=== PATIENT | female | born 1935 | race African-American/Black ===

== ENCOUNTER 2018-01-09 13:45 | Inpatient (IN) | payer MEDICARE, OTHER ==
[~2018-01-09] VITALS: Ht 165.1 cm; Wt 75.3 kg
[~2018-01-09 13:45] MED LIST: ACETAMINOPHEN650 M2 ORAL; ALLOPURINOL100 M1 ORAL; AMARYL1 MG ORAL; AMARYL1 MG PO; AMBIEN10 MG PO; AMBIEN5 MG ORAL; ASPIR-LOW81 MG PO; ATROPINE 1% LEFT EYE; COLACE100 MG ORAL; COLACE100 MG PO; COUMADIN5 MG ORAL; COUMADIN5 MG PO; CYCLOMYDRIL EYE5 ML OP; DIAMOX250 MG ORAL; DIAMOX250 MG PO; EYE LEFT EYE; FOLIC ACID1 MG ORAL; FOLIC ACID1 MG PO; FUROSEMIDE40 MG ORAL; HYDROCODON-ACE1 EAC4 ORAL; KLOR-CON20 MEQ PO; LANTUS5 UNITS *; LASIX40 MG PO; LEVAQUIN500 MG ORAL; LEVEMIR FL100 UNIT/1 SUBQ; LOPRESSOR100 MG PO; LOPRESSOR25 M1 ORAL; LORATADINE10 M1 PO; MICARDIS80 MG PO; NEPHROVITE1 TAB ORAL; NEPHROVITE1 TAB PO; NEXIUM40 MG ORAL; NEXIUM40 MG PO; NORCO 5-325 TA1 EAC1 ORAL; NORVASC10 MG PO; PRAVACHOL20 MG ORAL; PRAVASTATIN SOD80 MG PO; PREDNISOLONE ACE5 ML LEFT EYE; PROMETHAZINE-C118 M1 ORAL; PROTONIX40 MG ORAL; TUSSIN100 MG/51 PO; VICODIN ES 7.51 EACH PO; VIT D2; WARFARIN SODIUM1 MG ORAL; XARELTO10 MG ORAL; ZYLOPRIM300 MG PO; ZYRTEC10 MG PO
[2018-01-09] MEDS ORDERED: Surgicel 4in x 8in TOPIC ONE (13:49)
[2018-01-09 14:00] VITALS: BP 124/72
[2018-01-09 16:00] VITALS: BP 150/79
[2018-01-09] MEDS ORDERED: Tranexamic Acid 1,000 MG in NS 55 ML IVPB ONE (16:00)
[2018-01-09 16:24] LABS: ANION GAP 11 mmol/L (5-15); BLOOD UREA NITROGEN 89 mg/dL (7-18); CALCIUM 8.7 MG/DL (8.5-10.1); CARBON DIOXIDE 32 MMOL/L (21-32); CHLORIDE 100 MMOL/L (98-107); CREATININE 2.4 MG/DL (0.55-1.30); POTASSIUM 2.9 MMOL/L (3.5-5.1); SODIUM 143 MMOL/L (136-145)
[2018-01-09 16:29] LABS: ALANINE AMINOTRANSFERASE 16 U/L (12-78); ALBUMIN 2.9 G/DL (3.4-5.0); ALBUMIN/GLOBULIN RATIO 0.6 (1.0-2.7); ALKALINE PHOSPHATASE 95 U/L (46-116); ASPARTATE AMINO TRANSFERASE 40 U/L (15-37)
[2018-01-09 16:34] LABS: BASOPHILS % (AUTO) 0.7 % (0.0-2.0); EOSINOPHILS % (AUTO) 1.9 % (0.0-3.0); HEMATOCRIT 36.7 % (37.0-47.0); HEMOGLOBIN 11.8 G/DL (12.0-16.0); LYMPHOCYTES % (AUTO) 15.6 % (20.0-45.0); MEAN CORPUSCULAR VOLUME 89 FL (80-99); MONOCYTES % (AUTO) 7.3 % (1.0-10.0); NEUTROPHILS % (AUTO) 74.5 % (45.0-75.0); PLATELET COUNT 178 K/UL (150-450); RED BLOOD COUNT 4.11 M/UL (4.20-5.40); RED CELL DISTRIBUTION WIDTH 16.6 % (11.6-14.8); WHITE BLOOD COUNT 10.6 K/UL (4.8-10.8)
[2018-01-09 16:52] LABS: INR 5.2 (0.9-1.1)
--- NOTE | 2018-01-09 18:14 | Emergency Room Report ---
History of Present Illness General Chief Complaint: General Complaint Source: EMS Present Illness HPI Patient is a 82-year-old female presented after increased bleeding from a tongue laceration. Patient stated that she did not recall how injury occurred. Patient is chronically anticoagulated with Coumadin. Patient was sent in from shelter. The patient reported having bitten her tongue. She was noted to have continued bleeding from the side of her wound. Patient is followed by Dr. Goss. Allergies: Coded Allergies: No Known Allergies (Unverified , 08/29/12) Patient History Reviewed Nursing Documentation: PMH: Agreed, PSxH: Agreed Nursing Documentation-PMH Past Medical History: No History, Except For Hx Cardiac Problems: Yes - AFIB, CHF, ANEMIA Hx Hypertension: Yes Hx Pacemaker: No Hx Asthma: No Hx COPD: No Hx Diabetes: Yes Hx Cancer: No - RA Hx Gastrointestinal Problems: No Hx Dialysis: No Hx Cerebrovascular Accident: Yes Hx Seizures: No Hx Paralysis: No Hx Weakness: Yes - LEFT Hx Neurologic Surgery: No Hx Brain Shunt: No Review of Systems All Other Systems: negative except mentioned in HPI Physical Exam Vital Signs Date Time Temp Pulse Resp B/P (MAP) Pulse Ox O2 Delivery O2 Flow Rate FiO2 01/09/18 13:38 98.2 81 20 124/72 96 Room Air 98.2 Sp02 EP Interpretation: reviewed, normal General Appearance: normal inspection, well appearing, no apparent distress, alert, Chronically Ill Head: atraumatic ENT: normal ENT inspection, hearing grossly normal, normal voice, other Neck: normal inspection, full range of motion, supple, no bony tend Respiratory: normal inspection, lungs clear, normal breath sounds, no respiratory distress, no retraction, no wheezing Cardiovascular #1: regular rate, rhythm, no edema Gastrointestinal: normal inspection, normal bowel sounds, non tender, soft, no guarding, no hernia Genitourinary: no CVA tenderness Musculoskeletal: normal inspection, back normal, normal range of motion Neurologic: normal inspection, alert, responsive, speech normal Psychiatric: normal inspection, judgement/insight normal, mood/affect normal Skin: normal inspection, normal color, no rash Medical Decision Making Diagnostic Impression: Primary Impression: Atrial fibrillation Additional Impression: Coagulopathy ER Course Patient is an 82-year-old female presented for tongue bleeding.Because of complexity of patient's case laboratory testing and imaging studies were ordered. Patient Surgicel was initially applied to the patient's tongue without any improvement in bleeding. Patient was given tranexamic acid topically applied to the wound with some improvement in bleeding. The patient was noted to have elevated INR. The patient is anticoagulated due to atrial fibrillation. The patient's Coumadin dose needs to be held. Patient's laboratory testing was discussed with her primary care physician Dr. Goss. Labs Test 01/09/18 15:45 01/09/18 16:00 White Blood Count 10.6 K/UL (4.8-10.8) Red Blood Count 4.11 M/UL (4.20-5.40) Hemoglobin 11.8 G/DL (12.0-16.0) Hematocrit 36.7 % (37.0-47.0) Mean Corpuscular Volume 89 FL (80-99) Mean Corpuscular Hemoglobin 28.8 PG (27.0-31.0) Mean Corpuscular Hemoglobin Concent 32.2 G/DL (32.0-36.0) Red Cell Distribution Width 16.6 % (11.6-14.8) Platelet Count 178 K/UL (150-450) Mean Platelet Volume 7.8 FL (6.5-10.1) Neutrophils (%) (Auto) 74.5 % (45.0-75.0) Lymphocytes (%) (Auto) 15.6 % (20.0-45.0) Monocytes (%) (Auto) 7.3 % (1.0-10.0) Eosinophils (%) (Auto) 1.9 % (0.0-3.0) Basophils (%) (Auto) 0.7 % (0.0-2.0) Sodium Level 143 MMOL/L (136-145) Potassium Level 2.9 MMOL/L (3.5-5.1) Chloride Level 100 MMOL/L (98-107) Carbon Dioxide Level 32 MMOL/L (21-32) Anion Gap 11 mmol/L (5-15) Blood Urea Nitrogen 89 mg/dL (7-18) Creatinine 2.4 MG/DL (0.55-1.30) Estimat Glomerular Filtration Rate mL/min (>60) Glucose Level 144 MG/DL (74-106) Calcium Level 8.7 MG/DL (8.5-10.1) Total Bilirubin 1.0 MG/DL (0.2-1.0) Aspartate Amino Transf (AST/SGOT) 40 U/L (15-37) Alanine Aminotransferase (ALT/SGPT) 16 U/L (12-78) Alkaline Phosphatase 95 U/L (46-116) Total Protein 7.4 G/DL (6.4-8.2) Albumin 2.9 G/DL (3.4-5.0) Globulin 4.5 g/dL Albumin/Globulin Ratio 0.6 (1.0-2.7) Prothrombin Time 55.0 SEC (9.30-11.50) Prothromb Time International Ratio 5.2 (0.9-1.1) Activated Partial Thromboplast Time 58 SEC (23-33) Last Vital Signs Date Time Temp Pulse Resp B/P (MAP) Pulse Ox O2 Delivery O2 Flow Rate FiO2 01/09/18 14:00 98.2 75 20 124/72 96 Room Air 98.2 Status: unchanged Disposition: ADMITTED INPATIENT Condition: Serious Referrals: Azucena Goss MD (PCP) Wayne Tello Jan 09, 2018 18:14
[2018-01-09 18:51] LABS: APPEARANCE,URINE CLEAR; BILIRUBIN, URINE NEGATIVE (NEGATIVE); COLOR,URINE PALE YELLOW; GLUCOSE, URINE (UA) NEGATIVE (NEGATIVE); KETONES,URINE NEGATIVE (NEGATIVE); LEUKOCYTE ESTERASE ,URINE NEGATIVE (NEGATIVE); NITRITE,URINE NEGATIVE (NEGATIVE); PH,URINE 6 (4.5-8.0); PROTEIN,URINE 3+ (NEGATIVE); UROBILINOGEN,URINE NORMAL MG/DL (0.0-1.0)
--- NOTE | 2018-01-09 19:28 | Consultation ---
Consult Note Consult Note asked to eval for renal failure Patient is a 82-year-old female presented after increased bleeding from a tongue laceration. Patient stated that she did not recall how injury occurred. Patient is chronically anticoagulated with Coumadin. Patient was sent in from longterm. The patient reported having bitten her tongue. She was noted to have continued bleeding from the side of her wound. Patient is followed by Dr. Goss. Hx Cardiac Problems: Yes - AFIB, CHF, ANEMIA Hx Hypertension: Yes Hx Diabetes: Yes Hx Cancer: No - RA Hx Cerebrovascular Accident: Yes Hx Weakness: Yes - LEFT examined data reviewed Assessment/Plan Renal failure - Pre renal picture- Anemia At Fib chronic on coumadin Elevated INR Left eye blind' HTN Gout High Chol CAD CHF Slow hydrate K sypplement monitor INR ENT eval keep bp in check per orders SUGEY PETERSON Jan 09, 2018 19:28
[2018-01-09 19:30] VITALS: BP 145/78
[2018-01-09] MEDS ORDERED: HydrALAZINE 25mg tab ORAL PRN (19:30)
[2018-01-09 20:40] VITALS: BP 148/74
[2018-01-09 21:00] VITALS: BP 136/84
[2018-01-09] MEDS ORDERED: Zolpidem 5mg tab ORAL PRN (21:00)
[2018-01-09] MEDS: Metoprolol 25mg tab ORAL SCH (22:15)
[2018-01-10] VITALS: BP 131/65
[2018-01-10 04:00] VITALS: BP 121/61
[2018-01-10] MEDS: NovoLOG Insulin Flexpen SUBQ SCH ×4 (06:52→20:21)
[2018-01-10 08:01] VITALS: BP 136/76
[2018-01-10] MEDS: Metoprolol 25mg tab ORAL SCH ×2 (08:03→20:23)
[2018-01-10] MEDS: Allopurinol 100mg Tab ORAL SCH (08:03)
[2018-01-10] MEDS: Docusate 100mg cap ORAL SCH ×3 (08:03→17:59)
[2018-01-10 08:17] LABS: INR 3.8 (0.9-1.1)
[2018-01-10 08:41] LABS: ALANINE AMINOTRANSFERASE 15 U/L (12-78); ALBUMIN 2.6 G/DL (3.4-5.0); ALBUMIN/GLOBULIN RATIO 0.6 (1.0-2.7); ALKALINE PHOSPHATASE 86 U/L (46-116); ANION GAP 10 mmol/L (5-15); ASPARTATE AMINO TRANSFERASE 24 U/L (15-37); BASOPHILS % (AUTO) 0.8 % (0.0-2.0); BILIRUBIN,TOTAL 1.1 MG/DL (0.2-1.0); BLOOD UREA NITROGEN 80 mg/dL (7-18); CALCIUM 8.6 MG/DL (8.5-10.1); CARBON DIOXIDE 32 MMOL/L (21-32); CHLORIDE 103 MMOL/L (98-107); CHOLESTEROL 108 MG/DL (< 200); CREATININE 2.2 MG/DL (0.55-1.30); EOSINOPHILS % (AUTO) 2.2 % (0.0-3.0); FERRITIN 248 NG/ML (8-388); GAMMA GLUTAMYL TRANSPEPTIDASE 21 U/L (5-85); HDL CHOLESTEROL 52 MG/DL (40-60); HEMATOCRIT 36.2 % (37.0-47.0); HEMOGLOBIN 11.2 G/DL (12.0-16.0); LYMPHOCYTES % (AUTO) 14.8 % (20.0-45.0); MEAN CORPUSCULAR VOLUME 91 FL (80-99); MONOCYTES % (AUTO) 8.9 % (1.0-10.0); NEUTROPHILS % (AUTO) 73.3 % (45.0-75.0); PHOSPHORUS 3.5 MG/DL (2.5-4.9); PLATELET COUNT 164 K/UL (150-450); RED BLOOD COUNT 3.99 M/UL (4.20-5.40); RED CELL DISTRIBUTION WIDTH 17.2 % (11.6-14.8); SODIUM 145 MMOL/L (136-145); TRIGLYCERIDES 60 MG/DL (30-150)
[2018-01-10 09:03] LABS: POTASSIUM 2.6 MMOL/L (3.5-5.1)
[2018-01-10 09:04] LABS: BILIRUBIN,DIRECT 0.3 MG/DL (0.0-0.3)
[2018-01-10 09:21] LABS: % IRON SATURATION 26 % (15-50); IRON 51 ug/dL (50-175); TOTAL IRON BINDING CAPACITY 195 ug/dL (250-450)
--- NOTE | 2018-01-10 09:57 | General Progress Note ---
Progress Note Progress Note HNS/ENT Initial consult Note dictated No bleeding for many hours as coagulopathy has been normalized. Per ENT-OK to go home Nurse is aware-we spoke. AZAR RASMUSSEN Jan 10, 2018 09:57
[2018-01-10] MEDS ORDERED: Potassium Chloride 40 MEQ in Sodium Chloride 500ML 550 ML IVPB ONE (10:30)
--- NOTE | 2018-01-10 11:20 | Nephrology Progress Note ---
Assessment/Plan Problem List: (1) Acute renal failure (ARF) (2) Coagulopathy Assessment Renal failure - Pre renal picture- Anemia At Fib chronic on coumadin Elevated INR, lowering Left eye blind' HTN Gout High Chol CAD CHF Plan Slow hydrate K supplement monitor INR ENT eval keep bp in check per orders Subjective ROS Limited/Unobtainable: No Constitutional: Reports: malaise Objective Objective Last 24 Hour Vital Signs Date Time Temp Pulse Resp B/P (MAP) Pulse Ox O2 Delivery O2 Flow Rate FiO2 01/10/18 08:03 95 136/76 01/10/18 08:02 95 136/76 01/10/18 08:01 97.7 95 18 136/76 96 Room Air 97.7 01/10/18 07:44 94 01/10/18 04:00 98.1 90 18 121/61 96 Room Air 98.1 01/10/18 04:00 80 01/10/18 00:00 86 01/10/18 00:00 97.7 82 22 131/65 98 Room Air 97.7 01/09/18 22:15 101 136/84 01/09/18 21:00 98.2 101 20 136/84 97 Room Air 98.2 01/09/18 20:59 87 01/09/18 20:50 98.4 79 17 148/74 96 Room Air 98.4 01/09/18 20:40 98.4 79 17 148/74 96 Room Air 98.4 01/09/18 19:30 84 19 145/78 97 Room Air 01/09/18 16:00 98.6 89 20 150/79 95 Room Air 98.6 01/09/18 14:00 98.2 75 20 124/72 96 Room Air 98.2 01/09/18 13:38 98.2 81 20 124/72 96 Room Air 98.2 Intake and Output 01/09/18 01/10/18 19:00 07:00 Intake Total 0 ml 280 ml Balance 0 ml 280 ml Intake Oral 0 ml 100 ml IV Total 180 ml # Voids 20 Laboratory Tests 01/09/18 15:45: White Blood Count 10.6, Red Blood Count 4.11L, Hemoglobin 11.8L, Hematocrit 36.7L, Mean Corpuscular Volume 89, Mean Corpuscular Hemoglobin 28.8, Mean Corpuscular Hemoglobin Concent 32.2, Red Cell Distribution Width 16.6H, Platelet Count 178, Mean Platelet Volume 7.8, Neutrophils (%) (Auto) 74.5, Lymphocytes (%) (Auto) 15.6L, Monocytes (%) (Auto) 7.3, Eosinophils (%) (Auto) 1.9, Basophils (%) (Auto) 0.7, Sodium Level 143, Potassium Level 2.9L, Chloride Level 100, Carbon Dioxide Level 32, Anion Gap 11, Blood Urea Nitrogen 89H, Creatinine 2.4H, Estimat Glomerular Filtration Rate , Glucose Level 144H, Calcium Level 8.7, Total Bilirubin 1.0, Aspartate Amino Transf (AST/SGOT) 40H, Alanine Aminotransferase (ALT/SGPT) 16, Alkaline Phosphatase 95, Total Protein 7.4, Albumin 2.9L, Globulin 4.5, Albumin/Globulin Ratio 0.6L 01/09/18 16:00: Prothrombin Time 55.0H, Prothromb Time International Ratio 5.2*H, Activated Partial Thromboplast Time 58H 01/09/18 18:35: Urine Color Pale yellow, Urine Appearance Clear, Urine pH 6, Urine Specific [place] 1.010, Urine Protein 3+H, Urine Glucose (UA) Negative, Urine Ketones Negative, Urine Occult Blood Negative, Urine Nitrite Negative, Urine Bilirubin Negative, Urine Urobilinogen Normal, Urine Leukocyte Esterase Negative, Urine RBC 0-2, Urine WBC 2-4, Urine Squamous Epithelial Cells Few, Urine Bacteria Few , Urine Yeast FewH 01/10/18 06:57: White Blood Count 10.0, Red Blood Count 3.99L, Hemoglobin 11.2L, Hematocrit 36.2L, Mean Corpuscular Volume 91, Mean Corpuscular Hemoglobin 28.1, Mean Corpuscular Hemoglobin Concent 30.9L, Red Cell Distribution Width 17.2H, Platelet Count 164, Mean Platelet Volume 8.8, Neutrophils (%) (Auto) 73.3, Lymphocytes (%) (Auto) 14.8L, Monocytes (%) (Auto) 8.9, Eosinophils (%) (Auto) 2.2, Basophils (%) (Auto) 0.8, Sodium Level 145, Potassium Level 2.6*L, Chloride Level 103, Carbon Dioxide Level 32, Anion Gap 10, Blood Urea Nitrogen 80H, Creatinine 2.2H, Estimat Glomerular Filtration Rate , Glucose Level 134H, Calcium Level 8.6, Total Bilirubin 1.1H, Aspartate Amino Transf (AST/SGOT) 24, Alanine Aminotransferase (ALT/SGPT) 15, Alkaline Phosphatase 86, Total Protein 6.8, Albumin 2.6L, Globulin 4.2, Albumin/Globulin Ratio 0.6L, Prothrombin Time 40.3H, Prothromb Time International Ratio 3.8H, Activated Partial Thromboplast Time 54H, Hemoglobin A1c 6.8H, Uric Acid 5.6, Phosphorus Level 3.5, Magnesium Level 1.6L, Iron Level 51, Total Iron Binding Capacity 195L, Percent Iron Saturation 26, Unsaturated Iron Binding 144, Ferritin 248, Direct Bilirubin 0.3 , Gamma Glutamyl Transpeptidase 21, Pro-B-Type Natriuretic Peptide 4307H, Triglycerides Level 60, Cholesterol Level 108, LDL Cholesterol 55, HDL Cholesterol 52, Cholesterol/HDL Ratio 2.1L, Vitamin B12 Level 1566H, Folate 89.6H, Thyroid Stimulating Hormone (TSH) 1.244 Height (Feet): 5 Height (Inches): 5.00 Weight (Pounds): 166 General Appearance: no apparent distress Cardiovascular: tachycardia Respiratory/Chest: decreased breath sounds Abdomen: soft Objective no change SUGEY PETERSON Jan 10, 2018 11:20
--- NOTE | 2018-01-10 12:00 | Consultation ---
DATE OF CONSULTATION: 01/10/2018 HEAD AND NECK SURGERY/ENT CONSULTATION REQUESTING PHYSICIAN: Azucena Goss M.D. CONSULTING PHYSICIAN: Behzad Alegria M.D. INDICATION FOR CONSULTATION: This is an 82-year-old female, who had tongue bleeding, admitted to the ER last night with an INR of 5.5 and a potassium of 2.2, both of which have been corrected. PAST MEDICAL HISTORY: Atrial fibrillation, congestive heart failure, and anemia. She did have a cerebrovascular accident. SURGICAL HISTORY: Unknown. MEDICATIONS: Include potassium, allopurinol, Norvasc, Colace, Protonix, NovoLog, Fields, Tylenol, dextrose, Lopressor, Pravachol, Ambien, Apresoline, and tranexamic acid. ALLERGIES: No known drug allergies. PHYSICAL EXAMINATION: VITAL SIGNS: Height 161.1 cm, weight 75.296 kg, and BMI 27.6. HEENT: Ears, ear canal and tympanic membrane normal. Eyes, PERRLA, EOMI. Nose, normal. Mouth, she is missing a tooth on the left, looks like her second molar and there was a small cut that is scabbed over the moment on her tongue, which I suspect is where the bleeding was coming from. I do not see any other sites. She is speaking well. NECK: No palpable masses. ASSESSMENT: Coagulopathy and tongue hemorrhage, controlled. PLAN: From an ENT viewpoint, she can be discharged. Just has to control the coagulopathy by controlling her Coumadin and it appears that Dr. Goss, is already is on this as well as controlling her potassium. Thank you very much for asking my opinion in the care and treatment of this patient. Behzad Alegria M.D. : MARILU JOB#: [id number] CC:
[2018-01-10 12:16] VITALS: BP 122/60
--- NOTE | 2018-01-10 16:09 | GI Initial Consult Note ---
KeishaBerna Franck N.P. 01/10/18 1609: History of Present Illness General Date patient seen: Jan 10, 2018 Time patient seen: 16:00 Reason for Hospitalization: General Complaint Referring physician: BENNY GOSS Reason for Consultation: GI BLEED Present Illness HPI Patient is a 82-year-old female presented after increased bleeding from a tongue laceration. Patient stated that she did not recall how injury occurred. Patient is chronically anticoagulated with Coumadin. Patient was sent in from shelter. The patient reported having bitten her tongue. She was noted to have continued bleeding from the side of her wound. Patient is followed by Dr. Goss. GI consulted for reports of black tarry stools, r/o GI bleed. Pt seen, awake A &Ox4 NAD with no active s/sx of of N/V/D. Per patient, she had bitten her tongue and had excessive bleeding that would not stop. Assessed the patient to note no active bleeding inside her mouth. She presents today with supratherapeutic INR, anemia, electrolyte imbalance and hypoalbuminemia. Denies any abdominal pain. Denies any N/V/D. Home Meds Active Scripts Docusate Sodium* (COLACE*) 100 Mg Capsule, 100 MG ORAL THREE TIMES A DAY, #30 CAP 0 Refills Prov:NA MCPHERSON DDiegoODiego 09/06/13 Reported Medications Insulin Detemir (LEVEMIR FLEXPEN) 100 Unit/1 Ml Insuln.pen, 0 SUBQ, #300 UNITS 0 Refills 03/24/16 Hydrocodone Bit/Acetaminophen 5-325* (NORCO 5-325 TABLET*) 1 Each Tablet, 1 TAB ORAL Q4H PRN for For Pain, TAB 03/24/16 Esomeprazole Magnesium (NEXIUM) 40 Mg Capsule.dr, 40 MG ORAL DAILY, CAP 03/24/16 Vitamin B Cmplx/Vit C/Folic AC (Nephro-Sean Tablet) 1 Tab Tab, 1 TAB ORAL DAILY , #30 TAB 0 Refills 03/24/16 Loratadine (LORATADINE) 10 Mg Tab.rapdis, 10 MG PO, TAB 03/24/16 Metoprolol Tartrate (Metoprolol Tartrate) 25 Mg Tab, 100 MG ORAL EVERY 12 HOURS , TAB 03/24/16 Furosemide* (LASIX*) 40 Mg Tablet, 40 MG ORAL DAILY, TAB 03/24/16 Folic Acid* (FOLIC ACID*) 1 Mg Tablet, 1 MG ORAL DAILY, TAB 03/24/16 Acetazolamide (Acetazolamide) 250 Mg Tab, 500 MG ORAL FOUR TIMES A DAY, TAB 03/24/16 Warfarin Sod* (COUMADIN*) 5 Mg Tablet, 5 MG ORAL DAILY, TAB 03/24/16 Glimepiride* (AMARYL*) 1 Mg Tablet, 2 MG ORAL ACBREAKFAST, TAB 03/24/16 Codeine/Promethazine Hcl* (PROMETHAZINE-CODEINE SYRUP*) 118 Ml Syrup, 5 ML ORAL Q6H PRN for For Cough, ML 0 Refills 03/12/15 Pravastatin Sod* (PRAVACHOL*) 20 Mg Tablet, 40 MG ORAL BEDTIME, TAB 03/12/15 Pantoprazole* (PROTONIX*) 40 Mg Tablet.dr, 40 MG ORAL DAILY, TAB 03/12/15 Levofloxacin* (LEVAQUIN*) 500 Mg Tablet, 500 MG ORAL DAILY, TAB 03/12/15 Allopurinol* (ALLOPURINOL*) 100 Mg Tablet, 200 MG ORAL DAILY, TAB 03/12/15 Acetaminophen (Acetaminophen 8 Hour) 650 Mg Tablet, 650 MG ORAL Q4HR PRN for prn , TAB 03/12/15 Rivaroxaban (XARELTO*) 10 Mg Tablet, 15 MG ORAL DAILY, #30 TAB 0 Refills 03/12/15 Zolpidem Tartrate* (AMBIEN*) 5 Mg Tablet, 5 MG ORAL BEDTIME PRN for Insomnia, TAB 03/12/15 [Vit D2] No Conflict Check 09/06/13 Amlodipine Besylate (Norvasc) 10 Mg Tab, 10 MG PO DAILY, TAB Take 1 tablet by mouth every day. 08/29/12 Prednisolone Acetate (PREDNISOLONE ACETATE) 5 Ml Drops.susp, 1 DROP LEFT EYE 4XDAY 08/29/12 Metoprolol Tartrate* (METOPROLOL TARTRATE*) 100 Mg Tablet, 100 MG PO BID, TAB Take 1 tablet by mouth every 12 hours. 08/29/12 Med list reviewed/reconciled: Yes Allergies: Coded Allergies: No Known Allergies (Unverified , 08/29/12) Patient History History Provided By: Patient, Medical Record [facility] Narrative Past Medical History: No History, Except For Hx Cardiac Problems: Yes - AFIB, CHF, ANEMIA Hx Hypertension: Yes Hx Pacemaker: No Hx Asthma: No Hx COPD: No Hx Diabetes: Yes Hx Cancer: No - RA Hx Gastrointestinal Problems: No Hx Dialysis: No Hx Cerebrovascular Accident: Yes Hx Seizures: No Hx Paralysis: No Hx Weakness: Yes - LEFT Hx Neurologic Surgery: No Hx Brain Shunt: No Social History: Denies: smoking, alcohol use, drug use, other Review of Systems All Other Systems: negative except mentioned in HPI Physical Exam Vital Signs Date Time Temp Pulse Resp B/P (MAP) Pulse Ox O2 Delivery O2 Flow Rate FiO2 01/09/18 13:38 98.2 81 20 124/72 96 Room Air 98.2 Sp02 EP Interpretation: reviewed, normal Labs Laboratory Tests Test 01/09/18 18:35 01/10/18 06:57 Urine Color Pale yellow Urine Appearance Clear Urine pH 6 (4.5-8.0) Urine Specific [place] 1.010 (1.005-1.035) Urine Protein 3+ (NEGATIVE) H Urine Glucose (UA) Negative (NEGATIVE) Urine Ketones Negative (NEGATIVE) Urine Occult Blood Negative (NEGATIVE) Urine Nitrite Negative (NEGATIVE) Urine Bilirubin Negative (NEGATIVE) Urine Urobilinogen Normal MG/DL (0.0-1.0) Urine Leukocyte Esterase Negative (NEGATIVE) Urine RBC 0-2 /HPF (0 - 2) Urine WBC 2-4 /HPF (0 - 2) Urine Squamous Epithelial Cells Few /LPF (NONE/OCC) Urine Bacteria Few /HPF (NONE) Urine Yeast Few /HPF (NONE) H White Blood Count 10.0 K/UL (4.8-10.8) Red Blood Count 3.99 M/UL (4.20-5.40) L Hemoglobin 11.2 G/DL (12.0-16.0) L Hematocrit 36.2 % (37.0-47.0) L Mean Corpuscular Volume 91 FL (80-99) Mean Corpuscular Hemoglobin 28.1 PG (27.0-31.0) Mean Corpuscular Hemoglobin Concent 30.9 G/DL (32.0-36.0) L Red Cell Distribution Width 17.2 % (11.6-14.8) H Platelet Count 164 K/UL (150-450) Mean Platelet Volume 8.8 FL (6.5-10.1) Neutrophils (%) (Auto) 73.3 % (45.0-75.0) Lymphocytes (%) (Auto) 14.8 % (20.0-45.0) L Monocytes (%) (Auto) 8.9 % (1.0-10.0) Eosinophils (%) (Auto) 2.2 % (0.0-3.0) Basophils (%) (Auto) 0.8 % (0.0-2.0) Prothrombin Time 40.3 SEC (9.30-11.50) H Prothromb Time International Ratio 3.8 (0.9-1.1) H Activated Partial Thromboplast Time 54 SEC (23-33) H Sodium Level 145 MMOL/L (136-145) Potassium Level 2.6 MMOL/L (3.5-5.1) *L Chloride Level 103 MMOL/L (98-107) Carbon Dioxide Level 32 MMOL/L (21-32) Anion Gap 10 mmol/L (5-15) Blood Urea Nitrogen 80 mg/dL (7-18) H Creatinine 2.2 MG/DL (0.55-1.30) H Estimat Glomerular Filtration Rate mL/min (>60) Glucose Level 134 MG/DL (74-106) H Hemoglobin A1c 6.8 % (4.3-6.0) H Uric Acid 5.6 MG/DL (2.6-7.2) Calcium Level 8.6 MG/DL (8.5-10.1) Phosphorus Level 3.5 MG/DL (2.5-4.9) Magnesium Level 1.6 MG/DL (1.8-2.4) L Iron Level 51 ug/dL (50-175) Total Iron Binding Capacity 195 ug/dL (250-450) L Percent Iron Saturation 26 % (15-50) Unsaturated Iron Binding 144 ug/dL (112-346) Ferritin 248 NG/ML (8-388) Total Bilirubin 1.1 MG/DL (0.2-1.0) H Direct Bilirubin 0.3 MG/DL (0.0-0.3) Gamma Glutamyl Transpeptidase 21 U/L (5-85) Aspartate Amino Transf (AST/SGOT) 24 U/L (15-37) Alanine Aminotransferase (ALT/SGPT) 15 U/L (12-78) Alkaline Phosphatase 86 U/L (46-116) C-Reactive Protein, Quantitative 2.5 mg/dL (0.00-0.90) H Pro-B-Type Natriuretic Peptide 4307 pg/mL (0-125) H Total Protein 6.8 G/DL (6.4-8.2) Albumin 2.6 G/DL (3.4-5.0) L Globulin 4.2 g/dL Albumin/Globulin Ratio 0.6 (1.0-2.7) L Triglycerides Level 60 MG/DL (30-150) Cholesterol Level 108 MG/DL (< 200) LDL Cholesterol 55 mg/dL (<100) HDL Cholesterol 52 MG/DL (40-60) Cholesterol/HDL Ratio 2.1 (3.3-4.4) L Vitamin B12 Level 1566 PG/ML (193-986) H Folate 89.6 NG/ML (8.6-58.9) H Thyroid Stimulating Hormone (TSH) 1.244 uiU/mL (0.358-3.740) General Appearance: well appearing, no apparent distress, alert Head: normocephalic EENT: PERRL/EOMI, normal ENT inspection Neck: supple Respiratory: normal breath sounds, no respiratory distress Cardiovascular: normal rate Gastrointestinal: normal inspection, non tender, soft, normal bowel sounds, non -distended Rectal: deferred Genitourinary: no CVA tenderness Musculoskeletal: normal inspection, back normal Neurologic: normal inspection, alert, oriented x3, responsive Psychiatric: normal inspection, judgement/insight normal, memory normal Skin: normal inspection, normal color, no rash, warm/dry, palpation normal, well hydrated Lymphatic: normal inspection, no adenopathy Current Medications Current Medications Medications (Trade) Dose Ordered Sig/Renan Route PRN Reason Start Time Stop Time Status Last Admin Dose Admin Acetaminophen (Tylenol) 650 mg Q4H PRN ORAL Mild Pain/Temp > 100.5 01/09/18 22:45 02/08/18 22:44 Acetaminophen/ Hydrocodone Bitart ([place] 5/325) 1 tab Q4H PRN ORAL Moderate Pain (Pain Scale 4-6) 01/09/18 22:45 01/16/18 22:44 Allopurinol (Zyloprim) 200 mg DAILY ORAL 01/10/18 09:00 02/09/18 08:59 01/10/18 08:03 Amlodipine Besylate (Norvasc) 10 mg DAILY ORAL 01/10/18 09:00 02/09/18 08:59 01/10/18 08:02 Dextrose (Dextrose 50%) STAT PRN IV Hypoglycemia 01/09/18 22:00 02/08/18 21:59 Docusate Sodium (Colace) 100 mg THREE TIMES A DAY ORAL 01/10/18 09:00 02/09/18 08:59 01/10/18 08:03 Hydralazine HCl (Apresoline) 25 mg Q4H PRN ORAL SBP > 160mmHg 01/09/18 19:30 02/08/18 19:29 Insulin Aspart (NovoLOG) BEFORE MEALS AND HS SUBQ 01/10/18 06:30 02/09/18 06:29 01/10/18 11:21 Metoprolol Tartrate (Lopressor) 100 mg EVERY 12 HOURS ORAL 01/09/18 21:00 02/08/18 20:59 01/10/18 08:03 Pantoprazole (Protonix) 40 mg DAILY ORAL 01/10/18 09:00 02/09/18 08:59 01/10/18 08:02 Potassium Chloride 30 meq/ Dextrose/Sodium Chloride 1,015 ml @ 50 mls/hr [id number] IV 01/09/18 21:30 02/08/18 21:29 01/09/18 22:15 Pravastatin Sodium (Pravachol) 40 mg BEDTIME ORAL 01/09/18 21:00 02/08/18 20:59 01/09/18 22:15 Zolpidem Tartrate (Ambien) 5 mg BEDTIME PRN ORAL Insomnia 01/09/18 21:00 01/16/18 20:59 GI: Plan Problems: (1) Anemia (2) Hemorrhage of tongue (3) Coagulopathy (4) Hypokalemia Plan defer GI procedures at this time >> black tarry stools most likely from tongue laceration, not GI bleed. anemia work up OB stool r/o GI bleed x 3 monitor H&H, prn transfusions bowel regime ppi adv diet as tolerated electrolyte correction correct INR fu labs Discussed with Dr. Brody. Thank you for this patient referral, we will follow. MARKIE BRODY 01/13/18 0912: History of Present Illness General Reason for Hospitalization: General Complaint Present Illness Home Meds Active Scripts Docusate Sodium* (COLACE*) 100 Mg Capsule, 100 MG ORAL THREE TIMES A DAY, #30 CAP 0 Refills Prov:NA MCPHERSON D.O. 09/06/13 Reported Medications Insulin Detemir (LEVEMIR FLEXPEN) 100 Unit/1 Ml Insuln.pen, 0 SUBQ, #300 UNITS 0 Refills 03/24/16 Hydrocodone Bit/Acetaminophen 5-325* (NORCO 5-325 TABLET*) 1 Each Tablet, 1 TAB ORAL Q4H PRN for For Pain, TAB 03/24/16 Esomeprazole Magnesium (NEXIUM) 40 Mg Capsule.dr, 40 MG ORAL DAILY, CAP 03/24/16 Vitamin B Cmplx/Vit C/Folic AC (Nephro-Sean Tablet) 1 Tab Tab, 1 TAB ORAL DAILY , #30 TAB 0 Refills 03/24/16 Loratadine (LORATADINE) 10 Mg Tab.rapdis, 10 MG PO, TAB 03/24/16 Metoprolol Tartrate (Metoprolol Tartrate) 25 Mg Tab, 100 MG ORAL EVERY 12 HOURS , TAB 03/24/16 Furosemide* (LASIX*) 40 Mg Tablet, 40 MG ORAL DAILY, TAB 03/24/16 Folic Acid* (FOLIC ACID*) 1 Mg Tablet, 1 MG ORAL DAILY, TAB 03/24/16 Acetazolamide (Acetazolamide) 250 Mg Tab, 500 MG ORAL FOUR TIMES A DAY, TAB 03/24/16 Warfarin Sod* (COUMADIN*) 5 Mg Tablet, 5 MG ORAL DAILY, TAB 03/24/16 Glimepiride* (AMARYL*) 1 Mg Tablet, 2 MG ORAL ACBREAKFAST, TAB 03/24/16 Codeine/Promethazine Hcl* (PROMETHAZINE-CODEINE SYRUP*) 118 Ml Syrup, 5 ML ORAL Q6H PRN for For Cough, ML 0 Refills 03/12/15 Pravastatin Sod* (PRAVACHOL*) 20 Mg Tablet, 40 MG ORAL BEDTIME, TAB 03/12/15 Pantoprazole* (PROTONIX*) 40 Mg Tablet.dr, 40 MG ORAL DAILY, TAB 03/12/15 Levofloxacin* (LEVAQUIN*) 500 Mg Tablet, 500 MG ORAL DAILY, TAB 03/12/15 Allopurinol* (ALLOPURINOL*) 100 Mg Tablet, 200 MG ORAL DAILY, TAB 03/12/15 Acetaminophen (Acetaminophen 8 Hour) 650 Mg Tablet, 650 MG ORAL Q4HR PRN for prn , TAB 03/12/15 Rivaroxaban (XARELTO*) 10 Mg Tablet, 15 MG ORAL DAILY, #30 TAB 0 Refills 03/12/15 Zolpidem Tartrate* (AMBIEN*) 5 Mg Tablet, 5 MG ORAL BEDTIME PRN for Insomnia, TAB 03/12/15 [Vit D2] No Conflict Check 09/06/13 Amlodipine Besylate (Norvasc) 10 Mg Tab, 10 MG PO DAILY, TAB Take 1 tablet by mouth every day. 08/29/12 Prednisolone Acetate (PREDNISOLONE ACETATE) 5 Ml Drops.susp, 1 DROP LEFT EYE 4XDAY 08/29/12 Metoprolol Tartrate* (METOPROLOL TARTRATE*) 100 Mg Tablet, 100 MG PO BID, TAB Take 1 tablet by mouth every 12 hours. 08/29/12 Allergies: Coded Allergies: No Known Allergies (Unverified , 08/29/12) GI: Plan Plan The patient was seen and examined at bedside and all new and available data was reviewed in the patients chart. I agree with the above findings, impression and plan. (Patient seen earlier today. Signature stamp does not reflect patient encounter time.). - [facility] Jan 10, 2018 16:09 MARKIE BRODY Jan 13, 2018 09:12
[2018-01-10 17:59] VITALS: BP 116/62
[2018-01-11] VITALS: BP 129/71
--- NOTE | 2018-01-11 03:30 | History and Physical Report ---
DATE OF ADMISSION: 01/09/2018 NOTE: POOR AUDIO HISTORY OF PRESENT ILLNESS: The patient is admitted for multiple reasons, initially for tongue laceration and bleeding, also severe hypokalemia. The patient also this morning had tarry black stools, most likely due to supratherapeutic INR. The patient is on Coumadin increase the risk of bleeding. The patient was [facility]. The previous INR was under control. The patient also does have history of chronic renal insufficiency as well as hypokalemia. The patient had profuse bleeding on the side of the tongue, Surgicel had to be placed. Dr. Alegria was also consulted. The patient's INR was 5.2 and potassium was 2.9. The patient denies any abdominal pain. Denies shortness of breath. Denies cough. Denies nausea, vomiting, or diarrhea. Denies any acute events. Denies any fever or chills. PAST MEDICAL HISTORY: Significant for blindness in one eye, cataracts, history of CVA, history of gout, hypertension, constipation, GERD, chronic renal insufficiency, NIDDM, allergic rhinitis, hypertension, hyperlipidemia, and history of atrial fibrillation. PAST SURGICAL HISTORY: Hysterectomy. MEDICATIONS: Diamox, Colace, Nexium, folic acid, Lasix, Amaryl, Levemir, metoprolol, Pravachol, and warfarin. ALLERGIES: No known allergies. SOCIAL HISTORY: Denies history of smoking, alcohol, or illicit drugs. Lives in a jail. FAMILY HISTORY: She does have history of diabetes and hypertension. REVIEW OF SYSTEMS: HEENT: Denies headaches. She has tongue bleeding since yesterday. RESPIRATORY: Denies shortness of breath. Denies cough. CARDIOVASCULAR: Denies chest pain. Denies orthopnea. GASTROINTESTINAL: Denies nausea, vomiting, or diarrhea. Denies abdominal pain. Denies rectal bleeding in the hospital, but this morning did have black tarry stools. CENTRAL NERVOUS SYSTEM: No change in vision or speech pattern. PHYSICAL EXAMINATION: VITAL SIGNS: Temperature is 98.1 degrees, pulse is 80, and blood pressure 121/61. HEENT: PERRLA. The patient has left eye blindness. CHEST: Clear to auscultation. CARDIOVASCULAR: Irregularly irregular. GASTROINTESTINAL: Soft, distended. Positive bowel sounds. No organomegaly. EXTREMITIES: A 1+ edema. Reflexes equal on both sides. Does have lower extremity weakness, which is chronic. NEUROLOGIC: Oriented x2. Reflexes equal on both sides. LABORATORY DATA: Initially, WBC of 10.6, hemoglobin 11.8, and platelets 178,000. Sodium 143, potassium 3.9, chloride 100, BUN of 89, creatinine 2.4, and glucose of 144. Albumin of 2.9. ASSESSMENT AND PLAN: 1. Tongue bleeding, stopped with pressure being applied and Surgicel. Dr. Alegria was consulted. 2. Severe hypokalemia as well as azotemia. Dr. Truong is on the case for those issues. 3. For the tarry black stools, I have consulted Dr. Guillen bleeding as well as Dr. Dhaliwal. We will also be following the patient along for the management of the bleeding as well as for possible endoscopy if warranted. Azucena Goss M.D. DR: Jaspreet JOB#: [id number] CC:
[2018-01-11 04:00] VITALS: BP 129/79
[2018-01-11] MEDS: NovoLOG Insulin Flexpen SUBQ SCH ×4 (06:30→21:00)
[2018-01-11 08:13] VITALS: BP 123/71
[2018-01-11] MEDS: Metoprolol 25mg tab ORAL SCH ×2 (08:26→21:00)
[2018-01-11] MEDS: Allopurinol 100mg Tab ORAL SCH (08:27)
[2018-01-11] MEDS: Docusate 100mg cap ORAL SCH ×3 (08:27→17:15)
--- NOTE | 2018-01-11 10:40 | GI Progress Note ---
Assessment/Plan Problems: (1) Anemia ICD Codes: D64.9 - Anemia, unspecified SNOMED: 047640024 (2) Hemorrhage of tongue ICD Codes: K14.8 - Other diseases of tongue SNOMED: 30406373 Status: stable Status Narrative Discussed with Dr. Guillen. Assessment/Plan defer GI procedures at this time >> black tarry stools most likely from tongue laceration, not GI bleed. anemia work up OB stool r/o GI bleed x 3 monitor H&H, prn transfusions bowel regime ppi adv diet as tolerated electrolyte correction correct INR fu labs The patient was seen and examined at bedside and all new and available data was reviewed in the patients chart. I agree with the above findings, impression and plan. (Patient seen earlier today. Signature stamp does not reflect patient encounter time.). - Ember Guillen MD Subjective Subjective wants to go home Objective Last 24 Hour Vital Signs Date Time Temp Pulse Resp B/P (MAP) Pulse Ox O2 Delivery O2 Flow Rate FiO2 01/11/18 08:26 93 123/71 01/11/18 08:26 93 123/71 01/11/18 08:13 97.2 93 18 123/71 97 Room Air 97.2 01/11/18 08:00 89 01/11/18 04:00 98.2 84 20 129/79 100 Room Air 98.2 01/11/18 04:00 86 01/11/18 00:00 82 01/11/18 00:00 99.5 100 18 129/71 96 Room Air 99.5 01/10/18 20:23 85 121/63 01/10/18 20:00 88 01/10/18 17:59 97.7 88 18 116/62 96 Room Air 97.7 01/10/18 16:00 84 01/10/18 12:16 97.7 99 18 122/60 96 Room Air 97.7 01/10/18 11:29 97 Intake and Output 01/10/18 01/11/18 19:00 07:00 Intake Total 902.5 ml 200 ml Output Total 200 ml 450 ml Balance 702.5 ml -250 ml Intake Oral 360 ml 200 ml IV Total 542.5 ml Output Urine Total 200 ml 450 ml Laboratory Tests Test 01/10/18 15:21 Stool Occult Blood Pending Height (Feet): 5 Height (Inches): 5.00 Weight (Pounds): 166 General Appearance: WD/WN, no apparent distress, alert Cardiovascular: normal rate Respiratory/Chest: normal breath sounds, no respiratory distress Abdominal Exam: normal bowel sounds, non tender, soft Extremities: normal range of motion, non-tender Berna Valdes N.P. Jan 11, 2018 10:40 MARKIE GUILLEN Jan 13, 2018 10:16
--- NOTE | 2018-01-11 10:41 | Nephrology Progress Note ---
Assessment/Plan Problem List: (1) Acute renal failure (ARF) (2) Coagulopathy Assessment Renal failure - Pre renal picture- Anemia At Fib chronic on coumadin Elevated INR, lowering Left eye blind' HTN Gout High Chol CAD CHF Plan today's labs pending Slow hydrate K supplement monitor INR ENT eval keep bp in check per orders Subjective ROS Limited/Unobtainable: No Constitutional: Reports: malaise Objective Objective Last 24 Hour Vital Signs Date Time Temp Pulse Resp B/P (MAP) Pulse Ox O2 Delivery O2 Flow Rate FiO2 01/11/18 08:26 93 123/71 01/11/18 08:26 93 123/71 01/11/18 08:13 97.2 93 18 123/71 97 Room Air 97.2 01/11/18 08:00 89 01/11/18 04:00 98.2 84 20 129/79 100 Room Air 98.2 01/11/18 04:00 86 01/11/18 00:00 82 01/11/18 00:00 99.5 100 18 129/71 96 Room Air 99.5 01/10/18 20:23 85 121/63 01/10/18 20:00 88 01/10/18 17:59 97.7 88 18 116/62 96 Room Air 97.7 01/10/18 16:00 84 01/10/18 12:16 97.7 99 18 122/60 96 Room Air 97.7 01/10/18 11:29 97 Intake and Output 01/10/18 01/11/18 19:00 07:00 Intake Total 902.5 ml 200 ml Output Total 200 ml 450 ml Balance 702.5 ml -250 ml Intake Oral 360 ml 200 ml IV Total 542.5 ml Output Urine Total 200 ml 450 ml Laboratory Tests 01/10/18 15:21: Stool Occult Blood [Pending] Height (Feet): 5 Height (Inches): 5.00 Weight (Pounds): 166 General Appearance: no apparent distress Objective no change SUGEY PETERSON Jan 11, 2018 10:41
[2018-01-11 11:27] LABS: BASOPHILS % (AUTO) 0.6 % (0.0-2.0); EOSINOPHILS % (AUTO) 2.3 % (0.0-3.0); HEMATOCRIT 37.3 % (37.0-47.0); HEMOGLOBIN 11.5 G/DL (12.0-16.0); LYMPHOCYTES % (AUTO) 12.6 % (20.0-45.0); MEAN CORPUSCULAR VOLUME 92 FL (80-99); MONOCYTES % (AUTO) 5.6 % (1.0-10.0); NEUTROPHILS % (AUTO) 78.9 % (45.0-75.0); PLATELET COUNT 187 K/UL (150-450); RED BLOOD COUNT 4.07 M/UL (4.20-5.40); RED CELL DISTRIBUTION WIDTH 17.5 % (11.6-14.8)
[2018-01-11 11:43] LABS: INR 3.1 (0.9-1.1)
[2018-01-11 11:58] LABS: ALANINE AMINOTRANSFERASE 16 U/L (12-78); ALBUMIN/GLOBULIN RATIO 0.7 (1.0-2.7); ALKALINE PHOSPHATASE 93 U/L (46-116); ANION GAP 6 mmol/L (5-15); ASPARTATE AMINO TRANSFERASE 26 U/L (15-37); BILIRUBIN,TOTAL 1.3 MG/DL (0.2-1.0); BLOOD UREA NITROGEN 67 mg/dL (7-18); CALCIUM 9.5 MG/DL (8.5-10.1); CARBON DIOXIDE 33 MMOL/L (21-32); CHLORIDE 105 MMOL/L (98-107); CREATININE 1.9 MG/DL (0.55-1.30); PHOSPHORUS 3.1 MG/DL (2.5-4.9); POTASSIUM 3.6 MMOL/L (3.5-5.1); SODIUM 144 MMOL/L (136-145)
[2018-01-11 12:00] VITALS: BP 107/72
[2018-01-11 12:19] LABS: BILIRUBIN,DIRECT 0.4 MG/DL (0.0-0.3)
[2018-01-11 16:00] VITALS: BP 148/75
--- NOTE | 2018-01-11 16:52 | General Progress Note ---
Assessment/Plan Problem List: (1) Hypokalemia ICD Codes: E87.6 - Hypokalemia SNOMED: 08568635 (2) Atrial fibrillation ICD Codes: I48.91 - Unspecified atrial fibrillation SNOMED: 23138922 (3) Hemorrhage of tongue ICD Codes: K14.8 - Other diseases of tongue SNOMED: 35878970 (4) Acute renal failure (ARF) ICD Codes: N17.9 - Acute renal failure (ARF) SNOMED: 19920637 Status: progressing Assessment/Plan tongue bleeding stopped supra therapeutic inr s/p black tarry stool s/p coumadin afebrile severe hypokalemia is improving Subjective ROS Limited/Unobtainable: Yes Allergies: Coded Allergies: No Known Allergies (Unverified , 08/29/12) Objective Last 24 Hour Vital Signs Date Time Temp Pulse Resp B/P (MAP) Pulse Ox O2 Delivery O2 Flow Rate FiO2 01/11/18 12:00 83 01/11/18 12:00 97.5 78 20 107/72 99 Room Air 97.5 01/11/18 08:26 93 123/71 01/11/18 08:26 93 123/71 01/11/18 08:13 97.2 93 18 123/71 97 Room Air 97.2 01/11/18 08:00 89 01/11/18 04:00 98.2 84 20 129/79 100 Room Air 98.2 01/11/18 04:00 86 01/11/18 00:00 82 01/11/18 00:00 99.5 100 18 129/71 96 Room Air 99.5 01/10/18 20:23 85 121/63 01/10/18 20:00 88 01/10/18 17:59 97.7 88 18 116/62 96 Room Air 97.7 Intake and Output 01/10/18 01/11/18 19:00 07:00 Intake Total 902.5 ml 200 ml Output Total 200 ml 450 ml Balance 702.5 ml -250 ml Intake Oral 360 ml 200 ml IV Total 542.5 ml Output Urine Total 200 ml 450 ml Laboratory Tests 01/11/18 10:45: White Blood Count 14.0H, Red Blood Count 4.07L, Hemoglobin 11.5L, Hematocrit 37.3, Mean Corpuscular Volume 92, Mean Corpuscular Hemoglobin 28.3, Mean Corpuscular Hemoglobin Concent 30.9L, Red Cell Distribution Width 17.5H, Platelet Count 187, Mean Platelet Volume 8.3, Neutrophils (%) (Auto) 78.9H, Lymphocytes (%) (Auto) 12.6L, Monocytes (%) (Auto) 5.6, Eosinophils (%) (Auto) 2.3, Basophils (%) (Auto) 0.6, Prothrombin Time 33.3H, Prothromb Time International Ratio 3.1H, Activated Partial Thromboplast Time 48H, Sodium Level 144, Potassium Level 3.6, Chloride Level 105, Carbon Dioxide Level 33H, Anion Gap 6, Blood Urea Nitrogen 67H, Creatinine 1.9H, Estimat Glomerular Filtration Rate , Glucose Level 208H, Uric Acid 4.9, Calcium Level 9.5, Phosphorus Level 3.1, Magnesium Level 2.4, Total Bilirubin 1.3H, Direct Bilirubin 0.4H, Aspartate Amino Transf (AST/SGOT) 26, Alanine Aminotransferase (ALT/SGPT) 16, Alkaline Phosphatase 93, Pro-B-Type Natriuretic Peptide 3682H, Total Protein 7.4 , Albumin 3.0L, Globulin 4.4, Albumin/Globulin Ratio 0.7L Height (Feet): 5 Height (Inches): 5.00 Weight (Pounds): 166 Respiratory/Chest: lungs clear Abdomen: soft Azucena Goss MD Jan 11, 2018 16:52
[2018-01-11 20:00] VITALS: BP 141/66
[2018-01-11] MEDS: Norco 5mg/325mg tab ORAL PRN (21:44)
[2018-01-12] VITALS: BP 119/62
[2018-01-12 04:00] VITALS: BP 123/61
[2018-01-12] MEDS: NovoLOG Insulin Flexpen SUBQ SCH ×4 (06:30→21:00)
[2018-01-12 08:00] VITALS: BP 141/81
[2018-01-12] MEDS: Docusate 100mg cap ORAL SCH ×3 (08:36→17:04)
[2018-01-12] MEDS: Metoprolol 25mg tab ORAL SCH ×2 (08:36→21:00)
[2018-01-12] MEDS: Allopurinol 100mg Tab ORAL SCH (08:36)
[2018-01-12 08:40] LABS: BASOPHILS % (AUTO) 0.6 % (0.0-2.0); EOSINOPHILS % (AUTO) 4.4 % (0.0-3.0); HEMATOCRIT 32.5 % (37.0-47.0); HEMOGLOBIN 10.1 G/DL (12.0-16.0); LYMPHOCYTES % (AUTO) 19.4 % (20.0-45.0); MEAN CORPUSCULAR VOLUME 92 FL (80-99); MONOCYTES % (AUTO) 8.9 % (1.0-10.0); NEUTROPHILS % (AUTO) 66.7 % (45.0-75.0); PLATELET COUNT 154 K/UL (150-450); RED BLOOD COUNT 3.53 M/UL (4.20-5.40); RED CELL DISTRIBUTION WIDTH 17.8 % (11.6-14.8); WHITE BLOOD COUNT 9.8 K/UL (4.8-10.8)
[2018-01-12 08:56] LABS: ANION GAP 8 mmol/L (5-15); BLOOD UREA NITROGEN 51 mg/dL (7-18); CALCIUM 8.8 MG/DL (8.5-10.1); CARBON DIOXIDE 29 MMOL/L (21-32); CHLORIDE 107 MMOL/L (98-107); CREATININE 1.7 MG/DL (0.55-1.30); POTASSIUM 2.9 MMOL/L (3.5-5.1); SODIUM 144 MMOL/L (136-145)
--- NOTE | 2018-01-12 10:38 | GI Progress Note ---
Assessment/Plan Problems: (1) Anemia ICD Codes: D64.9 - Anemia, unspecified SNOMED: 712043004 (2) Hemorrhage of tongue ICD Codes: K14.8 - Other diseases of tongue SNOMED: 01077712 Status: stable, unchanged Status Narrative Discussed with Dr. Guillen. Assessment/Plan OB stool positive, second pending defer GI procedures at this time >> black tarry stools most likely from tongue laceration, not GI bleed. anemia work up OB stool r/o GI bleed x 3 monitor H&H, prn transfusions bowel regime ppi adv diet as tolerated electrolyte correction correct INR PT/OT fu labs Subjective Subjective wants to go home Objective Last 24 Hour Vital Signs Date Time Temp Pulse Resp B/P (MAP) Pulse Ox O2 Delivery O2 Flow Rate FiO2 01/12/18 08:36 86 141/81 01/12/18 08:36 86 141/81 01/12/18 08:00 96.6 86 19 141/81 96 Room Air 96.6 01/12/18 08:00 73 01/12/18 04:00 98.1 75 20 123/61 97 Room Air 98.1 01/12/18 04:00 76 01/12/18 00:00 83 01/12/18 00:00 98.2 85 20 119/62 93 Room Air 98.2 01/11/18 21:00 82 144/66 01/11/18 20:00 101 01/11/18 20:00 97.7 82 20 141/66 96 Room Air 97.7 01/11/18 16:00 86 01/11/18 16:00 98.8 74 18 148/75 99 Room Air 98.8 01/11/18 12:00 83 01/11/18 12:00 97.5 78 20 107/72 99 Room Air 97.5 Intake and Output 01/11/18 01/12/18 19:00 07:00 Intake Total 1210 ml 100 ml Output Total 700 ml 500 ml Balance 510 ml -400 ml Intake Oral 960 ml IV Total 250 ml 100 ml Output Urine Total 700 ml 500 ml Laboratory Tests Test 01/11/18 10:45 01/12/18 06:57 01/12/18 09:25 White Blood Count 14.0 K/UL (4.8-10.8) H 9.8 K/UL (4.8-10.8) Red Blood Count 4.07 M/UL (4.20-5.40) L 3.53 M/UL (4.20-5.40) L Hemoglobin 11.5 G/DL (12.0-16.0) L 10.1 G/DL (12.0-16.0) L Hematocrit 37.3 % (37.0-47.0) 32.5 % (37.0-47.0) L Mean Corpuscular Volume 92 FL (80-99) 92 FL (80-99) Mean Corpuscular Hemoglobin 28.3 PG (27.0-31.0) 28.5 PG (27.0-31.0) Mean Corpuscular Hemoglobin Concent 30.9 G/DL (32.0-36.0) L 31.0 G/DL (32.0-36.0) L Red Cell Distribution Width 17.5 % (11.6-14.8) H 17.8 % (11.6-14.8) H Platelet Count 187 K/UL (150-450) 154 K/UL (150-450) Mean Platelet Volume 8.3 FL (6.5-10.1) 8.1 FL (6.5-10.1) Neutrophils (%) (Auto) 78.9 % (45.0-75.0) H 66.7 % (45.0-75.0) Lymphocytes (%) (Auto) 12.6 % (20.0-45.0) L 19.4 % (20.0-45.0) L Monocytes (%) (Auto) 5.6 % (1.0-10.0) 8.9 % (1.0-10.0) Eosinophils (%) (Auto) 2.3 % (0.0-3.0) 4.4 % (0.0-3.0) H Basophils (%) (Auto) 0.6 % (0.0-2.0) 0.6 % (0.0-2.0) Prothrombin Time 33.3 SEC (9.30-11.50) H Prothromb Time International Ratio 3.1 (0.9-1.1) H Activated Partial Thromboplast Time 48 SEC (23-33) H Sodium Level 144 MMOL/L (136-145) 144 MMOL/L (136-145) Potassium Level 3.6 MMOL/L (3.5-5.1) 2.9 MMOL/L (3.5-5.1) L Chloride Level 105 MMOL/L (98-107) 107 MMOL/L (98-107) Carbon Dioxide Level 33 MMOL/L (21-32) H 29 MMOL/L (21-32) Anion Gap 6 mmol/L (5-15) 8 mmol/L (5-15) Blood Urea Nitrogen 67 mg/dL (7-18) H 51 mg/dL (7-18) H Creatinine 1.9 MG/DL (0.55-1.30) H 1.7 MG/DL (0.55-1.30) H Estimat Glomerular Filtration Rate mL/min (>60) mL/min (>60) Glucose Level 208 MG/DL (74-106) H 110 MG/DL (74-106) H Uric Acid 4.9 MG/DL (2.6-7.2) Calcium Level 9.5 MG/DL (8.5-10.1) 8.8 MG/DL (8.5-10.1) Phosphorus Level 3.1 MG/DL (2.5-4.9) Magnesium Level 2.4 MG/DL (1.8-2.4) Total Bilirubin 1.3 MG/DL (0.2-1.0) H Direct Bilirubin 0.4 MG/DL (0.0-0.3) H Aspartate Amino Transf (AST/SGOT) 26 U/L (15-37) Alanine Aminotransferase (ALT/SGPT) 16 U/L (12-78) Alkaline Phosphatase 93 U/L (46-116) Pro-B-Type Natriuretic Peptide 3682 pg/mL (0-125) H Total Protein 7.4 G/DL (6.4-8.2) Albumin 3.0 G/DL (3.4-5.0) L Globulin 4.4 g/dL Albumin/Globulin Ratio 0.7 (1.0-2.7) L Stool Occult Blood Pending Height (Feet): 5 Height (Inches): 5.00 Weight (Pounds): 166 General Appearance: WD/WN, no apparent distress, alert Cardiovascular: normal rate Respiratory/Chest: normal breath sounds, no respiratory distress Abdominal Exam: normal bowel sounds, non tender, soft Extremities: non-tender Berna Valdes N.P. Jan 12, 2018 10:38
[2018-01-12 12:00] VITALS: BP 126/72
[2018-01-12] MEDS: Potassium Chloride 30 MEQ in Sodium Chloride 500ML 550 ML IVPB ONE ×2 (12:00→12:16)
--- NOTE | 2018-01-12 12:23 | Nephrology Progress Note ---
Assessment/Plan Problem List: (1) Acute renal failure (ARF) (2) Coagulopathy Assessment Renal failure - Pre renal picture- cr lowering Anemia At Fib chronic on coumadin Elevated INR, lowering Left eye blind' HTN Gout High Chol CAD CHF Plan Slow hydrate K supplement monitor INR ENT eval keep bp in check per orders Subjective ROS Limited/Unobtainable: No Objective Objective Last 24 Hour Vital Signs Date Time Temp Pulse Resp B/P (MAP) Pulse Ox O2 Delivery O2 Flow Rate FiO2 01/12/18 08:36 86 141/81 01/12/18 08:36 86 141/81 01/12/18 08:00 96.6 86 19 141/81 96 Room Air 96.6 01/12/18 08:00 73 01/12/18 04:00 98.1 75 20 123/61 97 Room Air 98.1 01/12/18 04:00 76 01/12/18 00:00 83 01/12/18 00:00 98.2 85 20 119/62 93 Room Air 98.2 01/11/18 21:00 82 144/66 01/11/18 20:00 101 01/11/18 20:00 97.7 82 20 141/66 96 Room Air 97.7 01/11/18 16:00 86 01/11/18 16:00 98.8 74 18 148/75 99 Room Air 98.8 Intake and Output 01/11/18 01/12/18 19:00 07:00 Intake Total 1210 ml 100 ml Output Total 700 ml 500 ml Balance 510 ml -400 ml Intake Oral 960 ml IV Total 250 ml 100 ml Output Urine Total 700 ml 500 ml Laboratory Tests 01/12/18 06:57: White Blood Count 9.8, Red Blood Count 3.53L, Hemoglobin 10.1L, Hematocrit 32.5L , Mean Corpuscular Volume 92, Mean Corpuscular Hemoglobin 28.5, Mean Corpuscular Hemoglobin Concent 31.0L, Red Cell Distribution Width 17.8H, Platelet Count 154, Mean Platelet Volume 8.1, Neutrophils (%) (Auto) 66.7, Lymphocytes (%) (Auto) 19.4L, Monocytes (%) (Auto) 8.9, Eosinophils (%) (Auto) 4.4H, Basophils (%) (Auto) 0.6, Sodium Level 144, Potassium Level 2.9L, Chloride Level 107, Carbon Dioxide Level 29, Anion Gap 8, Blood Urea Nitrogen 51H, Creatinine 1.7H, Estimat Glomerular Filtration Rate , Glucose Level 110H, Calcium Level 8.8 01/12/18 09:25: Stool Occult Blood [Pending] Height (Feet): 5 Height (Inches): 5.00 Weight (Pounds): 166 General Appearance: no apparent distress Objective no change SUGEY PETERSON Jan 12, 2018 12:23
[2018-01-12 16:00] VITALS: BP 115/65
--- NOTE | 2018-01-12 18:01 | Consultation ---
DATE OF CONSULTATION: 01/12/2018 INFECTIOUS DISEASE CONSULT CONSULTING PHYSICIAN: Brent Steen M.D. PRIMARY ATTENDING PHYSICIAN: Azucena Goss M.D. REASON FOR CONSULTATION: Leukocytosis. HISTORY OF PRESENT ILLNESS: The patient is an 82-year-old female admitted on 01/09/2018 from a nursing facility because of bleeding from laceration of the tongue. The patient states that she had a sneezing. She had a laceration in the left side of the tongue. The patient has a history of chronic atrial fibrillation, was on Coumadin and INR was high at the time of admission. The patient developed leukocytosis yesterday with WBC count up to 14,000. Denies any fever. 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 MEDICATIONS: The patient is getting potassium chloride, allopurinol, amlodipine, Colace, Protonix, insulin, [place], Tylenol, metoprolol, pravastatin, and hydralazine. ALLERGIES: No known drug allergies. SOCIAL HISTORY: custodial resident. Single. No history of alcohol, drug abuse, or smoking. REVIEW OF SYSTEMS: Denies any fever or chills. No coughing. No shortness of breath. No nausea. No vomiting. Has weakness in the left leg. PHYSICAL EXAMINATION: VITAL SIGNS: Temperature 96.6, pulse 86, and blood pressure 141/81. GENERAL APPEARANCE: No acute distress. Awake, alert, and oriented x3. HEAD AND NECK: Has left eye blindness with corneal opacification. At the time of exam, there is no bleeding from mouth. HEART: Regular. LUNGS: Clear. ABDOMEN: Soft and nontender. EXTREMITY: She has no edema. LABORATORY AND DIAGNOSTIC DATA: WBC today is 9.8, hemoglobin 10.1, hematocrit 32.5, and platelets is 154,000. Sodium 144, potassium 2.9, chloride 107, bicarb 29, BUN 51, creatinine 1.7, and glucose is 110. BNP is 3682. Urine culture showed mixed gram-positive organism. VRE and MRSA screen was negative. IMPRESSION: Leukocytosis, resolved without antibiotics. The patient has acute renal failure, hypokalemia, tongue laceration with bleeding that was resolved. She has diabetes mellitus, chronic atrial fibrillation, and aortic stenosis status post valvular replacement. RECOMMENDATIONS: Observe off antibiotic. At the end of my exam, I thank Dr. Goss for involving me in the care of this patient. Brent Steen M.D. DR: HAROON JOB#: [id number] CC: ADEEL
[2018-01-12 20:00] VITALS: BP 155/77
--- NOTE | 2018-01-12 21:00 | General Progress Note ---
Assessment/Plan Problem List: (1) Hypokalemia ICD Codes: E87.6 - Hypokalemia SNOMED: 02847641 (2) Atrial fibrillation ICD Codes: I48.91 - Unspecified atrial fibrillation SNOMED: 70423691 (3) Hemorrhage of tongue ICD Codes: K14.8 - Other diseases of tongue SNOMED: 78906069 (4) Acute renal failure (ARF) ICD Codes: N17.9 - Acute renal failure (ARF) SNOMED: 48499710 Status: progressing Assessment/Plan tongue bleeding stopped supra therapeutic inr s/p black tarry stool inr improved moniter for any bleeding dc to snf in am Subjective ROS Limited/Unobtainable: Yes Constitutional: Reports: no symptoms Allergies: Coded Allergies: No Known Allergies (Unverified , 08/29/12) Objective Last 24 Hour Vital Signs Date Time Temp Pulse Resp B/P (MAP) Pulse Ox O2 Delivery O2 Flow Rate FiO2 01/12/18 16:00 97.0 72 18 115/65 100 Room Air 97.0 01/12/18 16:00 82 01/12/18 12:00 97.5 84 19 126/72 99 Room Air 97.5 01/12/18 12:00 88 01/12/18 08:36 86 141/81 01/12/18 08:36 86 141/81 01/12/18 08:00 96.6 86 19 141/81 96 Room Air 96.6 01/12/18 08:00 73 01/12/18 04:00 98.1 75 20 123/61 97 Room Air 98.1 01/12/18 04:00 76 01/12/18 00:00 83 01/12/18 00:00 98.2 85 20 119/62 93 Room Air 98.2 01/11/18 21:00 82 144/66 Intake and Output 01/11/18 01/12/18 19:00 07:00 Intake Total 1210 ml 100 ml Output Total 700 ml 500 ml Balance 510 ml -400 ml Intake Oral 960 ml IV Total 250 ml 100 ml Output Urine Total 700 ml 500 ml Laboratory Tests 01/12/18 06:57: White Blood Count 9.8, Red Blood Count 3.53L, Hemoglobin 10.1L, Hematocrit 32.5L , Mean Corpuscular Volume 92, Mean Corpuscular Hemoglobin 28.5, Mean Corpuscular Hemoglobin Concent 31.0L, Red Cell Distribution Width 17.8H, Platelet Count 154, Mean Platelet Volume 8.1, Neutrophils (%) (Auto) 66.7, Lymphocytes (%) (Auto) 19.4L, Monocytes (%) (Auto) 8.9, Eosinophils (%) (Auto) 4.4H, Basophils (%) (Auto) 0.6, Sodium Level 144, Potassium Level 2.9L, Chloride Level 107, Carbon Dioxide Level 29, Anion Gap 8, Blood Urea Nitrogen 51H, Creatinine 1.7H, Estimat Glomerular Filtration Rate , Glucose Level 110H, Calcium Level 8.8 01/12/18 09:25: Stool Occult Blood Negative Height (Feet): 5 Height (Inches): 5.00 Weight (Pounds): 166 Neck: supple Cardiovascular: normal rate Respiratory/Chest: lungs clear Abdomen: soft Azucena Goss MD Jan 12, 2018 21:00
[2018-01-12] MEDS: Norco 5mg/325mg tab ORAL PRN (21:43)
[2018-01-13] VITALS: BP 135/75
[2018-01-13 04:00] VITALS: BP 136/63
[2018-01-13] MEDS: NovoLOG Insulin Flexpen SUBQ SCH ×2 (07:14→12:33)
[2018-01-13 07:44] LABS: BASOPHILS % (AUTO) 0.7 % (0.0-2.0); EOSINOPHILS % (AUTO) 4.7 % (0.0-3.0); HEMATOCRIT 31.5 % (37.0-47.0); HEMOGLOBIN 9.8 G/DL (12.0-16.0); LYMPHOCYTES % (AUTO) 16.3 % (20.0-45.0); MEAN CORPUSCULAR VOLUME 92 FL (80-99); MONOCYTES % (AUTO) 9.2 % (1.0-10.0); NEUTROPHILS % (AUTO) 69.2 % (45.0-75.0); PLATELET COUNT 143 K/UL (150-450); RED BLOOD COUNT 3.41 M/UL (4.20-5.40); RED CELL DISTRIBUTION WIDTH 18.3 % (11.6-14.8); WHITE BLOOD COUNT 8.7 K/UL (4.8-10.8)
[2018-01-13 08:00] VITALS: BP 143/85
[2018-01-13 08:30] LABS: ANION GAP 9 mmol/L (5-15); BLOOD UREA NITROGEN 37 mg/dL (7-18); CALCIUM 8.9 MG/DL (8.5-10.1); CARBON DIOXIDE 27 MMOL/L (21-32); CHLORIDE 107 MMOL/L (98-107); CREATININE 1.7 MG/DL (0.55-1.30); POTASSIUM 3.4 MMOL/L (3.5-5.1); SODIUM 143 MMOL/L (136-145)
[2018-01-13] MEDS: Allopurinol 100mg Tab ORAL SCH (08:53)
[2018-01-13] MEDS: Docusate 100mg cap ORAL SCH ×2 (08:54→14:06)
[2018-01-13] MEDS: Metoprolol 25mg tab ORAL SCH (08:55)
[2018-01-13] MEDS ORDERED: Potassium Chloride 40 MEQ in Sodium Chloride 500ML 550 ML IVPB ONE (10:00)
--- NOTE | 2018-01-13 10:31 | GI Progress Note ---
Assessment/Plan Problems: (1) Anemia ICD Codes: D64.9 - Anemia, unspecified SNOMED: 104521934 (2) Hemorrhage of tongue ICD Codes: K14.8 - Other diseases of tongue SNOMED: 88903182 Status: stable Status Narrative Discussed with Dr. Guillen. Assessment/Plan OB stool positive, second negative stable H&H defer GI procedures at this time >> black tarry stools most likely from tongue laceration, not GI bleed. OB stool r/o GI bleed x 3 monitor H&H, prn transfusions bowel regime ppi adv diet as tolerated electrolyte correction correct INR PT/OT fu labs dc planning The patient was seen and examined at bedside and all new and available data was reviewed in the patients chart. I agree with the above findings, impression and plan. (Patient seen earlier today. Signature stamp does not reflect patient encounter time.). - Ember Guillen MD Subjective Subjective wants to go home Objective Last 24 Hour Vital Signs Date Time Temp Pulse Resp B/P (MAP) Pulse Ox O2 Delivery O2 Flow Rate FiO2 01/13/18 08:55 86 143/85 01/13/18 08:54 86 143/85 01/13/18 08:00 97.5 86 19 143/85 99 Room Air 97.5 01/13/18 04:00 98.1 79 20 136/63 98 Room Air 98.1 01/13/18 04:00 74 01/13/18 00:00 89 01/13/18 00:00 96.1 84 20 135/75 95 Room Air 96.1 01/12/18 21:00 95 155/77 01/12/18 20:00 97.9 95 20 155/77 96 Room Air 97.9 01/12/18 20:00 85 01/12/18 16:00 97.0 72 18 115/65 100 Room Air 97.0 01/12/18 16:00 82 01/12/18 12:00 97.5 84 19 126/72 99 Room Air 97.5 01/12/18 12:00 88 Intake and Output 01/12/18 01/13/18 19:00 07:00 Intake Total 972 ml 366 ml Output Total 450 ml 1400 ml Balance 522 ml -1034 ml Intake Oral 472 ml 116 ml IV Total 500 ml 250 ml Output Urine Total 450 ml 1400 ml Laboratory Tests Test 01/13/18 06:50 White Blood Count 8.7 K/UL (4.8-10.8) Red Blood Count 3.41 M/UL (4.20-5.40) L Hemoglobin 9.8 G/DL (12.0-16.0) L Hematocrit 31.5 % (37.0-47.0) L Mean Corpuscular Volume 92 FL (80-99) Mean Corpuscular Hemoglobin 28.7 PG (27.0-31.0) Mean Corpuscular Hemoglobin Concent 31.1 G/DL (32.0-36.0) L Red Cell Distribution Width 18.3 % (11.6-14.8) H Platelet Count 143 K/UL (150-450) L Mean Platelet Volume 7.9 FL (6.5-10.1) Neutrophils (%) (Auto) 69.2 % (45.0-75.0) Lymphocytes (%) (Auto) 16.3 % (20.0-45.0) L Monocytes (%) (Auto) 9.2 % (1.0-10.0) Eosinophils (%) (Auto) 4.7 % (0.0-3.0) H Basophils (%) (Auto) 0.7 % (0.0-2.0) Sodium Level 143 MMOL/L (136-145) Potassium Level 3.4 MMOL/L (3.5-5.1) L Chloride Level 107 MMOL/L (98-107) Carbon Dioxide Level 27 MMOL/L (21-32) Anion Gap 9 mmol/L (5-15) Blood Urea Nitrogen 37 mg/dL (7-18) H Creatinine 1.7 MG/DL (0.55-1.30) H Estimat Glomerular Filtration Rate mL/min (>60) Glucose Level 141 MG/DL (74-106) H Calcium Level 8.9 MG/DL (8.5-10.1) Height (Feet): 5 Height (Inches): 5.00 Weight (Pounds): 166 General Appearance: WD/WN, no apparent distress, alert Cardiovascular: normal rate Respiratory/Chest: normal breath sounds, no respiratory distress Abdominal Exam: normal bowel sounds, non tender, soft Extremities: normal range of motion, non-tender Berna Valdes N.P. Jan 13, 2018 10:31 MARKIE GUILLEN Jan 17, 2018 07:13
[2018-01-13 12:00] VITALS: BP 148/84
--- NOTE | 2018-01-13 14:11 | Infectious Diseases Prog Note ---
Assessment/Plan Assessment/Plan A; Leukocytosis resolved Acute renal failure improving Anemia Chronic A Fib P: observe off antibiotic Subjective ROS Limited/Unobtainable: No Constitutional: Reports: no symptoms Respiratory: Reports: no symptoms Cardiovascular: Reports: no symptoms Gastrointestinal/Abdominal: Reports: no symptoms Genitourinary: Reports: no symptoms Allergies: Coded Allergies: No Known Allergies (Unverified , 08/29/12) Objective Vital Signs Last 24 Hour Vital Signs Date Time Temp Pulse Resp B/P (MAP) Pulse Ox O2 Delivery O2 Flow Rate FiO2 01/13/18 08:55 86 143/85 01/13/18 08:54 86 143/85 01/13/18 08:00 97.5 86 19 143/85 99 Room Air 97.5 01/13/18 08:00 84 01/13/18 04:00 98.1 79 20 136/63 98 Room Air 98.1 01/13/18 04:00 74 01/13/18 00:00 89 01/13/18 00:00 96.1 84 20 135/75 95 Room Air 96.1 01/12/18 21:00 95 155/77 01/12/18 20:00 97.9 95 20 155/77 96 Room Air 97.9 01/12/18 20:00 85 01/12/18 16:00 97.0 72 18 115/65 100 Room Air 97.0 01/12/18 16:00 82 Height (Feet): 5 Height (Inches): 5.00 Weight (Pounds): 166 General Appearance: no acute distress HEENT: other - left eye blindness Respiratory/Chest: lungs clear Cardiovascular: irregularly irregular Abdomen: soft, non tender Extremities: no edema Neurologic/Psychiatric: alert, oriented x 3, responsive Laboratory Tests Test 01/13/18 06:50 White Blood Count 8.7 K/UL (4.8-10.8) Red Blood Count 3.41 M/UL (4.20-5.40) L Hemoglobin 9.8 G/DL (12.0-16.0) L Hematocrit 31.5 % (37.0-47.0) L Mean Corpuscular Volume 92 FL (80-99) Mean Corpuscular Hemoglobin 28.7 PG (27.0-31.0) Mean Corpuscular Hemoglobin Concent 31.1 G/DL (32.0-36.0) L Red Cell Distribution Width 18.3 % (11.6-14.8) H Platelet Count 143 K/UL (150-450) L Mean Platelet Volume 7.9 FL (6.5-10.1) Neutrophils (%) (Auto) 69.2 % (45.0-75.0) Lymphocytes (%) (Auto) 16.3 % (20.0-45.0) L Monocytes (%) (Auto) 9.2 % (1.0-10.0) Eosinophils (%) (Auto) 4.7 % (0.0-3.0) H Basophils (%) (Auto) 0.7 % (0.0-2.0) Sodium Level 143 MMOL/L (136-145) Potassium Level 3.4 MMOL/L (3.5-5.1) L Chloride Level 107 MMOL/L (98-107) Carbon Dioxide Level 27 MMOL/L (21-32) Anion Gap 9 mmol/L (5-15) Blood Urea Nitrogen 37 mg/dL (7-18) H Creatinine 1.7 MG/DL (0.55-1.30) H Estimat Glomerular Filtration Rate mL/min (>60) Glucose Level 141 MG/DL (74-106) H Calcium Level 8.9 MG/DL (8.5-10.1) Current Medications Medications (Trade) Dose Ordered Sig/Renan Route PRN Reason Start Time Stop Time Status Last Admin Dose Admin Acetaminophen (Tylenol) 650 mg Q4H PRN ORAL Mild Pain/Temp > 100.5 01/09/18 22:45 02/08/18 22:44 Acetaminophen/ Hydrocodone Bitart ([place] 5/325) 1 tab Q4H PRN ORAL Moderate Pain (Pain Scale 4-6) 01/09/18 22:45 01/16/18 22:44 01/12/18 21:43 Allopurinol (Zyloprim) 200 mg DAILY ORAL 01/10/18 09:00 02/09/18 08:59 01/13/18 08:53 Amlodipine Besylate (Norvasc) 10 mg DAILY ORAL 01/10/18 09:00 02/09/18 08:59 01/13/18 08:54 Dextrose (Dextrose 50%) STAT PRN IV Hypoglycemia 01/09/18 22:00 02/08/18 21:59 Docusate Sodium (Colace) 100 mg THREE TIMES A DAY ORAL 01/10/18 09:00 02/09/18 08:59 01/13/18 08:54 Hydralazine HCl (Apresoline) 25 mg Q4H PRN ORAL SBP > 160mmHg 01/09/18 19:30 02/08/18 19:29 Insulin Aspart (NovoLOG) BEFORE MEALS AND HS SUBQ 01/10/18 06:30 02/09/18 06:29 01/13/18 12:33 Metoprolol Tartrate (Lopressor) 100 mg EVERY 12 HOURS ORAL 01/09/18 21:00 02/08/18 20:59 01/13/18 08:55 Pantoprazole (Protonix) 40 mg DAILY ORAL 01/10/18 09:00 02/09/18 08:59 01/13/18 08:55 Pravastatin Sodium (Pravachol) 40 mg BEDTIME ORAL 01/09/18 21:00 02/08/18 20:59 01/12/18 21:00 Zolpidem Tartrate (Ambien) 5 mg BEDTIME PRN ORAL Insomnia 01/09/18 21:00 01/16/18 20:59 MURRAY WOLFF Jan 13, 2018 14:11
--- NOTE | 2018-01-13 14:38 | Nephrology Progress Note ---
Assessment/Plan Problem List: (1) Acute renal failure (ARF) (2) Coagulopathy Assessment Renal failure - Pre renal picture- cr lowering Anemia At Fib chronic on coumadin Elevated INR, lowering Left eye blind' HTN Gout High Chol CAD CHF Plan stop hydrate K supplement Dc vincent monitor INR ENT eval keep bp in check Ok to DC ? Subjective ROS Limited/Unobtainable: No Objective Objective Last 24 Hour Vital Signs Date Time Temp Pulse Resp B/P (MAP) Pulse Ox O2 Delivery O2 Flow Rate FiO2 01/13/18 12:00 97.7 95 19 148/84 97 Room Air 97.7 01/13/18 08:55 86 143/85 01/13/18 08:54 86 143/85 01/13/18 08:00 97.5 86 19 143/85 99 Room Air 97.5 01/13/18 08:00 84 01/13/18 04:00 98.1 79 20 136/63 98 Room Air 98.1 01/13/18 04:00 74 01/13/18 00:00 89 01/13/18 00:00 96.1 84 20 135/75 95 Room Air 96.1 01/12/18 21:00 95 155/77 01/12/18 20:00 97.9 95 20 155/77 96 Room Air 97.9 01/12/18 20:00 85 01/12/18 16:00 97.0 72 18 115/65 100 Room Air 97.0 01/12/18 16:00 82 Intake and Output 01/12/18 01/13/18 19:00 07:00 Intake Total 972 ml 366 ml Output Total 450 ml 1400 ml Balance 522 ml -1034 ml Intake Oral 472 ml 116 ml IV Total 500 ml 250 ml Output Urine Total 450 ml 1400 ml Laboratory Tests 01/13/18 06:50: White Blood Count 8.7, Red Blood Count 3.41L, Hemoglobin 9.8L, Hematocrit 31.5L , Mean Corpuscular Volume 92, Mean Corpuscular Hemoglobin 28.7, Mean Corpuscular Hemoglobin Concent 31.1L, Red Cell Distribution Width 18.3H, Platelet Count 143L, Mean Platelet Volume 7.9, Neutrophils (%) (Auto) 69.2, Lymphocytes (%) (Auto) 16.3L, Monocytes (%) (Auto) 9.2, Eosinophils (%) (Auto) 4.7H, Basophils (%) (Auto) 0.7, Sodium Level 143, Potassium Level 3.4L, Chloride Level 107, Carbon Dioxide Level 27, Anion Gap 9, Blood Urea Nitrogen 37H, Creatinine 1.7H, Estimat Glomerular Filtration Rate , Glucose Level 141H, Calcium Level 8.9 Height (Feet): 5 Height (Inches): 5.00 Weight (Pounds): 166 General Appearance: no apparent distress Objective no change SUGEY PETERSON Jan 13, 2018 14:38
--- NOTE | 2018-01-16 15:07 | Discharge Summary ---
Discharge Summary Hospital Course Date of Admission Jan 09, 2018 at 22:44 Date of Discharge Jan 13, 2018 at 15:33 Admitting Diagnosis tongue laceration bleeding HPI Stephani Kenyon is a 82 year old female who was admitted on Jan 09, 2018 at 22:44 for Tongue Laceration Bleeding Hospital Course dc summary #[id number] Discharge Discharge Disposition Patient was discharged to SNF/Subacute Facility(03) Discharge Instructions Discharge Instructions Special Instructions I have been assigned to complete a D/C Summary on this account. I was not involved in the patient management Kristie Oswald NP ([place]te[place]) Jan 16, 2018 15:07
--- NOTE | 2018-01-17 05:31 | Discharge Summary 2 SIG ---
DATE OF ADMISSION: 01/09/2018 DATE OF DISCHARGE: 01/13/2018 REASON FOR ADMISSION: The patient is an 82-year-old female with past medical history significant for atrial fibrillation on chronic Coumadin, congestive heart failure, hypertension, anemia, and history of CVA with left-sided weakness, presented from the retirement facility for evaluation due to the tongue bleeding. The patient could not remember if she sustained any injury. Upon workup in the emergency room, found INR of 5.2, potassium 2.9, BUN 89, and creatinine 2.4. No leukocytosis. Vital signs stable. The patient was admitted with diagnoses of coagulopathy, tongue bleeding, hypokalemia, and azotemia. HOSPITAL COURSE: The patient was admitted. ENT consult, ID consult, Nephrology, and GI consults were requested. Initially bleeding was stopped in the emergency department. Coumadin was on hold and INR was daily monitored by the pharmacy. Prior to discharge, INR from 5.2 down to 3.1. The patient was hydrated with hydration. BUN from 84 down to 37 and creatinine from 2.4 down to 1.7. Acute renal failure was likely secondary to dehydration and had some element of chronic disease. GI consult was requested as well due to the evidence of black tarry stool. Stool OB x1 was positive. Another specimen was negative. According to the GI, black tarry stool more likely due to the tongue bleeding and not actual GI bleeding. He recommended to defer GI procedure at this time. Checked stool OB x3 at the retirement facility. Monitor hemoglobin and hematocrit. Transfuse p.r.n. Bowel regimen was instituted. Symptomatic treatment provided. PPI added to existing regimen. Electrolytes were closely monitored and replaced. Potassium up to 3.4 prior to discharge. Camp[employer] C[employer]aker closely followed. Recommended to avoid nephrotoxic and closely monitor renal parameters and electrolytes. The patient was working with physical and occupational therapy. Fall precautions were maintained. Urinalysis was negative. The patient to continue management of atrial fibrillation. Home medication regimen were resumed. The patient was stable for discharge. FINAL DIAGNOSES: 1. coagulopathy secondary to Coumadin use. 2. Chronic atrial fibrillation. 3. Tongue hemorrhage, resolved. 4. Black tarry stool likely due to tongue bleeding, resolved. 5. Hypokalemia, resolved. 6. Acute renal failure, improved. DISCHARGE MEDICATIONS: See medication reconciliation list. DISCHARGE INSTRUCTIONS: The patient was discharged to retirement facility. Follow up with medical doctor at the facility. Closely monitor INR. Recommended outpatient GI procedure and check stool OB x3. Azucena Goss M.D. I have been assigned to dictate discharge summary on this account and I was not involved in the patient's management. Kristie Oswald (vanchtein) NJess[place] DR: ERASTO JOB#: [id number] CC:
== END 2018-01-13 15:33 | DRG 813 ==
LOC: EDBD 13:45 → EMR 17:13 → 2E 17:22 → INTOOBSV 17:22 → OBSVTOIN 17:22 → UNDOADMOB 17:22 → EDBEDREQ 19:26 → OBSVTOIN 22:44 → 2E 22:44
DX: D68.32 Hemorrhagic disorder due to extrinsic circulating anticoagulants (principal); N17.9 Acute kidney failure, unspecified; E87.5 Hyperkalemia; I11.0 Hypertensive heart disease with heart failure; I50.9 Heart failure, unspecified; I48.91 Unspecified atrial fibrillation; D64.9 Anemia, unspecified; E87.6 Hypokalemia; E11.9 Type 2 diabetes mellitus without complications; T45.515A Adverse effect of anticoagulants, initial encounter; K14.8 Other diseases of tongue; Z79.01 Long term (current) use of anticoagulants; Z86.73 Personal history of transient ischemic attack (TIA), and cerebral infarction without residual deficits; H54.62 Unqualified visual loss, left eye, normal vision right eye; I25.10 Atherosclerotic heart disease of native coronary artery without angina pectoris; Z79.4 Long term (current) use of insulin; S01.512A Laceration without foreign body of oral cavity, initial encounter; X58.XXXA Exposure to other specified factors, initial encounter
CPT/HCPCS: 36415; 80048; 80053; 80061; 81003; 82248; 82270; 82607; 82728; 82746; 82962; 82977; 83036; 83540; 83550; 83735; 83880; 84100; 84443; 84550; 85025; 85610; 85730; 86140; 87081; 87086; 93005; 99285; J1815; J8499

== ENCOUNTER 2018-03-17 02:18 | Inpatient (IN) | payer MEDICARE, OTHER ==
[2018-03-17] VITALS (7 sets, daily range): BP systolic 144–168; BP diastolic 91–101
[~2018-03-17] VITALS: Ht 165.1 cm; Wt 77.1 kg
[2018-03-17] MEDS ORDERED: BISACODYL5 MG ORAL (02:51)
[2018-03-17] MEDS ORDERED: METOPROLOL TAR100 MG ORAL (02:51)
[2018-03-17] MEDS ORDERED: COUMADIN3 MG ORAL (02:51)
[2018-03-17] MEDS ORDERED: NITROSTAT0.4 M1 SL (02:51)
[2018-03-17] MEDS ORDERED: POTASSIUM CHLO20 ME1 ORAL (02:51)
[2018-03-17] MEDS ORDERED: NOVOLOG100 UNIT/3 SUBQ (02:51)
[2018-03-17] MEDS ORDERED: CYCLOGYL2 M1 OP (02:51)
[2018-03-17] MEDS ORDERED: ALLOPURINOL300 M1 ORAL (02:51)
[2018-03-17] MEDS ORDERED: NEPHRO AID (02:51)
[2018-03-17] MEDS ORDERED: NORCO1 E1 ORAL (02:51)
[2018-03-17] MEDS ORDERED: CATAPRES0.1 MG ORAL (02:51)
[2018-03-17] MEDS ORDERED: FERROUS SULFAT325 MG ORAL (02:51)
[2018-03-17] MEDS ORDERED: ALUM-MAG HYDRO360 ML PO (02:51)
[2018-03-17] MEDS ORDERED: ISOSORBIDE MON120 M1 PO (02:51)
[2018-03-17] MEDS ORDERED: SPIRONOLACTONE50 MG ORAL (02:51)
[2018-03-17] MEDS ORDERED: LEVEMIR100 UNIT/1 SUBQ (02:51)
[2018-03-17] MEDS ORDERED: MILK OF MA400 MG/51 ORAL (02:51)
[2018-03-17] MEDS ORDERED: IPRAT-ALBUT 0.5-3 ML IH (02:51)
[2018-03-17 02:56] LABS: BASOPHILS % (AUTO) 0.9 % (0.0-2.0); EOSINOPHILS % (AUTO) 0.9 % (0.0-3.0); HEMATOCRIT 42.6 % (37.0-47.0); HEMOGLOBIN 12.9 G/DL (12.0-16.0); LYMPHOCYTES % (AUTO) 18.6 % (20.0-45.0); MEAN CORPUSCULAR VOLUME 90 FL (80-99); MONOCYTES % (AUTO) 7.5 % (1.0-10.0); NEUTROPHILS % (AUTO) 72.2 % (45.0-75.0); PLATELET COUNT 218 K/UL (150-450); RED BLOOD COUNT 4.74 M/UL (4.20-5.40); RED CELL DISTRIBUTION WIDTH 20.5 % (11.6-14.8); WHITE BLOOD COUNT 11.4 K/UL (4.8-10.8)
[2018-03-17] MEDS ORDERED: SENNA8.6 M2 PO (02:56)
[2018-03-17] MEDS ORDERED: RESTASIS1 EACH BOTH EYES (02:56)
[2018-03-17] MEDS ORDERED: ZANTAC150 MG ORAL (02:56)
[2018-03-17] MEDS ORDERED: ZOFRAN4 M3 ORAL (02:56)
[2018-03-17] MEDS ORDERED: PRAVASTATIN SOD20 M1 ORAL (02:56)
[2018-03-17 03:13] LABS: INR 3.4 (0.9-1.1)
[2018-03-17] MEDS ORDERED: Metoprolol 5mg/5ml Inj IVP ONE ×3 (03:15→05:45)
[2018-03-17 03:20] LABS: ALANINE AMINOTRANSFERASE 23 U/L (12-78); ALBUMIN 2.6 G/DL (3.4-5.0); ALBUMIN/GLOBULIN RATIO 0.6 (1.0-2.7); ALKALINE PHOSPHATASE 103 U/L (46-116); ANION GAP 8 mmol/L (5-15); ASPARTATE AMINO TRANSFERASE 27 U/L (15-37); BILIRUBIN,TOTAL 0.6 MG/DL (0.2-1.0); BLOOD UREA NITROGEN 43 mg/dL (7-18); CALCIUM 8.8 MG/DL (8.5-10.1); CARBON DIOXIDE 23 MMOL/L (21-32); CHLORIDE 107 MMOL/L (98-107); CKMB 1.1 NG/ML (0.0-3.6); CREATINE KINASE 57 U/L (26-308); CREATININE 2.7 MG/DL (0.55-1.30); SODIUM 138 MMOL/L (136-145)
[2018-03-17 03:25] LABS: POTASSIUM 6.9 MMOL/L (3.5-5.1)
--- NOTE | 2018-03-17 03:28 | Emergency Room Report ---
History of Present Illness General Chief Complaint: General Complaint Source: Patient, Medical Record, EMS Present Illness HPI This is an 82-year-old female with multiple medical problem including CVA, atrial fibrillation on Coumadin. She presents with chief complaint of elevated heart rate. In the long-term she was running in the 120s. She said she has a couple episode vomiting. No chest pain. Better now. No nausea no vomiting but no fever chills. Denies any other complaint. Allergies: Coded Allergies: No Known Allergies (Unverified , 08/29/12) Patient History Past Medical History: see triage record, old chart reviewed, DM, HTN, CHF, AFib , CVA/TIA, renal disease Past Surgical History: other Pertinent Family History: none Social History: Denies: smoking Last Menstrual Period: NA Now: No Immunizations: other Reviewed Nursing Documentation: PMH: Agreed; PSxH: Agreed Nursing Documentation-PMH Hx Cardiac Problems: Yes - CHRONIC AFIB, CHF, ANEMIA Hx Hypertension: Yes - Hyperlipidemia Hx Pacemaker: No Hx Asthma: No Hx COPD: No Hx Diabetes: Yes - Type 2 DM. Hx Cancer: No Hx Gastrointestinal Problems: No - UTI, ACUTE KIDNEY FAILURE Hx Dialysis: No Hx Cerebrovascular Accident: Yes Hx Seizures: No Hx Paralysis: No Hx Weakness: Yes - LEFT Hx Neurologic Surgery: No Hx Brain Shunt: No Review of Systems Eye: Denies: eye pain, blurred vision ENT: Denies: ear pain, nose congestion, throat swelling Respiratory: Denies: cough, shortness of breath Cardiovascular: Reports: palpitations; Denies: chest pain Gastrointestinal: Denies: abdominal pain, diarrhea, nausea, vomiting Musculoskeletal: Denies: back pain, joint pain Skin: Denies: rash Neurological: Denies: headache, numbness Endocrine: Denies: increased thirst, increased urine Hematologic/Lymphatic: Denies: easy bruising All Other Systems: negative except mentioned in HPI Physical Exam Vital Signs Date Time Temp Pulse Resp B/P (MAP) Pulse Ox O2 Delivery O2 Flow Rate FiO2 03/17/18 02:18 97.5 120 22 154/95 96 Room Air 97.5 vitals with tachycardia and hypertension Sp02 EP Interpretation: reviewed, normal General Appearance: alert, Chronically Ill Head: normocephalic, atraumatic Eyes: bilateral eye PERRL, bilateral eye EOMI ENT: hearing grossly normal, normal pharynx Neck: full range of motion, supple, no meningismus Respiratory: chest non-tender, lungs clear, normal breath sounds Cardiovascular #1: no murmur, tachycardia, irregularly irregular Gastrointestinal: normal bowel sounds, non tender, no mass, no organomegaly, no bruit, non-distended Musculoskeletal: back normal, normal range of motion Neurologic: alert Psychiatric: mood/affect normal Skin: warm/dry Procedures Critical Care Time Critical Care Time Critical care is mandated in this patient who presented with rapid A. fib and hyperkalemia. Patient require my urgent intervention to attenuate the risks of metabolic collapse which may lead to cardiovascular collapse and . Critical care time is 35 minutes excluding any reportable procedure. Critical care time included evaluation, multiple reevaluation, looking at old charts, interpreting laboratory and diagnostic data, discussing case with patient and family and consultants, and charting. Medical Decision Making Diagnostic Impression: Primary Impression: Rapid atrial fibrillation Additional Impressions: CHF exacerbation Qualified Codes: I50.9 - Heart failure, unspecified JESICA (acute kidney injury) Proteinuria Qualified Codes: R80.9 - Proteinuria, unspecified ER Course Patient presents with rapid atrial fibrillation. Heart rate control with Lopressor. She does have elevated BNP but probably secondary to severe cardiomegaly and can't myopathy. No evidence of overt heart failure. Lasix given. Her potassium is treated with meds. Repeat potassium better. No evidence of peaked T waves on EKG. We'll admit. I discussed case with Dr. Huffman who will admit Lab Results Impression labs with JESICA, high potassium EKG Diagnostic Results Rate: tachycardiac Rhythm: other - afib ST Segments: other - afib ASA given to the pt in ED: No Rhythm Strip Diag. Results Rhythm Strip Time: 03:27 EP Interpretation: yes Rate: 110 Rhythm: no PVC's, no ectopy, other - afib Chest X-Ray Diagnostic Results Chest X-Ray Diagnostic Results : Chest X-Ray Ordered: Yes # of Views/Limited/Complete: 1 View Indication: Shortness of Breath EP Interpretation: Yes Interpretation: no consolidation, no effusion, no pneumothorax, other - CM Impression: No acute disease Electronically Signed by: Jose Guadalupe Valdes MD Last Vital Signs Date Time Temp Pulse Resp B/P (MAP) Pulse Ox O2 Delivery O2 Flow Rate FiO2 03/17/18 03:21 120 169/97 03/17/18 02:18 97.5 22 96 Room Air 97.5 Status: improved Disposition: ADMITTED INPATIENT Condition: Serious Referrals: Azucena Goss MD (PCP) JOSE GUADALUPE VALDES M.D. March 17, 2018 03:28
[2018-03-17] MEDS ORDERED: Sodium Polystyrene Sulfonate 15gm Powder ORAL ONE ×2 (03:30→13:30)
[2018-03-17] MEDS ORDERED: Calcium Gluconate 1gm/10ml vial IVP ONE (03:30)
[2018-03-17 03:46] LABS: APPEARANCE,URINE CLEAR; BILIRUBIN, URINE NEGATIVE (NEGATIVE); GLUCOSE, URINE (UA) 1+ (NEGATIVE); KETONES,URINE NEGATIVE (NEGATIVE); LEUKOCYTE ESTERASE ,URINE NEGATIVE (NEGATIVE); NITRITE,URINE NEGATIVE (NEGATIVE); PH,URINE 6.5 (4.5-8.0); PROTEIN,URINE 4+ (NEGATIVE); UROBILINOGEN,URINE NORMAL MG/DL (0.0-1.0)
[2018-03-17 03:47] LABS: COLOR,URINE YELLOW
[2018-03-17 05:27] LABS: ANION GAP 7 mmol/L (5-15); BLOOD UREA NITROGEN 41 mg/dL (7-18); CALCIUM 9.1 MG/DL (8.5-10.1); CARBON DIOXIDE 22 MMOL/L (21-32); CHLORIDE 107 MMOL/L (98-107); CREATININE 2.6 MG/DL (0.55-1.30); SODIUM 136 MMOL/L (136-145)
[2018-03-17 05:30] LABS: POTASSIUM 6.3 MMOL/L (3.5-5.1)
[2018-03-17] MEDS ORDERED: Norco 5mg/325mg tab ORAL PRN (10:00)
[2018-03-17] MEDS ORDERED: HYDROcodone/Acetamin 7.5/325 tab ORAL PRN ×2 (10:00→11:08)
[2018-03-17] MEDS ORDERED: Albuterol/Ipratropium 3ml neb HHN PRN (10:39)
[2018-03-17] MEDS ORDERED: Nitroglycerin Subl 0.4mg tab SL PRN (10:40)
[2018-03-17] MEDS ORDERED: Milk of Magnesia 30ml Ud ORAL PRN (10:40)
--- NOTE | 2018-03-17 11:23 | Diagnostic Imaging Report ---
Indication: Shortness of breath Technique: One view of the chest Comparison: 03/08/2015 Findings: The heart is enlarged. There is a percutaneous aortic valve prosthesis present. Lungs and pleural spaces remain clear. Impression: Cardiomegaly. No acute process
[2018-03-17] MEDS: NovoLOG Insulin Flexpen SUBQ SCH ×3 (11:30→21:33)
[2018-03-17] MEDS ORDERED: Spironolactone 25mg tab ORAL SCH (11:30)
[2018-03-17] MEDS ORDERED: Imdur 30mg tab ORAL SCH (11:30)
--- NOTE | 2018-03-17 12:28 | Consultation ---
Consult Note Consult Note asked to eval for renal failure- This is an 82-year-old female with multiple medical problem including CVA, atrial fibrillation on Coumadin. She presents with chief complaint of elevated heart rate. In the [facility] she was running in the 120s. She said she has a couple episode vomiting. No chest pain. Better now. No nausea no vomiting but no fever chills. Denies any other complaint. Hx Cardiac Problems: Yes - CHRONIC AFIB, CHF, ANEMIA Hx Hypertension: Yes - Hyperlipidemia Hx Diabetes: Yes - Type 2 DM. Hx Gastrointestinal Problems: No - UTI, ACUTE KIDNEY FAILURE Hx Cerebrovascular Accident: Yes Hx Weakness: Yes - LEFT examined date reviewed discussed with assembler filters/Plan Renal failure - Pre renal picture- Superimposed on CKD High K , was on Aldactone and K supplements At Fib chronic on coumadin INR 3.4 on admit Left eye blind' HTN Gout High Chol CAD CHF adjust bp meds Slow hydrate Kayexelate monitor INR and renal parameters keep bp in check per orders SUGEY PETERSON March 17, 2018 12:28
[2018-03-17] MEDS ORDERED: dilTIAZem HCl 30mg tab ORAL ONE (13:30)
[2018-03-17] MEDS ORDERED: dilTIAZem HCl 30mg tab ORAL SCH (14:00)
[2018-03-17] MEDS: Docusate 100mg cap ORAL SCH ×2 (14:03→17:40)
--- NOTE | 2018-03-17 14:11 | Cardiac Electrophysiology PN ---
Subjective Subjective [id number] Objective Last 24 Hour Vital Signs Date Time Temp Pulse Resp B/P (MAP) Pulse Ox O2 Delivery O2 Flow Rate FiO2 03/17/18 11:51 151/96 03/17/18 06:30 97.6 107 20 151/96 96 Room Air 97.6 03/17/18 06:15 97.5 111 20 168/99 98 Room Air 97.5 03/17/18 06:13 111 20 168/99 98 Room Air 03/17/18 05:44 98 141/99 03/17/18 04:19 109 24 168/101 100 Room Air 03/17/18 04:07 112 161/97 03/17/18 03:21 120 169/97 03/17/18 02:30 115 24 161/97 99 Room Air 03/17/18 02:18 97.5 120 22 154/95 96 Room Air 97.5 Intake and Output 03/16/18 03/17/18 19:00 07:00 Intake Total 0 ml Balance 0 ml Intake Oral 0 ml Laboratory Tests Test 03/17/18 02:45 03/17/18 03:40 03/17/18 05:04 White Blood Count 11.4 K/UL (4.8-10.8) H Red Blood Count 4.74 M/UL (4.20-5.40) Hemoglobin 12.9 G/DL (12.0-16.0) Hematocrit 42.6 % (37.0-47.0) Mean Corpuscular Volume 90 FL (80-99) Mean Corpuscular Hemoglobin 27.3 PG (27.0-31.0) Mean Corpuscular Hemoglobin Concent 30.4 G/DL (32.0-36.0) L Red Cell Distribution Width 20.5 % (11.6-14.8) H Platelet Count 218 K/UL (150-450) Mean Platelet Volume 8.1 FL (6.5-10.1) Neutrophils (%) (Auto) 72.2 % (45.0-75.0) Lymphocytes (%) (Auto) 18.6 % (20.0-45.0) L Monocytes (%) (Auto) 7.5 % (1.0-10.0) Eosinophils (%) (Auto) 0.9 % (0.0-3.0) Basophils (%) (Auto) 0.9 % (0.0-2.0) Prothrombin Time 35.8 SEC (9.30-11.50) H Prothromb Time International Ratio 3.4 (0.9-1.1) H Sodium Level 138 MMOL/L (136-145) 136 MMOL/L (136-145) Potassium Level 6.9 MMOL/L (3.5-5.1) *H 6.3 MMOL/L (3.5-5.1) *H Chloride Level 107 MMOL/L (98-107) 107 MMOL/L (98-107) Carbon Dioxide Level 23 MMOL/L (21-32) 22 MMOL/L (21-32) Anion Gap 8 mmol/L (5-15) 7 mmol/L (5-15) Blood Urea Nitrogen 43 mg/dL (7-18) H 41 mg/dL (7-18) H Creatinine 2.7 MG/DL (0.55-1.30) H 2.6 MG/DL (0.55-1.30) H Estimat Glomerular Filtration Rate mL/min (>60) mL/min (>60) Glucose Level 134 MG/DL (74-106) H 206 MG/DL (74-106) H Calcium Level 8.8 MG/DL (8.5-10.1) 9.1 MG/DL (8.5-10.1) Total Bilirubin 0.6 MG/DL (0.2-1.0) Aspartate Amino Transf (AST/SGOT) 27 U/L (15-37) Alanine Aminotransferase (ALT/SGPT) 23 U/L (12-78) Alkaline Phosphatase 103 U/L (46-116) Total Creatine Kinase 57 U/L (26-308) Creatine Kinase MB 1.1 NG/ML (0.0-3.6) Creatine Kinase MB Relative Index 1.9 Troponin I 0.018 ng/mL (0.000-0.056) Pro-B-Type Natriuretic Peptide 56587 pg/mL (0-125) H Total Protein 6.7 G/DL (6.4-8.2) Albumin 2.6 G/DL (3.4-5.0) L Globulin 4.1 g/dL Albumin/Globulin Ratio 0.6 (1.0-2.7) L Urine Color Yellow Urine Appearance Clear Urine pH 6.5 (4.5-8.0) Urine Specific [place] 1.010 (1.005-1.035) Urine Protein 4+ (NEGATIVE) H Urine Glucose (UA) 1+ (NEGATIVE) H Urine Ketones Negative (NEGATIVE) Urine Occult Blood 3+ (NEGATIVE) H Urine Nitrite Negative (NEGATIVE) Urine Bilirubin Negative (NEGATIVE) Urine Urobilinogen Normal MG/DL (0.0-1.0) Urine Leukocyte Esterase Negative (NEGATIVE) Urine RBC 2-4 /HPF (0 - 2) H Urine WBC 0-2 /HPF (0 - 2) Urine Squamous Epithelial Cells Few /LPF (NONE/OCC) Urine Bacteria Few /HPF (NONE) C-Reactive Protein, Quantitative 0.8 mg/dL (0.00-0.90) Clinton Diaz MD March 17, 2018 14:11
[2018-03-17] MEDS: dilTIAZem HCl 60mg tab ORAL SCH (21:09)
[2018-03-17] MEDS: Levemir Flexpen SUBQ SCH (21:32)
--- NOTE | 2018-03-17 23:00 | Consultation ---
DATE OF CONSULTATION: 03/17/2018 CARDIOLOGY CONSULTATION CONSULTING PHYSICIAN: Clinton Diaz M.D. REFERRING PHYSICIAN: Azucena Goss M.D. REASON FOR CONSULTATION: Atrial fibrillation with rapid ventricular response. HISTORY OF PRESENT ILLNESS: The patient is an 82-year-old lady with history of hypertension and atrial fibrillation with history of prior CVA and was on Coumadin, presents to the emergency room for tachycardia. In the half-way, the patient's heart rate was in the 120s. Also had couple episodes of vomiting. The patient do not have any chest pain, however, the patient was admitted and a Cardiology consultation was obtained for further evaluation and management. REVIEW OF SYSTEMS: Review of systems was performed and was negative other than what was mentioned in the history of present illness. PAST MEDICAL HISTORY: 1. Hypertension. 2. Diabetes. 3. Hyperlipidemia. 4. Chronic atrial fibrillation. 5. Congestive heart failure. 6. History of CVA. 7. Left eye blindness. 8. Gout. PHYSICAL EXAMINATION: VITAL SIGNS: Show blood pressure of 151/96, pulse is 107, respirations 18, and she is afebrile. HEAD AND NECK: Shows no JVD or carotid bruits. LUNGS: Clear. CARDIOVASCULAR: Shows irregular and tachycardic S1-S2 with no gallop or murmur. ABDOMEN: Soft . EXTREMITIES: Left leg 2+ pitting edema. LABORATORY DATA: Her labs show a white count of 11.5, hematocrit 12.9, hematocrit 42.6, and platelet count of 218. Sodium 136, potassium 6.3, BUN of 41, creatinine 2.6, and glucose of 2.6. Troponin is negative. ASSESSMENT AND PLAN: 1. Atrial fibrillation with rapid ventricular response. I will increase Cardizem to 60 mg every eight hours. The patient already on metoprolol 100 mg b.i.d. that would be continued. In view of anticoagulation, the patient is on Coumadin per pharmacy. Her INR today is 3.4. 2. History of congestive heart failure. The echocardiogram will be repeated. Hold off on diuretic in view of her renal failure of 2.4. 3. Hyperkalemia due to renal failure. Further evaluation by Dr. Truong. was discontinued and Lasix was discontinued. 4. Hyperlipidemia, on Pravachol. 5. Diabetes, on insulin. Thank you very much, Dr. Goss, for allowing me to participate in the care of this patient. Please do not hesitate to contact me if you have any questions regarding my evaluation. Clinton Diaz M.D. DR: RED JOB#: [id number] CC:
--- NOTE | 2018-03-17 23:04 | Consultation ---
History of Present Illness General Date patient seen: March 17, 2018 Chief Complaint: General Complaint Present Illness HPI 82-year-old female admitted on 03/17/2018 from longterm with increasing in heart rate. The pt has hx of anxiety the pt has diff sleeping and has fatigue Allergies: Coded Allergies: No Known Allergies (Unverified , 08/29/12) Medication History Scheduled Allopurinol* (Allopurinol*), 300 MG ORAL DAILY, (Reported) Bisacodyl* (Dulcolax*), 10 MG ORAL DAILY, (Reported) Cyclopentolate Hcl (Cyclogyl), Unknown Dose OP EVERY 8 HOURS, (Reported) Cyclosporine (Restasis), 1 DROP BOTH EYES EVERY 12 HOURS, (Reported) Ferrous Sulfate* (Ferrous Sulfate*), 325 MG ORAL TWICE A DAY, (Reported) Folic Acid* (Folic Acid*), 1 MG ORAL DAILY, (Reported) Furosemide* (Lasix*), 40 MG ORAL DAILY, (Reported) Glimepiride* (Amaryl*), 2 MG ORAL ACBREAKFAST, (Reported) Insulin Detemir (Levemir), 15 SUBQ BEDTIME, (Reported) Isosorbide Mononitrate (Isosorbide Mononitrate Er), 120 MG PO DAILY, (Reported) Loratadine (Loratadine), 10 MG PO DAILY, (Reported) Metoprolol Tartrate* (Metoprolol Tartrate*), 100 MG ORAL EVERY 12 HOURS, ( Reported) Potassium Chloride* (K-Dur*), 20 MEQ ORAL DAILY, (Reported) Pravastatin Sod* (Pravastatin Sod*), 80 MG ORAL BEDTIME, (Reported) Ranitidine Hcl* (Zantac*), 150 MG ORAL DAILY, (Reported) Spironolactone* (Aldactone*), 50 MG ORAL DAILY, (Reported) Warfarin Sod* (Coumadin*), 3 MG ORAL DAILY, (Reported) Scheduled PRN Acetaminophen/Hydrocodone ([place] 7.5-325 Tablet), 1 TAB ORAL Q6H PRN for For Pain, (Reported) Clonidine Hcl* (Catapres*), 0.1 MG ORAL EVERY 6 HOURS PRN for For High Blood Pressure, (Reported) Hydrocodone Bit/Acetaminophen 5-325* ([place] 5-325 Tablet*), 1 TAB ORAL EVERY 6 HOURS PRN for For Pain, (Reported) Ipratropium/Albuterol Sulfate (Iprat-Albut 0.5-3(2.5) Mg/3 Ml), 3 ML IH EVERY 4 HOURS PRN for Shortness of Breath, (Reported) Magnesium Hydroxide* (Milk Of Magnesia*), 30 ML ORAL DAILY PRN for Abdominal cramps, (Reported) Nitroglycerin (Nitrostat), 0.4 MG SL Q5M X3 DOSES PRN for CHEST PAIN, (Reported) Ondansetron* (Zofran*), 4 MG ORAL Q6H PRN for Nausea & Vomiting, (Reported) Miscellaneous Medications Insulin Aspart* (Novolog*), 0 SUBQ, (Reported) Sennosides (Senna), 8.6 MG PO, (Reported) [nephro aid], (Reported) Discontinued Medications Acetaminophen (Acetaminophen 8 Hour), 650 MG ORAL Q4HR PRN for prn, (Reported) Discontinued Reason: Therapy completed Acetazolamide (Acetazolamide), 500 MG ORAL FOUR TIMES A DAY, (Reported) Discontinued Reason: Therapy completed Amlodipine Besylate (Norvasc), 10 MG PO DAILY, (Reported) Discontinued Reason: Therapy completed Codeine/Promethazine Hcl* (Promethazine-Codeine Syrup*), 5 ML ORAL Q6H PRN for For Cough, (Reported) Discontinued Reason: Therapy completed Docusate Sodium* (Colace*), 100 MG ORAL THREE TIMES A DAY Discontinued Reason: Therapy completed Esomeprazole Magnesium (Nexium), 40 MG ORAL DAILY, (Reported) Discontinued Reason: Therapy completed Levofloxacin* (Levaquin*), 500 MG ORAL DAILY, (Reported) Discontinued Reason: Therapy completed Pantoprazole* (Protonix*), 40 MG ORAL DAILY, (Reported) Discontinued Reason: Therapy completed Rivaroxaban (Xarelto*), 15 MG ORAL DAILY, (Reported) Discontinued Reason: Therapy completed Vitamin B Cmplx/Vit C/Folic AC (Nephro-Sean Tablet), 1 TAB ORAL DAILY, (Reported ) Discontinued Reason: Therapy completed Zolpidem Tartrate* (Ambien*), 5 MG ORAL BEDTIME PRN for Insomnia, (Reported) Discontinued Reason: Therapy completed [Vit D2], (Reported) Discontinued Reason: Therapy completed Patient History Limited by: medical condition History Provided By: Patient, Medical Record, PMD Healthcare decision maker Resuscitation status Advanced Directive on File Past Medical/Surgical History Past Medical/Surgical History: (1) Anemia (2) Proteinuria (3) JESICA (acute kidney injury) (4) Hyperkalemia (5) Rapid atrial fibrillation (6) CHF exacerbation (7) Injury of head (8) clavicle fracture (9) concussion (10) fall from standing height (11) Cough with hemoptysis (12) Hypokalemia (13) Cough with hemoptysis (14) CVA (cerebral vascular accident) (15) Hemoptysis (16) ACS (acute coronary syndrome) (17) Acute renal failure (ARF) (18) Atrial fibrillation (19) Hemorrhage of tongue Review of Systems Psychiatric: Reports: prior hx, anxiety, emotional problems Physical Exam General Appearance: WD/WN, no apparent distress, alert Neurologic: depressed affect Last 24 Hour Vital Signs Date Time Temp Pulse Resp B/P (MAP) Pulse Ox O2 Delivery O2 Flow Rate FiO2 03/17/18 21:10 104 165/97 03/17/18 21:09 104 165/97 03/17/18 20:00 104 03/17/18 20:00 97.5 110 20 165/97 97 Room Air 97.5 03/17/18 16:00 97.5 120 20 164/93 96 Room Air 97.5 03/17/18 16:00 108 03/17/18 14:03 107 151/96 03/17/18 12:00 97.3 113 20 144/91 96 Room Air 97.3 03/17/18 12:00 130 03/17/18 11:51 151/96 03/17/18 06:30 97.6 107 20 151/96 96 Room Air 97.6 03/17/18 06:15 97.5 111 20 168/99 98 Room Air 97.5 03/17/18 06:13 111 20 168/99 98 Room Air 03/17/18 05:44 98 141/99 03/17/18 04:19 109 24 168/101 100 Room Air 03/17/18 04:07 112 161/97 03/17/18 03:21 120 169/97 03/17/18 02:30 115 24 161/97 99 Room Air 03/17/18 02:18 97.5 120 22 154/95 96 Room Air 97.5 Intake and Output 03/16/18 03/17/18 19:00 07:00 Intake Total 0 ml Balance 0 ml Intake Oral 0 ml Laboratory Tests Test 03/17/18 02:45 03/17/18 03:40 03/17/18 05:04 White Blood Count 11.4 K/UL (4.8-10.8) H Red Blood Count 4.74 M/UL (4.20-5.40) Hemoglobin 12.9 G/DL (12.0-16.0) Hematocrit 42.6 % (37.0-47.0) Mean Corpuscular Volume 90 FL (80-99) Mean Corpuscular Hemoglobin 27.3 PG (27.0-31.0) Mean Corpuscular Hemoglobin Concent 30.4 G/DL (32.0-36.0) L Red Cell Distribution Width 20.5 % (11.6-14.8) H Platelet Count 218 K/UL (150-450) Mean Platelet Volume 8.1 FL (6.5-10.1) Neutrophils (%) (Auto) 72.2 % (45.0-75.0) Lymphocytes (%) (Auto) 18.6 % (20.0-45.0) L Monocytes (%) (Auto) 7.5 % (1.0-10.0) Eosinophils (%) (Auto) 0.9 % (0.0-3.0) Basophils (%) (Auto) 0.9 % (0.0-2.0) Prothrombin Time 35.8 SEC (9.30-11.50) H Prothromb Time International Ratio 3.4 (0.9-1.1) H Sodium Level 138 MMOL/L (136-145) 136 MMOL/L (136-145) Potassium Level 6.9 MMOL/L (3.5-5.1) *H 6.3 MMOL/L (3.5-5.1) *H Chloride Level 107 MMOL/L (98-107) 107 MMOL/L (98-107) Carbon Dioxide Level 23 MMOL/L (21-32) 22 MMOL/L (21-32) Anion Gap 8 mmol/L (5-15) 7 mmol/L (5-15) Blood Urea Nitrogen 43 mg/dL (7-18) H 41 mg/dL (7-18) H Creatinine 2.7 MG/DL (0.55-1.30) H 2.6 MG/DL (0.55-1.30) H Estimat Glomerular Filtration Rate mL/min (>60) mL/min (>60) Glucose Level 134 MG/DL (74-106) H 206 MG/DL (74-106) H Calcium Level 8.8 MG/DL (8.5-10.1) 9.1 MG/DL (8.5-10.1) Total Bilirubin 0.6 MG/DL (0.2-1.0) Aspartate Amino Transf (AST/SGOT) 27 U/L (15-37) Alanine Aminotransferase (ALT/SGPT) 23 U/L (12-78) Alkaline Phosphatase 103 U/L (46-116) Total Creatine Kinase 57 U/L (26-308) Creatine Kinase MB 1.1 NG/ML (0.0-3.6) Creatine Kinase MB Relative Index 1.9 Troponin I 0.018 ng/mL (0.000-0.056) Pro-B-Type Natriuretic Peptide 61520 pg/mL (0-125) H Total Protein 6.7 G/DL (6.4-8.2) Albumin 2.6 G/DL (3.4-5.0) L Globulin 4.1 g/dL Albumin/Globulin Ratio 0.6 (1.0-2.7) L Urine Color Yellow Urine Appearance Clear Urine pH 6.5 (4.5-8.0) Urine Specific [place] 1.010 (1.005-1.035) Urine Protein 4+ (NEGATIVE) H Urine Glucose (UA) 1+ (NEGATIVE) H Urine Ketones Negative (NEGATIVE) Urine Occult Blood 3+ (NEGATIVE) H Urine Nitrite Negative (NEGATIVE) Urine Bilirubin Negative (NEGATIVE) Urine Urobilinogen Normal MG/DL (0.0-1.0) Urine Leukocyte Esterase Negative (NEGATIVE) Urine RBC 2-4 /HPF (0 - 2) H Urine WBC 0-2 /HPF (0 - 2) Urine Squamous Epithelial Cells Few /LPF (NONE/OCC) Urine Bacteria Few /HPF (NONE) C-Reactive Protein, Quantitative 0.8 mg/dL (0.00-0.90) Height (Feet): 5 Height (Inches): 8.00 Weight (Pounds): 170 Medications Current Medications Medications (Trade) Dose Ordered Sig/Renan Route PRN Reason Start Time Stop Time Status Last Admin Dose Admin Acetaminophen/ Hydrocodone Bitart ([place] 5/325) 1 tab Q6H PRN ORAL Moderate Breakthru Pain (5-7) 03/17/18 11:08 03/24/18 11:07 Albuterol/ Ipratropium (Albuterol/ Ipratropium) 3 ml Q4H PRN HHN Shortness of Breath 03/17/18 10:39 03/22/18 10:38 Allopurinol (Allopurinol) 300 mg DAILY ORAL 03/18/18 09:00 04/17/18 08:59 Bisacodyl (Dulcolax) 10 mg DAILY ORAL 03/18/18 09:00 04/17/18 08:59 Clonidine HCl (Catapres Tab) 0.1 mg Q6H PRN ORAL sbp>160 03/17/18 11:09 04/16/18 11:08 Dextrose (Dextrose 50%) 25 ml STAT PRN IV Hypoglycemia 03/17/18 10:39 04/16/18 10:38 Dextrose (Dextrose 50%) 50 ml STAT PRN IV Hypoglycemia 03/17/18 10:39 04/16/18 10:38 Diltiazem HCl (Cardizem) 60 mg EVERY 8 HOURS ORAL 03/17/18 22:00 04/16/18 13:59 03/17/18 21:09 Docusate Sodium (Colace) 100 mg THREE TIMES A DAY ORAL 03/17/18 13:00 04/16/18 12:59 03/17/18 17:40 Glimepiride (Amaryl) 2 mg ACBREAKFAST ORAL 03/18/18 06:30 04/17/18 06:29 Insulin Aspart (NovoLOG) BEFORE MEALS AND HS SUBQ 03/17/18 11:30 04/16/18 11:29 03/17/18 21:33 Insulin Detemir (Levemir) 15 units BEDTIME SUBQ 03/17/18 21:00 04/16/18 20:59 03/17/18 21:32 Isosorbide Mononitrate (Imdur) 60 mg DAILY ORAL 03/18/18 09:00 04/17/18 08:59 Lansoprazole (Prevacid) 30 mg DAILY ORAL 03/17/18 13:30 04/16/18 13:29 03/17/18 14:03 Metoclopramide HCl (Reglan) 5 mg THREE TIMES A DAY ORAL 03/17/18 13:00 04/16/18 12:59 03/17/18 17:40 Metoprolol Tartrate (Lopressor) 100 mg EVERY 12 HOURS ORAL 03/17/18 21:00 04/16/18 20:59 03/17/18 21:10 Nitroglycerin (Ntg) 0.4 mg Q5M PRN SL CHEST PAIN 03/17/18 10:40 04/16/18 10:39 Ondansetron HCl (Zofran) 4 mg Q6H PRN ORAL Nausea & Vomiting 03/17/18 10:40 04/16/18 10:39 Pravastatin Sodium (Pravachol) 80 mg BEDTIME ORAL 03/17/18 21:00 04/16/18 20:59 03/17/18 21:10 Sennosides (Senokot) 1 tab DAILY ORAL 03/18/18 09:00 04/17/18 08:59 Sodium Chloride 1,000 ml @ 75 mls/hr [id number] ONCE IV 03/17/18 13:00 03/18/18 02:19 03/17/18 14:02 Warfarin Sodium (Coumadin per pharmacy) 1 ea DAILY PRN MISC Per rx protocol 03/17/18 09:15 04/16/18 09:14 Assessment/Plan Assessment/Plan anxiety d/o cognitive impairment Tiffanie Mcleod M.D. March 17, 2018 23:04
[2018-03-18] VITALS: BP 159/86
[2018-03-18 04:00] VITALS: BP 159/84
[2018-03-18 05:56] LABS: INR 2.6 (0.9-1.1)
[2018-03-18 06:05] LABS: BASOPHILS % (AUTO) 0.6 % (0.0-2.0); EOSINOPHILS % (AUTO) 2.2 % (0.0-3.0); HEMATOCRIT 40.9 % (37.0-47.0); HEMOGLOBIN 12.4 G/DL (12.0-16.0); LYMPHOCYTES % (AUTO) 14.3 % (20.0-45.0); MEAN CORPUSCULAR VOLUME 91 FL (80-99); MONOCYTES % (AUTO) 9.2 % (1.0-10.0); NEUTROPHILS % (AUTO) 73.7 % (45.0-75.0); PLATELET COUNT 181 K/UL (150-450); RED BLOOD COUNT 4.51 M/UL (4.20-5.40); RED CELL DISTRIBUTION WIDTH 21.2 % (11.6-14.8); WHITE BLOOD COUNT 10.5 K/UL (4.8-10.8)
[2018-03-18] MEDS: NovoLOG Insulin Flexpen SUBQ SCH ×4 (06:30→22:16)
[2018-03-18] MEDS: Glimepiride 1mg tab ORAL SCH (06:41)
[2018-03-18] MEDS: dilTIAZem HCl 60mg tab ORAL SCH ×3 (06:42→22:12)
[2018-03-18 06:50] LABS: % IRON SATURATION 18 % (15-50); IRON 42 ug/dL (50-175); TOTAL IRON BINDING CAPACITY 238 ug/dL (250-450)
[2018-03-18 06:51] LABS: ALANINE AMINOTRANSFERASE 24 U/L (12-78); ALBUMIN 2.3 G/DL (3.4-5.0); ALBUMIN/GLOBULIN RATIO 0.6 (1.0-2.7); ALKALINE PHOSPHATASE 97 U/L (46-116); ANION GAP 11 mmol/L (5-15); ASPARTATE AMINO TRANSFERASE 23 U/L (15-37); BILIRUBIN,TOTAL 0.7 MG/DL (0.2-1.0); BLOOD UREA NITROGEN 38 mg/dL (7-18); CALCIUM 8.4 MG/DL (8.5-10.1); CARBON DIOXIDE 23 MMOL/L (21-32); CHLORIDE 109 MMOL/L (98-107); CHOLESTEROL 124 MG/DL (< 200); CREATININE 2.6 MG/DL (0.55-1.30); FERRITIN 127 NG/ML (8-388); GAMMA GLUTAMYL TRANSPEPTIDASE 45 U/L (5-85); HDL CHOLESTEROL 60 MG/DL (40-60); PHOSPHORUS 4.4 MG/DL (2.5-4.9); SODIUM 143 MMOL/L (136-145); TRIGLYCERIDES 73 MG/DL (30-150)
[2018-03-18 08:00] VITALS: BP 121/83
[2018-03-18] MEDS ORDERED: Furosemide 40mg tab ORAL SCH (09:00)
[2018-03-18] MEDS ORDERED: Spironolactone 25mg tab ORAL SCH (09:00)
[2018-03-18] MEDS: Sennosides 8.6mg ORAL SCH (09:43)
[2018-03-18] MEDS: Bisacodyl EC 5mg tab ORAL SCH (09:43)
[2018-03-18] MEDS: Imdur 30mg tab ORAL SCH (09:44)
[2018-03-18] MEDS: Docusate 100mg cap ORAL SCH ×3 (09:44→17:17)
--- NOTE | 2018-03-18 10:48 | Nephrology Progress Note ---
Assessment/Plan Problem List: (1) Acute renal failure (ARF) (2) Hyperkalemia (3) Atrial fibrillation Assessment Renal failure - Pre renal picture- Superimposed on CKD High K , was on Aldactone and K supplements At Fib chronic on coumadin INR 3.4 on admit Left eye blind' HTN Gout High Chol CAD CHF Plan adjust bp meds Slow hydrate Kayexelate as needed monitor INR and renal parameters keep bp in check per orders Subjective ROS Limited/Unobtainable: No Constitutional: Reports: other - stronger Objective Objective Last 24 Hour Vital Signs Date Time Temp Pulse Resp B/P (MAP) Pulse Ox O2 Delivery O2 Flow Rate FiO2 03/18/18 09:44 121/83 03/18/18 09:44 100 121/83 03/18/18 08:00 97.5 100 20 121/83 97 Room Air 97.5 03/18/18 06:42 109 159/84 03/18/18 04:40 109 16 Room Air 21 03/18/18 04:00 97 03/18/18 04:00 97.6 90 20 159/84 96 Room Air 97.6 03/18/18 00:00 89 03/18/18 00:00 97.9 90 20 159/86 98 Room Air 97.9 03/17/18 21:10 104 165/97 03/17/18 21:09 104 165/97 03/17/18 20:00 104 03/17/18 20:00 97.5 110 20 165/97 97 Room Air 97.5 03/17/18 16:00 97.5 120 20 164/93 96 Room Air 97.5 03/17/18 16:00 108 03/17/18 14:03 107 151/96 03/17/18 12:00 97.3 113 20 144/91 96 Room Air 97.3 03/17/18 12:00 130 03/17/18 11:51 151/96 Intake and Output 03/17/18 03/18/18 19:00 07:00 Intake Total 375 ml Output Total 150 ml Balance 375 ml -150 ml IV Total 375 ml Output Urine Total 150 ml Laboratory Tests 03/18/18 04:15: White Blood Count 10.5, Red Blood Count 4.51, Hemoglobin 12.4, Hematocrit 40.9, Mean Corpuscular Volume 91, Mean Corpuscular Hemoglobin 27.4, Mean Corpuscular Hemoglobin Concent 30.2L, Red Cell Distribution Width 21.2H, Platelet Count 181 , Mean Platelet Volume 8.3, Neutrophils (%) (Auto) 73.7, Lymphocytes (%) (Auto) 14.3L, Monocytes (%) (Auto) 9.2, Eosinophils (%) (Auto) 2.2, Basophils (%) (Auto ) 0.6, Prothrombin Time 27.1H, Prothromb Time International Ratio 2.6H, Sodium Level 143, Potassium Level 4.0, Chloride Level 109H, Carbon Dioxide Level 23, Anion Gap 11, Blood Urea Nitrogen 38H, Creatinine 2.6H, Estimat Glomerular Filtration Rate , Glucose Level 81#, Hemoglobin A1c 5.8, Uric Acid 4.8, Calcium Level 8.4L, Phosphorus Level 4.4, Magnesium Level 1.9, Iron Level 42L, Total Iron Binding Capacity 238L, Percent Iron Saturation 18, Unsaturated Iron Binding 196, Ferritin 127, Total Bilirubin 0.7, Gamma Glutamyl Transpeptidase 45 , Aspartate Amino Transf (AST/SGOT) 23, Alanine Aminotransferase (ALT/SGPT) 24, Alkaline Phosphatase 97, Troponin I 0.027, Pro-B-Type Natriuretic Peptide 32785S , Total Protein 6.2L, Albumin 2.3L, Globulin 3.9, Albumin/Globulin Ratio 0.6L, Triglycerides Level 73, Cholesterol Level 124, LDL Cholesterol 64, HDL Cholesterol 60, Cholesterol/HDL Ratio 2.1L, Vitamin B12 Level 1358H, Folate 87.3H, Thyroid Stimulating Hormone (TSH) 1.755 Height (Feet): 5 Height (Inches): 5.00 Weight (Pounds): 161 General Appearance: no apparent distress Cardiovascular: arrhythmia Respiratory/Chest: lungs clear Abdomen: soft SUGEY PETERSON March 18, 2018 10:48
[2018-03-18 12:00] VITALS: BP 157/70
--- NOTE | 2018-03-18 15:38 | Cardiac Electrophysiology PN ---
Assessment/Plan Assessment/Plan 1. Atrial fibrillation with rapid ventricular response. Better on Cardizem 60 mg every eight hours and metoprolol 100 mg b.i.d. On Coumadin per pharmacy. Her INR was 3.4. 2. Congestive heart failure with EF 20-25% by echo and BNP> 753931. On Metoprolol and imdur. Add Hydralazine 25 bid Likely needs cardiac cath when renal failure resolves. Or stress test if she agrees 3. Hyperkalemia due to renal failure. 4. Hyperlipidemia, on Pravachol. 5. Diabetes, on insulin. 6. Renal failure.Cr 2.7 Subjective Subjective Heart rate controlled in atrial fib.No CP or SOB. Objective Last 24 Hour Vital Signs Date Time Temp Pulse Resp B/P (MAP) Pulse Ox O2 Delivery O2 Flow Rate FiO2 03/18/18 14:27 78 157/70 03/18/18 12:00 76 03/18/18 12:00 97.6 78 20 157/70 97 Room Air 97.6 03/18/18 09:44 121/83 03/18/18 09:44 100 121/83 03/18/18 08:00 97.5 100 20 121/83 97 Room Air 97.5 03/18/18 08:00 90 03/18/18 06:42 109 159/84 03/18/18 04:40 109 16 Room Air 21 03/18/18 04:00 97 03/18/18 04:00 97.6 90 20 159/84 96 Room Air 97.6 03/18/18 00:00 89 03/18/18 00:00 97.9 90 20 159/86 98 Room Air 97.9 03/17/18 21:10 104 165/97 03/17/18 21:09 104 165/97 03/17/18 20:00 104 03/17/18 20:00 97.5 110 20 165/97 97 Room Air 97.5 03/17/18 16:00 97.5 120 20 164/93 96 Room Air 97.5 03/17/18 16:00 108 Intake and Output 03/17/18 03/18/18 19:00 07:00 Intake Total 375 ml Output Total 150 ml Balance 375 ml -150 ml IV Total 375 ml Output Urine Total 150 ml Laboratory Tests Test 03/18/18 04:15 White Blood Count 10.5 K/UL (4.8-10.8) Red Blood Count 4.51 M/UL (4.20-5.40) Hemoglobin 12.4 G/DL (12.0-16.0) Hematocrit 40.9 % (37.0-47.0) Mean Corpuscular Volume 91 FL (80-99) Mean Corpuscular Hemoglobin 27.4 PG (27.0-31.0) Mean Corpuscular Hemoglobin Concent 30.2 G/DL (32.0-36.0) L Red Cell Distribution Width 21.2 % (11.6-14.8) H Platelet Count 181 K/UL (150-450) Mean Platelet Volume 8.3 FL (6.5-10.1) Neutrophils (%) (Auto) 73.7 % (45.0-75.0) Lymphocytes (%) (Auto) 14.3 % (20.0-45.0) L Monocytes (%) (Auto) 9.2 % (1.0-10.0) Eosinophils (%) (Auto) 2.2 % (0.0-3.0) Basophils (%) (Auto) 0.6 % (0.0-2.0) Prothrombin Time 27.1 SEC (9.30-11.50) H Prothromb Time International Ratio 2.6 (0.9-1.1) H Sodium Level 143 MMOL/L (136-145) Potassium Level 4.0 MMOL/L (3.5-5.1) Chloride Level 109 MMOL/L (98-107) H Carbon Dioxide Level 23 MMOL/L (21-32) Anion Gap 11 mmol/L (5-15) Blood Urea Nitrogen 38 mg/dL (7-18) H Creatinine 2.6 MG/DL (0.55-1.30) H Estimat Glomerular Filtration Rate mL/min (>60) Glucose Level 81 MG/DL (74-106) # Hemoglobin A1c 5.8 % (4.3-6.0) Uric Acid 4.8 MG/DL (2.6-7.2) Calcium Level 8.4 MG/DL (8.5-10.1) L Phosphorus Level 4.4 MG/DL (2.5-4.9) Magnesium Level 1.9 MG/DL (1.8-2.4) Iron Level 42 ug/dL (50-175) L Total Iron Binding Capacity 238 ug/dL (250-450) L Percent Iron Saturation 18 % (15-50) Unsaturated Iron Binding 196 ug/dL (112-346) Ferritin 127 NG/ML (8-388) Total Bilirubin 0.7 MG/DL (0.2-1.0) Gamma Glutamyl Transpeptidase 45 U/L (5-85) Aspartate Amino Transf (AST/SGOT) 23 U/L (15-37) Alanine Aminotransferase (ALT/SGPT) 24 U/L (12-78) Alkaline Phosphatase 97 U/L (46-116) Troponin I 0.027 ng/mL (0.000-0.056) Pro-B-Type Natriuretic Peptide 60915 pg/mL (0-125) H Total Protein 6.2 G/DL (6.4-8.2) L Albumin 2.3 G/DL (3.4-5.0) L Globulin 3.9 g/dL Albumin/Globulin Ratio 0.6 (1.0-2.7) L Triglycerides Level 73 MG/DL (30-150) Cholesterol Level 124 MG/DL (< 200) LDL Cholesterol 64 mg/dL (<100) HDL Cholesterol 60 MG/DL (40-60) Cholesterol/HDL Ratio 2.1 (3.3-4.4) L Vitamin B12 Level 1358 PG/ML (193-986) H Folate 87.3 NG/ML (8.6-58.9) H Thyroid Stimulating Hormone (TSH) 1.755 uiU/mL (0.358-3.740) Objective HEAD AND NECK: No JVD or carotid bruits. LUNGS: Clear. CARDIOVASCULAR: Irregular and tachycardic S1-S2 with no gallop or murmur. ABDOMEN: Soft . EXTREMITIES: Left leg 1+ pitting edema. Clinton Diaz MD March 18, 2018 15:38
[2018-03-18 16:00] VITALS: BP 154/88
[2018-03-18] MEDS ORDERED: Warfarin Sodium 2.5mg ORAL ONE (17:00)
[2018-03-18 20:00] VITALS: BP 163/77
--- NOTE | 2018-03-18 21:41 | General Progress Note ---
Assessment/Plan Problem List: (1) JESICA (acute kidney injury) ICD Codes: N17.9 - Acute kidney failure, unspecified SNOMED: 30260521 (2) Rapid atrial fibrillation ICD Codes: I48.91 - Unspecified atrial fibrillation SNOMED: 294503664 (3) Hyperkalemia ICD Codes: E87.5 - Hyperkalemia SNOMED: 67755874 (4) Atrial fibrillation ICD Codes: I48.91 - Unspecified atrial fibrillation SNOMED: 20754120 Status: progressing Assessment/Plan afebrile a fib w rvr improved hperkalemia improved jesica improving Subjective ROS Limited/Unobtainable: Yes Allergies: Coded Allergies: No Known Allergies (Unverified , 08/29/12) Objective Last 24 Hour Vital Signs Date Time Temp Pulse Resp B/P (MAP) Pulse Ox O2 Delivery O2 Flow Rate FiO2 03/18/18 19:14 84 18 Room Air 21 03/18/18 16:12 86 03/18/18 16:00 97.8 86 21 154/88 97 Room Air 97.8 03/18/18 14:27 78 157/70 03/18/18 12:00 76 03/18/18 12:00 97.6 78 20 157/70 97 Room Air 97.6 03/18/18 09:44 121/83 03/18/18 09:44 100 121/83 03/18/18 08:00 97.5 100 20 121/83 97 Room Air 97.5 03/18/18 08:00 90 03/18/18 06:42 109 159/84 03/18/18 04:40 109 16 Room Air 21 03/18/18 04:00 97 03/18/18 04:00 97.6 90 20 159/84 96 Room Air 97.6 03/18/18 00:00 89 03/18/18 00:00 97.9 90 20 159/86 98 Room Air 97.9 Intake and Output 03/17/18 03/18/18 19:00 07:00 Intake Total 375 ml Output Total 150 ml Balance 375 ml -150 ml IV Total 375 ml Output Urine Total 150 ml Laboratory Tests 03/18/18 04:15: White Blood Count 10.5, Red Blood Count 4.51, Hemoglobin 12.4, Hematocrit 40.9, Mean Corpuscular Volume 91, Mean Corpuscular Hemoglobin 27.4, Mean Corpuscular Hemoglobin Concent 30.2L, Red Cell Distribution Width 21.2H, Platelet Count 181 , Mean Platelet Volume 8.3, Neutrophils (%) (Auto) 73.7, Lymphocytes (%) (Auto) 14.3L, Monocytes (%) (Auto) 9.2, Eosinophils (%) (Auto) 2.2, Basophils (%) (Auto ) 0.6, Prothrombin Time 27.1H, Prothromb Time International Ratio 2.6H, Sodium Level 143, Potassium Level 4.0, Chloride Level 109H, Carbon Dioxide Level 23, Anion Gap 11, Blood Urea Nitrogen 38H, Creatinine 2.6H, Estimat Glomerular Filtration Rate , Glucose Level 81#, Hemoglobin A1c 5.8, Uric Acid 4.8, Calcium Level 8.4L, Phosphorus Level 4.4, Magnesium Level 1.9, Iron Level 42L, Total Iron Binding Capacity 238L, Percent Iron Saturation 18, Unsaturated Iron Binding 196, Ferritin 127, Total Bilirubin 0.7, Gamma Glutamyl Transpeptidase 45 , Aspartate Amino Transf (AST/SGOT) 23, Alanine Aminotransferase (ALT/SGPT) 24, Alkaline Phosphatase 97, Troponin I 0.027, Pro-B-Type Natriuretic Peptide 34892Y , Total Protein 6.2L, Albumin 2.3L, Globulin 3.9, Albumin/Globulin Ratio 0.6L, Triglycerides Level 73, Cholesterol Level 124, LDL Cholesterol 64, HDL Cholesterol 60, Cholesterol/HDL Ratio 2.1L, Vitamin B12 Level 1358H, Folate 87.3H, Thyroid Stimulating Hormone (TSH) 1.755 Height (Feet): 5 Height (Inches): 5.00 Weight (Pounds): 161 Neck: supple Cardiovascular: normal rate Respiratory/Chest: lungs clear Abdomen: soft Azucena Goss MD March 18, 2018 21:41
[2018-03-18] MEDS: Levemir Flexpen SUBQ SCH (22:18)
[2018-03-18] MEDS: HydrALAZINE 25mg tab ORAL SCH (22:19)
[2018-03-19] VITALS: BP 151/87
[2018-03-19] MEDS: Norco 5mg/325mg tab ORAL PRN ×2 (02:57→20:58)
[2018-03-19 04:00] VITALS: BP 146/80
[2018-03-19 05:32] LABS: INR 2.4 (0.9-1.1)
[2018-03-19] MEDS: dilTIAZem HCl 60mg tab ORAL SCH ×3 (06:22→22:19)
[2018-03-19] MEDS: Glimepiride 1mg tab ORAL SCH (06:22)
[2018-03-19] MEDS: NovoLOG Insulin Flexpen SUBQ SCH ×4 (06:24→21:09)
[2018-03-19 08:00] VITALS: BP 141/72
[2018-03-19] MEDS: Allopurinol 100mg Tab ORAL SCH (08:39)
[2018-03-19] MEDS: Bisacodyl EC 5mg tab ORAL SCH (08:40)
[2018-03-19] MEDS: Imdur 30mg tab ORAL SCH (08:40)
[2018-03-19] MEDS: HydrALAZINE 25mg tab ORAL SCH ×2 (08:40→21:02)
[2018-03-19] MEDS: Sennosides 8.6mg ORAL SCH (08:40)
[2018-03-19] MEDS: Docusate 100mg cap ORAL SCH ×3 (08:40→17:58)
--- NOTE | 2018-03-19 10:02 | Nephrology Progress Note ---
Assessment/Plan Problem List: (1) Acute renal failure (ARF) (2) Hyperkalemia (3) Atrial fibrillation Assessment Renal failure - Pre renal picture- Superimposed on CKD High K , was on Aldactone and K supplements At Fib chronic on coumadin INR 3.4 on admit Left eye blind' HTN Gout High Chol CAD CHF Plan no labs today adjust bp meds Slow hydrate Kayexelate as needed monitor INR and renal parameters keep bp in check per orders Subjective ROS Limited/Unobtainable: No Objective Objective Last 24 Hour Vital Signs Date Time Temp Pulse Resp B/P (MAP) Pulse Ox O2 Delivery O2 Flow Rate FiO2 03/19/18 08:41 89 141/72 03/19/18 08:40 141/72 03/19/18 08:40 141/72 03/19/18 06:22 84 146/80 03/19/18 04:00 84 03/19/18 04:00 98.2 84 16 146/80 95 Room Air 98.2 03/19/18 04:00 80 03/19/18 00:00 98.0 87 18 151/87 94 Room Air 98.0 03/19/18 00:00 80 03/18/18 22:19 163/77 03/18/18 22:13 79 163/77 03/18/18 22:12 79 163/77 03/18/18 20:00 98.2 86 20 163/77 97 Room Air 98.2 03/18/18 20:00 80 03/18/18 19:14 84 18 Room Air 21 03/18/18 16:12 86 03/18/18 16:00 97.8 86 21 154/88 97 Room Air 97.8 03/18/18 14:27 78 157/70 03/18/18 12:00 76 03/18/18 12:00 97.6 78 20 157/70 97 Room Air 97.6 Intake and Output 03/18/18 03/19/18 19:00 07:00 Intake Total 350 ml 100 ml Output Total 400 ml 800 ml Balance -50 ml -700 ml Intake Oral 350 ml 100 ml Output Urine Total 400 ml 800 ml Laboratory Tests 03/19/18 05:00: Prothrombin Time 25.2H, Prothromb Time International Ratio 2.4H Height (Feet): 5 Height (Inches): 5.00 Weight (Pounds): 178 General Appearance: no apparent distress Objective no change SUGEY PETERSON March 19, 2018 10:02
[2018-03-19] MEDS: LORazepam 0.5mg tab ORAL PRN (11:10)
[2018-03-19 12:00] VITALS: BP 156/79
[2018-03-19 16:00] VITALS: BP 155/82
[2018-03-19] MEDS ORDERED: Warfarin Sodium 2.5mg ORAL ONE (17:00)
[2018-03-19 20:00] VITALS: BP 160/90
[2018-03-19] MEDS: Levemir Flexpen SUBQ SCH (21:06)
--- NOTE | 2018-03-19 22:26 | General Progress Note ---
Assessment/Plan Problem List: (1) JESICA (acute kidney injury) ICD Codes: N17.9 - Acute kidney failure, unspecified SNOMED: 28686557 (2) Rapid atrial fibrillation ICD Codes: I48.91 - Unspecified atrial fibrillation SNOMED: 767162831 (3) Hyperkalemia ICD Codes: E87.5 - Hyperkalemia SNOMED: 21982698 (4) Atrial fibrillation ICD Codes: I48.91 - Unspecified atrial fibrillation SNOMED: 36660948 Status: progressing Assessment/Plan dc to snf in am a fib w rvr resolved hperkalemia improved jesica improving Subjective ROS Limited/Unobtainable: Yes Constitutional: Reports: no symptoms Allergies: Coded Allergies: No Known Allergies (Unverified , 08/29/12) Objective Last 24 Hour Vital Signs Date Time Temp Pulse Resp B/P (MAP) Pulse Ox O2 Delivery O2 Flow Rate FiO2 03/19/18 22:19 80 150/85 03/19/18 21:02 160/90 03/19/18 21:02 85 160/90 03/19/18 20:00 97.9 82 20 160/90 96 Room Air 97.9 85 03/19/18 20:00 95 03/19/18 18:51 81 18 Room Air 21 03/19/18 16:00 97.7 85 20 155/82 96 Room Air 97.7 85 03/19/18 16:00 87 03/19/18 13:05 89 141/72 03/19/18 12:00 85 03/19/18 12:00 97.6 83 19 156/79 96 Room Air 97.6 03/19/18 08:41 89 141/72 03/19/18 08:40 141/72 03/19/18 08:40 141/72 03/19/18 08:32 89 18 Room Air 21 03/19/18 08:00 97.9 89 20 141/72 96 Room Air 97.9 03/19/18 08:00 91 03/19/18 06:22 84 146/80 03/19/18 04:00 84 03/19/18 04:00 98.2 84 16 146/80 95 Room Air 98.2 03/19/18 04:00 80 03/19/18 00:00 98.0 87 18 151/87 94 Room Air 98.0 03/19/18 00:00 80 Intake and Output 03/18/18 03/19/18 19:00 07:00 Intake Total 350 ml 100 ml Output Total 400 ml 800 ml Balance -50 ml -700 ml Intake Oral 350 ml 100 ml Output Urine Total 400 ml 800 ml Laboratory Tests 03/19/18 05:00: Prothrombin Time 25.2H, Prothromb Time International Ratio 2.4H 03/19/18 11:43: C-Reactive Protein, Quantitative 1.4H Height (Feet): 5 Height (Inches): 5.00 Weight (Pounds): 178 Neck: supple Cardiovascular: normal rate Respiratory/Chest: lungs clear Abdomen: soft Azucena Goss MD March 19, 2018 22:26
[2018-03-20] VITALS (7 sets, daily range): BP systolic 142–166; BP diastolic 78–101
[2018-03-20 05:16] LABS: BASOPHILS % (AUTO) 1.1 % (0.0-2.0); EOSINOPHILS % (AUTO) 1.4 % (0.0-3.0); HEMATOCRIT 40.7 % (37.0-47.0); HEMOGLOBIN 12.5 G/DL (12.0-16.0); LYMPHOCYTES % (AUTO) 24.6 % (20.0-45.0); MEAN CORPUSCULAR VOLUME 89 FL (80-99); MONOCYTES % (AUTO) 8.9 % (1.0-10.0); NEUTROPHILS % (AUTO) 64.1 % (45.0-75.0); PLATELET COUNT 195 K/UL (150-450); RED BLOOD COUNT 4.57 M/UL (4.20-5.40); RED CELL DISTRIBUTION WIDTH 20.4 % (11.6-14.8); WHITE BLOOD COUNT 15.5 K/UL (4.8-10.8)
[2018-03-20 05:19] LABS: INR 1.7 (0.9-1.1)
[2018-03-20 05:36] LABS: ALANINE AMINOTRANSFERASE 18 U/L (12-78); ALBUMIN 2.1 G/DL (3.4-5.0); ALBUMIN/GLOBULIN RATIO 0.5 (1.0-2.7); ALKALINE PHOSPHATASE 103 U/L (46-116); ANION GAP 9 mmol/L (5-15); ASPARTATE AMINO TRANSFERASE 18 U/L (15-37); BILIRUBIN,TOTAL 0.8 MG/DL (0.2-1.0); BLOOD UREA NITROGEN 27 mg/dL (7-18); CALCIUM 8.6 MG/DL (8.5-10.1); CARBON DIOXIDE 25 MMOL/L (21-32); CHLORIDE 108 MMOL/L (98-107); PHOSPHORUS 3.4 MG/DL (2.5-4.9); POTASSIUM 3.1 MMOL/L (3.5-5.1); SODIUM 142 MMOL/L (136-145)
[2018-03-20] MEDS: Glimepiride 1mg tab ORAL SCH (06:01)
[2018-03-20] MEDS: dilTIAZem HCl 60mg tab ORAL SCH ×3 (06:01→21:23)
[2018-03-20] MEDS: NovoLOG Insulin Flexpen SUBQ SCH ×4 (06:30→21:00)
[2018-03-20] MEDS: LORazepam 0.5mg tab ORAL PRN (06:44)
[2018-03-20] MEDS: Docusate 100mg cap ORAL SCH ×3 (09:00→18:26)
[2018-03-20] MEDS: Sennosides 8.6mg ORAL SCH (09:00)
[2018-03-20] MEDS: Bisacodyl EC 5mg tab ORAL SCH (09:00)
[2018-03-20] MEDS: Allopurinol 100mg Tab ORAL SCH (09:56)
[2018-03-20] MEDS: HydrALAZINE 25mg tab ORAL SCH ×2 (09:56→21:18)
[2018-03-20] MEDS: Imdur 30mg tab ORAL SCH (09:57)
--- NOTE | 2018-03-20 12:17 | General Progress Note ---
Assessment/Plan Problem List: (1) JESICA (acute kidney injury) ICD Codes: N17.9 - Acute kidney failure, unspecified SNOMED: 99093191 (2) Rapid atrial fibrillation ICD Codes: I48.91 - Unspecified atrial fibrillation SNOMED: 039651150 (3) Hyperkalemia ICD Codes: E87.5 - Hyperkalemia SNOMED: 95206471 (4) Atrial fibrillation ICD Codes: I48.91 - Unspecified atrial fibrillation SNOMED: 68291858 Status: progressing Assessment/Plan leukoctyosis is getting worse left shoulder pain informed dr leung of above has h/h gout and inflammatory disease a fib w rvr resolved hperkalemia improved cri Subjective ROS Limited/Unobtainable: Yes Allergies: Coded Allergies: No Known Allergies (Unverified , 08/29/12) Objective Last 24 Hour Vital Signs Date Time Temp Pulse Resp B/P (MAP) Pulse Ox O2 Delivery O2 Flow Rate FiO2 03/20/18 09:57 157/94 03/20/18 09:57 77 157/94 03/20/18 09:56 157/94 03/20/18 08:00 98.6 78 20 157/94 96 Room Air 98.6 78 03/20/18 08:00 77 03/20/18 07:56 120 18 Room Air 21 03/20/18 06:01 120 144/95 03/20/18 04:00 119 03/20/18 04:00 98.0 87 20 144/95 97 Room Air 98.0 85 03/20/18 00:00 98.8 87 20 143/90 96 Room Air 98.8 85 03/20/18 00:00 91 03/19/18 22:19 80 150/85 03/19/18 21:02 160/90 03/19/18 21:02 85 160/90 03/19/18 20:00 97.9 82 20 160/90 96 Room Air 97.9 85 03/19/18 20:00 95 03/19/18 18:51 81 18 Room Air 21 03/19/18 16:00 97.7 85 20 155/82 96 Room Air 97.7 85 03/19/18 16:00 87 03/19/18 13:05 89 141/72 Intake and Output 03/19/18 03/20/18 19:00 07:00 # Bowel Movements 1 1 Laboratory Tests 03/20/18 03:50: White Blood Count 15.5H, Red Blood Count 4.57, Hemoglobin 12.5, Hematocrit 40.7 , Mean Corpuscular Volume 89, Mean Corpuscular Hemoglobin 27.2, Mean Corpuscular Hemoglobin Concent 30.6L, Red Cell Distribution Width 20.4H, Platelet Count 195, Mean Platelet Volume 6.5, Neutrophils (%) (Auto) 64.1, Lymphocytes (%) (Auto) 24.6, Monocytes (%) (Auto) 8.9, Eosinophils (%) (Auto) 1.4, Basophils (%) (Auto) 1.1, Prothrombin Time 16.9H, Prothromb Time International Ratio 1.7H, Sodium Level 142, Potassium Level 3.1L, Chloride Level 108H, Carbon Dioxide Level 25, Anion Gap 9, Blood Urea Nitrogen 27H, Creatinine 2.0H, Estimat Glomerular Filtration Rate , Glucose Level 70L, Uric Acid 4.6, Calcium Level 8.6, Phosphorus Level 3.4, Magnesium Level 1.8, Total Bilirubin 0.8, Aspartate Amino Transf (AST/SGOT) 18, Alanine Aminotransferase ( ALT/SGPT) 18, Alkaline Phosphatase 103, Pro-B-Type Natriuretic Peptide 9080H, Total Protein 6.3L, Albumin 2.1L, Globulin 4.2, Albumin/Globulin Ratio 0.5L Height (Feet): 5 Height (Inches): 5.00 Weight (Pounds): 178 Respiratory/Chest: lungs clear Abdomen: soft Azucena Goss MD March 20, 2018 12:17
--- NOTE | 2018-03-20 12:45 | Cardiac Electrophysiology PN ---
Assessment/Plan Assessment/Plan 1. Atrial fibrillation with rapid ventricular response. Continue Cardizem 60 mg q8h and metoprolol 100 mg b.i.d. On Coumadin per pharmacy. Her INR was 3.4. 2. Congestive heart failure with EF 20-25% by echo and BNP> 102851. On Metoprolol, imdur and Hydralazine 25 bid Likely needs cardiac cath when renal failure resolves. Will schedule stress test for now 3. Hyperkalemia due to renal failure. 4. Hyperlipidemia, on Pravachol. 5. Diabetes, on insulin. 6. Renal failure.Cr improved to 2.0 Subjective Subjective Heart rate controlled in atrial fib.No CP or SOB. Objective Last 24 Hour Vital Signs Date Time Temp Pulse Resp B/P (MAP) Pulse Ox O2 Delivery O2 Flow Rate FiO2 03/20/18 09:57 157/94 03/20/18 09:57 77 157/94 03/20/18 09:56 157/94 03/20/18 08:00 98.6 78 20 157/94 96 Room Air 98.6 78 03/20/18 08:00 77 03/20/18 07:56 120 18 Room Air 21 03/20/18 06:01 120 144/95 03/20/18 04:00 119 03/20/18 04:00 98.0 87 20 144/95 97 Room Air 98.0 85 03/20/18 00:00 98.8 87 20 143/90 96 Room Air 98.8 85 03/20/18 00:00 91 03/19/18 22:19 80 150/85 03/19/18 21:02 160/90 03/19/18 21:02 85 160/90 03/19/18 20:00 97.9 82 20 160/90 96 Room Air 97.9 85 03/19/18 20:00 95 03/19/18 18:51 81 18 Room Air 21 03/19/18 16:00 97.7 85 20 155/82 96 Room Air 97.7 85 03/19/18 16:00 87 03/19/18 13:05 89 141/72 Intake and Output 03/19/18 03/20/18 19:00 07:00 # Bowel Movements 1 1 Laboratory Tests Test 03/20/18 03:50 White Blood Count 15.5 K/UL (4.8-10.8) H Red Blood Count 4.57 M/UL (4.20-5.40) Hemoglobin 12.5 G/DL (12.0-16.0) Hematocrit 40.7 % (37.0-47.0) Mean Corpuscular Volume 89 FL (80-99) Mean Corpuscular Hemoglobin 27.2 PG (27.0-31.0) Mean Corpuscular Hemoglobin Concent 30.6 G/DL (32.0-36.0) L Red Cell Distribution Width 20.4 % (11.6-14.8) H Platelet Count 195 K/UL (150-450) Mean Platelet Volume 6.5 FL (6.5-10.1) Neutrophils (%) (Auto) 64.1 % (45.0-75.0) Lymphocytes (%) (Auto) 24.6 % (20.0-45.0) Monocytes (%) (Auto) 8.9 % (1.0-10.0) Eosinophils (%) (Auto) 1.4 % (0.0-3.0) Basophils (%) (Auto) 1.1 % (0.0-2.0) Prothrombin Time 16.9 SEC (9.30-11.50) H Prothromb Time International Ratio 1.7 (0.9-1.1) H Sodium Level 142 MMOL/L (136-145) Potassium Level 3.1 MMOL/L (3.5-5.1) L Chloride Level 108 MMOL/L (98-107) H Carbon Dioxide Level 25 MMOL/L (21-32) Anion Gap 9 mmol/L (5-15) Blood Urea Nitrogen 27 mg/dL (7-18) H Creatinine 2.0 MG/DL (0.55-1.30) H Estimat Glomerular Filtration Rate mL/min (>60) Glucose Level 70 MG/DL (74-106) L Uric Acid 4.6 MG/DL (2.6-7.2) Calcium Level 8.6 MG/DL (8.5-10.1) Phosphorus Level 3.4 MG/DL (2.5-4.9) Magnesium Level 1.8 MG/DL (1.8-2.4) Total Bilirubin 0.8 MG/DL (0.2-1.0) Aspartate Amino Transf (AST/SGOT) 18 U/L (15-37) Alanine Aminotransferase (ALT/SGPT) 18 U/L (12-78) Alkaline Phosphatase 103 U/L (46-116) Pro-B-Type Natriuretic Peptide 9080 pg/mL (0-125) H Total Protein 6.3 G/DL (6.4-8.2) L Albumin 2.1 G/DL (3.4-5.0) L Globulin 4.2 g/dL Albumin/Globulin Ratio 0.5 (1.0-2.7) L Objective HEAD AND NECK: No JVD LUNGS: Clear. CARDIOVASCULAR: Irregular S1-S2 with no gallop or murmur. ABDOMEN: Soft . EXTREMITIES: Left leg 1+ pitting edema. Clinton Diaz MD March 20, 2018 12:45
[2018-03-20] MEDS: Norco 5mg/325mg tab ORAL PRN (13:08)
--- NOTE | 2018-03-20 15:04 | Nephrology Progress Note ---
Assessment/Plan Problem List: (1) Acute renal failure (ARF) (2) Hyperkalemia (3) Atrial fibrillation Assessment Renal failure - Pre renal picture- Superimposed on CKD High K , was on Aldactone and K supplements At Fib chronic on coumadin INR 3.4 on admit Left eye blind' HTN Gout High Chol CAD CHF Plan k supplement adjust bp meds Slow hydrate Kayexelate as needed monitor INR and renal parameters keep bp in check per orders Subjective ROS Limited/Unobtainable: No Constitutional: Reports: malaise Objective Objective Last 24 Hour Vital Signs Date Time Temp Pulse Resp B/P (MAP) Pulse Ox O2 Delivery O2 Flow Rate FiO2 03/20/18 14:26 98.3 03/20/18 13:08 98.3 03/20/18 13:07 166/94 03/20/18 12:00 93 03/20/18 12:00 98.3 116 20 166/94 96 Room Air 98.3 88 03/20/18 09:57 157/94 03/20/18 09:57 77 157/94 03/20/18 09:56 157/94 03/20/18 08:00 98.6 78 20 157/94 96 Room Air 98.6 78 03/20/18 08:00 77 03/20/18 07:56 120 18 Room Air 21 03/20/18 06:01 120 144/95 03/20/18 04:00 119 03/20/18 04:00 98.0 87 20 144/95 97 Room Air 98.0 85 03/20/18 00:00 98.8 87 20 143/90 96 Room Air 98.8 85 03/20/18 00:00 91 03/19/18 22:19 80 150/85 03/19/18 21:02 160/90 03/19/18 21:02 85 160/90 03/19/18 20:00 97.9 82 20 160/90 96 Room Air 97.9 85 03/19/18 20:00 95 03/19/18 18:51 81 18 Room Air 21 03/19/18 16:00 97.7 85 20 155/82 96 Room Air 97.7 85 03/19/18 16:00 87 Intake and Output 03/19/18 03/20/18 19:00 07:00 # Bowel Movements 1 1 Laboratory Tests 03/20/18 03:50: White Blood Count 15.5H, Red Blood Count 4.57, Hemoglobin 12.5, Hematocrit 40.7 , Mean Corpuscular Volume 89, Mean Corpuscular Hemoglobin 27.2, Mean Corpuscular Hemoglobin Concent 30.6L, Red Cell Distribution Width 20.4H, Platelet Count 195, Mean Platelet Volume 6.5, Neutrophils (%) (Auto) 64.1, Lymphocytes (%) (Auto) 24.6, Monocytes (%) (Auto) 8.9, Eosinophils (%) (Auto) 1.4, Basophils (%) (Auto) 1.1, Prothrombin Time 16.9H, Prothromb Time International Ratio 1.7H, Sodium Level 142, Potassium Level 3.1L, Chloride Level 108H, Carbon Dioxide Level 25, Anion Gap 9, Blood Urea Nitrogen 27H, Creatinine 2.0H, Estimat Glomerular Filtration Rate , Glucose Level 70L, Uric Acid 4.6, Calcium Level 8.6, Phosphorus Level 3.4, Magnesium Level 1.8, Total Bilirubin 0.8, Aspartate Amino Transf (AST/SGOT) 18, Alanine Aminotransferase ( ALT/SGPT) 18, Alkaline Phosphatase 103, Pro-B-Type Natriuretic Peptide 9080H, Total Protein 6.3L, Albumin 2.1L, Globulin 4.2, Albumin/Globulin Ratio 0.5L Height (Feet): 5 Height (Inches): 5.00 Weight (Pounds): 178 General Appearance: no apparent distress Objective no change SUGEY PETERSON March 20, 2018 15:04
[2018-03-20] MEDS ORDERED: Warfarin Sodium 3mg ORAL ONE ×2 (17:00→18:00)
[2018-03-20] MEDS ORDERED: Albuterol/Ipratropium 3ml neb HHN PRN (17:00)
[2018-03-20] MEDS ORDERED: LORazepam 0.5mg tab ORAL PRN (17:15)
[2018-03-20] MEDS ORDERED: Nitroglycerin Subl 0.4mg tab SL PRN (17:30)
--- NOTE | 2018-03-20 17:30 | Consultation ---
DATE OF CONSULTATION: 03/20/2018 INFECTIOUS DISEASE CONSULTATION CONSULTING PHYSICIAN: Brent Steen M.D. PRIMARY ATTENDING PHYSICIAN: Azucena Goss M.D. REASON FOR CONSULTATION: Leukocytosis. HISTORY OF PRESENT ILLNESS: The patient is an 82-year-old female admitted on 03/17/2018 from [facility] with increasing in heart rate. At the time of admission, patient had heart today of 120. The patient has history of chronic atrial fibrillation and was on Coumadin [place] [id number] today. PAST MEDICAL HISTORY: Significant for CVA and left-sided weakness, chronic atrial fibrillation, anemia, diabetes mellitus type 2, dyslipidemia, aortic stenosis status post TAVR, left eye blindness. ALLERGIES: No known drug allergy. MEDICATIONS: Warfarin, temazepam, allopurinol, hydralazine, bisacodyl, Senokot, Amaryl, Imdur, pravastatin, metoprolol, insulin detemir, Prevacid, Colace, [place], nitroglycerin, albuterol/ipratropium. REVIEW OF SYSTEMS: Limited. No pain. No fever. No chills. No coughing. No chest pain. No nausea. No vomiting. No diarrhea. PHYSICAL EXAMINATION: VITAL SIGNS: Temperature 98.6, pulse 77, blood pressure 157/94. GENERAL APPEARANCE: No acute distress. HEAD AND NECK: Blind in left eye. [place] conjunctivae. HEART: Normal rate. Regular. LUNGS: Clear. ABDOMEN: Soft. Nontender. EXTREMITIES: No edema. Arthritic changes in knees. LABORATORY AND DIAGNOSTIC DATA: WBC 15.5, hemoglobin 12.5, hematocrit 40.7, platelets 195. Sodium 142, potassium 3.1, chloride 108, bicarbonate 25, BUN 27, creatinine 2. BNP was 16,557 that came down to 9080. Albumin is 2.1. VRE screen negative. Chest x-ray showed cardiomegaly, no acute process. UA was negative for nitrites, WBC 0 to 2, leukocyte esterase negative. IMPRESSION: 1. Leukocytosis. 2. Atrial fibrillation with rapid ventricular rate, now is rate controlled. 3. The patient has acute renal failure, diabetes mellitus type 2, dyslipidemia, aortic stenosis, status post TAVR. RECOMMENDATIONS: 1. Repeat chest x-ray. 2. We will follow up WBC. 3. For now, observe off antibiotic. At the end of my exam, I thank Dr. Goss for involving me in the care of this patient. Brent Steen M.D. DR: Hernandez JOB#: [id number] CC: ADEEL
--- NOTE | 2018-03-20 20:10 | General Progress Note ---
Assessment/Plan Assessment/Plan anxiety d/o cognitive impairment ativan prn Subjective Neurologic/Psychiatric: Reports: anxiety, depressed Allergies: Coded Allergies: No Known Allergies (Unverified , 08/29/12) Objective Last 24 Hour Vital Signs Date Time Temp Pulse Resp B/P (MAP) Pulse Ox O2 Delivery O2 Flow Rate FiO2 03/20/18 16:00 97.0 97 18 144/78 97 Room Air 97.0 99 03/20/18 16:00 94 03/20/18 15:25 92 154/101 03/20/18 14:30 98.5 92 18 154/101 96 Room Air 98.5 92 03/20/18 14:26 98.3 03/20/18 13:08 98.3 03/20/18 13:07 166/94 03/20/18 12:00 93 03/20/18 12:00 98.3 116 20 166/94 96 Room Air 98.3 88 03/20/18 09:57 157/94 03/20/18 09:57 77 157/94 03/20/18 09:56 157/94 03/20/18 08:00 98.6 78 20 157/94 96 Room Air 98.6 78 03/20/18 08:00 77 03/20/18 07:56 120 18 Room Air 21 03/20/18 06:01 120 144/95 03/20/18 04:00 119 03/20/18 04:00 98.0 87 20 144/95 97 Room Air 98.0 85 03/20/18 00:00 98.8 87 20 143/90 96 Room Air 98.8 85 03/20/18 00:00 91 03/19/18 22:19 80 150/85 03/19/18 21:02 160/90 03/19/18 21:02 85 160/90 Intake and Output 03/19/18 03/20/18 19:00 07:00 # Bowel Movements 1 1 Laboratory Tests 03/20/18 03:50: White Blood Count 15.5H, Red Blood Count 4.57, Hemoglobin 12.5, Hematocrit 40.7 , Mean Corpuscular Volume 89, Mean Corpuscular Hemoglobin 27.2, Mean Corpuscular Hemoglobin Concent 30.6L, Red Cell Distribution Width 20.4H, Platelet Count 195, Mean Platelet Volume 6.5, Neutrophils (%) (Auto) 64.1, Lymphocytes (%) (Auto) 24.6, Monocytes (%) (Auto) 8.9, Eosinophils (%) (Auto) 1.4, Basophils (%) (Auto) 1.1, Prothrombin Time 16.9H, Prothromb Time International Ratio 1.7H, Sodium Level 142, Potassium Level 3.1L, Chloride Level 108H, Carbon Dioxide Level 25, Anion Gap 9, Blood Urea Nitrogen 27H, Creatinine 2.0H, Estimat Glomerular Filtration Rate , Glucose Level 70L, Uric Acid 4.6, Calcium Level 8.6, Phosphorus Level 3.4, Magnesium Level 1.8, Total Bilirubin 0.8, Aspartate Amino Transf (AST/SGOT) 18, Alanine Aminotransferase ( ALT/SGPT) 18, Alkaline Phosphatase 103, Pro-B-Type Natriuretic Peptide 9080H, Total Protein 6.3L, Albumin 2.1L, Globulin 4.2, Albumin/Globulin Ratio 0.5L Height (Feet): 5 Height (Inches): 5.00 Weight (Pounds): 178 General Appearance: WD/WN, no apparent distress, alert, agitated Tiffanie Russo M.D. March 20, 2018 20:10
[2018-03-20] MEDS ORDERED: Levemir Flexpen SUBQ SCH (21:00)
[2018-03-21] VITALS: BP 114/68
[2018-03-21 04:00] VITALS: BP 148/95
[2018-03-21 05:06] LABS: APPEARANCE,URINE CLOUDY; BILIRUBIN, URINE NEGATIVE (NEGATIVE); COLOR,URINE YELLOW; GLUCOSE, URINE (UA) 2+ (NEGATIVE); KETONES,URINE NEGATIVE (NEGATIVE); LEUKOCYTE ESTERASE ,URINE 2+ (NEGATIVE); NITRITE,URINE NEGATIVE (NEGATIVE); PH,URINE 6 (4.5-8.0); PROTEIN,URINE 4+ (NEGATIVE); UROBILINOGEN,URINE NORMAL MG/DL (0.0-1.0)
[2018-03-21] MEDS: dilTIAZem HCl 60mg tab ORAL SCH ×3 (06:00→22:09)
[2018-03-21] MEDS: Norco 5mg/325mg tab ORAL PRN ×2 (06:20→16:49)
[2018-03-21] MEDS: Glimepiride 1mg tab ORAL SCH (06:30)
[2018-03-21 08:00] VITALS: BP 147/89
[2018-03-21] MEDS: Imdur 30mg tab ORAL SCH (09:00)
[2018-03-21] MEDS ORDERED: Lexiscan 0.4mg/5ml syringe IV PRN ×2 (09:00)
[2018-03-21] MEDS: HydrALAZINE 25mg tab ORAL SCH ×3 (09:00→22:10)
--- NOTE | 2018-03-21 09:00 | History and Physical Report ---
DATE OF ADMISSION: 03/17/2018 NOTE: POOR AUDIO HISTORY OF PRESENT ILLNESS: The patient is admitted for rapid atrial fibrillation with RVR as well as hypokalemia. The patient basically was complaining of shortness of breath and palpitation at the senior care. He was transferred to the ER and was admitted for rapid atrial fibrillation. Has hyperkalemia, shortness of breath, and acute renal failure on top of chronic renal failure, elevated BNP. The patient's INR is also elevated. The patient is on Coumadin for atrial fibrillation. The patient denies chest pain. Denies nausea, vomiting, or diarrhea. Does have chronic . PAST MEDICAL HISTORY: Anemia of chronic renal insufficiency, hyperkalemia, CHF, atrial fibrillation, fracture, history of CVA, history of glaucoma, , hypertension, NIDDM, GERD, and hyperlipidemia. PAST SURGICAL HISTORY: Eye surgery. MEDICATIONS: Plavix, ferrous sulfate, Coumadin, Levaquin, nitroglycerin, metoprolol, magnesium, Imdur, potassium, Lasix, famotidine, Senokot, spironolactone, warfarin. ALLERGIES: No known allergies. SOCIAL HISTORY: Denies alcohol or illicit drugs. Comes from a senior care. FAMILY HISTORY: Noncontributory. REVIEW OF SYSTEMS: HEENT: Denies headaches. RESPIRATORY: Denies shortness of breath. Denies cough. CARDIOVASCULAR: Denies chest pain. Denies orthopnea. GASTROINTESTINAL: Denies nausea, vomiting, or diarrhea. Abdominal distention. EXTREMITIES: Does have worsening edema. Does have speech pattern. PHYSICAL EXAMINATION: VITAL SIGNS: Temperature 97.3, pulse is 115, blood pressure 144/91. HEENT: PERRLA. NECK: Supple. No lymphadenopathy. CHEST: Clear to auscultation. CARDIOVASCULAR: Irregularly irregular. GASTROINTESTINAL: Soft and distended. Positive bowel sounds. EXTREMITIES: . LABORATORY DATA: WBC of 11.5, hemoglobin 12.9, platelets 218. Sodium 138, potassium 6.9, BUN of 43, creatinine 2.7, glucose of 134. ASSESSMENT AND PLAN: 1. Severe hypokalemia. 2. Acute renal failure on top of chronic renal failure. INR of 3.4. 3. Coagulopathy. The patient is on Coumadin. 4. The patient has had atrial fibrillation with rapid ventricular response. was given and the patient was admitted. Dr. Truong, Dr. Diaz, and Dr. Jimenez have been asked to see the patient for the above-mentioned diagnoses and treatment. 5. Hyperkalemia. 6. Acute renal failure on top of chronic renal failure. . Azucena Goss M.D. DR: Fernanda JOB#: [id number] CC:
--- NOTE | 2018-03-21 09:15 | Consultation ---
DATE OF CONSULTATION: 03/17/2018 NOTE: INCOMPLETE DICTATION CARDIOLOGY CONSULTATION CONSULTING PHYSICIAN: Clinton Diaz M.D. REFERRING PHYSICIAN: Azucena Goss M.D. REASON FOR CONSULTATION: Atrial fibrillation with rapid ventricular response and hypertension. HISTORY OF PRESENT ILLNESS: The patient is an 82-year-old . Clinton Diaz M.D. DR: EMILY JOB#: [id number] CC:
[2018-03-21 09:16] LABS: BASOPHILS % (AUTO) 0.7 % (0.0-2.0); EOSINOPHILS % (AUTO) 0.8 % (0.0-3.0); HEMATOCRIT 40.1 % (37.0-47.0); LYMPHOCYTES % (AUTO) 12.8 % (20.0-45.0); MEAN CORPUSCULAR VOLUME 90 FL (80-99); MONOCYTES % (AUTO) 10.8 % (1.0-10.0); PLATELET COUNT 166 K/UL (150-450); RED BLOOD COUNT 4.46 M/UL (4.20-5.40); WHITE BLOOD COUNT 13.3 K/UL (4.8-10.8)
[2018-03-21] MEDS: Docusate 100mg cap ORAL SCH ×3 (09:24→17:06)
[2018-03-21 09:25] LABS: INR 1.9 (0.9-1.1)
[2018-03-21] MEDS: Bisacodyl EC 5mg tab ORAL SCH (09:25)
[2018-03-21] MEDS: Sennosides 8.6mg ORAL SCH (09:25)
[2018-03-21] MEDS: Allopurinol 100mg Tab ORAL SCH (09:25)
--- NOTE | 2018-03-21 09:35 | Cardiac Electrophysiology PN ---
Assessment/Plan Assessment/Plan 1. Atrial fibrillation with rapid ventricular response. Continue Cardizem 60 mg q8h and metoprolol 100 mg b.i.d. On Coumadin per pharmacy. INR 1.9 today 2. Congestive heart failure with EF 20-25% by echo and BNP> [id number]. On Metoprolol, imdur and Hydralazine 25 bid Likely needs cardiac cath when renal failure resolves. Awaiting stress test today 3. Hyperkalemia due to renal failure. 4. Hyperlipidemia, on Pravachol. 5. Diabetes, on insulin. 6. Renal failure.Cr improved to 2.0 Subjective Subjective Comfortable in atrial fib.No CP or SOB. Objective Last 24 Hour Vital Signs Date Time Temp Pulse Resp B/P (MAP) Pulse Ox O2 Delivery O2 Flow Rate FiO2 03/21/18 08:20 99 18 Room Air 21 03/21/18 08:00 98.2 101 18 147/89 97 Room Air 98.2 101 03/21/18 06:00 86 148/95 03/21/18 04:00 86 03/21/18 04:00 97.9 70 18 148/95 98 Room Air 97.9 99 03/21/18 00:00 73 03/21/18 00:00 97.8 64 18 114/68 97 Room Air 97.8 99 03/20/18 21:23 99 142/83 03/20/18 21:18 142/83 03/20/18 20:20 72 18 Room Air 21 03/20/18 20:00 82 03/20/18 20:00 98.1 85 19 142/83 98 Room Air 98.1 99 03/20/18 16:00 97.0 97 18 144/78 97 Room Air 97.0 99 03/20/18 16:00 94 03/20/18 15:25 92 154/101 03/20/18 14:30 98.5 92 18 154/101 96 Room Air 98.5 92 03/20/18 14:26 98.3 03/20/18 13:08 98.3 03/20/18 13:07 166/94 03/20/18 12:00 93 03/20/18 12:00 98.3 116 20 166/94 96 Room Air 98.3 88 03/20/18 09:57 157/94 03/20/18 09:57 77 157/94 03/20/18 09:56 157/94 Intake and Output 03/20/18 03/21/18 19:00 07:00 Intake Total 200 ml 240 ml Output Total 350 ml Balance 200 ml -110 ml Intake Oral 200 ml 240 ml Output Urine Total 350 ml # Voids 4 Laboratory Tests Test 03/21/18 02:30 03/21/18 09:00 Urine Color Yellow Urine Appearance Cloudy Urine pH 6 (4.5-8.0) Urine Specific [place] 1.015 (1.005-1.035) Urine Protein 4+ (NEGATIVE) H Urine Glucose (UA) 2+ (NEGATIVE) H Urine Ketones Negative (NEGATIVE) Urine Occult Blood 2+ (NEGATIVE) H Urine Nitrite Negative (NEGATIVE) Urine Bilirubin Negative (NEGATIVE) Urine Urobilinogen Normal MG/DL (0.0-1.0) Urine Leukocyte Esterase 2+ (NEGATIVE) H Urine RBC 5-10 /HPF (0 - 2) H Urine WBC Tntc /HPF (0 - 2) H Urine Squamous Epithelial Cells None /LPF (NONE/OCC) Urine Amorphous Sediment Many /LPF (NONE) H Urine Bacteria Many /HPF (NONE) H White Blood Count 13.3 K/UL (4.8-10.8) H Red Blood Count 4.46 M/UL (4.20-5.40) Hemoglobin 12.0 G/DL (12.0-16.0) Hematocrit 40.1 % (37.0-47.0) Mean Corpuscular Volume 90 FL (80-99) Mean Corpuscular Hemoglobin 27.0 PG (27.0-31.0) Mean Corpuscular Hemoglobin Concent 30.0 G/DL (32.0-36.0) L Red Cell Distribution Width 20.0 % (11.6-14.8) H Platelet Count 166 K/UL (150-450) Mean Platelet Volume 6.5 FL (6.5-10.1) Neutrophils (%) (Auto) 75.0 % (45.0-75.0) Lymphocytes (%) (Auto) 12.8 % (20.0-45.0) L Monocytes (%) (Auto) 10.8 % (1.0-10.0) H Eosinophils (%) (Auto) 0.8 % (0.0-3.0) Basophils (%) (Auto) 0.7 % (0.0-2.0) Prothrombin Time 20.3 SEC (9.30-11.50) H Prothromb Time International Ratio 1.9 (0.9-1.1) H Objective HEAD AND NECK: No JVD LUNGS: Clear. CARDIOVASCULAR: Irregular S1-S2 with no gallop or murmur. ABDOMEN: Soft . EXTREMITIES: Left leg 1+ pitting edema. Clinton Diaz MD March 21, 2018 09:35
--- NOTE | 2018-03-21 10:18 | Nephrology Progress Note ---
Assessment/Plan Problem List: (1) Acute renal failure (ARF) (2) Hyperkalemia (3) Atrial fibrillation Assessment Renal failure - Pre renal picture- Superimposed on CKD High K , was on Aldactone and K supplements At Fib chronic on coumadin INR 3.4 on admit Left eye blind' HTN Gout High Chol CAD CHF Plan no labs today adjust bp meds Slow hydrate Kayexelate as needed monitor INR and renal parameters keep bp in check per orders Subjective ROS Limited/Unobtainable: No Constitutional: Reports: malaise Objective Objective Last 24 Hour Vital Signs Date Time Temp Pulse Resp B/P (MAP) Pulse Ox O2 Delivery O2 Flow Rate FiO2 03/21/18 08:20 99 18 Room Air 21 03/21/18 08:00 110 03/21/18 08:00 98.2 101 18 147/89 97 Room Air 98.2 101 03/21/18 06:00 86 148/95 03/21/18 04:00 86 03/21/18 04:00 97.9 70 18 148/95 98 Room Air 97.9 99 03/21/18 00:00 73 03/21/18 00:00 97.8 64 18 114/68 97 Room Air 97.8 99 03/20/18 21:23 99 142/83 03/20/18 21:18 142/83 03/20/18 20:20 72 18 Room Air 21 03/20/18 20:00 82 03/20/18 20:00 98.1 85 19 142/83 98 Room Air 98.1 99 03/20/18 16:00 97.0 97 18 144/78 97 Room Air 97.0 99 03/20/18 16:00 94 03/20/18 15:25 92 154/101 03/20/18 14:30 98.5 92 18 154/101 96 Room Air 98.5 92 03/20/18 14:26 98.3 03/20/18 13:08 98.3 03/20/18 13:07 166/94 03/20/18 12:00 93 03/20/18 12:00 98.3 116 20 166/94 96 Room Air 98.3 88 Intake and Output 03/20/18 03/21/18 19:00 07:00 Intake Total 200 ml 240 ml Output Total 350 ml Balance 200 ml -110 ml Intake Oral 200 ml 240 ml Output Urine Total 350 ml # Voids 4 Laboratory Tests 03/21/18 02:30: Urine Color Yellow, Urine Appearance Cloudy, Urine pH 6, Urine Specific [place] 1.015, Urine Protein 4+H, Urine Glucose (UA) 2+H, Urine Ketones Negative, Urine Occult Blood 2+H, Urine Nitrite Negative, Urine Bilirubin Negative, Urine Urobilinogen Normal, Urine Leukocyte Esterase 2+H, Urine RBC 5-10H, Urine WBC TntcH, Urine Squamous Epithelial Cells None, Urine Amorphous Sediment ManyH, Urine Bacteria ManyH 03/21/18 09:00: White Blood Count 13.3H, Red Blood Count 4.46, Hemoglobin 12.0, Hematocrit 40.1 , Mean Corpuscular Volume 90, Mean Corpuscular Hemoglobin 27.0, Mean Corpuscular Hemoglobin Concent 30.0L, Red Cell Distribution Width 20.0H, Platelet Count 166, Mean Platelet Volume 6.5, Neutrophils (%) (Auto) 75.0, Lymphocytes (%) (Auto) 12.8L, Monocytes (%) (Auto) 10.8H, Eosinophils (%) (Auto ) 0.8, Basophils (%) (Auto) 0.7, Prothrombin Time 20.3H, Prothromb Time International Ratio 1.9H Height (Feet): 5 Height (Inches): 5.00 Weight (Pounds): 169 General Appearance: no apparent distress Cardiovascular: tachycardia, arrhythmia Abdomen: soft Objective no change SUGEY PETERSON March 21, 2018 10:18
--- NOTE | 2018-03-21 10:22 | Cardiology Report ---
APPROVED REPORT EXAM: Two-dimensional and M-mode echocardiogram with Doppler and color Doppler. INDICATION Congestive Heart Failure M-Mode DIMENSIONS IVSd1.6 (0.7-1.1cm)Left Atrium (MM)5.4 (1.6-4.0cm) LVDd3.9 (3.5-5.6cm)Aortic Root2.4 (2.0-3.7cm) PWd1.4 (0.7-1.1cm)Aortic Cusp Exc.1.5 (1.5-2.0cm) LVDs3.5 (2.5-4.0cm) PWs1.6 cm Technically difficult study due to poor acoustic windows. Study quality precludes accurate assessment of regional wall motion. Normal left ventricular chamber size. Global left ventricular hypokinesis. Septal dyskinesis. Left ventricular ejection fraction estimated to be 25 %. Mild left ventricular hypertrophy. No evidence of pericardial effusion. Moderate left atrial enlargement. Mild right atrial enlargement. Right ventricular chamber sizes is within normal limits. Aortic valve calcification with decreased cusp excursion c/w aortic stenosis. Heavily thickened mitral valve leaflets with reduced excursion. Heavy mitral annulus and aortic root calcification. Normal pulmonic valve structure. Normal tricuspid valve structure. IVC dilated at 2.3 cm without physiological collapse, estimated RAP is 15 mmHg. A color flow and spectral Doppler study was performed and revealed: Mild to moderate aortic insufficiency. peak aortic valve gradient of 11 mmHg and a mean of 7 mmHg. Aortic valve area 1.2 cm2 calculated by continuity equation. Moderate to severe mitral regurgitation. Peak mitral valve diastolic gradient of 19 mmHg and a mean gradient of 5 mmHg. Estimated mitral valve area is 1.1 cm2. Mitral inflow indicate increased left atrial pressure, suggestive restrictive pattern (Grade II). Severe tricuspid regurgitation. Tricuspid systolic velocities suggests peak right ventricular systolic pressure of 69 mmHg, consistent with severe pulmonary hypertension. Mild to moderate pulmonic regurgitation present.
--- NOTE | 2018-03-21 10:57 | Infectious Diseases Prog Note ---
Assessment/Plan Assessment/Plan A; Pyuria/ UTI Leukocytosis Atrial fibrillation Aortic stenosis CHF DM CKD P: start on Rocephin Will f/u cultures Subjective ROS Limited/Unobtainable: No Constitutional: Reports: no symptoms Respiratory: Reports: dry cough Cardiovascular: Reports: no symptoms Gastrointestinal/Abdominal: Reports: no symptoms, other - NPO for procedure Genitourinary: Reports: no symptoms Allergies: Coded Allergies: No Known Allergies (Unverified , 08/29/12) Objective Vital Signs Last 24 Hour Vital Signs Date Time Temp Pulse Resp B/P (MAP) Pulse Ox O2 Delivery O2 Flow Rate FiO2 03/21/18 08:20 99 18 Room Air 21 03/21/18 08:00 110 03/21/18 08:00 98.2 101 18 147/89 97 Room Air 98.2 101 03/21/18 06:00 86 148/95 03/21/18 04:00 86 03/21/18 04:00 97.9 70 18 148/95 98 Room Air 97.9 99 03/21/18 00:00 73 03/21/18 00:00 97.8 64 18 114/68 97 Room Air 97.8 99 03/20/18 21:23 99 142/83 03/20/18 21:18 142/83 03/20/18 20:20 72 18 Room Air 21 03/20/18 20:00 82 03/20/18 20:00 98.1 85 19 142/83 98 Room Air 98.1 99 03/20/18 16:00 97.0 97 18 144/78 97 Room Air 97.0 99 03/20/18 16:00 94 03/20/18 15:25 92 154/101 03/20/18 14:30 98.5 92 18 154/101 96 Room Air 98.5 92 03/20/18 14:26 98.3 03/20/18 13:08 98.3 03/20/18 13:07 166/94 03/20/18 12:00 93 03/20/18 12:00 98.3 116 20 166/94 96 Room Air 98.3 88 Height (Feet): 5 Height (Inches): 5.00 Weight (Pounds): 169 General Appearance: no acute distress HEENT: other - left eye blindness Cardiovascular: normal rate Abdomen: soft, non tender Extremities: no edema Neurologic/Psychiatric: alert, responsive Laboratory Tests Test 03/21/18 02:30 03/21/18 09:00 Urine Color Yellow Urine Appearance Cloudy Urine pH 6 (4.5-8.0) Urine Specific [place] 1.015 (1.005-1.035) Urine Protein 4+ (NEGATIVE) H Urine Glucose (UA) 2+ (NEGATIVE) H Urine Ketones Negative (NEGATIVE) Urine Occult Blood 2+ (NEGATIVE) H Urine Nitrite Negative (NEGATIVE) Urine Bilirubin Negative (NEGATIVE) Urine Urobilinogen Normal MG/DL (0.0-1.0) Urine Leukocyte Esterase 2+ (NEGATIVE) H Urine RBC 5-10 /HPF (0 - 2) H Urine WBC Tntc /HPF (0 - 2) H Urine Squamous Epithelial Cells None /LPF (NONE/OCC) Urine Amorphous Sediment Many /LPF (NONE) H Urine Bacteria Many /HPF (NONE) H White Blood Count 13.3 K/UL (4.8-10.8) H Red Blood Count 4.46 M/UL (4.20-5.40) Hemoglobin 12.0 G/DL (12.0-16.0) Hematocrit 40.1 % (37.0-47.0) Mean Corpuscular Volume 90 FL (80-99) Mean Corpuscular Hemoglobin 27.0 PG (27.0-31.0) Mean Corpuscular Hemoglobin Concent 30.0 G/DL (32.0-36.0) L Red Cell Distribution Width 20.0 % (11.6-14.8) H Platelet Count 166 K/UL (150-450) Mean Platelet Volume 6.5 FL (6.5-10.1) Neutrophils (%) (Auto) 75.0 % (45.0-75.0) Lymphocytes (%) (Auto) 12.8 % (20.0-45.0) L Monocytes (%) (Auto) 10.8 % (1.0-10.0) H Eosinophils (%) (Auto) 0.8 % (0.0-3.0) Basophils (%) (Auto) 0.7 % (0.0-2.0) Prothrombin Time 20.3 SEC (9.30-11.50) H Prothromb Time International Ratio 1.9 (0.9-1.1) H Current Medications Medications (Trade) Dose Ordered Sig/Renan Route PRN Reason Start Time Stop Time Status Last Admin Dose Admin Acetaminophen/ Hydrocodone Bitart ([place] 5/325) 1 tab Q6H PRN ORAL Moderate Breakthru Pain (5-7) 03/20/18 17:15 03/24/18 11:07 03/21/18 06:20 Albuterol/ Ipratropium (Albuterol/ Ipratropium) 3 ml Q4H PRN HHN Shortness of Breath 03/20/18 17:00 03/22/18 16:59 Allopurinol (Zyloprim) 100 mg DAILY ORAL 03/21/18 09:00 04/17/18 08:59 03/21/18 09:25 Bisacodyl (Dulcolax) 10 mg DAILY ORAL 03/21/18 09:00 04/17/18 08:59 03/21/18 09:25 Clonidine HCl (Catapres Tab) 0.1 mg Q6H PRN ORAL sbp>160 03/20/18 17:15 04/16/18 11:08 Dextrose (Dextrose 50%) 25 ml STAT PRN IV Hypoglycemia 03/20/18 17:00 04/19/18 16:59 Dextrose (Dextrose 50%) 50 ml STAT PRN IV Hypoglycemia 03/20/18 17:00 04/19/18 16:59 Diltiazem HCl (Cardizem) 60 mg EVERY 8 HOURS ORAL 03/20/18 22:00 04/16/18 13:59 03/20/18 21:23 Docusate Sodium (Colace) 100 mg THREE TIMES A DAY ORAL 03/20/18 18:00 04/16/18 12:59 03/21/18 09:24 Glimepiride (Amaryl) 2 mg ACBREAKFAST ORAL 03/21/18 06:30 04/17/18 06:29 Hydralazine HCl (Apresoline) 25 mg Q8HR ORAL 03/21/18 14:00 04/17/18 20:59 Isosorbide Mononitrate (Imdur) 60 mg DAILY ORAL 03/21/18 09:00 04/17/18 08:59 Lansoprazole (Prevacid) 30 mg DAILY ORAL 03/21/18 09:00 04/16/18 13:29 03/21/18 09:24 Lorazepam (Ativan) 1 mg Q6H PRN ORAL For Anxiety 03/20/18 17:15 03/24/18 23:14 Metoclopramide HCl (Reglan) 5 mg THREE TIMES A DAY ORAL 03/20/18 18:00 04/16/18 12:59 03/21/18 09:24 Nitroglycerin (Ntg) 0.4 mg Q5M PRN SL CHEST PAIN 03/20/18 17:30 04/19/18 17:29 Ondansetron HCl (Zofran) 4 mg Q6H PRN ORAL Nausea & Vomiting 03/20/18 16:45 04/16/18 10:39 Potassium Chloride (K-Dur) 40 meq DAILY ORAL 03/21/18 09:00 04/20/18 08:59 03/21/18 09:25 Pravastatin Sodium (Pravachol) 80 mg BEDTIME ORAL 03/20/18 21:00 04/16/18 20:59 03/20/18 21:19 Regadenoson (Lexiscan) 0.4 mg ONCE PRN IV Stress test 03/21/18 09:00 03/21/18 18:00 Sennosides (Senokot) 1 tab DAILY ORAL 03/21/18 09:00 04/17/18 08:59 03/21/18 09:25 Temazepam (Restoril) 7.5 mg HSPRN PRN ORAL Insomnia 03/20/18 23:00 03/26/18 22:59 Warfarin Sodium (Coumadin per pharmacy) 1 ea DAILY PRN MISC Per rx protocol 03/21/18 09:00 04/16/18 09:14 Warfarin Sodium (Coumadin) 3 mg COUMADIN ONCE ORAL 03/21/18 17:00 03/21/18 17:01 MURRAY WOLFF March 21, 2018 10:57
--- NOTE | 2018-03-21 11:39 | Diagnostic Imaging Report ---
Indication: Dyspnea Comparison: None A single view chest radiograph was obtained. Findings: No definite infiltrate or pulmonary vascular congestion identified. Prosthetic aortic valve noted. The heart is enlarged. The aorta is mildly enlarged consistent with atherosclerotic vascular disease. The bones are osteopenic. Impression: No acute disease
[2018-03-21 12:00] VITALS: BP 139/87
[2018-03-21] MEDS ORDERED: cefTRIAXone 1 GM in D5W 110 ML IVPB SCH (12:30)
[2018-03-21] MEDS ORDERED: cefTRIAXone 1 GM in D5W 55 ML IVPB SCH (12:30)
--- NOTE | 2018-03-21 15:30 | General Progress Note ---
Assessment/Plan Assessment/Plan anxiety d/o cognitive impairment ativan prn Subjective Date patient seen: March 21, 2018 Neurologic/Psychiatric: Reports: anxiety, depressed, emotional problems Allergies: Coded Allergies: No Known Allergies (Unverified , 08/29/12) Objective Last 24 Hour Vital Signs Date Time Temp Pulse Resp B/P (MAP) Pulse Ox O2 Delivery O2 Flow Rate FiO2 03/21/18 14:48 147/89 03/21/18 14:48 110 147/89 03/21/18 12:00 110 03/21/18 12:00 98.0 110 18 139/87 97 Room Air 98.0 110 03/21/18 08:20 99 18 Room Air 21 03/21/18 08:00 110 03/21/18 08:00 98.2 101 18 147/89 97 Room Air 98.2 101 03/21/18 06:00 86 148/95 03/21/18 04:00 86 03/21/18 04:00 97.9 70 18 148/95 98 Room Air 97.9 99 03/21/18 00:00 73 03/21/18 00:00 97.8 64 18 114/68 97 Room Air 97.8 99 03/20/18 21:23 99 142/83 03/20/18 21:18 142/83 03/20/18 20:20 72 18 Room Air 21 03/20/18 20:00 82 03/20/18 20:00 98.1 85 19 142/83 98 Room Air 98.1 99 03/20/18 16:00 97.0 97 18 144/78 97 Room Air 97.0 99 03/20/18 16:00 94 Intake and Output 03/20/18 03/21/18 19:00 07:00 Intake Total 200 ml 240 ml Output Total 350 ml Balance 200 ml -110 ml Intake Oral 200 ml 240 ml Output Urine Total 350 ml # Voids 4 Laboratory Tests 03/21/18 02:30: Urine Color Yellow, Urine Appearance Cloudy, Urine pH 6, Urine Specific [employer] 1.015, Urine Protein 4+H, Urine Glucose (UA) 2+H, Urine Ketones Negative, Urine Occult Blood 2+H, Urine Nitrite Negative, Urine Bilirubin Negative, Urine Urobilinogen Normal, Urine Leukocyte Esterase 2+H, Urine RBC 5-10H, Urine WBC TntcH, Urine Squamous Epithelial Cells None, Urine Amorphous Sediment ManyH, Urine Bacteria ManyH 03/21/18 09:00: White Blood Count 13.3H, Red Blood Count 4.46, Hemoglobin 12.0, Hematocrit 40.1 , Mean Corpuscular Volume 90, Mean Corpuscular Hemoglobin 27.0, Mean Corpuscular Hemoglobin Concent 30.0L, Red Cell Distribution Width 20.0H, Platelet Count 166, Mean Platelet Volume 6.5, Neutrophils (%) (Auto) 75.0, Lymphocytes (%) (Auto) 12.8L, Monocytes (%) (Auto) 10.8H, Eosinophils (%) (Auto ) 0.8, Basophils (%) (Auto) 0.7, Prothrombin Time 20.3H, Prothromb Time International Ratio 1.9H Height (Feet): 5 Height (Inches): 5.00 Weight (Pounds): 169 General Appearance: WD/WN, no apparent distress, alert Neurologic: depressed affect Tiffanie Russo M.D. March 21, 2018 15:30
[2018-03-21 16:00] VITALS: BP 139/87
--- NOTE | 2018-03-21 16:22 | Diagnostic Imaging Report ---
Indication: chest pain Technique: The study was conducted under the supervision of a continuous improvement engineer. lexiscan (regadenoson) infusion over 10 seconds followed by intravenous administration of 31.9 mCi of technetium 99m Myoview was performed. Three plane SPECT imaging of the heart was then performed. A resting study was performed as part of the one-day protocol with 10.5 mCi of technetium 99m myoview injected intravenously at that time. Three plane SPECT imaging of the heart was obtained. Comparison: None Clinical data: 1. Clinical response: Non ischemic 2. Electrocardiographic response: Non ischemic Findings: The myocardial perfusion scan demonstrates attenuation affects from the diaphragm versus a myocardial infarct involving the inferior wall. Please correlate clinically. Unfortunately prone imaging could not be done. Left ventricular ejection fraction is low and estimated at 42%. No reversible segments are identified to suggest ischemia. IMPRESSION: Inferior wall infarct versus diaphragmatic attenuation. Correlate clinically. No evidence of myocardial ischemia. LVEF 42%
[2018-03-21] MEDS ORDERED: Warfarin Sodium 3mg ORAL ONE (17:00)
--- NOTE | 2018-03-21 20:59 | General Progress Note ---
Assessment/Plan Problem List: (1) JESICA (acute kidney injury) ICD Codes: N17.9 - Acute kidney failure, unspecified SNOMED: 82228557 (2) Rapid atrial fibrillation ICD Codes: I48.91 - Unspecified atrial fibrillation SNOMED: 293409184 (3) Hyperkalemia ICD Codes: E87.5 - Hyperkalemia SNOMED: 49352090 (4) Atrial fibrillation ICD Codes: I48.91 - Unspecified atrial fibrillation SNOMED: 02292540 Assessment/Plan a fib w rvr resolved stress test dc snf inflammatory condition afebrile Subjective ROS Limited/Unobtainable: Yes Allergies: Coded Allergies: No Known Allergies (Unverified , 08/29/12) Objective Last 24 Hour Vital Signs Date Time Temp Pulse Resp B/P (MAP) Pulse Ox O2 Delivery O2 Flow Rate FiO2 03/21/18 16:00 117 03/21/18 16:00 98.1 117 21 139/87 99 Room Air 98.1 117 03/21/18 14:48 147/89 03/21/18 14:48 110 147/89 03/21/18 12:00 110 03/21/18 12:00 98.0 110 18 139/87 97 Room Air 98.0 110 03/21/18 08:20 99 18 Room Air 21 03/21/18 08:00 110 03/21/18 08:00 98.2 101 18 147/89 97 Room Air 98.2 101 03/21/18 06:00 86 148/95 03/21/18 04:00 86 03/21/18 04:00 97.9 70 18 148/95 98 Room Air 97.9 99 03/21/18 00:00 73 03/21/18 00:00 97.8 64 18 114/68 97 Room Air 97.8 99 03/20/18 21:23 99 142/83 03/20/18 21:18 142/83 Intake and Output 03/20/18 03/21/18 19:00 07:00 Intake Total 200 ml 240 ml Output Total 350 ml Balance 200 ml -110 ml Intake Oral 200 ml 240 ml Output Urine Total 350 ml # Voids 4 Laboratory Tests 03/21/18 02:30: Urine Color Yellow, Urine Appearance Cloudy, Urine pH 6, Urine Specific [place] 1.015, Urine Protein 4+H, Urine Glucose (UA) 2+H, Urine Ketones Negative, Urine Occult Blood 2+H, Urine Nitrite Negative, Urine Bilirubin Negative, Urine Urobilinogen Normal, Urine Leukocyte Esterase 2+H, Urine RBC 5-10H, Urine WBC TntcH, Urine Squamous Epithelial Cells None, Urine Amorphous Sediment ManyH, Urine Bacteria ManyH 03/21/18 09:00: White Blood Count 13.3H, Red Blood Count 4.46, Hemoglobin 12.0, Hematocrit 40.1 , Mean Corpuscular Volume 90, Mean Corpuscular Hemoglobin 27.0, Mean Corpuscular Hemoglobin Concent 30.0L, Red Cell Distribution Width 20.0H, Platelet Count 166, Mean Platelet Volume 6.5, Neutrophils (%) (Auto) 75.0, Lymphocytes (%) (Auto) 12.8L, Monocytes (%) (Auto) 10.8H, Eosinophils (%) (Auto ) 0.8, Basophils (%) (Auto) 0.7, Prothrombin Time 20.3H, Prothromb Time International Ratio 1.9H Height (Feet): 5 Height (Inches): 5.00 Weight (Pounds): 169 Azucena Goss MD March 21, 2018 20:59
[2018-03-21 21:00] VITALS: BP 140/80
[2018-03-21] MEDS ORDERED: Levemir Flexpen SUBQ SCH (22:30)
[2018-03-21] MEDS: NovoLOG Insulin Flexpen SUBQ SCH (22:41)
[2018-03-22] VITALS: BP 127/71
[2018-03-22 04:00] VITALS: BP 133/73
[2018-03-22] MEDS: HydrALAZINE 25mg tab ORAL SCH (05:02)
[2018-03-22] MEDS: dilTIAZem HCl 60mg tab ORAL SCH (05:02)
[2018-03-22] MEDS: Glimepiride 1mg tab ORAL SCH (05:52)
[2018-03-22] MEDS: NovoLOG Insulin Flexpen SUBQ SCH ×2 (06:30→11:30)
[2018-03-22 07:57] LABS: BASOPHILS % (AUTO) 0.6 % (0.0-2.0); EOSINOPHILS % (AUTO) 0.6 % (0.0-3.0); HEMATOCRIT 42.4 % (37.0-47.0); HEMOGLOBIN 13.1 G/DL (12.0-16.0); LYMPHOCYTES % (AUTO) 12.9 % (20.0-45.0); MEAN CORPUSCULAR VOLUME 89 FL (80-99); MONOCYTES % (AUTO) 10.8 % (1.0-10.0); NEUTROPHILS % (AUTO) 75.1 % (45.0-75.0); PLATELET COUNT 187 K/UL (150-450); RED BLOOD COUNT 4.78 M/UL (4.20-5.40); RED CELL DISTRIBUTION WIDTH 19.5 % (11.6-14.8); WHITE BLOOD COUNT 15.4 K/UL (4.8-10.8)
[2018-03-22 08:00] VITALS: BP 149/67
[2018-03-22 08:00] LABS: INR 1.9 (0.9-1.1)
[2018-03-22 08:15] LABS: ALANINE AMINOTRANSFERASE 14 U/L (12-78); ALBUMIN 1.8 G/DL (3.4-5.0); ALBUMIN/GLOBULIN RATIO 0.4 (1.0-2.7); ALKALINE PHOSPHATASE 94 U/L (46-116); ANION GAP 13 mmol/L (5-15); ASPARTATE AMINO TRANSFERASE 18 U/L (15-37); BILIRUBIN,TOTAL 0.8 MG/DL (0.2-1.0); BLOOD UREA NITROGEN 30 mg/dL (7-18); CALCIUM 8.7 MG/DL (8.5-10.1); CARBON DIOXIDE 21 MMOL/L (21-32); CHLORIDE 105 MMOL/L (98-107); CREATININE 2.1 MG/DL (0.55-1.30); PHOSPHORUS 3.4 MG/DL (2.5-4.9); POTASSIUM 3.3 MMOL/L (3.5-5.1); SODIUM 139 MMOL/L (136-145)
[2018-03-22] MEDS: Docusate 100mg cap ORAL SCH (09:00)
[2018-03-22] MEDS: Bisacodyl EC 5mg tab ORAL SCH (09:01)
[2018-03-22] MEDS: Sennosides 8.6mg ORAL SCH (09:01)
[2018-03-22] MEDS: Allopurinol 100mg Tab ORAL SCH (09:01)
[2018-03-22 09:02] VITALS: BP 152/72
[2018-03-22] MEDS: Imdur 30mg tab ORAL SCH (09:02)
--- NOTE | 2018-03-22 09:57 | Nephrology Progress Note ---
Assessment/Plan Problem List: (1) Acute renal failure (ARF) (2) Hyperkalemia (3) Atrial fibrillation Assessment Renal failure - Pre renal picture- Superimposed on CKD High K , was on Aldactone and K supplements At Fib chronic on coumadin INR 3.4 on admit Left eye blind' HTN Gout High Chol CAD CHF Plan adjust bp meds Slow hydrate K supplement as needed monitor INR and renal parameters keep bp in check per orders Subjective ROS Limited/Unobtainable: No Constitutional: Reports: malaise, weakness Objective Objective Last 24 Hour Vital Signs Date Time Temp Pulse Resp B/P (MAP) Pulse Ox O2 Delivery O2 Flow Rate FiO2 03/22/18 09:02 152/72 03/22/18 05:02 133/73 03/22/18 05:02 127 133/73 03/22/18 04:00 127 03/22/18 04:00 98.3 95 18 133/73 97 Room Air 98.3 03/22/18 00:00 101 03/22/18 00:00 96.8 96 18 127/71 97 Room Air 96.8 03/21/18 22:10 140/80 03/21/18 22:09 102 140/80 03/21/18 21:00 102 03/21/18 21:00 98.1 95 20 140/80 97 Room Air 98.1 03/21/18 19:30 95 18 Room Air 21 03/21/18 16:00 117 03/21/18 16:00 98.1 117 21 139/87 99 Room Air 98.1 117 03/21/18 14:48 147/89 03/21/18 14:48 110 147/89 03/21/18 12:00 110 03/21/18 12:00 98.0 110 18 139/87 97 Room Air 98.0 110 Intake and Output 03/21/18 03/22/18 19:00 07:00 Intake Total 560 ml Balance 560 ml Intake Oral 340 ml IV Total 220 ml # Voids 3 1 # Bowel Movements 1 Laboratory Tests 03/22/18 06:00: White Blood Count 15.4H, Red Blood Count 4.78, Hemoglobin 13.1, Hematocrit 42.4 , Mean Corpuscular Volume 89, Mean Corpuscular Hemoglobin 27.4, Mean Corpuscular Hemoglobin Concent 30.9L, Red Cell Distribution Width 19.5H, Platelet Count 187, Mean Platelet Volume 7.4, Neutrophils (%) (Auto) 75.1H, Lymphocytes (%) (Auto) 12.9L, Monocytes (%) (Auto) 10.8H, Eosinophils (%) (Auto ) 0.6, Basophils (%) (Auto) 0.6, Prothrombin Time 20.2H, Prothromb Time International Ratio 1.9H, Sodium Level 139, Potassium Level 3.3L, Chloride Level 105, Carbon Dioxide Level 21, Anion Gap 13, Blood Urea Nitrogen 30H, Creatinine 2.1H, Estimat Glomerular Filtration Rate , Glucose Level 82, Calcium Level 8.7, Phosphorus Level 3.4, Magnesium Level 1.9, Total Bilirubin 0.8, Aspartate Amino Transf (AST/SGOT) 18, Alanine Aminotransferase (ALT/SGPT) 14, Alkaline Phosphatase 94, Total Protein 6.3L, Albumin 1.8L, Globulin 4.5, Albumin /Globulin Ratio 0.4L Height (Feet): 5 Height (Inches): 5.00 Weight (Pounds): 170 General Appearance: no apparent distress Cardiovascular: arrhythmia Respiratory/Chest: decreased breath sounds Abdomen: soft Objective no change SUGEY PETERSON March 22, 2018 09:57
--- NOTE | 2018-03-22 11:04 | Infectious Diseases Prog Note ---
Assessment/Plan Assessment/Plan A; Pyuria/ UTI Leukocytosis Atrial fibrillation Aortic stenosis CHF DM CKD P: change Rocephin to Ceftin Continue Antibiotic X 4 day Will f/u cultures Subjective Constitutional: Reports: no symptoms Respiratory: Reports: no symptoms Cardiovascular: Reports: no symptoms Gastrointestinal/Abdominal: Reports: no symptoms Genitourinary: Reports: no symptoms Allergies: Coded Allergies: No Known Allergies (Unverified , 08/29/12) Objective Vital Signs Last 24 Hour Vital Signs Date Time Temp Pulse Resp B/P (MAP) Pulse Ox O2 Delivery O2 Flow Rate FiO2 03/22/18 09:02 152/72 03/22/18 08:00 108 03/22/18 08:00 97.0 94 19 149/67 96 Room Air 97.0 03/22/18 05:02 133/73 03/22/18 05:02 127 133/73 03/22/18 04:00 127 03/22/18 04:00 98.3 95 18 133/73 97 Room Air 98.3 03/22/18 00:00 101 03/22/18 00:00 96.8 96 18 127/71 97 Room Air 96.8 03/21/18 22:10 140/80 03/21/18 22:09 102 140/80 03/21/18 21:00 102 03/21/18 21:00 98.1 95 20 140/80 97 Room Air 98.1 03/21/18 19:30 95 18 Room Air 21 03/21/18 16:00 117 03/21/18 16:00 98.1 117 21 139/87 99 Room Air 98.1 117 03/21/18 14:48 147/89 03/21/18 14:48 110 147/89 03/21/18 12:00 110 03/21/18 12:00 98.0 110 18 139/87 97 Room Air 98.0 110 Height (Feet): 5 Height (Inches): 5.00 Weight (Pounds): 170 General Appearance: no acute distress HEENT: mucous membranes moist, other - left eye blind Cardiovascular: normal rate Abdomen: soft, non tender Extremities: no edema Neurologic/Psychiatric: alert, responsive Microbiology Date/Time Source Procedure Growth Status 03/21/18 02:30 Urine,Clean Catch Urine Culture - Preliminary Gram Negative Bacillus 1 Resulted Laboratory Tests Test 03/22/18 06:00 White Blood Count 15.4 K/UL (4.8-10.8) H Red Blood Count 4.78 M/UL (4.20-5.40) Hemoglobin 13.1 G/DL (12.0-16.0) Hematocrit 42.4 % (37.0-47.0) Mean Corpuscular Volume 89 FL (80-99) Mean Corpuscular Hemoglobin 27.4 PG (27.0-31.0) Mean Corpuscular Hemoglobin Concent 30.9 G/DL (32.0-36.0) L Red Cell Distribution Width 19.5 % (11.6-14.8) H Platelet Count 187 K/UL (150-450) Mean Platelet Volume 7.4 FL (6.5-10.1) Neutrophils (%) (Auto) 75.1 % (45.0-75.0) H Lymphocytes (%) (Auto) 12.9 % (20.0-45.0) L Monocytes (%) (Auto) 10.8 % (1.0-10.0) H Eosinophils (%) (Auto) 0.6 % (0.0-3.0) Basophils (%) (Auto) 0.6 % (0.0-2.0) Prothrombin Time 20.2 SEC (9.30-11.50) H Prothromb Time International Ratio 1.9 (0.9-1.1) H Sodium Level 139 MMOL/L (136-145) Potassium Level 3.3 MMOL/L (3.5-5.1) L Chloride Level 105 MMOL/L (98-107) Carbon Dioxide Level 21 MMOL/L (21-32) Anion Gap 13 mmol/L (5-15) Blood Urea Nitrogen 30 mg/dL (7-18) H Creatinine 2.1 MG/DL (0.55-1.30) H Estimat Glomerular Filtration Rate mL/min (>60) Glucose Level 82 MG/DL (74-106) Calcium Level 8.7 MG/DL (8.5-10.1) Phosphorus Level 3.4 MG/DL (2.5-4.9) Magnesium Level 1.9 MG/DL (1.8-2.4) Total Bilirubin 0.8 MG/DL (0.2-1.0) Aspartate Amino Transf (AST/SGOT) 18 U/L (15-37) Alanine Aminotransferase (ALT/SGPT) 14 U/L (12-78) Alkaline Phosphatase 94 U/L (46-116) Total Protein 6.3 G/DL (6.4-8.2) L Albumin 1.8 G/DL (3.4-5.0) L Globulin 4.5 g/dL Albumin/Globulin Ratio 0.4 (1.0-2.7) L Current Medications Medications (Trade) Dose Ordered Sig/Renan Route PRN Reason Start Time Stop Time Status Last Admin Dose Admin Acetaminophen/ Hydrocodone Bitart ([place] 5/325) 1 tab Q6H PRN ORAL Moderate Breakthru Pain (5-7) 03/20/18 17:15 03/24/18 11:07 03/21/18 16:49 Albuterol/ Ipratropium (Albuterol/ Ipratropium) 3 ml Q4H PRN HHN Shortness of Breath 03/20/18 17:00 03/22/18 16:59 Allopurinol (Zyloprim) 200 mg DAILY ORAL 03/23/18 09:00 04/17/18 08:59 Bisacodyl (Dulcolax) 10 mg DAILY ORAL 03/21/18 09:00 04/17/18 08:59 03/22/18 09:01 Ceftriaxone Sodium 1 gm/ Dextrose 110 ml @ 220 mls/hr Q24H IVPB 03/21/18 12:30 03/28/18 12:29 03/21/18 14:47 Clonidine HCl (Catapres Tab) 0.1 mg Q6H PRN ORAL sbp>160 03/20/18 17:15 04/16/18 11:08 Dextrose (Dextrose 50%) 25 ml STAT PRN IV Hypoglycemia 03/21/18 22:15 04/20/18 22:14 Dextrose (Dextrose 50%) 50 ml STAT PRN IV Hypoglycemia 03/21/18 22:15 04/20/18 22:14 Diltiazem HCl (Cardizem) 60 mg EVERY 8 HOURS ORAL 03/20/18 22:00 04/16/18 13:59 03/22/18 05:02 Docusate Sodium (Colace) 100 mg THREE TIMES A DAY ORAL 03/20/18 18:00 6/24/18 12:59 03/22/18 09:00 Glimepiride (Amaryl) 2 mg ACBREAKFAST ORAL 03/21/18 06:30 04/17/18 06:29 03/22/18 05:52 Hydralazine HCl (Apresoline) 25 mg Q8HR ORAL 03/21/18 14:00 04/17/18 20:59 03/22/18 05:02 Insulin Aspart (NovoLOG) BEFORE MEALS AND HS SUBQ 03/21/18 22:30 04/20/18 22:29 03/21/18 22:41 Insulin Detemir (Levemir) 15 units BEDTIME SUBQ 03/21/18 22:30 04/20/18 22:29 03/21/18 22:40 Isosorbide Mononitrate (Imdur) 60 mg DAILY ORAL 03/21/18 09:00 04/17/18 08:59 03/22/18 09:02 Lansoprazole (Prevacid) 30 mg DAILY ORAL 03/21/18 09:00 04/16/18 13:29 03/22/18 09:01 Lorazepam (Ativan) 1 mg Q6H PRN ORAL For Anxiety 03/20/18 17:15 03/24/18 23:14 Metoclopramide HCl (Reglan) 5 mg THREE TIMES A DAY ORAL 03/20/18 18:00 04/16/18 12:59 03/22/18 09:01 Nitroglycerin (Ntg) 0.4 mg Q5M PRN SL CHEST PAIN 03/20/18 17:30 04/19/18 17:29 Ondansetron HCl (Zofran) 4 mg Q6H PRN ORAL Nausea & Vomiting 03/20/18 16:45 04/16/18 10:39 Potassium Chloride (K-Dur) 40 meq BID ORAL 03/22/18 18:00 04/20/18 08:59 Pravastatin Sodium (Pravachol) 80 mg BEDTIME ORAL 03/20/18 21:00 04/16/18 20:59 03/21/18 22:10 Sennosides (Senokot) 1 tab DAILY ORAL 03/21/18 09:00 04/17/18 08:59 03/22/18 09:01 Temazepam (Restoril) 7.5 mg HSPRN PRN ORAL Insomnia 03/20/18 23:00 03/26/18 22:59 Warfarin Sodium (Coumadin per pharmacy) 1 ea DAILY PRN MISC Per rx protocol 03/21/18 09:00 04/16/18 09:14 Warfarin Sodium (Coumadin) 3 mg COUMADIN ORAL 03/22/18 17:00 03/22/18 19:00 MURRAY WOLFF March 22, 2018 11:04
[2018-03-22] MEDS ORDERED: LORazepam 0.5mg tab ORAL PRN (11:30)
--- NOTE | 2018-03-22 15:36 | Cardiac Electrophysiology PN ---
Assessment/Plan Status Narrative Stress test IMPRESSION: Inferior wall infarct versus diaphragmatic attenuation. Correlate clinically. No evidence of myocardial ischemia. LVEF 42% Assessment/Plan 1. Atrial fibrillation with rapid ventricular response. Continue Cardizem 60 mg q8h and metoprolol 100 mg b.i.d. On Coumadin per pharmacy. INR 1.9 today 2. 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 On Metoprolol, imdur and Hydralazine 25 bid Nuclear stress test showed no ischemia. 3. Hyperkalemia due to renal failure. 4. Hyperlipidemia, on Pravachol. 5. Diabetes, on insulin. 6. Renal failure.Cr improved to 2.0 Subjective Subjective Comfortable with no CP or SOB.Awaiting discharge Objective Last 24 Hour Vital Signs Date Time Temp Pulse Resp B/P (MAP) Pulse Ox O2 Delivery O2 Flow Rate FiO2 03/22/18 09:02 152/72 03/22/18 08:00 108 03/22/18 08:00 97.0 94 19 149/67 96 Room Air 97.0 03/22/18 05:02 133/73 03/22/18 05:02 127 133/73 03/22/18 04:00 127 03/22/18 04:00 98.3 95 18 133/73 97 Room Air 98.3 03/22/18 00:00 101 03/22/18 00:00 96.8 96 18 127/71 97 Room Air 96.8 03/21/18 22:10 140/80 03/21/18 22:09 102 140/80 03/21/18 21:00 102 03/21/18 21:00 98.1 95 20 140/80 97 Room Air 98.1 03/21/18 19:30 95 18 Room Air 21 03/21/18 16:00 117 03/21/18 16:00 98.1 117 21 139/87 99 Room Air 98.1 117 Intake and Output 03/21/18 03/22/18 19:00 07:00 Intake Total 560 ml Balance 560 ml Intake Oral 340 ml IV Total 220 ml # Voids 3 1 # Bowel Movements 1 Laboratory Tests Test 03/22/18 06:00 White Blood Count 15.4 K/UL (4.8-10.8) H Red Blood Count 4.78 M/UL (4.20-5.40) Hemoglobin 13.1 G/DL (12.0-16.0) Hematocrit 42.4 % (37.0-47.0) Mean Corpuscular Volume 89 FL (80-99) Mean Corpuscular Hemoglobin 27.4 PG (27.0-31.0) Mean Corpuscular Hemoglobin Concent 30.9 G/DL (32.0-36.0) L Red Cell Distribution Width 19.5 % (11.6-14.8) H Platelet Count 187 K/UL (150-450) Mean Platelet Volume 7.4 FL (6.5-10.1) Neutrophils (%) (Auto) 75.1 % (45.0-75.0) H Lymphocytes (%) (Auto) 12.9 % (20.0-45.0) L Monocytes (%) (Auto) 10.8 % (1.0-10.0) H Eosinophils (%) (Auto) 0.6 % (0.0-3.0) Basophils (%) (Auto) 0.6 % (0.0-2.0) Prothrombin Time 20.2 SEC (9.30-11.50) H Prothromb Time International Ratio 1.9 (0.9-1.1) H Sodium Level 139 MMOL/L (136-145) Potassium Level 3.3 MMOL/L (3.5-5.1) L Chloride Level 105 MMOL/L (98-107) Carbon Dioxide Level 21 MMOL/L (21-32) Anion Gap 13 mmol/L (5-15) Blood Urea Nitrogen 30 mg/dL (7-18) H Creatinine 2.1 MG/DL (0.55-1.30) H Estimat Glomerular Filtration Rate mL/min (>60) Glucose Level 82 MG/DL (74-106) Calcium Level 8.7 MG/DL (8.5-10.1) Phosphorus Level 3.4 MG/DL (2.5-4.9) Magnesium Level 1.9 MG/DL (1.8-2.4) Total Bilirubin 0.8 MG/DL (0.2-1.0) Aspartate Amino Transf (AST/SGOT) 18 U/L (15-37) Alanine Aminotransferase (ALT/SGPT) 14 U/L (12-78) Alkaline Phosphatase 94 U/L (46-116) Total Protein 6.3 G/DL (6.4-8.2) L Albumin 1.8 G/DL (3.4-5.0) L Globulin 4.5 g/dL Albumin/Globulin Ratio 0.4 (1.0-2.7) L Microbiology Date/Time Source Procedure Growth Status 03/21/18 02:30 Urine,Clean Catch Urine Culture - Preliminary Gram Negative Bacillus 1 Resulted Objective HEAD AND NECK: No JVD LUNGS: Clear. CARDIOVASCULAR: Irregular S1-S2 with no gallop or murmur. ABDOMEN: Soft . EXTREMITIES: Left leg 1+ pitting edema. Clinton Diaz MD March 22, 2018 15:36
[2018-03-22] MEDS ORDERED: Warfarin Sodium 3mg ORAL SCH (17:00)
--- NOTE | 2018-03-22 23:15 | General Progress Note ---
Assessment/Plan Assessment/Plan anxiety d/o cognitive impairment ativan prn Subjective Date patient seen: March 22, 2018 Neurologic/Psychiatric: Reports: anxiety, depressed, emotional problems Allergies: Coded Allergies: No Known Allergies (Unverified , 08/29/12) Objective Last 24 Hour Vital Signs Date Time Temp Pulse Resp B/P (MAP) Pulse Ox O2 Delivery O2 Flow Rate FiO2 03/22/18 09:02 152/72 03/22/18 08:00 108 03/22/18 08:00 97.0 94 19 149/67 96 Room Air 97.0 03/22/18 05:02 133/73 03/22/18 05:02 127 133/73 03/22/18 04:00 127 03/22/18 04:00 98.3 95 18 133/73 97 Room Air 98.3 03/22/18 00:00 101 03/22/18 00:00 96.8 96 18 127/71 97 Room Air 96.8 Intake and Output 03/21/18 03/22/18 19:00 07:00 Intake Total 560 ml Balance 560 ml Intake Oral 340 ml IV Total 220 ml # Voids 3 1 # Bowel Movements 1 Laboratory Tests 03/22/18 06:00: White Blood Count 15.4H, Red Blood Count 4.78, Hemoglobin 13.1, Hematocrit 42.4 , Mean Corpuscular Volume 89, Mean Corpuscular Hemoglobin 27.4, Mean Corpuscular Hemoglobin Concent 30.9L, Red Cell Distribution Width 19.5H, Platelet Count 187, Mean Platelet Volume 7.4, Neutrophils (%) (Auto) 75.1H, Lymphocytes (%) (Auto) 12.9L, Monocytes (%) (Auto) 10.8H, Eosinophils (%) (Auto ) 0.6, Basophils (%) (Auto) 0.6, Prothrombin Time 20.2H, Prothromb Time International Ratio 1.9H, Sodium Level 139, Potassium Level 3.3L, Chloride Level 105, Carbon Dioxide Level 21, Anion Gap 13, Blood Urea Nitrogen 30H, Creatinine 2.1H, Estimat Glomerular Filtration Rate , Glucose Level 82, Calcium Level 8.7, Phosphorus Level 3.4, Magnesium Level 1.9, Total Bilirubin 0.8, Aspartate Amino Transf (AST/SGOT) 18, Alanine Aminotransferase (ALT/SGPT) 14, Alkaline Phosphatase 94, Total Protein 6.3L, Albumin 1.8L, Globulin 4.5, Albumin /Globulin Ratio 0.4L Height (Feet): 5 Height (Inches): 5.00 Weight (Pounds): 170 General Appearance: no apparent distress, alert Tiffanie Russo M.D. March 22, 2018 23:15
[2018-03-23] MEDS ORDERED: Allopurinol 100mg Tab ORAL SCH (09:00)
--- NOTE | 2018-03-23 16:02 | Discharge Summary ---
Discharge Summary Discharge Summary _ DATE OF ADMISSION: 03/17/2018 DATE OF DISCHARGE: 03/05/2018 CONSULTANTS: Dr. Ramesh Steen BRIEF HOSPITAL COURSE: Patient is an 82-year-old female, with history of diabetes mellitus, hypertension, CHF, atrial fibrillation, CVA/TIA, renal disease presented to ED via EMS for complaints of elevated heart rate. At the group home heartrate was noted to be in the 120s. She had couple episodes of vomiting. She denied chest pain. On evaluation at ED, she was noted to be in atrial fibrillation. She was given Lopressor. Further workup revealed elevated potassium 6.9. EKG with no evidence of peaked T waves. She was given calcium gluconate, Kayexalate and D50 with insulin. She had elevated BNP 17,042, and was given Lasix. Creatinine was elevated to 2.7, BUN was 43. Troponin was negative. Chest x- ray showed no acute disease. She was admitted for evaluation of A. fib and hyperkalemia with acute renal failure. She was seen by senior client advisor. Cardizem was increased to 60 mg every 8 hours. She was continued on metoprolol 100 mg twice a day. She was given anticoagulation with Coumadin. Echocardiogram done showed global left ventricular hypokinesis. Left ventricular ejection fraction was 25%. There was evidence of mild to moderate aortic insufficiency, moderate to severe mitral regurgitation, severe pulmonary hypertension. She continued to have poor blood pressure control, she was placed on Imdur and hydralazine was added. Renal function was monitored. Patient was on Aldactone and potassium supplements during preadmission. Patient has prerenal renal failure superimposed on CKD. She was given slow IV hydration. She had hypercoagulable state due to Coumadin. INR was monitored and warfarin was adjusted. She had leukocytoses. She was initially observed off antibiotic treatment. Urinalyses showed growth of Escherichia coli. She was given Rocephin and was eventually changed to Ceftin. She had episodes of anxiety and was given Ativan. She underwent a myocardial Lexiscan stress test. There was no evidence of myocardial ischemia with ejection fraction 42%. She was eventually cleared for discharge. FINAL DIAGNOSES: Atrial fibrillation with RVR Acute congestive heart failure due to nonischemic cardiomyopathy Acute renal failure on CKD Escherichia coli UTI Hyperkalemia due to renal failure Hyperlipidemia Diabetes mellitus Hypercholesterolemia Hypercoagulable state due to Coumadin Hypertension Gout Left eye blindness Anxiety disorder DISPOSITION: Patient was discharged to [facility]. I have been assigned to dictate discharge summary on this account, and I was not involved in the patient's management. Latesha Lynn NP March 23, 2018 16:02
== END 2018-03-22 13:30 | DRG 309 ==
LOC: EDBD 02:18 → EMR 02:35 → 2E 03:34 → EDBEDREQ 04:28 → 2W 06:05 → 2E 03-20 15:15
DX: I48.91 Unspecified atrial fibrillation (principal); N17.9 Acute kidney failure, unspecified; N39.0 Urinary tract infection, site not specified; E87.5 Hyperkalemia; Z79.01 Long term (current) use of anticoagulants; Z86.73 Personal history of transient ischemic attack (TIA), and cerebral infarction without residual deficits; H40.9 Unspecified glaucoma; E11.9 Type 2 diabetes mellitus without complications; K21.9 Gastro-esophageal reflux disease without esophagitis; E78.5 Hyperlipidemia, unspecified; I50.9 Heart failure, unspecified; Z79.02 Long term (current) use of antithrombotics/antiplatelets; I12.9 Hypertensive chronic kidney disease with stage 1 through stage 4 chronic kidney disease, or unspecified chronic kidney disease; N18.9 Chronic kidney disease, unspecified; I42.8 Other cardiomyopathies; B96.20 Unspecified Escherichia coli [E. coli] as the cause of diseases classified elsewhere; M10.9 Gout, unspecified; H54.40 Blindness, one eye, unspecified eye; F41.9 Anxiety disorder, unspecified; I25.10 Atherosclerotic heart disease of native coronary artery without angina pectoris; I35.0 Nonrheumatic aortic (valve) stenosis
CPT/HCPCS: 36415; 71045; 78452; 80048; 80053; 80061; 81003; 82550; 82553; 82607; 82728; 82746; 82962; 82977; 83036; 83540; 83550; 83735; 83880; 84100; 84443; 84484; 84550; 85025; 85610; 86140; 87081; 87086; 87181; 93005; 93017; 93306; 94664; 99285; 99291; J1815; J2785; J8499; S5561

== ENCOUNTER 2018-03-29 12:06 | Inpatient (IN) | payer MEDICARE, OTHER ==
[~2018-03-29] VITALS: Ht 167.6 cm; Wt 83.0 kg
[2018-03-29] VITALS (14 sets, daily range): BP systolic 138–170; BP diastolic 67–105
[~2018-03-29 12:06] MED LIST changes: +ALLOPURINOL300 M1 ORAL; +ALUM-MAG HYDRO360 ML PO; +BISACODYL5 MG ORAL; +CATAPRES0.1 MG ORAL; +COUMADIN3 MG ORAL; +CYCLOGYL2 M1 OP; +FERROUS SULFAT325 MG ORAL; +IPRAT-ALBUT 0.5-3 ML IH; +ISOSORBIDE MON120 M1 PO; +LEVEMIR100 UNIT/1 SUBQ; +METOPROLOL TAR100 MG ORAL; +MILK OF MA400 MG/51 ORAL; +NEPHRO AID; +NITROSTAT0.4 M1 SL; +NORCO1 E1 ORAL; +NOVOLOG100 UNIT/3 SUBQ; +POTASSIUM CHLO20 ME1 ORAL; +PRAVASTATIN SOD20 M1 ORAL; +RESTASIS1 EACH BOTH EYES; +SENNA8.6 M2 PO; +SPIRONOLACTONE50 MG ORAL; +ZANTAC150 MG ORAL; +ZOFRAN4 M3 ORAL
--- NOTE | 2018-03-29 12:22 | Emergency Room Report ---
History of Present Illness General Chief Complaint: Chest Pain Source: Patient, Medical Record, EMS Present Illness HPI This patient presents from a senior care facility. She is brought in by EMS. EMS reports that on their arrival at the senior care facility, she had complained of chest pressure. She was given nitroglycerin and aspirin and had resolution of her symptoms. The patient states that her legs do appear more swollen than usual. The patient states she currently has no pain or symptoms at this time. She has no complaints. He does have a history of dementia so I am unsure on the reliability of his history. She has a history of atrial fibrillation and does get rapid ventricular response. She has a history of angina and CVA. Allergies: Coded Allergies: NAPROXEN (Verified Allergy, Unknown, 03/29/18) Patient History Past Medical History: see triage record, old chart reviewed, CAD, CHF, AFib, arrhyth Social History: Denies: smoking, alcohol use, drug use Last Menstrual Period: n/a Reviewed Nursing Documentation: PMH: Agreed; PSxH: Agreed Nursing Documentation-PMH Hx Cardiac Problems: Yes - CHRONIC AFIB, CHF, ANEMIA Hx Hypertension: Yes Hx Pacemaker: No Hx Asthma: No Hx COPD: Yes Hx Diabetes: Yes Hx Cancer: No Hx Gastrointestinal Problems: No - UTI, ACUTE KIDNEY FAILURE Hx Dialysis: No Hx Cerebrovascular Accident: Yes Hx Seizures: No Hx Paralysis: No Hx Weakness: Yes - LEFT Hx Neurologic Surgery: No Hx Brain Shunt: No Review of Systems All Other Systems: negative except mentioned in HPI Physical Exam Vital Signs Date Time Temp Pulse Resp B/P (MAP) Pulse Ox O2 Delivery O2 Flow Rate FiO2 03/29/18 12:06 111 16 151/93 94 Room Air Sp02 EP Interpretation: reviewed, normal General Appearance: no apparent distress, alert, GCS 15, non-toxic Head: normocephalic, atraumatic Eyes: bilateral eye normal inspection, bilateral eye PERRL ENT: hearing grossly normal, normal pharynx, no angioedema, normal voice Neck: full range of motion, supple/symm/no masses Respiratory: chest non-tender, lungs clear, normal breath sounds, no respiratory distress, no retraction, no accessory muscle use, speaking full sentences Cardiovascular #1: no edema, tachycardia, irregularly irregular Gastrointestinal: normal bowel sounds, non tender, soft, non-distended, no guarding, no rebound Rectal: deferred Musculoskeletal: back normal, gait/station normal, normal range of motion, non- tender Neurologic: alert, oriented x3, responsive, motor strength/tone normal, sensory intact, speech normal Psychiatric: judgement/insight normal, memory normal, mood/affect normal, no suicidal/homicidal ideation Skin: normal color, no rash, warm/dry, well hydrated Medical Decision Making Diagnostic Impression: Primary Impression: Atrial fibrillation with RVR Additional Impressions: Azotemia CHF exacerbation ER Course This patient presents with A. fib with RVR. She also has increased swelling in her lower extremities with cardiomegaly on chest x-ray that is consistent with a CHF exacerbation/right-sided heart failure. The patient was given diltiazem IV. She continued to have A. fib with RVR. She is admitted for further monitoring, evaluation and treatment. Laboratory Tests Test 03/29/18 13:00 03/29/18 13:05 White Blood Count 10.8 K/UL (4.8-10.8) Red Blood Count 4.86 M/UL (4.20-5.40) Hemoglobin 13.1 G/DL (12.0-16.0) Hematocrit 42.1 % (37.0-47.0) Mean Corpuscular Volume 87 FL (80-99) Mean Corpuscular Hemoglobin 26.9 PG (27.0-31.0) L Mean Corpuscular Hemoglobin Concent 31.0 G/DL (32.0-36.0) L Red Cell Distribution Width 19.6 % (11.6-14.8) H Platelet Count 209 K/UL (150-450) Mean Platelet Volume 6.5 FL (6.5-10.1) Neutrophils (%) (Auto) 74.2 % (45.0-75.0) Lymphocytes (%) (Auto) 17.0 % (20.0-45.0) L Monocytes (%) (Auto) 6.4 % (1.0-10.0) Eosinophils (%) (Auto) 1.3 % (0.0-3.0) Basophils (%) (Auto) 1.1 % (0.0-2.0) Sodium Level 142 MMOL/L (136-145) Potassium Level 3.7 MMOL/L (3.5-5.1) Chloride Level 109 MMOL/L (98-107) H Carbon Dioxide Level 24 MMOL/L (21-32) Anion Gap 9 mmol/L (5-15) Blood Urea Nitrogen 29 mg/dL (7-18) H Creatinine 1.9 MG/DL (0.55-1.30) H Estimate Glomerular Filtration Rate mL/min (>60) Glucose Level 114 MG/DL (74-106) H Calcium Level 9.1 MG/DL (8.5-10.1) Total Bilirubin 0.4 MG/DL (0.2-1.0) Aspartate Amino Transferase (AST) 28 U/L (15-37) Alanine Aminotransferase (ALT) 22 U/L (12-78) Alkaline Phosphatase 94 U/L (46-116) Total Creatine Kinase 66 U/L (26-308) Creatine Kinase MB 1.5 NG/ML (0.0-3.6) Creatine Kinase MB Relative Index 2.2 Troponin I 0.018 ng/mL (0.000-0.056) Total Protein 7.0 G/DL (6.4-8.2) Albumin 2.3 G/DL (3.4-5.0) L Globulin 4.7 g/dL Albumin/Globulin Ratio 0.5 (1.0-2.7) L Urine Color Pale yellow Urine Appearance Slightly cloudy Urine pH 5 (4.5-8.0) Urine Specific [place] 1.015 (1.005-1.035) Urine Protein 4+ (NEGATIVE) H Urine Glucose (UA) 2+ (NEGATIVE) H Urine Ketones Negative (NEGATIVE) Urine Occult Blood 1+ (NEGATIVE) H Urine Nitrite Negative (NEGATIVE) Urine Bilirubin Negative (NEGATIVE) Urine Urobilinogen Normal MG/DL (0.0-1.0) Urine Leukocyte Esterase Negative (NEGATIVE) Urine RBC 2-4 /HPF (0 - 2) H Urine WBC 0-2 /HPF (0 - 2) Urine Squamous Epithelial Cells Few /LPF (NONE/OCC) Urine Bacteria Few /HPF (NONE) Urine Hyaline Casts 0-2 /LPF (NONE) H EKG Diagnostic Results Rate: tachycardiac Rhythm: other - A.fib ST Segments: no acute changes Rhythm Strip Diag. Results EP Interpretation: yes Rate: 120;s Rhythm: no PVC's, no ectopy, other - A.fib w/RVT Chest X-Ray Diagnostic Results Chest X-Ray Diagnostic Results : Chest X-Ray Ordered: Yes # of Views/Limited/Complete: 1 View Indication: Other EP Interpretation: No Interpretation: other - Cardiomegaly Last Vital Signs Date Time Temp Pulse Resp B/P (MAP) Pulse Ox O2 Delivery O2 Flow Rate FiO2 03/29/18 12:06 111 16 151/93 94 Room Air Disposition: ADMITTED INPATIENT Condition: Serious MAAME GOMEZ D.O. Mar 29, 2018 12:22
[2018-03-29] MEDS ORDERED: dilTIAZem HCl 25mg/5ml Inj IVP ONE (12:30)
[2018-03-29] MEDS ORDERED: Nitroglycerin 2% oint pkt TOPIC ONE (12:45)
[2018-03-29 13:12] LABS: BASOPHILS % (AUTO) 1.1 % (0.0-2.0); EOSINOPHILS % (AUTO) 1.3 % (0.0-3.0); HEMATOCRIT 42.1 % (37.0-47.0); HEMOGLOBIN 13.1 G/DL (12.0-16.0); MEAN CORPUSCULAR VOLUME 87 FL (80-99); MONOCYTES % (AUTO) 6.4 % (1.0-10.0); NEUTROPHILS % (AUTO) 74.2 % (45.0-75.0); PLATELET COUNT 209 K/UL (150-450); RED BLOOD COUNT 4.86 M/UL (4.20-5.40); RED CELL DISTRIBUTION WIDTH 19.6 % (11.6-14.8); WHITE BLOOD COUNT 10.8 K/UL (4.8-10.8)
[2018-03-29] MEDS ORDERED: COLACE100 MG ORAL (13:22)
[2018-03-29] MEDS ORDERED: CARDIZEM60 MG ORAL (13:22)
[2018-03-29] MEDS ORDERED: HYDRALAZINE HCL25 M1 ORAL (13:24)
[2018-03-29 13:26] LABS: ANION GAP 9 mmol/L (5-15); BLOOD UREA NITROGEN 29 mg/dL (7-18); CALCIUM 9.1 MG/DL (8.5-10.1); CARBON DIOXIDE 24 MMOL/L (21-32); CHLORIDE 109 MMOL/L (98-107); CREATININE 1.9 MG/DL (0.55-1.30); POTASSIUM 3.7 MMOL/L (3.5-5.1); SODIUM 142 MMOL/L (136-145)
[2018-03-29 13:29] LABS: BILIRUBIN, URINE NEGATIVE (NEGATIVE); COLOR,URINE PALE YELLOW; GLUCOSE, URINE (UA) 2+ (NEGATIVE); KETONES,URINE NEGATIVE (NEGATIVE); LEUKOCYTE ESTERASE ,URINE NEGATIVE (NEGATIVE); NITRITE,URINE NEGATIVE (NEGATIVE); PH,URINE 5 (4.5-8.0); PROTEIN,URINE 4+ (NEGATIVE); UROBILINOGEN,URINE NORMAL MG/DL (0.0-1.0)
[2018-03-29 13:40] LABS: ALANINE AMINOTRANSFERASE 22 U/L (12-78); ALBUMIN 2.3 G/DL (3.4-5.0); ALBUMIN/GLOBULIN RATIO 0.5 (1.0-2.7); ALKALINE PHOSPHATASE 94 U/L (46-116); ASPARTATE AMINO TRANSFERASE 28 U/L (15-37); BILIRUBIN,TOTAL 0.4 MG/DL (0.2-1.0); CKMB 1.5 NG/ML (0.0-3.6); CREATINE KINASE 66 U/L (26-308)
[2018-03-29 13:52] LABS: APPEARANCE,URINE SLIGHTLY CLOUDY
--- NOTE | 2018-03-29 14:12 | Diagnostic Imaging Report ---
Indication: Chest pain Technique: One view of the chest Comparison: 03/21/2018 Findings: Again demonstrated is a percutaneous aortic valve prosthesis. There are mitral annular calcifications. The heart is enlarged. The lungs and pleural spaces remain clear. Degenerative changes of both shoulders are again noted. Impression: No acute process. Stable findings as noted
[2018-03-29] MEDS ORDERED: LANSOPRAZOLE30 MG ORAL (14:33)
[2018-03-29] MEDS ORDERED: LORAZEPAM0.5 MG ORAL (14:33)
[2018-03-29] MEDS ORDERED: METOCLOPRA10 MG/10 M ORAL (14:33)
[2018-03-29] MEDS ORDERED: TEMAZEPAM7.5 MG ORAL (16:44)
[2018-03-29] MEDS ORDERED: ISOSORBIDE MONO30 M1 PO (16:44)
[2018-03-29] MEDS ORDERED: LORazepam 0.5mg tab ORAL PRN ×2 (16:45→19:23)
[2018-03-29 17:22] LABS: INR 1.6 (0.9-1.1)
[2018-03-29] MEDS ORDERED: NovoLOG Insulin Flexpen SUBQ SCH (17:30)
[2018-03-29] MEDS ORDERED: Nitroglycerin Subl 0.4mg tab SL PRN ×2 (17:30→19:24)
[2018-03-29] MEDS ORDERED: Docusate 100mg cap ORAL SCH (18:00)
[2018-03-29] MEDS ORDERED: Warfarin Sodium 4mg PO ONE (18:30)
[2018-03-29] MEDS ORDERED: Bisacodyl EC 5mg tab ORAL PRN (19:20)
[2018-03-29] MEDS: NovoLOG Insulin Flexpen SUBQ SCH (21:00)
[2018-03-29] MEDS: HydrALAZINE 25mg tab ORAL SCH (21:31)
[2018-03-29] MEDS ORDERED: HydrALAZINE 25mg tab ORAL SCH (22:00)
[2018-03-30] VITALS (37 sets, daily range): BP systolic 114–169; BP diastolic 59–100
--- NOTE | 2018-03-30 04:15 | History and Physical Report ---
DATE OF ADMISSION: 03/29/2018 NOTE: POOR AUDIO REASON FOR ADMISSION: Chest pain. HISTORY OF PRESENT ILLNESS: The patient CHF the patient . The patient basically denies nausea, vomiting, or diarrhea. Does have lower extremity edema. Denies shortness of breath . good response as well as CHF. The patient also then had urinary tract infection . PAST MEDICAL HISTORY: Significant for atrial fibrillation; history of CABG; history of hypertension, refractory; history of atrial fibrillation with RVR; history of NIDDM; history of hyperlipidemia; GERD; constipation; insomnia; history of status post NV and CAD blindness. PAST SURGICAL HISTORY: History of right knee surgery as well as hysterectomy. MEDICATIONS: Bisacodyl, diltiazem, Colace, ferrous sulfate, folic acid, Lasix, hydralazine, insulin, iron, Imdur, Prevacid, potassium, Lasix, Pravachol, ranitidine, spironolactone, and Zofran. ALLERGIES: Naprosyn. FAMILY HISTORY: Does have history of . SOCIAL HISTORY: Denies history of smoking, alcohol, or illicit drug use. Lives in a detention. REVIEW OF SYSTEMS: HEENT: Denies headaches. RESPIRATORY: Denies shortness of breath. Denies cough. CARDIOVASCULAR: Reports chest pain for one day. No orthopnea. GASTROINTESTINAL: Denies nausea, vomiting, or diarrhea. Does have occasional heartburn. EXTREMITIES: Reports generalized pain. CENTRAL NERVOUS SYSTEM: No change in vision or speech pattern. Generalized weakness. PHYSICAL EXAMINATION: VITAL SIGNS: Temperature 97.2, pulse is 120, and blood pressure 170/80. HEENT: PERRLA. NECK: Supple. No lymphadenopathy. CHEST: Clear to auscultation. CARDIOVASCULAR: Regular rate and rhythm. GASTROINTESTINAL: Soft and nontender. Positive bowel sounds. No organomegaly. EXTREMITIES: Does have reflexes . NEUROLOGIC: Generalized weakness. Reflexes are equal on both sides. Sensory intact to light touch. LABORATORY DATA: WBC of 10.8, hemoglobin 13.1, and platelets 209,000. Sodium 142, potassium 3.7, chloride 109, BUN 39, creatinine 1.9, and glucose of 114. ASSESSMENT: 1. Atrial fibrillation with rapid ventricular response. 2. Congestive heart failure. 3. Azotemia. 4. Refractory . 5. Lower extremity edema. PLAN: I have asked Dr. Truong, Dr. Diaz, and Dr. Jimenez to see the patient for the above-mentioned diagnoses and treatment. Azucena Goss M.D. DR: SAMANTHA JOB#: [id number] CC:
[2018-03-30] MEDS: Glimepiride 1mg tab ORAL SCH (06:00)
[2018-03-30] MEDS: HydrALAZINE 25mg tab ORAL SCH ×3 (06:00→22:05)
[2018-03-30] MEDS: NovoLOG Insulin Flexpen SUBQ SCH ×4 (06:22→20:47)
[2018-03-30] MEDS ORDERED: Glimepiride 1mg tab ORAL SCH (06:30)
[2018-03-30 07:05] LABS: BASOPHILS % (AUTO) 1.1 % (0.0-2.0); EOSINOPHILS % (AUTO) 2.4 % (0.0-3.0); HEMATOCRIT 36.9 % (37.0-47.0); LYMPHOCYTES % (AUTO) 15.6 % (20.0-45.0); MEAN CORPUSCULAR VOLUME 87 FL (80-99); MONOCYTES % (AUTO) 8.2 % (1.0-10.0); NEUTROPHILS % (AUTO) 72.7 % (45.0-75.0); PLATELET COUNT 187 K/UL (150-450); RED BLOOD COUNT 4.23 M/UL (4.20-5.40); RED CELL DISTRIBUTION WIDTH 19.7 % (11.6-14.8); WHITE BLOOD COUNT 8.8 K/UL (4.8-10.8)
[2018-03-30 07:37] LABS: INR 1.5 (0.9-1.1)
[2018-03-30 07:54] LABS: ALANINE AMINOTRANSFERASE 19 U/L (12-78); ALBUMIN/GLOBULIN RATIO 0.6 (1.0-2.7); ALKALINE PHOSPHATASE 93 U/L (46-116); ANION GAP 11 mmol/L (5-15); ASPARTATE AMINO TRANSFERASE 27 U/L (15-37); BILIRUBIN,TOTAL 0.5 MG/DL (0.2-1.0); BLOOD UREA NITROGEN 25 mg/dL (7-18); CALCIUM 8.3 MG/DL (8.5-10.1); CARBON DIOXIDE 23 MMOL/L (21-32); CHLORIDE 109 MMOL/L (98-107); CREATININE 1.6 MG/DL (0.55-1.30); POTASSIUM 3.3 MMOL/L (3.5-5.1); SODIUM 143 MMOL/L (136-145)
--- NOTE | 2018-03-30 08:44 | Pulmonolgy Critical Care Note ---
Critical Care - Asmt/Plan Problems: (1) Atrial fibrillation (2) Atrial fibrillation with RVR (3) CHF exacerbation (4) Azotemia (5) Protein calorie malnutrition (6) CVA (cerebral vascular accident) Respiratory: monitor respiratory rate Cardiac: continue to monitor HR/BP, other - Dilt gtt, A/C (continue coumadin, start IVUH as untherapeutic), F/U cards recs, PO lasix, continue anti- hypertensive regimen Renal: F/U I&O, check electrolytes, other - PO lasix Gastrointestinal: other - aspiration precautions Endocrine: monitor blood sugar, continue sliding scale insulin Hematologic: monitor H/H Neurologic: keep patient comfortable Prophylaxis: Protonix, other - Coumading with hep bridge Disposition: keep in ICU Time Spent (Minutes): 50 Notes 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, 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, 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 Discussed with: nurses, consultants Critical Care - Objective Last 24 Hour Vital Signs Date Time Temp Pulse Resp B/P (MAP) Pulse Ox O2 Delivery O2 Flow Rate FiO2 03/30/18 07:00 79 20 156/79 100 Room Air 03/30/18 06:30 81 17 159/82 100 Room Air 03/30/18 06:00 91 19 145/70 100 Room Air 03/30/18 06:00 157/74 03/30/18 05:30 85 19 164/75 100 Room Air 03/30/18 05:00 89 21 157/74 100 Room Air 03/30/18 04:00 82 03/30/18 04:00 98.1 86 18 137/84 100 Room Air 98.1 03/30/18 03:30 86 21 166/86 100 Room Air 03/30/18 03:00 93 21 169/80 100 Room Air 03/30/18 02:00 93 20 157/67 100 Room Air 03/30/18 01:30 83 17 167/77 99 Room Air 03/30/18 01:00 86 17 155/100 100 Room Air 03/30/18 00:30 86 17 153/74 100 Room Air 03/30/18 00:00 90 03/30/18 00:00 98.5 87 17 153/99 100 Room Air 98.5 03/29/18 23:30 87 20 156/75 100 Room Air 03/29/18 23:00 95 19 152/75 100 Room Air 03/29/18 22:30 100 20 165/85 100 Room Air 03/29/18 22:00 96 18 167/105 100 Room Air 03/29/18 21:31 151/105 03/29/18 21:30 95 18 156/75 100 Room Air 03/29/18 21:00 95 18 161/74 100 Room Air 03/29/18 20:30 105 20 168/67 100 Room Air 03/29/18 20:10 110 151/105 03/29/18 20:00 97.5 105 19 153/73 100 Room Air 97.5 03/29/18 19:49 110 03/29/18 19:30 104 19 146/81 100 Room Air 03/29/18 19:00 110 20 151/105 99 Room Air 03/29/18 17:45 170/82 03/29/18 16:08 117 03/29/18 16:00 97.6 102 20 170/82 98 Room Air 97.6 03/29/18 15:45 98.0 113 20 158/75 100 Room Air 98.0 03/29/18 15:22 98.0 113 20 158/75 100 Room Air 98.0 03/29/18 14:10 98.0 99 20 138/83 100 Room Air 98.0 03/29/18 12:56 108 151/93 03/29/18 12:55 151/93 03/29/18 12:13 130 16 Room Air 03/29/18 12:12 98.0 130 16 151/93 94 Room Air 98.0 03/29/18 12:06 111 16 151/93 94 Room Air Status: awake Condition: improving HEENT: atraumatic, normocephalic Neck: full ROM Lungs: clear Heart: irregular Abdomen: soft, non-tender, active bowel sounds Extremities: no C/C/E Accucheck: 110 Critical Care - Subjective ROS Limited/Unobtainable: Yes ICU Day: 1 Interval Events: Admitted to tele with AFcRVR, transferred to ICU for Dilt gtt Currently in AF low 100s Condition: critical IV Access: peripheral EKG Rhythm: Atrial Fibrillation Sputum Amount: None Drips: Dilt gtt I&O: Intake and Output 03/29/18 03/30/18 19:00 07:00 Intake Total 120 ml 389 ml Output Total 300 ml 800 ml Balance -180 ml -411 ml Intake Oral 120 ml 300 ml IV Total 89 ml Output Urine Total 300 ml 800 ml # Voids 2 Subjective: No CP, no cough, + SOB, no F/C, no N/V/D/C, no abd pain or urinary complaints CXR: CXR: Mild PVC Labs: Laboratory Tests Test 03/29/18 13:00 03/29/18 13:05 03/30/18 05:00 White Blood Count 10.8 K/UL (4.8-10.8) 8.8 K/UL (4.8-10.8) Red Blood Count 4.86 M/UL (4.20-5.40) 4.23 M/UL (4.20-5.40) Hemoglobin 13.1 G/DL (12.0-16.0) 12.0 G/DL (12.0-16.0) Hematocrit 42.1 % (37.0-47.0) 36.9 % (37.0-47.0) L Mean Corpuscular Volume 87 FL (80-99) 87 FL (80-99) Mean Corpuscular Hemoglobin 26.9 PG (27.0-31.0) L 28.3 PG (27.0-31.0) Mean Corpuscular Hemoglobin Concent 31.0 G/DL (32.0-36.0) L 32.5 G/DL (32.0-36.0) Red Cell Distribution Width 19.6 % (11.6-14.8) H 19.7 % (11.6-14.8) H Platelet Count 209 K/UL (150-450) 187 K/UL (150-450) Mean Platelet Volume 6.5 FL (6.5-10.1) 6.3 FL (6.5-10.1) L Neutrophils (%) (Auto) 74.2 % (45.0-75.0) 72.7 % (45.0-75.0) Lymphocytes (%) (Auto) 17.0 % (20.0-45.0) L 15.6 % (20.0-45.0) L Monocytes (%) (Auto) 6.4 % (1.0-10.0) 8.2 % (1.0-10.0) Eosinophils (%) (Auto) 1.3 % (0.0-3.0) 2.4 % (0.0-3.0) Basophils (%) (Auto) 1.1 % (0.0-2.0) 1.1 % (0.0-2.0) Prothrombin Time 17.1 SEC (9.30-11.50) H 16.2 SEC (9.30-11.50) H Prothromb Time International Ratio 1.6 (0.9-1.1) H 1.5 (0.9-1.1) H Sodium Level 142 MMOL/L (136-145) 143 MMOL/L (136-145) Potassium Level 3.7 MMOL/L (3.5-5.1) 3.3 MMOL/L (3.5-5.1) L Chloride Level 109 MMOL/L (98-107) H 109 MMOL/L (98-107) H Carbon Dioxide Level 24 MMOL/L (21-32) 23 MMOL/L (21-32) Anion Gap 9 mmol/L (5-15) 11 mmol/L (5-15) Blood Urea Nitrogen 29 mg/dL (7-18) H 25 mg/dL (7-18) H Creatinine 1.9 MG/DL (0.55-1.30) H 1.6 MG/DL (0.55-1.30) H Estimat Glomerular Filtration Rate mL/min (>60) mL/min (>60) Glucose Level 114 MG/DL (74-106) H 121 MG/DL (74-106) H Calcium Level 9.1 MG/DL (8.5-10.1) 8.3 MG/DL (8.5-10.1) L Total Bilirubin 0.4 MG/DL (0.2-1.0) 0.5 MG/DL (0.2-1.0) Aspartate Amino Transf (AST/SGOT) 28 U/L (15-37) 27 U/L (15-37) Alanine Aminotransferase (ALT/SGPT) 22 U/L (12-78) 19 U/L (12-78) Alkaline Phosphatase 94 U/L (46-116) 93 U/L (46-116) Total Creatine Kinase 66 U/L (26-308) Creatine Kinase MB 1.5 NG/ML (0.0-3.6) Creatine Kinase MB Relative Index 2.2 Troponin I 0.018 ng/mL (0.000-0.056) 0.023 ng/mL (0.000-0.056) Total Protein 7.0 G/DL (6.4-8.2) 5.6 G/DL (6.4-8.2) L Albumin 2.3 G/DL (3.4-5.0) L 2.0 G/DL (3.4-5.0) L Globulin 4.7 g/dL 3.6 g/dL Albumin/Globulin Ratio 0.5 (1.0-2.7) L 0.6 (1.0-2.7) L Urine Color Pale yellow Urine Appearance Slightly cloudy Urine pH 5 (4.5-8.0) Urine Specific [place] 1.015 (1.005-1.035) Urine Protein 4+ (NEGATIVE) H Urine Glucose (UA) 2+ (NEGATIVE) H Urine Ketones Negative (NEGATIVE) Urine Occult Blood 1+ (NEGATIVE) H Urine Nitrite Negative (NEGATIVE) Urine Bilirubin Negative (NEGATIVE) Urine Urobilinogen Normal MG/DL (0.0-1.0) Urine Leukocyte Esterase Negative (NEGATIVE) Urine RBC 2-4 /HPF (0 - 2) H Urine WBC 0-2 /HPF (0 - 2) Urine Squamous Epithelial Cells Few /LPF (NONE/OCC) Urine Bacteria Few /HPF (NONE) Urine Hyaline Casts 0-2 /LPF (NONE) H Mele Jimenez MD Mar 30, 2018 08:44
[2018-03-30] MEDS: Furosemide 40mg tab ORAL SCH (09:00)
[2018-03-30] MEDS ORDERED: Bisacodyl EC 5mg tab ORAL PRN (09:00)
[2018-03-30] MEDS ORDERED: Imdur 30mg tab ORAL SCH (09:00)
[2018-03-30] MEDS ORDERED: Sennosides 8.6mg ORAL SCH (09:00)
[2018-03-30] MEDS ORDERED: Heparin 5000 units/ml inj IV ONE (09:00)
[2018-03-30] MEDS ORDERED: Allopurinol 100mg Tab ORAL SCH (09:00)
[2018-03-30] MEDS ORDERED: Furosemide 40mg tab ORAL SCH (09:00)
[2018-03-30] MEDS: Imdur 30mg tab ORAL SCH (09:00)
[2018-03-30] MEDS: Docusate 100mg cap ORAL SCH ×3 (09:00→18:00)
[2018-03-30] MEDS ORDERED: Heparin 5000 units/ml inj IV SCH (09:15)
[2018-03-30] MEDS ORDERED: Heparin 25,000u/D5W 500ml 500 ML IV SCH ×2 (09:30→19:30)
[2018-03-30] MEDS: Allopurinol 100mg Tab ORAL SCH (09:42)
[2018-03-30] MEDS: Sennosides 8.6mg ORAL SCH (09:43)
[2018-03-30] MEDS ORDERED: Heparin 2000 units/Ns 1000ml INJ SCH (10:30)
[2018-03-30] MEDS ORDERED: Lidocaine 1% Plain 30 ml INJ SCH (10:30)
[2018-03-30] MEDS: dilTIAZem HCl 90mg tab ORAL SCH ×2 (11:27→14:00)
--- NOTE | 2018-03-30 15:10 | Cardiac Electrophysiology PN ---
Subjective Subjective [id number] Objective Last 24 Hour Vital Signs Date Time Temp Pulse Resp B/P (MAP) Pulse Ox O2 Delivery O2 Flow Rate FiO2 03/30/18 14:00 100 133/79 03/30/18 14:00 142/79 03/30/18 12:30 88 18 133/79 100 Room Air 03/30/18 12:00 97.9 92 19 127/75 100 Room Air 97.9 03/30/18 12:00 110 03/30/18 11:30 110 18 144/77 100 Room Air 03/30/18 11:27 110 148/85 03/30/18 11:00 101 18 151/85 100 Room Air 03/30/18 10:30 95 16 133/80 100 Room Air 03/30/18 10:30 110 148/85 03/30/18 10:00 135 18 158/85 100 Room Air 03/30/18 09:30 120 19 150/79 100 Room Air 03/30/18 09:00 105 20 152/80 100 Room Air 03/30/18 09:00 156/79 03/30/18 08:30 111 18 147/82 100 Room Air 03/30/18 08:00 103 03/30/18 08:00 98.1 90 19 140/79 100 Room Air 98.1 03/30/18 07:00 79 20 156/79 100 Room Air 03/30/18 06:30 81 17 159/82 100 Room Air 03/30/18 06:00 91 19 145/70 100 Room Air 03/30/18 06:00 157/74 03/30/18 05:30 85 19 164/75 100 Room Air 03/30/18 05:00 89 21 157/74 100 Room Air 03/30/18 04:00 82 03/30/18 04:00 98.1 86 18 137/84 100 Room Air 98.1 03/30/18 03:30 86 21 166/86 100 Room Air 03/30/18 03:00 93 21 169/80 100 Room Air 03/30/18 02:00 93 20 157/67 100 Room Air 03/30/18 01:30 83 17 167/77 99 Room Air 03/30/18 01:00 86 17 155/100 100 Room Air 03/30/18 00:30 86 17 153/74 100 Room Air 03/30/18 00:00 90 6//18 00:00 98.5 87 17 153/99 100 Room Air 98.5 03/29/18 23:30 87 20 156/75 100 Room Air 03/29/18 23:00 95 19 152/75 100 Room Air 03/29/18 22:30 100 20 165/85 100 Room Air 03/29/18 22:00 96 18 167/105 100 Room Air 03/29/18 21:31 151/105 03/29/18 21:30 95 18 156/75 100 Room Air 03/29/18 21:00 95 18 161/74 100 Room Air 03/29/18 20:30 105 20 168/67 100 Room Air 03/29/18 20:10 110 151/105 03/29/18 20:00 97.5 105 19 153/73 100 Room Air 97.5 03/29/18 19:49 110 03/29/18 19:30 104 19 146/81 100 Room Air 03/29/18 19:00 110 20 151/105 99 Room Air 03/29/18 17:45 170/82 03/29/18 16:08 117 03/29/18 16:00 97.6 102 20 170/82 98 Room Air 97.6 03/29/18 15:45 98.0 113 20 158/75 100 Room Air 98.0 03/29/18 15:22 98.0 113 20 158/75 100 Room Air 98.0 Intake and Output 03/29/18 03/30/18 19:00 07:00 Intake Total 120 ml 389 ml Output Total 300 ml 800 ml Balance -180 ml -411 ml Intake Oral 120 ml 300 ml IV Total 89 ml Output Urine Total 300 ml 800 ml # Voids 2 Laboratory Tests Test 03/30/18 05:00 White Blood Count 8.8 K/UL (4.8-10.8) Red Blood Count 4.23 M/UL (4.20-5.40) Hemoglobin 12.0 G/DL (12.0-16.0) Hematocrit 36.9 % (37.0-47.0) L Mean Corpuscular Volume 87 FL (80-99) Mean Corpuscular Hemoglobin 28.3 PG (27.0-31.0) Mean Corpuscular Hemoglobin Concent 32.5 G/DL (32.0-36.0) Red Cell Distribution Width 19.7 % (11.6-14.8) H Platelet Count 187 K/UL (150-450) Mean Platelet Volume 6.3 FL (6.5-10.1) L Neutrophils (%) (Auto) 72.7 % (45.0-75.0) Lymphocytes (%) (Auto) 15.6 % (20.0-45.0) L Monocytes (%) (Auto) 8.2 % (1.0-10.0) Eosinophils (%) (Auto) 2.4 % (0.0-3.0) Basophils (%) (Auto) 1.1 % (0.0-2.0) Prothrombin Time 16.2 SEC (9.30-11.50) H Prothromb Time International Ratio 1.5 (0.9-1.1) H Sodium Level 143 MMOL/L (136-145) Potassium Level 3.3 MMOL/L (3.5-5.1) L Chloride Level 109 MMOL/L (98-107) H Carbon Dioxide Level 23 MMOL/L (21-32) Anion Gap 11 mmol/L (5-15) Blood Urea Nitrogen 25 mg/dL (7-18) H Creatinine 1.6 MG/DL (0.55-1.30) H Estimat Glomerular Filtration Rate mL/min (>60) Glucose Level 121 MG/DL (74-106) H Calcium Level 8.3 MG/DL (8.5-10.1) L Total Bilirubin 0.5 MG/DL (0.2-1.0) Aspartate Amino Transf (AST/SGOT) 27 U/L (15-37) Alanine Aminotransferase (ALT/SGPT) 19 U/L (12-78) Alkaline Phosphatase 93 U/L (46-116) Troponin I 0.023 ng/mL (0.000-0.056) Total Protein 5.6 G/DL (6.4-8.2) L Albumin 2.0 G/DL (3.4-5.0) L Globulin 3.6 g/dL Albumin/Globulin Ratio 0.6 (1.0-2.7) L Clinton Diaz MD Mar 30, 2018 15:10
--- NOTE | 2018-03-30 15:36 | Consultation ---
Consult Note Consult Note asked to eval for renal failure and uncontrolled HTN patient seen in ICU on cardiazem drip This patient presents from a shelter facility. She is brought in by EMS. EMS reports that on their arrival at the shelter facility, she had complained of chest pressure. She was given nitroglycerin and aspirin and had resolution of her symptoms. The patient states that her legs do appear more swollen than usual. The patient states she currently has no pain or symptoms at this time. She has no complaints. He does have a history of dementia so I am unsure on the reliability of his history. She has a history of atrial fibrillation and does get rapid ventricular response. She has a history of angina and CVA. Allergies: NAPROXEN (Verified Allergy, Unknown, 03/29/18) Past Medical History: see triage record, old chart reviewed, CAD, CHF, AFib, arrhyth S Hx Cardiac Problems: Yes - CHRONIC AFIB, CHF, ANEMIA Hx Hypertension: Yes Hx COPD: Yes Hx Diabetes: Yes Hx Cerebrovascular Accident: Yes Hx Weakness: Yes - LEFT admitted for At fib, CHF examined data reviewed discussed with communications attendant/Plan Renal failure - Pre renal picture- Superimposed on CKD At Fib chronic with FVR on cardiazem drip on anticoagulation Left eye blind' HTN Gout High Chol CAD CHF Plan: adjust bp meds monitor lytes and renal parameters monitor INR keep bp in check per metal hanger per orders SUGEY PETERSON Mar 30, 2018 15:36
[2018-03-30] MEDS ORDERED: Warfarin Sodium 4mg PO ONE (17:00)
[2018-03-30 18:20] LABS: INR 1.7 (0.9-1.1); PARTIAL THROMBOPLASTIN TIME > 150 SEC (23-33)
[2018-03-30] MEDS: Dyna-Hex 2% Top Sol 2oz TOPIC SCH (19:34)
[2018-03-30] MEDS: Metoprolol Tartrate 50mg tab ORAL SCH (20:45)
--- NOTE | 2018-03-30 21:36 | General Progress Note ---
Assessment/Plan Problem List: (1) Atrial fibrillation with RVR ICD Codes: I48.91 - Unspecified atrial fibrillation SNOMED: 573006663592587 (2) CHF exacerbation ICD Codes: I50.9 - Heart failure, unspecified SNOMED: 01509745 (3) Acute renal failure (ARF) ICD Codes: N17.9 - Acute renal failure (ARF) SNOMED: 47730971 (4) Atrial fibrillation ICD Codes: I48.91 - Unspecified atrial fibrillation SNOMED: 90795938 Status: progressing Assessment/Plan a fib w rvr arf chf edema lyte abnormality Subjective Allergies: Coded Allergies: NAPROXEN (Verified Allergy, Unknown, 03/29/18) Subjective chronic pain Objective Last 24 Hour Vital Signs Date Time Temp Pulse Resp B/P (MAP) Pulse Ox O2 Delivery O2 Flow Rate FiO2 03/30/18 20:45 96 127/77 03/30/18 19:00 90 18 133/77 98 Room Air 03/30/18 18:00 89 17 139/77 98 Room Air 03/30/18 17:00 95 18 120/80 99 Room Air 03/30/18 16:00 98.1 92 19 144/92 97 Room Air 98.1 03/30/18 16:00 99 03/30/18 15:30 85 17 129/80 99 Room Air 03/30/18 15:00 102 18 147/79 95 Room Air 03/30/18 14:30 98 19 133/79 97 Room Air 03/30/18 14:00 100 133/79 03/30/18 14:00 142/79 03/30/18 14:00 105 18 155/83 100 Room Air 03/30/18 13:30 110 17 127/79 98 Room Air 03/30/18 13:00 99 18 140/81 100 Room Air 03/30/18 12:30 88 18 133/79 100 Room Air 03/30/18 12:00 97.9 92 19 127/75 100 Room Air 97.9 03/30/18 12:00 110 03/30/18 11:30 110 18 144/77 100 Room Air 03/30/18 11:27 110 148/85 03/30/18 11:00 101 18 151/85 100 Room Air 03/30/18 10:30 95 16 133/80 100 Room Air 03/30/18 10:30 110 148/85 03/30/18 10:00 135 18 158/85 100 Room Air 03/30/18 09:30 120 19 150/79 100 Room Air 03/30/18 09:00 105 20 152/80 100 Room Air 03/30/18 09:00 156/79 03/30/18 08:30 111 18 147/82 100 Room Air 03/30/18 08:00 103 03/30/18 08:00 98.1 90 19 140/79 100 Room Air 98.1 03/30/18 07:00 79 20 156/79 100 Room Air 03/30/18 06:30 81 17 159/82 100 Room Air 03/30/18 06:00 91 19 145/70 100 Room Air 03/30/18 06:00 157/74 03/30/18 05:30 85 19 164/75 100 Room Air 03/30/18 05:00 89 21 157/74 100 Room Air 03/30/18 04:00 82 03/30/18 04:00 98.1 86 18 137/84 100 Room Air 98.1 03/30/18 03:30 86 21 166/86 100 Room Air 03/30/18 03:00 93 21 169/80 100 Room Air 03/30/18 02:00 93 20 157/67 100 Room Air 03/30/18 01:30 83 17 167/77 99 Room Air 03/30/18 01:00 86 17 155/100 100 Room Air 03/30/18 00:30 86 17 153/74 100 Room Air 03/30/18 00:00 90 03/30/18 00:00 98.5 87 17 153/99 100 Room Air 98.5 03/29/18 23:30 87 20 156/75 100 Room Air 03/29/18 23:00 95 19 152/75 100 Room Air 03/29/18 22:30 100 20 165/85 100 Room Air 03/29/18 22:00 96 18 167/105 100 Room Air Intake and Output 03/29/18 03/30/18 19:00 07:00 Intake Total 120 ml 389 ml Output Total 300 ml 800 ml Balance -180 ml -411 ml Intake Oral 120 ml 300 ml IV Total 89 ml Output Urine Total 300 ml 800 ml # Voids 2 Laboratory Tests 03/30/18 05:00: White Blood Count 8.8, Red Blood Count 4.23, Hemoglobin 12.0, Hematocrit 36.9L, Mean Corpuscular Volume 87, Mean Corpuscular Hemoglobin 28.3, Mean Corpuscular Hemoglobin Concent 32.5, Red Cell Distribution Width 19.7H, Platelet Count 187, Mean Platelet Volume 6.3L, Neutrophils (%) (Auto) 72.7, Lymphocytes (%) (Auto) 15.6L, Monocytes (%) (Auto) 8.2, Eosinophils (%) (Auto) 2.4, Basophils (%) (Auto ) 1.1, Prothrombin Time 16.2H, Prothromb Time International Ratio 1.5H, Sodium Level 143, Potassium Level 3.3L, Chloride Level 109H, Carbon Dioxide Level 23, Anion Gap 11, Blood Urea Nitrogen 25H, Creatinine 1.6H, Estimat Glomerular Filtration Rate , Glucose Level 121H, Calcium Level 8.3L, Total Bilirubin 0.5, Aspartate Amino Transf (AST/SGOT) 27, Alanine Aminotransferase (ALT/SGPT) 19, Alkaline Phosphatase 93, Troponin I 0.023, C-Reactive Protein, Quantitative 0.7 , Total Protein 5.6L, Albumin 2.0L, Globulin 3.6, Albumin/Globulin Ratio 0.6L 03/30/18 17:30: Prothrombin Time 17.6H, Prothromb Time International Ratio 1.7H, Activated Partial Thromboplast Time > 150*H Height (Feet): 5 Height (Inches): 6.00 Weight (Pounds): 179 Cardiovascular: arrhythmia Azucena Goss MD Mar 30, 2018 21:36
[2018-03-31] VITALS: BP 141/72
--- NOTE | 2018-03-31 | Consultation ---
DATE OF CONSULTATION: 03/30/2018 NOTE: POOR AUDIO CARDIOLOGY CONSULTATION CONSULTING PHYSICIAN: Clinton Diaz M.D. REFERRING PHYSICIAN: Azucena Goss M.D. REASON FOR CONSULTATION: Atrial fibrillation with rapid ventricular response. HISTORY OF PRESENT ILLNESS: The patient is a very pleasant, elderly lady with history of hypertension, paroxysmal atrial fibrillation with rapid ventricular response as well as history of coronary artery disease who presented to the emergency room complaining of chest pain and shortness of breath. The patient was found to be in atrial fibrillation with rapid ventricular response. At the time of my order, the patient was transferred to intensive care unit and was started on Cardizem drip. At the time of my evaluation, the patient is still on Cardizem drip as well as on heparin drip. It is of note that the patient was discharged just last week when her heart rate was controlled on Cardizem 60 mg every 8 hours and metoprolol 100 mg b.i.d. and the patient was on Coumadin per pharmacy as well. Her echocardiogram also had shown ejection fraction of 20 to 35%. A nuclear stress test was nonischemic. The patient also had diabetes and hyperlipidemia and renal failure with creatinine of around 2. At the time of my evaluation, the patient on Cardizem drip. PAST MEDICAL HISTORY: As mentioned above. FAMILY HISTORY: Noncontributory. SOCIAL HISTORY: She does not smoke or drink alcohol. REVIEW OF SYSTEMS: Review of systems was performed and was negative other than what was mentioned in the history of present illness. PHYSICAL EXAMINATION: VITAL SIGNS: Blood pressure 142/79, pulse is 88 to 110, respirations 18, and temperature 97.9. HEAD AND NECK: No JVD. LUNGS: Clear. CARDIOVASCULAR: Irregular S1 and S2 with no gallop or murmur. ABDOMEN: Soft. EXTREMITIES: A 1+ pitting edema. LABORATORY DATA: Her labs show white count of 8.8, hemoglobin 12, hematocrit 37, and platelet count is 187. Sodium 142, potassium 3.3, BUN of 25, creatinine of 1.6, and glucose of 121. INR is 1.5. ASSESSMENT AND PLAN: 1. Atrial fibrillation with rapid ventricular response. The patient is on Cardizem drip. We will switch Cardizem to oral Cardizem 90 mg every 8 hours. I will, at this juncture, resume her metoprolol that she was on previous admission for her better rate control. Eventually, I would like her to be only on metoprolol in view of her cardiomyopathy. noted on echocardiogram on 03/17/2018 shows a ejection fraction of only 25%. 2. Severe cardiomyopathy, ejection fraction of 25%. Her nuclear stress test showed evidence of myocardial ischemia on 03/21/2018 just last week. We will add Lasix to her medical regimen if the blood pressure allows. 3. Azotemia. 4. Cerebrovascular accident with left hemiplegia. Thank you very much, Dr. Goss, for allowing me to participate in the care of this patient. Please do not hesitate to contact me for any questions regarding my evaluation. Clinton Diaz M.D. DR: JULIUS JOB#: [id number] CC:
[2018-03-31 01:00] VITALS: BP 137/82
[2018-03-31 02:17] LABS: BASOPHILS % (AUTO) 0.5 % (0.0-2.0); EOSINOPHILS % (AUTO) 1.6 % (0.0-3.0); HEMATOCRIT 40.9 % (37.0-47.0); HEMOGLOBIN 12.8 G/DL (12.0-16.0); LYMPHOCYTES % (AUTO) 14.5 % (20.0-45.0); MEAN CORPUSCULAR VOLUME 86 FL (80-99); MONOCYTES % (AUTO) 7.6 % (1.0-10.0); NEUTROPHILS % (AUTO) 75.7 % (45.0-75.0); PLATELET COUNT 218 K/UL (150-450); RED BLOOD COUNT 4.76 M/UL (4.20-5.40); RED CELL DISTRIBUTION WIDTH 19.4 % (11.6-14.8); WHITE BLOOD COUNT 10.6 K/UL (4.8-10.8)
[2018-03-31 02:24] LABS: INR 1.7 (0.9-1.1)
[2018-03-31] MEDS: Heparin 25,000u/D5W 500ml 500 ML IV SCH ×2 (02:46→13:15)
[2018-03-31 02:51] LABS: ALANINE AMINOTRANSFERASE 17 U/L (12-78); ALBUMIN 1.7 G/DL (3.4-5.0); ALBUMIN/GLOBULIN RATIO 0.4 (1.0-2.7); ALKALINE PHOSPHATASE 90 U/L (46-116); ANION GAP 7 mmol/L (5-15); ASPARTATE AMINO TRANSFERASE 17 U/L (15-37); BILIRUBIN,TOTAL 0.4 MG/DL (0.2-1.0); BLOOD UREA NITROGEN 23 mg/dL (7-18); CALCIUM 8.3 MG/DL (8.5-10.1); CARBON DIOXIDE 27 MMOL/L (21-32); CHLORIDE 107 MMOL/L (98-107); CHOLESTEROL 182 MG/DL (< 200); CREATINE KINASE 37 U/L (26-308); CREATININE 1.7 MG/DL (0.55-1.30); GAMMA GLUTAMYL TRANSPEPTIDASE 34 U/L (5-85); HDL CHOLESTEROL 96 MG/DL (40-60); PHOSPHORUS 3.5 MG/DL (2.5-4.9); POTASSIUM 3.4 MMOL/L (3.5-5.1); SODIUM 141 MMOL/L (136-145); TRIGLYCERIDES 60 MG/DL (30-150)
[2018-03-31 04:00] VITALS: BP 135/82
[2018-03-31] MEDS: NovoLOG Insulin Flexpen SUBQ SCH ×4 (06:30→21:13)
[2018-03-31] MEDS: Glimepiride 1mg tab ORAL SCH (06:41)
[2018-03-31] MEDS: HydrALAZINE 25mg tab ORAL SCH ×3 (06:41→21:11)
[2018-03-31] MEDS: Docusate 100mg cap ORAL SCH ×4 (08:43→17:14)
[2018-03-31] MEDS: Sennosides 8.6mg ORAL SCH ×2 (08:44→08:54)
[2018-03-31] MEDS: Allopurinol 100mg Tab ORAL SCH (08:44)
[2018-03-31] MEDS: Imdur 30mg tab ORAL SCH (08:44)
--- NOTE | 2018-03-31 08:44 | Pulmonology Progress Note ---
Assessment/Plan Problems: (1) Atrial fibrillation (2) Atrial fibrillation with RVR (3) CVA (cerebral vascular accident) (4) Azotemia Assessment/Plan -Optimize pulmonary function/mobilize as tolerated -PRN O2 -Rate control per cards -CHF regimen per cards -Monitor volumes and renal function, diuretics as tolerated -Coumadin with IVUH bridge -Aspiration precautions -FC Subjective Allergies: Coded Allergies: NAPROXEN (Verified Allergy, Unknown, 03/29/18) Subjective Tx to ZAHRA AFVSS, in rate controlled AF Stable on RA No cough, no SOB, no CP, no F/C Objective Last 24 Hour Vital Signs Date Time Temp Pulse Resp B/P (MAP) Pulse Ox O2 Delivery O2 Flow Rate FiO2 03/31/18 06:41 135/82 03/31/18 04:00 98.2 89 18 135/82 99 Room Air 98.2 03/31/18 04:00 92 03/31/18 01:00 80 21 137/82 100 Room Air 03/31/18 00:00 98.0 76 21 141/72 100 Room Air 98.0 03/31/18 00:00 80 03/30/18 23:00 71 23 142/72 99 Room Air 03/30/18 22:05 114/59 03/30/18 22:00 76 20 114/59 100 Room Air 03/30/18 21:00 93 20 152/96 100 Room Air 03/30/18 20:45 96 127/77 03/30/18 20:00 91 03/30/18 20:00 98.0 98 22 123/72 100 Room Air 98.0 03/30/18 19:00 90 18 133/77 98 Room Air 03/30/18 18:00 89 17 139/77 98 Room Air 03/30/18 17:00 95 18 120/80 99 Room Air 03/30/18 16:00 98.1 92 19 144/92 97 Room Air 98.1 03/30/18 16:00 99 03/30/18 15:30 85 17 129/80 99 Room Air 03/30/18 15:00 102 18 147/79 95 Room Air 03/30/18 14:30 98 19 133/79 97 Room Air 03/30/18 14:00 100 133/79 03/30/18 14:00 142/79 03/30/18 14:00 105 18 155/83 100 Room Air 03/30/18 13:30 110 17 127/79 98 Room Air 03/30/18 13:00 99 18 140/81 100 Room Air 03/30/18 12:30 88 18 133/79 100 Room Air 03/30/18 12:00 97.9 92 19 127/75 100 Room Air 97.9 03/30/18 12:00 110 03/30/18 11:30 110 18 144/77 100 Room Air 03/30/18 11:27 110 148/85 03/30/18 11:00 101 18 151/85 100 Room Air 03/30/18 10:30 95 16 133/80 100 Room Air 03/30/18 10:30 110 148/85 03/30/18 10:00 135 18 158/85 100 Room Air 03/30/18 09:30 120 19 150/79 100 Room Air 03/30/18 09:00 105 20 152/80 100 Room Air 03/30/18 09:00 156/79 Intake and Output 03/30/18 03/31/18 19:00 07:00 Intake Total 533.186 ml 630.563 ml Output Total 750 ml 600 ml Balance -216.814 ml 30.563 ml Intake Oral 350 ml 450 ml IV Total 183.186 ml 180.563 ml Output Urine Total 750 ml 600 ml General Appearance: no acute distress, cachetic HEENT: normocephalic, atraumatic, anicteric, mucous membranes moist Respiratory/Chest: chest wall non-tender, lungs clear, normal breath sounds, no respiratory distress Cardiovascular: normal peripheral pulses, regularly irregular Abdomen: normal bowel sounds, soft, non tender, no organomegaly, non distended , no mass Extremities: no cyanosis, no clubbing, no edema Microbiology Date/Time Source Procedure Growth Status 03/29/18 15:30 Rectum VRE Culture - Final NO VANCOMYCIN RESISTANT ENTEROCOCCUS ... Complete Laboratory Tests 03/30/18 17:30: Prothrombin Time 17.6H, Prothromb Time International Ratio 1.7H, Activated Partial Thromboplast Time > 150*H 03/31/18 01:50: Prothrombin Time 17.9H, Prothromb Time International Ratio 1.7H, Activated Partial Thromboplast Time 100H, White Blood Count 10.6, Red Blood Count 4.76, Hemoglobin 12.8, Hematocrit 40.9, Mean Corpuscular Volume 86, Mean Corpuscular Hemoglobin 26.9L, Mean Corpuscular Hemoglobin Concent 31.3L, Red Cell Distribution Width 19.4H, Platelet Count 218, Mean Platelet Volume 6.1L, Neutrophils (%) (Auto) 75.7H, Lymphocytes (%) (Auto) 14.5L, Monocytes (%) (Auto ) 7.6, Eosinophils (%) (Auto) 1.6, Basophils (%) (Auto) 0.5, Sodium Level 141, Potassium Level 3.4L, Chloride Level 107, Carbon Dioxide Level 27, Anion Gap 7, Blood Urea Nitrogen 23H, Creatinine 1.7H, Estimat Glomerular Filtration Rate , Glucose Level 159H, Hemoglobin A1c 5.6, Uric Acid 4.0, Calcium Level 8.3L, Phosphorus Level 3.5, Magnesium Level 1.6L, Total Bilirubin 0.4, Gamma Glutamyl Transpeptidase 34, Aspartate Amino Transf (AST/SGOT) 17, Alanine Aminotransferase (ALT/SGPT) 17, Alkaline Phosphatase 90, Total Creatine Kinase 37, Troponin I 0.027, Pro-B-Type Natriuretic Peptide 5907H, Total Protein 6.0L, Albumin 1.7L, Globulin 4.3, Albumin/Globulin Ratio 0.4L, Triglycerides Level 60 , Cholesterol Level 182, LDL Cholesterol 84, HDL Cholesterol 96H, Cholesterol/ HDL Ratio 1.9L, Thyroid Stimulating Hormone (TSH) 1.620 Current Medications Medications (Trade) Dose Ordered Sig/Renan Route PRN Reason Start Time Stop Time Status Last Admin Dose Admin Allopurinol (Zyloprim) 200 mg DAILY ORAL 03/30/18 09:00 04/29/18 08:59 03/30/18 09:42 Bisacodyl (Dulcolax) 10 mg DAILYPRN PRN ORAL CONSTIPATION 03/29/18 19:20 04/28/18 19:19 Chlorhexidine Gluconate (Flaquita-Hex 2%) 1 applic DAILY@2000 TOPIC 03/30/18 20:00 04/29/18 19:59 Clonidine HCl (Catapres Tab) 0.1 mg Q6H PRN ORAL SBP > 160mmHg 03/29/18 19:20 04/28/18 19:19 Dextrose (Dextrose 50%) 25 ml STAT PRN IV Hypoglycemia 03/29/18 19:20 7/6/18 19:19 Dextrose (Dextrose 50%) 50 ml STAT PRN IV Hypoglycemia 03/29/18 19:20 04/28/18 19:19 Docusate Sodium (Colace) 100 mg THREE TIMES A DAY ORAL 03/30/18 09:00 04/28/18 17:59 03/30/18 18:00 Furosemide (Lasix) 40 mg DAILY ORAL 03/30/18 09:00 04/29/18 08:59 03/30/18 09:00 Glimepiride (Amaryl) 2 mg ACBREAKFAST ORAL 03/30/18 06:30 04/29/18 06:29 03/31/18 06:41 Heparin Sodium/ Dextrose 500 ml @ 19.52 mls/ hr adjust per protocol IV 03/31/18 02:45 04/29/18 19:29 03/31/18 02:46 Hydralazine HCl (Apresoline) 25 mg EVERY 8 HOURS ORAL 03/29/18 22:00 04/28/18 21:59 03/31/18 06:41 Insulin Aspart (NovoLOG) BEFORE MEALS AND HS SUBQ 03/29/18 21:00 04/28/18 17:29 03/30/18 20:47 Isosorbide Mononitrate (Imdur) 30 mg DAILY ORAL 03/30/18 09:00 04/29/18 08:59 03/30/18 09:00 Lansoprazole (Prevacid) 30 mg DAILY ORAL 03/30/18 09:00 04/29/18 08:59 03/30/18 09:44 Lorazepam (Ativan) 0.5 mg Q6H PRN ORAL Restlessness 03/29/18 19:23 04/05/18 19:22 Metoclopramide HCl (Reglan) 5 mg TID ORAL 03/30/18 09:00 04/28/18 17:59 03/30/18 18:00 Metoprolol Tartrate (Lopressor) 50 mg Q12HR ORAL 03/30/18 21:00 04/29/18 20:59 03/30/18 20:45 Nitroglycerin (Ntg) 0.4 mg Q5MIN X 3 DOSES PRN SL Prn Chest Pain 03/29/18 19:24 04/28/18 19:23 Ondansetron HCl (Zofran) 4 mg Q6H PRN ORAL Nausea & Vomiting 03/29/18 19:21 04/28/18 19:20 Potassium Chloride (K-Dur) 40 meq DAILY ORAL 03/30/18 09:00 04/29/18 08:59 03/30/18 09:00 Pravastatin Sodium (Pravachol) 20 mg BEDTIME ORAL 03/29/18 21:00 04/28/18 20:59 03/30/18 20:45 Sennosides (Senokot) 1 tab DAILY ORAL 03/30/18 09:00 04/29/18 08:59 03/30/18 09:43 Temazepam (Restoril) 7.5 mg HSPRN PRN ORAL Insomnia 03/29/18 21:00 04/05/18 20:59 03/30/18 20:46 Warfarin Sodium (Coumadin per pharmacy) 1 ea DAILY PRN MISC Per rx protocol 03/29/18 19:26 04/28/18 19:25 Mele Jimenez MD Mar 31, 2018 08:44
[2018-03-31] MEDS: Metoprolol Tartrate 50mg tab ORAL SCH ×2 (08:45→21:11)
[2018-03-31] MEDS: Furosemide 40mg tab ORAL SCH (08:45)
--- NOTE | 2018-03-31 10:15 | Cardiac Electrophysiology PN ---
Assessment/Plan Assessment/Plan 1. Atrial fibrillation with rapid ventricular response.On metoprolol 50 bid. Add Digoxin for better rate control. On heparin and Coumadin per Rx 2. Severe cardiomyopathy, ejection fraction of 25%. Her nuclear stress test showed no evidence of myocardial ischemia on 03/21/2018 just last week. On Lopressor, Hydralazine 25 tid, imdur 30 and Lasix 3. Renal failure with Cr1.7 4. Cerebrovascular accident with left hemiplegia. Subjective Subjective Transferred out of ICU. In atrial fib but rate is better. Objective Last 24 Hour Vital Signs Date Time Temp Pulse Resp B/P (MAP) Pulse Ox O2 Delivery O2 Flow Rate FiO2 03/31/18 08:45 106 143/83 03/31/18 08:44 143/83 03/31/18 06:41 135/82 03/31/18 04:00 98.2 89 18 135/82 99 Room Air 98.2 03/31/18 04:00 92 03/31/18 01:00 80 21 137/82 100 Room Air 03/31/18 00:00 98.0 76 21 141/72 100 Room Air 98.0 03/31/18 00:00 80 03/30/18 23:00 71 23 142/72 99 Room Air 03/30/18 22:05 114/59 03/30/18 22:00 76 20 114/59 100 Room Air 03/30/18 21:00 93 20 152/96 100 Room Air 03/30/18 20:45 96 127/77 03/30/18 20:00 91 03/30/18 20:00 98.0 98 22 123/72 100 Room Air 98.0 03/30/18 19:00 90 18 133/77 98 Room Air 03/30/18 18:00 89 17 139/77 98 Room Air 03/30/18 17:00 95 18 120/80 99 Room Air 03/30/18 16:00 98.1 92 19 144/92 97 Room Air 98.1 03/30/18 16:00 99 03/30/18 15:30 85 17 129/80 99 Room Air 03/30/18 15:00 102 18 147/79 95 Room Air 03/30/18 14:30 98 19 133/79 97 Room Air 03/30/18 14:00 100 133/79 03/30/18 14:00 142/79 6/7/18 14:00 105 18 155/83 100 Room Air 03/30/18 13:30 110 17 127/79 98 Room Air 03/30/18 13:00 99 18 140/81 100 Room Air 03/30/18 12:30 88 18 133/79 100 Room Air 03/30/18 12:00 97.9 92 19 127/75 100 Room Air 97.9 03/30/18 12:00 110 03/30/18 11:30 110 18 144/77 100 Room Air 03/30/18 11:27 110 148/85 03/30/18 11:00 101 18 151/85 100 Room Air 03/30/18 10:30 95 16 133/80 100 Room Air 03/30/18 10:30 110 148/85 Intake and Output 03/30/18 03/31/18 19:00 07:00 Intake Total 533.186 ml 630.563 ml Output Total 750 ml 600 ml Balance -216.814 ml 30.563 ml Intake Oral 350 ml 450 ml IV Total 183.186 ml 180.563 ml Output Urine Total 750 ml 600 ml Laboratory Tests Test 03/30/18 17:30 03/31/18 01:50 03/31/18 08:45 Prothrombin Time 17.6 SEC (9.30-11.50) H 17.9 SEC (9.30-11.50) H Prothromb Time International Ratio 1.7 (0.9-1.1) H 1.7 (0.9-1.1) H Activated Partial Thromboplast Time > 150 SEC (23-33) *H 100 SEC (23-33) H Pending White Blood Count 10.6 K/UL (4.8-10.8) Red Blood Count 4.76 M/UL (4.20-5.40) Hemoglobin 12.8 G/DL (12.0-16.0) Hematocrit 40.9 % (37.0-47.0) Mean Corpuscular Volume 86 FL (80-99) Mean Corpuscular Hemoglobin 26.9 PG (27.0-31.0) L Mean Corpuscular Hemoglobin Concent 31.3 G/DL (32.0-36.0) L Red Cell Distribution Width 19.4 % (11.6-14.8) H Platelet Count 218 K/UL (150-450) Mean Platelet Volume 6.1 FL (6.5-10.1) L Neutrophils (%) (Auto) 75.7 % (45.0-75.0) H Lymphocytes (%) (Auto) 14.5 % (20.0-45.0) L Monocytes (%) (Auto) 7.6 % (1.0-10.0) Eosinophils (%) (Auto) 1.6 % (0.0-3.0) Basophils (%) (Auto) 0.5 % (0.0-2.0) Sodium Level 141 MMOL/L (136-145) Potassium Level 3.4 MMOL/L (3.5-5.1) L Chloride Level 107 MMOL/L (98-107) Carbon Dioxide Level 27 MMOL/L (21-32) Anion Gap 7 mmol/L (5-15) Blood Urea Nitrogen 23 mg/dL (7-18) H Creatinine 1.7 MG/DL (0.55-1.30) H Estimat Glomerular Filtration Rate mL/min (>60) Glucose Level 159 MG/DL (74-106) H Hemoglobin A1c 5.6 % (4.3-6.0) Uric Acid 4.0 MG/DL (2.6-7.2) Calcium Level 8.3 MG/DL (8.5-10.1) L Phosphorus Level 3.5 MG/DL (2.5-4.9) Magnesium Level 1.6 MG/DL (1.8-2.4) L Total Bilirubin 0.4 MG/DL (0.2-1.0) Gamma Glutamyl Transpeptidase 34 U/L (5-85) Aspartate Amino Transf (AST/SGOT) 17 U/L (15-37) Alanine Aminotransferase (ALT/SGPT) 17 U/L (12-78) Alkaline Phosphatase 90 U/L (46-116) Total Creatine Kinase 37 U/L (26-308) Troponin I 0.027 ng/mL (0.000-0.056) Pro-B-Type Natriuretic Peptide 5907 pg/mL (0-125) H Total Protein 6.0 G/DL (6.4-8.2) L Albumin 1.7 G/DL (3.4-5.0) L Globulin 4.3 g/dL Albumin/Globulin Ratio 0.4 (1.0-2.7) L Triglycerides Level 60 MG/DL (30-150) Cholesterol Level 182 MG/DL (< 200) LDL Cholesterol 84 mg/dL (<100) HDL Cholesterol 96 MG/DL (40-60) H Cholesterol/HDL Ratio 1.9 (3.3-4.4) L Thyroid Stimulating Hormone (TSH) 1.620 uiU/mL (0.358-3.740) Microbiology Date/Time Source Procedure Growth Status 03/29/18 15:30 Rectum VRE Culture - Final NO VANCOMYCIN RESISTANT ENTEROCOCCUS ... Complete Objective HEAD AND NECK: No JVD. LUNGS: Clear. CARDIOVASCULAR: Irregular S1 and S2 with no gallop or murmur. ABDOMEN: Soft. EXTREMITIES: A 1+ pitting edema. Clinton Diaz MD Mar 31, 2018 10:15
--- NOTE | 2018-03-31 12:37 | Nephrology Progress Note ---
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 professional per orders Subjective ROS Limited/Unobtainable: No Constitutional: Reports: malaise Objective Objective Last 24 Hour Vital Signs Date Time Temp Pulse Resp B/P (MAP) Pulse Ox O2 Delivery O2 Flow Rate FiO2 03/31/18 08:45 106 143/83 03/31/18 08:44 143/83 03/31/18 08:00 111 03/31/18 06:41 135/82 03/31/18 04:00 98.2 89 18 135/82 99 Room Air 98.2 03/31/18 04:00 92 03/31/18 01:00 80 21 137/82 100 Room Air 03/31/18 00:00 98.0 76 21 141/72 100 Room Air 98.0 03/31/18 00:00 80 03/30/18 23:00 71 23 142/72 99 Room Air 03/30/18 22:05 114/59 03/30/18 22:00 76 20 114/59 100 Room Air 03/30/18 21:00 93 20 152/96 100 Room Air 03/30/18 20:45 96 127/77 03/30/18 20:00 91 03/30/18 20:00 98.0 98 22 123/72 100 Room Air 98.0 03/30/18 19:00 90 18 133/77 98 Room Air 03/30/18 18:00 89 17 139/77 98 Room Air 03/30/18 17:00 95 18 120/80 99 Room Air 03/30/18 16:00 98.1 92 19 144/92 97 Room Air 98.1 03/30/18 16:00 99 03/30/18 15:30 85 17 129/80 99 Room Air 03/30/18 15:00 102 18 147/79 95 Room Air 03/30/18 14:30 98 19 133/79 97 Room Air 03/30/18 14:00 100 133/79 03/30/18 14:00 142/79 03/30/18 14:00 105 18 155/83 100 Room Air 03/30/18 13:30 110 17 127/79 98 Room Air 03/30/18 13:00 99 18 140/81 100 Room Air Intake and Output 03/30/18 03/31/18 19:00 07:00 Intake Total 533.186 ml 630.563 ml Output Total 750 ml 600 ml Balance -216.814 ml 30.563 ml Intake Oral 350 ml 450 ml IV Total 183.186 ml 180.563 ml Output Urine Total 750 ml 600 ml Laboratory Tests 03/30/18 17:30: Prothrombin Time 17.6H, Prothromb Time International Ratio 1.7H, Activated Partial Thromboplast Time > 150*H 03/31/18 01:50: Prothrombin Time 17.9H, Prothromb Time International Ratio 1.7H, Activated Partial Thromboplast Time 100H, White Blood Count 10.6, Red Blood Count 4.76, Hemoglobin 12.8, Hematocrit 40.9, Mean Corpuscular Volume 86, Mean Corpuscular Hemoglobin 26.9L, Mean Corpuscular Hemoglobin Concent 31.3L, Red Cell Distribution Width 19.4H, Platelet Count 218, Mean Platelet Volume 6.1L, Neutrophils (%) (Auto) 75.7H, Lymphocytes (%) (Auto) 14.5L, Monocytes (%) (Auto ) 7.6, Eosinophils (%) (Auto) 1.6, Basophils (%) (Auto) 0.5, Sodium Level 141, Potassium Level 3.4L, Chloride Level 107, Carbon Dioxide Level 27, Anion Gap 7, Blood Urea Nitrogen 23H, Creatinine 1.7H, Estimat Glomerular Filtration Rate , Glucose Level 159H, Hemoglobin A1c 5.6, Uric Acid 4.0, Calcium Level 8.3L, Phosphorus Level 3.5, Magnesium Level 1.6L, Total Bilirubin 0.4, Gamma Glutamyl Transpeptidase 34, Aspartate Amino Transf (AST/SGOT) 17, Alanine Aminotransferase (ALT/SGPT) 17, Alkaline Phosphatase 90, Total Creatine Kinase 37, Troponin I 0.027, Pro-B-Type Natriuretic Peptide 5907H, Total Protein 6.0L, Albumin 1.7L, Globulin 4.3, Albumin/Globulin Ratio 0.4L, Triglycerides Level 60 , Cholesterol Level 182, LDL Cholesterol 84, HDL Cholesterol 96H, Cholesterol/ HDL Ratio 1.9L, Thyroid Stimulating Hormone (TSH) 1.620 03/31/18 08:45: Activated Partial Thromboplast Time 67H Height (Feet): 5 Height (Inches): 6.00 Weight (Pounds): 179 General Appearance: no apparent distress Cardiovascular: tachycardia, arrhythmia Respiratory/Chest: decreased breath sounds Abdomen: soft SUGEY PETERSON Mar 31, 2018 12:37
--- NOTE | 2018-03-31 13:41 | Cardiology Report ---
APPROVED REPORT EXAM: Two-dimensional and M-mode echocardiogram with Doppler and color Doppler. INDICATION Atrial Fibrillation M-Mode DIMENSIONS IVSd1.1 (0.7-1.1cm)Left Atrium (MM)4.3 (1.6-4.0cm) LVDd5.0 (3.5-5.6cm)Aortic Root4.0 (2.0-3.7cm) PWd1.1 (0.7-1.1cm)Aortic Cusp Exc.1.2 (1.5-2.0cm) IVSs1.3 cm LVDs4.3 (2.5-4.0cm) PWs1.3 cm Technically difficult study due to poor acoustical windows. Global left ventricular hypokinesis, septal dykinesis. Left ventricular ejection fraction estimated to be 25-30 %. Study quality precludes accurate assessment of regional wall motion. Mild left ventricular hypertrophy by 2-D. Trace posterior pericardial effusion. Moderate Left atrial enlargement. Right cardiac chamber sizes are within normal limits. Moderately Focal aortic valve sclerosis with reduced cusp excursion. Moderately Thickened mitral valve leaflets with reduced excursion. Mitral annulus and aortic root calcification. Pulmonic valve not well visualized. Normal tricuspid valve structure. IVC dialated at size 2.2 n with physiologic collapse. A color flow and spectral Doppler study was performed and revealed: Mild aortic regurgitation. Peak aortic valve gradient of 23 mm Hg and a mean of 11 mmHg. Aortic valve area 1.7 cm2 calculated by continuity equation. Moderate mitral regurgitation. Mitral inflow indicates restrictive pattern, implying severely elevated left atrial pressure (Grade III ). Severe, tricuspid regurgitation. Tricuspid systolic velocities suggests peak right ventricular systolic pressure of 59 mmHg,consistent with moderate pulmonary hypertension. Mild Pulmonic regurgitation present.
[2018-03-31] MEDS ORDERED: Warfarin Sodium 4mg PO SCH (17:00)
--- NOTE | 2018-03-31 18:15 | Consultation ---
DATE OF CONSULTATION: 03/30/2018 HISTORY OF PRESENT ILLNESS: I am well familiar with this patient. The patient is an 82-year-old female with a history of congestive heart failure, anxiety disorder, atrial fibrillation, , CVA, head injury, concussion, , who has been admitted to the hospital for chest pain. The patient has a history of anxiety and during her last hospitalization the patient was started on SSRI's. She does have anxiety, fatigue, and difficulty sleeping at night. PAST PSYCHIATRIC HISTORY: History of anxiety disorder. No psychiatric hospitalization. She has been treated with Ativan and SSRI. PAST MEDICAL HISTORY: As above. ALLERGIES: Naproxen. SUBSTANCE ABUSE HISTORY: No known history of illicit drug use or alcohol. MENTAL STATUS EXAMINATION: The patient is alert and oriented to self and place. Mood is anxious. Affect is constricted. Congruent with mood. Thought process is concrete. Thought content, no suicidal or homicidal ideations. ASSESSMENT: [place] I Anxiety disorder. [place] II Deferred. [place] III As above. [place] IV Low. [place] V Global assessment of functioning is 20. PLAN: 1. The patient will be started on Ativan as needed. 2. Consider low-dose of SSRI's. 3. Continue to follow and readjust the medications. Tiffanie Russo M.D. DR: JAYE JOB#: [id number] CC:
--- NOTE | 2018-03-31 18:30 | Progress Note ---
DATE: 03/31/2018 SUBJECTIVE: The patient is doing well. Calmer today. Less anxious. She was interrupted. Compliant with medication. No behavior issues. MENTAL STATUS EXAMINATION: The patient is alert and oriented times self, place, and situation. Mood is dysphoric. Affect is constricted, congruent with mood. Thought process is concrete. Thought content, no suicidal or homicidal ideations. ASSESSMENT: 1. Anxiety disorder. 2. Cognitive impairment. PLAN: We will continue [facility] p.r.n. Tiffanie Russo M.D. DR: DONNA JOB#: [id number] CC:
[2018-03-31 20:00] VITALS: BP 163/102
[2018-03-31] MEDS: Dyna-Hex 2% Top Sol 2oz TOPIC SCH (20:00)
--- NOTE | 2018-03-31 22:13 | General Progress Note ---
Assessment/Plan Problem List: (1) Atrial fibrillation with RVR ICD Codes: I48.91 - Unspecified atrial fibrillation SNOMED: 241600316623114 (2) CHF exacerbation ICD Codes: I50.9 - Heart failure, unspecified SNOMED: 50066912 (3) Acute renal failure (ARF) ICD Codes: N17.9 - Acute renal failure (ARF) SNOMED: 47745446 (4) Atrial fibrillation ICD Codes: I48.91 - Unspecified atrial fibrillation SNOMED: 05197842 Status: progressing Assessment/Plan a fib w rvr improved heart rate is improving on coumadin chf edema lyte abnormality Subjective ROS Limited/Unobtainable: Yes HEENT: Reports: blurred vision Allergies: Coded Allergies: NAPROXEN (Verified Allergy, Unknown, 03/29/18) Subjective chronic pain Objective Last 24 Hour Vital Signs Date Time Temp Pulse Resp B/P (MAP) Pulse Ox O2 Delivery O2 Flow Rate FiO2 03/31/18 21:11 163/102 03/31/18 21:11 94 163/102 03/31/18 20:00 98.0 94 18 163/102 99 Room Air 98.0 03/31/18 16:04 104 03/31/18 14:48 150/80 03/31/18 12:00 102 03/31/18 08:45 106 143/83 03/31/18 08:44 143/83 03/31/18 08:00 111 03/31/18 06:41 135/82 03/31/18 04:00 98.2 89 18 135/82 99 Room Air 98.2 03/31/18 04:00 92 03/31/18 01:00 80 21 137/82 100 Room Air 03/31/18 00:00 98.0 76 21 141/72 100 Room Air 98.0 03/31/18 00:00 80 03/30/18 23:00 71 23 142/72 99 Room Air Intake and Output 03/30/18 03/31/18 19:00 07:00 Intake Total 533.186 ml 630.563 ml Output Total 750 ml 600 ml Balance -216.814 ml 30.563 ml Intake Oral 350 ml 450 ml IV Total 183.186 ml 180.563 ml Output Urine Total 750 ml 600 ml Laboratory Tests 03/31/18 01:50: White Blood Count 10.6, Red Blood Count 4.76, Hemoglobin 12.8, Hematocrit 40.9, Mean Corpuscular Volume 86, Mean Corpuscular Hemoglobin 26.9L, Mean Corpuscular Hemoglobin Concent 31.3L, Red Cell Distribution Width 19.4H, Platelet Count 218 , Mean Platelet Volume 6.1L, Neutrophils (%) (Auto) 75.7H, Lymphocytes (%) (Auto ) 14.5L, Monocytes (%) (Auto) 7.6, Eosinophils (%) (Auto) 1.6, Basophils (%) ( Auto) 0.5, Prothrombin Time 17.9H, Prothromb Time International Ratio 1.7H, Activated Partial Thromboplast Time 100H, Sodium Level 141, Potassium Level 3.4L , Chloride Level 107, Carbon Dioxide Level 27, Anion Gap 7, Blood Urea Nitrogen 23H, Creatinine 1.7H, Estimat Glomerular Filtration Rate , Glucose Level 159H, Hemoglobin A1c 5.6, Uric Acid 4.0, Calcium Level 8.3L, Phosphorus Level 3.5, Magnesium Level 1.6L, Total Bilirubin 0.4, Gamma Glutamyl Transpeptidase 34, Aspartate Amino Transf (AST/SGOT) 17, Alanine Aminotransferase (ALT/SGPT) 17, Alkaline Phosphatase 90, Total Creatine Kinase 37, Troponin I 0.027, Pro-B-Type Natriuretic Peptide 5907H, Total Protein 6.0L, Albumin 1.7L, Globulin 4.3, Albumin/Globulin Ratio 0.4L, Triglycerides Level 60, Cholesterol Level 182, LDL Cholesterol 84, HDL Cholesterol 96H, Cholesterol/HDL Ratio 1.9L, Thyroid Stimulating Hormone (TSH) 1.620 03/31/18 08:45: Activated Partial Thromboplast Time 67H Height (Feet): 5 Height (Inches): 6.00 Weight (Pounds): 179 Cardiovascular: normal rate Respiratory/Chest: lungs clear Abdomen: soft Azucena Goss MD Mar 31, 2018 22:13
[2018-04-01] VITALS (9 sets, daily range): BP systolic 136–190; BP diastolic 80–107
[2018-04-01] MEDS: NovoLOG Insulin Flexpen SUBQ SCH ×4 (05:55→21:00)
[2018-04-01] MEDS: Glimepiride 1mg tab ORAL SCH (06:29)
[2018-04-01] MEDS: HydrALAZINE 25mg tab ORAL SCH ×2 (06:29→14:00)
[2018-04-01 06:40] LABS: INR 1.9 (0.9-1.1)
[2018-04-01] MEDS: Docusate 100mg cap ORAL SCH ×3 (09:00→17:42)
[2018-04-01] MEDS: Allopurinol 100mg Tab ORAL SCH (09:19)
[2018-04-01] MEDS: Imdur 30mg tab ORAL SCH (09:20)
[2018-04-01] MEDS: Digoxin 0.125mg tab ORAL SCH (09:20)
[2018-04-01] MEDS: Metoprolol Tartrate 50mg tab ORAL SCH (09:20)
[2018-04-01] MEDS: Sennosides 8.6mg ORAL SCH (09:20)
[2018-04-01] MEDS ORDERED: NS 500ML ONE (10:50)
--- NOTE | 2018-04-01 12:31 | General Progress Note ---
Assessment/Plan Problem List: (1) Atrial fibrillation with RVR ICD Codes: I48.91 - Unspecified atrial fibrillation SNOMED: 122052128672704 (2) CHF exacerbation ICD Codes: I50.9 - Heart failure, unspecified SNOMED: 98380603 (3) Acute renal failure (ARF) ICD Codes: N17.9 - Acute renal failure (ARF) SNOMED: 49916697 (4) Atrial fibrillation ICD Codes: I48.91 - Unspecified atrial fibrillation SNOMED: 03012825 Status: progressing Assessment/Plan a fib w rvr improved heart rate is improving reviewed chart and labs chf edema is improving k is still low Subjective ROS Limited/Unobtainable: Yes Allergies: Coded Allergies: NAPROXEN (Verified Allergy, Unknown, 03/29/18) Subjective chronic pain Objective Last 24 Hour Vital Signs Date Time Temp Pulse Resp B/P (MAP) Pulse Ox O2 Delivery O2 Flow Rate FiO2 04/01/18 12:28 159/95 04/01/18 12:00 97.7 90 21 175/99 99 Room Air 97.7 04/01/18 09:20 92 04/01/18 09:20 92 153/94 04/01/18 09:20 153/94 04/01/18 08:00 98.0 92 20 153/94 98 Room Air 98.0 04/01/18 07:51 110 04/01/18 06:29 144/91 04/01/18 04:00 98.2 88 16 144/91 98 Room Air 98.2 04/01/18 04:00 89 04/01/18 00:04 97 04/01/18 00:04 98.0 91 18 136/88 98 Room Air 98.0 03/31/18 21:11 163/102 03/31/18 21:11 94 163/102 03/31/18 20:00 110 03/31/18 20:00 98.0 94 18 163/102 99 Room Air 98.0 03/31/18 16:04 104 03/31/18 14:48 150/80 Intake and Output 03/31/18 04/01/18 19:00 07:00 Intake Total 868.40 ml 534.24 ml Output Total 800 ml 1000 ml Balance 68.40 ml -465.76 ml Intake Oral 600 ml 300 ml IV Total 268.40 ml 234.24 ml Output Urine Total 800 ml 1000 ml # Bowel Movements 2 Laboratory Tests 04/01/18 05:30: Prothrombin Time 20.3H, Prothromb Time International Ratio 1.9H, Activated Partial Thromboplast Time 68H Height (Feet): 5 Height (Inches): 6.00 Weight (Pounds): 177 Cardiovascular: arrhythmia Abdomen: non tender Azucena Goss MD Apr 01, 2018 12:31
--- NOTE | 2018-04-01 13:56 | Cardiac Electrophysiology PN ---
Assessment/Plan Assessment/Plan 1. Atrial fibrillation with rapid ventricular response.On metoprolol 50 bid and Digoxin for better rate control. On heparin and Coumadin per Rx 2. Severe cardiomyopathy, ejection fraction of 25%. Her nuclear stress test showed no evidence of myocardial ischemia on 03/21/2018 just last week. On Lopressor, Hydralazine 37.5 tid, imdur 30 and Lasix Consider ICD implant vs Life Vest 3. Renal failure with Cr1.7 4. Cerebrovascular accident with left hemiplegia. Subjective Subjective In atrial fib but rate is better.No CP or SOB. Objective Last 24 Hour Vital Signs Date Time Temp Pulse Resp B/P (MAP) Pulse Ox O2 Delivery O2 Flow Rate FiO2 04/01/18 12:28 159/95 04/01/18 12:00 97.7 90 21 175/99 99 Room Air 97.7 04/01/18 11:53 104 04/01/18 09:20 92 04/01/18 09:20 92 153/94 04/01/18 09:20 153/94 04/01/18 08:00 98.0 92 20 153/94 98 Room Air 98.0 04/01/18 07:51 110 04/01/18 06:29 144/91 04/01/18 04:00 98.2 88 16 144/91 98 Room Air 98.2 04/01/18 04:00 89 04/01/18 00:04 97 04/01/18 00:04 98.0 91 18 136/88 98 Room Air 98.0 03/31/18 21:11 163/102 03/31/18 21:11 94 163/102 03/31/18 20:00 110 03/31/18 20:00 98.0 94 18 163/102 99 Room Air 98.0 03/31/18 16:04 104 03/31/18 14:48 150/80 Intake and Output 03/31/18 04/01/18 19:00 07:00 Intake Total 868.40 ml 534.24 ml Output Total 800 ml 1000 ml Balance 68.40 ml -465.76 ml Intake Oral 600 ml 300 ml IV Total 268.40 ml 234.24 ml Output Urine Total 800 ml 1000 ml # Bowel Movements 2 Laboratory Tests Test 04/01/18 05:30 Prothrombin Time 20.3 SEC (9.30-11.50) H Prothromb Time International Ratio 1.9 (0.9-1.1) H Activated Partial Thromboplast Time 68 SEC (23-33) H Microbiology Date/Time Source Procedure Growth Status 03/29/18 15:30 Nasal Nares MRSA Culture - Final NO METHICILLIN RESISTANT STAPH AUREUS... Complete 03/29/18 15:30 Rectum VRE Culture - Final NO VANCOMYCIN RESISTANT ENTEROCOCCUS ... Complete Objective HEAD AND NECK: No JVD. LUNGS: Clear. CARDIOVASCULAR: Irregular S1 and S2 with no gallop or murmur. ABDOMEN: Soft. EXTREMITIES: 1+ pitting edema. Clinton Diaz MD Apr 01, 2018 13:56
[2018-04-01] MEDS: Heparin 25,000u/D5W 500ml 500 ML IV SCH (14:11)
--- NOTE | 2018-04-01 14:20 | Nephrology Progress Note ---
Assessment/Plan Problem List: (1) Acute renal failure (ARF) Assessment: with underlying CKD (2) Atrial fibrillation with RVR Assessment out of ICU - No drip Renal failure - Pre renal picture- Superimposed on CKD , cardiomyopathy with low ej Fx At Fib chronic on anticoagulation Left eye blind' HTN Gout High Chol CAD CHF Plan no labs today down on lasix up on KCL and hydralazine adjust bp meds, upped hydralazine and metoprolol monitor lytes and renal parameters monitor INR keep bp in check per broiler supervisor per orders Subjective ROS Limited/Unobtainable: No Constitutional: Reports: malaise Objective Objective Last 24 Hour Vital Signs Date Time Temp Pulse Resp B/P (MAP) Pulse Ox O2 Delivery O2 Flow Rate FiO2 04/01/18 14:00 159/95 04/01/18 12:28 159/95 04/01/18 12:00 97.7 90 21 175/99 99 Room Air 97.7 04/01/18 11:53 104 04/01/18 09:20 92 04/01/18 09:20 92 153/94 04/01/18 09:20 153/94 04/01/18 08:00 98.0 92 20 153/94 98 Room Air 98.0 04/01/18 07:51 110 04/01/18 06:29 144/91 04/01/18 04:00 98.2 88 16 144/91 98 Room Air 98.2 04/01/18 04:00 89 04/01/18 00:04 97 04/01/18 00:04 98.0 91 18 136/88 98 Room Air 98.0 03/31/18 21:11 163/102 03/31/18 21:11 94 163/102 03/31/18 20:00 110 03/31/18 20:00 98.0 94 18 163/102 99 Room Air 98.0 03/31/18 16:04 104 03/31/18 14:48 150/80 Intake and Output 03/31/18 04/01/18 19:00 07:00 Intake Total 868.40 ml 534.24 ml Output Total 800 ml 1000 ml Balance 68.40 ml -465.76 ml Intake Oral 600 ml 300 ml IV Total 268.40 ml 234.24 ml Output Urine Total 800 ml 1000 ml # Bowel Movements 2 Laboratory Tests 04/01/18 05:30: Prothrombin Time 20.3H, Prothromb Time International Ratio 1.9H, Activated Partial Thromboplast Time 68H Height (Feet): 5 Height (Inches): 6.00 Weight (Pounds): 177 Cardiovascular: tachycardia, arrhythmia Respiratory/Chest: decreased breath sounds Abdomen: soft SUGEY PETERSON Apr 01, 2018 14:19
[2018-04-01] MEDS ORDERED: Digoxin 0.5mg/2ml Inj IVP ONE (16:00)
[2018-04-01] MEDS ORDERED: Warfarin Sodium 4mg PO SCH (17:00)
[2018-04-01] MEDS: Norco 5mg/325mg tab ORAL PRN (18:53)
[2018-04-01] MEDS: Dyna-Hex 2% Top Sol 2oz TOPIC SCH (19:40)
--- NOTE | 2018-04-01 20:18 | Diagnostic Imaging Report ---
EXAM: XR Abdomen, 2 Views CLINICAL HISTORY: ABD PAIN TECHNIQUE: Frontal view of the abdomen/pelvis with upright view of the abdomen. COMPARISON: No relevant prior studies available. FINDINGS: Lower thorax: Note is made of a prosthetic heart valve. Intraperitoneal space: No evidence of free air under the diaphragm. Gastrointestinal tract: Nonobstructive nonspecific bowel gas pattern. No abnormal distention of large or small bowel loops. No luminal air fluid levels. No evidence of pneumatosis intestinalis or portal venous gas. Organs: Renal shadows obscured by overlying bowel gas. No suspicious calcifications in the abdomen or pelvis. Bones/joints: Mild degenerative changes in the lower lumbar spine and bilateral hips. Soft tissues: Surgical clips noted in the central pelvis. Tubes, lines and devices: EKG leads overlie the upper abdomen. Infrarenal IVC filter seen. IMPRESSION: Nonspecific nonobstructive bowel gas pattern.
--- NOTE | 2018-04-01 20:27 | Pulmonology Progress Note ---
Assessment/Plan Assessment/Plan (1) Atrial fibrillation (2) Atrial fibrillation with RVR (3) CVA (cerebral vascular accident) (4) Azotemia Assessment/Plan -Optimize pulmonary function/mobilize as tolerated -PRN O2 -Rate control per cards avoid b agonists -CHF regimen per cards -Monitor volumes and renal function, diuretics as tolerated -Coumadin with IVUH bridge -Aspiration precautions -FC CXR in am Subjective ROS Limited/Unobtainable: No Allergies: Coded Allergies: NAPROXEN (Verified Allergy, Unknown, 03/29/18) Subjective lethartic no dsitress bp better no reports of cp nv or bleeding on o2 Objective Last 24 Hour Vital Signs Date Time Temp Pulse Resp B/P (MAP) Pulse Ox O2 Delivery O2 Flow Rate FiO2 04/01/18 19:52 98.3 04/01/18 16:00 98.3 107 16 167/103 100 Room Air 98.3 04/01/18 15:31 110 04/01/18 15:21 125 04/01/18 15:05 125 150/107 04/01/18 15:00 135 190/107 04/01/18 14:00 159/95 04/01/18 12:28 159/95 04/01/18 12:00 97.7 90 21 175/99 99 Room Air 97.7 04/01/18 11:53 104 04/01/18 09:20 92 04/01/18 09:20 92 153/94 04/01/18 09:20 153/94 04/01/18 08:00 98.0 92 20 153/94 98 Room Air 98.0 04/01/18 07:51 110 04/01/18 06:29 144/91 04/01/18 04:00 98.2 88 16 144/91 98 Room Air 98.2 04/01/18 04:00 89 04/01/18 00:04 97 04/01/18 00:04 98.0 91 18 136/88 98 Room Air 98.0 03/31/18 21:11 163/102 03/31/18 21:11 94 163/102 Intake and Output 03/31/18 04/01/18 19:00 07:00 Intake Total 868.40 ml 534.24 ml Output Total 800 ml 1000 ml Balance 68.40 ml -465.76 ml Intake Oral 600 ml 300 ml IV Total 268.40 ml 234.24 ml Output Urine Total 800 ml 1000 ml # Bowel Movements 2 General Appearance: WD/WN HEENT: normocephalic, anicteric Respiratory/Chest: rhonchi Cardiovascular: murmur systolic, irregularly irregular, edema Abdomen: soft, non tender, no organomegaly Extremities: no cyanosis Skin: no lesions Neurologic/Psychiatric: alert, oriented x 3 Lymphatic: no neck adenopathy, no groin adenopathy Laboratory Tests 04/01/18 05:30: Prothrombin Time 20.3H, Prothromb Time International Ratio 1.9H, Activated Partial Thromboplast Time 68H Current Medications Medications (Trade) Dose Ordered Sig/Renan Route PRN Reason Start Time Stop Time Status Last Admin Dose Admin Acetaminophen/ Hydrocodone Bitart ([place] 5/325) 1 tab Q4H PRN ORAL PAIN 4-10 04/01/18 17:30 04/08/18 17:29 04/01/18 18:53 Allopurinol (Zyloprim) 100 mg DAILY ORAL 04/01/18 09:00 04/29/18 08:59 04/01/18 09:19 Bisacodyl (Dulcolax) 10 mg DAILYPRN PRN ORAL CONSTIPATION 03/29/18 19:20 04/28/18 19:19 Chlorhexidine Gluconate (Flaquita-Hex 2%) 1 applic DAILY@2000 TOPIC 03/30/18 20:00 04/29/18 19:59 Clonidine HCl (Catapres Tab) 0.1 mg Q6H PRN ORAL SBP > 160mmHg 03/29/18 19:20 04/28/18 19:19 Dextrose (Dextrose 50%) 25 ml STAT PRN IV Hypoglycemia 03/29/18 19:20 04/28/18 19:19 Dextrose (Dextrose 50%) 50 ml STAT PRN IV Hypoglycemia 03/29/18 19:20 04/28/18 19:19 Digoxin (Lanoxin) 0.125 mg DAILY ORAL 04/01/18 09:00 05/01/18 08:59 04/01/18 09:20 Docusate Sodium (Colace) 100 mg THREE TIMES A DAY ORAL 03/30/18 09:00 04/28/18 17:59 03/30/18 18:00 Furosemide (Lasix) 20 mg DAILY ORAL 04/01/18 09:00 05/01/18 08:59 Glimepiride (Amaryl) 2 mg ACBREAKFAST ORAL 03/30/18 06:30 04/29/18 06:29 04/01/18 06:29 Heparin Sodium/ Dextrose 500 ml @ 19.52 mls/ hr adjust per protocol IV 03/31/18 02:45 04/29/18 19:29 04/01/18 14:11 Hydralazine HCl (Apresoline) 50 mg EVERY 8 HOURS ORAL 04/01/18 22:00 04/28/18 21:59 Insulin Aspart (NovoLOG) BEFORE MEALS AND HS SUBQ 03/29/18 21:00 04/28/18 17:29 04/01/18 16:53 Isosorbide Mononitrate (Imdur) 30 mg DAILY ORAL 03/30/18 09:00 04/29/18 08:59 04/01/18 09:20 Lansoprazole (Prevacid) 30 mg DAILY ORAL 03/30/18 09:00 04/29/18 08:59 04/01/18 09:20 Lorazepam (Ativan) 0.5 mg Q6H PRN ORAL Restlessness 03/29/18 19:23 04/05/18 19:22 04/01/18 14:21 Metoclopramide HCl (Reglan) 5 mg TID ORAL 03/30/18 09:00 04/28/18 17:59 04/01/18 17:41 Metoprolol Tartrate (Lopressor) 100 mg Q12HR ORAL 04/01/18 21:00 05/01/18 20:59 Nitroglycerin (Ntg) 0.4 mg Q5MIN X 3 DOSES PRN SL Prn Chest Pain 03/29/18 19:24 04/28/18 19:23 Ondansetron HCl (Zofran) 4 mg Q6H PRN ORAL Nausea & Vomiting 03/29/18 19:21 04/28/18 19:20 04/01/18 14:09 Potassium Chloride (K-Dur) 40 meq BID ORAL 03/31/18 18:00 04/29/18 08:59 04/01/18 17:41 Pravastatin Sodium (Pravachol) 20 mg BEDTIME ORAL 03/29/18 21:00 04/28/18 20:59 03/31/18 21:10 Sennosides (Senokot) 1 tab DAILY ORAL 03/30/18 09:00 04/29/18 08:59 04/01/18 09:20 Temazepam (Restoril) 7.5 mg HSPRN PRN ORAL Insomnia 03/29/18 21:00 04/05/18 20:59 03/30/18 20:46 Warfarin Sodium (Coumadin per pharmacy) 1 ea DAILY PRN MISC Per rx protocol 03/29/18 19:26 04/28/18 19:25 Key Baez DO Apr 01, 2018 20:27
[2018-04-01] MEDS ORDERED: Metoprolol 25mg tab ORAL SCH (21:00)
[2018-04-01] MEDS: HydrALAZINE 50mg tab ORAL SCH (21:10)
[2018-04-02] VITALS: BP 108/70
[2018-04-02] MEDS: Norco 5mg/325mg tab ORAL PRN ×4 (00:37→21:24)
[2018-04-02 04:00] VITALS: BP 157/86
[2018-04-02] MEDS: NovoLOG Insulin Flexpen SUBQ SCH ×4 (06:05→21:17)
[2018-04-02] MEDS: Glimepiride 1mg tab ORAL SCH (06:22)
[2018-04-02] MEDS: HydrALAZINE 50mg tab ORAL SCH ×3 (06:22→21:16)
[2018-04-02 07:10] LABS: BASOPHILS % (AUTO) 0.9 % (0.0-2.0); EOSINOPHILS % (AUTO) 0.1 % (0.0-3.0); HEMATOCRIT 44.7 % (37.0-47.0); HEMOGLOBIN 14.5 G/DL (12.0-16.0); LYMPHOCYTES % (AUTO) 13.9 % (20.0-45.0); MEAN CORPUSCULAR VOLUME 86 FL (80-99); MONOCYTES % (AUTO) 7.1 % (1.0-10.0); NEUTROPHILS % (AUTO) 78.1 % (45.0-75.0); PLATELET COUNT 241 K/UL (150-450); RED BLOOD COUNT 5.19 M/UL (4.20-5.40); RED CELL DISTRIBUTION WIDTH 19.6 % (11.6-14.8); WHITE BLOOD COUNT 12.3 K/UL (4.8-10.8)
[2018-04-02 07:18] LABS: ALANINE AMINOTRANSFERASE 22 U/L (12-78); ALBUMIN 1.4 G/DL (3.4-5.0); ALBUMIN/GLOBULIN RATIO 0.3 (1.0-2.7); ALKALINE PHOSPHATASE 91 U/L (46-116); ANION GAP 12 mmol/L (5-15); ASPARTATE AMINO TRANSFERASE 33 U/L (15-37); BILIRUBIN,TOTAL 0.3 MG/DL (0.2-1.0); BLOOD UREA NITROGEN 25 mg/dL (7-18); CALCIUM 8.5 MG/DL (8.5-10.1); CARBON DIOXIDE 21 MMOL/L (21-32); CHLORIDE 107 MMOL/L (98-107); CREATININE 2.1 MG/DL (0.55-1.30); PHOSPHORUS 4.8 MG/DL (2.5-4.9); POTASSIUM 4.7 MMOL/L (3.5-5.1); SODIUM 139 MMOL/L (136-145)
[2018-04-02 07:31] LABS: INR 1.8 (0.9-1.1)
[2018-04-02 08:00] VITALS: BP 111/66
[2018-04-02] MEDS ORDERED: Heparin 5000 units/ml inj IV SCH (08:00)
[2018-04-02] MEDS: Digoxin 0.125mg tab ORAL SCH (08:50)
[2018-04-02] MEDS: Imdur 30mg tab ORAL SCH (08:51)
[2018-04-02] MEDS: Allopurinol 100mg Tab ORAL SCH (08:56)
[2018-04-02] MEDS: Sennosides 8.6mg ORAL SCH (09:00)
[2018-04-02] MEDS: Heparin 25,000u/D5W 500ml 500 ML IV SCH (09:06)
--- NOTE | 2018-04-02 10:48 | Diagnostic Imaging Report ---
INDICATION: COPD COMPARISON: Chest x-ray dated 03/29/18 FINDINGS: Single frontal view demonstrates enlarged heart size. Status post valve replacement. Atherosclerotic vascular disease.. The lungs are clear. No pleural effusions. The visualized osseous structures are within normal limits. IMPRESSION: No significant change. Enlarged heart size. Status post valve replacement.
[2018-04-02 12:00] VITALS: BP 130/59
[2018-04-02 16:00] VITALS: BP 124/59
--- NOTE | 2018-04-02 16:43 | Nephrology Progress Note ---
Assessment/Plan Problem List: (1) Acute renal failure (ARF) Assessment: with underlying CKD (2) Atrial fibrillation with RVR Assessment out of ICU - No drip Cr higher Renal failure - Pre renal picture- Superimposed on CKD , cardiomyopathy with low ej Fx At Fib chronic on anticoagulation Left eye blind' HTN Gout High Chol CAD CHF Plan DC lasix and KCL adjust bp meds, upped hydralazine and metoprolol monitor lytes and renal parameters monitor INR keep bp in check per steam engineer per orders Subjective ROS Limited/Unobtainable: No Constitutional: Reports: malaise Objective Objective Last 24 Hour Vital Signs Date Time Temp Pulse Resp B/P (MAP) Pulse Ox O2 Delivery O2 Flow Rate FiO2 04/02/18 15:20 98.2 04/02/18 13:27 130/59 04/02/18 12:00 98.2 88 17 130/59 98 Room Air 98.2 04/02/18 11:53 89 04/02/18 09:50 97.2 04/02/18 08:56 118 111/66 04/02/18 08:51 97.2 04/02/18 08:51 111/66 04/02/18 08:50 118 04/02/18 08:00 97.2 118 16 111/66 99 Room Air 97.2 04/02/18 08:00 117 04/02/18 06:22 157/86 04/02/18 04:00 101 04/02/18 04:00 98.0 107 18 157/86 98 Room Air 98.0 04/02/18 00:37 98.3 04/02/18 00:00 126 04/02/18 00:00 97.8 82 18 108/70 98 Room Air 97.8 04/01/18 21:10 74 157/80 04/01/18 21:10 157/80 04/01/18 20:00 103 04/01/18 20:00 98.3 74 20 157/80 100 Room Air 98.3 Intake and Output 04/01/18 04/02/18 19:00 07:00 Intake Total 564.72 ml 294.24 ml Output Total 850 ml 400 ml Balance -285.28 ml -105.76 ml Intake Oral 350 ml 60 ml IV Total 214.72 ml 234.24 ml Output Urine Total 850 ml 400 ml # Bowel Movements 2 1 Laboratory Tests 04/02/18 06:25: White Blood Count 12.3H, Red Blood Count 5.19, Hemoglobin 14.5, Hematocrit 44.7 , Mean Corpuscular Volume 86, Mean Corpuscular Hemoglobin 28.0, Mean Corpuscular Hemoglobin Concent 32.5, Red Cell Distribution Width 19.6H, Platelet Count 241, Mean Platelet Volume 6.4L, Neutrophils (%) (Auto) 78.1H, Lymphocytes (%) (Auto) 13.9L, Monocytes (%) (Auto) 7.1, Eosinophils (%) (Auto) 0.1, Basophils (%) (Auto) 0.9, Prothrombin Time 19.2H, Prothromb Time International Ratio 1.8H, Activated Partial Thromboplast Time 62H, Sodium Level 139, Potassium Level 4.7, Chloride Level 107, Carbon Dioxide Level 21, Anion Gap 12, Blood Urea Nitrogen 25H, Creatinine 2.1H, Estimat Glomerular Filtration Rate , Glucose Level 134H, Calcium Level 8.5, Phosphorus Level 4.8, Magnesium Level 1.6L, Total Bilirubin 0.3, Aspartate Amino Transf (AST/SGOT) 33, Alanine Aminotransferase (ALT/SGPT) 22, Alkaline Phosphatase 91, Total Protein 5.6L, Albumin 1.4L, Globulin 4.2, Albumin/Globulin Ratio 0.3L, Digoxin Level 1.1 Height (Feet): 5 Height (Inches): 6.00 Weight (Pounds): 177 General Appearance: no apparent distress Cardiovascular: arrhythmia Respiratory/Chest: decreased breath sounds Abdomen: soft SUGEY PETERSON Apr 02, 2018 16:43
[2018-04-02] MEDS ORDERED: Warfarin Sodium 5mg ORAL SCH (17:00)
--- NOTE | 2018-04-02 17:10 | Cardiac Electrophysiology PN ---
Assessment/Plan Assessment/Plan 1. Atrial fibrillation with rapid ventricular response. On metoprolol 100 bid and Digoxin On heparin and Coumadin per Rx 2. Severe cardiomyopathy, ejection fraction of 25%. Her nuclear stress test showed no evidence of myocardial ischemia on 03/21/2018 On Lopressor , Hydralazine 50 q8hr , imdur 30 and Lasix Consider ICD implant vs Life Vest depending on duration of cardiomyopathy 3. HTN ON Hydralazine 50 q8hr and Lopressor 100 bid 4. Renal failure with Cr increased to 2.1 . Getting Vincent 5. Cerebrovascular accident with left hemiplegia. DW RN Subjective Subjective In atrial fib .No CP or SOB. RNs are putting vincent as has very poor urine output. Objective Last 24 Hour Vital Signs Date Time Temp Pulse Resp B/P (MAP) Pulse Ox O2 Delivery O2 Flow Rate FiO2 04/02/18 15:20 98.2 04/02/18 13:27 130/59 04/02/18 12:00 98.2 88 17 130/59 98 Room Air 98.2 04/02/18 11:53 89 04/02/18 09:50 97.2 04/02/18 08:56 118 111/66 04/02/18 08:51 97.2 04/02/18 08:51 111/66 04/02/18 08:50 118 04/02/18 08:00 97.2 118 16 111/66 99 Room Air 97.2 04/02/18 08:00 117 04/02/18 06:22 157/86 04/02/18 04:00 101 04/02/18 04:00 98.0 107 18 157/86 98 Room Air 98.0 04/02/18 00:37 98.3 04/02/18 00:00 126 04/02/18 00:00 97.8 82 18 108/70 98 Room Air 97.8 04/01/18 21:10 74 157/80 04/01/18 21:10 157/80 04/01/18 20:00 103 04/01/18 20:00 98.3 74 20 157/80 100 Room Air 98.3 Intake and Output 04/01/18 04/02/18 19:00 07:00 Intake Total 564.72 ml 294.24 ml Output Total 850 ml 400 ml Balance -285.28 ml -105.76 ml Intake Oral 350 ml 60 ml IV Total 214.72 ml 234.24 ml Output Urine Total 850 ml 400 ml # Bowel Movements 2 1 Laboratory Tests Test 04/02/18 06:25 White Blood Count 12.3 K/UL (4.8-10.8) H Red Blood Count 5.19 M/UL (4.20-5.40) Hemoglobin 14.5 G/DL (12.0-16.0) Hematocrit 44.7 % (37.0-47.0) Mean Corpuscular Volume 86 FL (80-99) Mean Corpuscular Hemoglobin 28.0 PG (27.0-31.0) Mean Corpuscular Hemoglobin Concent 32.5 G/DL (32.0-36.0) Red Cell Distribution Width 19.6 % (11.6-14.8) H Platelet Count 241 K/UL (150-450) Mean Platelet Volume 6.4 FL (6.5-10.1) L Neutrophils (%) (Auto) 78.1 % (45.0-75.0) H Lymphocytes (%) (Auto) 13.9 % (20.0-45.0) L Monocytes (%) (Auto) 7.1 % (1.0-10.0) Eosinophils (%) (Auto) 0.1 % (0.0-3.0) Basophils (%) (Auto) 0.9 % (0.0-2.0) Prothrombin Time 19.2 SEC (9.30-11.50) H Prothromb Time International Ratio 1.8 (0.9-1.1) H Activated Partial Thromboplast Time 62 SEC (23-33) H Sodium Level 139 MMOL/L (136-145) Potassium Level 4.7 MMOL/L (3.5-5.1) Chloride Level 107 MMOL/L (98-107) Carbon Dioxide Level 21 MMOL/L (21-32) Anion Gap 12 mmol/L (5-15) Blood Urea Nitrogen 25 mg/dL (7-18) H Creatinine 2.1 MG/DL (0.55-1.30) H Estimat Glomerular Filtration Rate mL/min (>60) Glucose Level 134 MG/DL (74-106) H Calcium Level 8.5 MG/DL (8.5-10.1) Phosphorus Level 4.8 MG/DL (2.5-4.9) Magnesium Level 1.6 MG/DL (1.8-2.4) L Total Bilirubin 0.3 MG/DL (0.2-1.0) Aspartate Amino Transf (AST/SGOT) 33 U/L (15-37) Alanine Aminotransferase (ALT/SGPT) 22 U/L (12-78) Alkaline Phosphatase 91 U/L (46-116) Total Protein 5.6 G/DL (6.4-8.2) L Albumin 1.4 G/DL (3.4-5.0) L Globulin 4.2 g/dL Albumin/Globulin Ratio 0.3 (1.0-2.7) L Digoxin Level 1.1 NG/ML (0.9-2.0) Objective HEAD AND NECK: No JVD. LUNGS: Clear CARDIOVASCULAR: Irregular S1 and S2 with no gallop or murmur. ABDOMEN: Soft. EXTREMITIES: 1+ pitting edema. Clinton Diaz MD Apr 02, 2018 17:10
--- NOTE | 2018-04-02 17:47 | Pulmonology Progress Note ---
Assessment/Plan Assessment/Plan (1) Atrial fibrillation (2) Atrial fibrillation with RVR (3) CVA (cerebral vascular accident) (4) Azotemia Assessment/Plan -better today -Optimize pulmonary function/mobilize as tolerated -PRN O2 -Rate control per cards, avoid b agonists -CHF regimen per cards -Monitor volumes and renal function, diuretics as tolerated -Coumadin with IVUH bridge per Rx -Aspiration precautions -FC check RA sat Subjective Constitutional: Reports: no symptoms HEENT: Repors: no symptoms Respiratory: Reports: no symptoms Cardiovascular: Reports: no symptoms Gastrointestinal/Abdominal: Reports: no symptoms Genitourinary: Reports: no symptoms Neurologic: Reports: no symptoms Allergies: Coded Allergies: NAPROXEN (Verified Allergy, Unknown, 03/29/18) Subjective awake this afternoon no distress tolerating po bp better no reports of cp nv or bleeding rate not controlled not getting oob on o2 CXR without edema Objective Last 24 Hour Vital Signs Date Time Temp Pulse Resp B/P (MAP) Pulse Ox O2 Delivery O2 Flow Rate FiO2 04/02/18 16:19 98.2 04/02/18 16:00 99.0 92 18 124/59 96 Room Air 99.0 04/02/18 15:42 92 04/02/18 15:20 98.2 04/02/18 13:27 130/59 04/02/18 12:00 98.2 88 17 130/59 98 Room Air 98.2 04/02/18 11:53 89 04/02/18 08:56 118 111/66 04/02/18 08:51 97.2 04/02/18 08:51 111/66 04/02/18 08:50 118 04/02/18 08:00 97.2 118 16 111/66 99 Room Air 97.2 04/02/18 08:00 117 04/02/18 06:22 157/86 04/02/18 04:00 101 04/02/18 04:00 98.0 107 18 157/86 98 Room Air 98.0 04/02/18 00:37 98.3 04/02/18 00:00 126 04/02/18 00:00 97.8 82 18 108/70 98 Room Air 97.8 04/01/18 21:10 74 157/80 04/01/18 21:10 157/80 04/01/18 20:00 103 04/01/18 20:00 98.3 74 20 157/80 100 Room Air 98.3 Intake and Output 04/01/18 04/02/18 19:00 07:00 Intake Total 564.72 ml 294.24 ml Output Total 850 ml 400 ml Balance -285.28 ml -105.76 ml Intake Oral 350 ml 60 ml IV Total 214.72 ml 234.24 ml Output Urine Total 850 ml 400 ml # Bowel Movements 2 1 General Appearance: cachetic HEENT: atraumatic, anicteric Respiratory/Chest: lungs clear Cardiovascular: murmur systolic, irregularly irregular Abdomen: soft, non tender, no organomegaly Extremities: no cyanosis, no clubbing Neurologic/Psychiatric: abnormal gait, alert, oriented x 3, disoriented Lymphatic: no neck adenopathy, no groin adenopathy Musculoskeletal: no effusion Laboratory Tests 04/02/18 06:25: White Blood Count 12.3H, Red Blood Count 5.19, Hemoglobin 14.5, Hematocrit 44.7 , Mean Corpuscular Volume 86, Mean Corpuscular Hemoglobin 28.0, Mean Corpuscular Hemoglobin Concent 32.5, Red Cell Distribution Width 19.6H, Platelet Count 241, Mean Platelet Volume 6.4L, Neutrophils (%) (Auto) 78.1H, Lymphocytes (%) (Auto) 13.9L, Monocytes (%) (Auto) 7.1, Eosinophils (%) (Auto) 0.1, Basophils (%) (Auto) 0.9, Prothrombin Time 19.2H, Prothromb Time International Ratio 1.8H, Activated Partial Thromboplast Time 62H, Sodium Level 139, Potassium Level 4.7, Chloride Level 107, Carbon Dioxide Level 21, Anion Gap 12, Blood Urea Nitrogen 25H, Creatinine 2.1H, Estimat Glomerular Filtration Rate , Glucose Level 134H, Calcium Level 8.5, Phosphorus Level 4.8, Magnesium Level 1.6L, Total Bilirubin 0.3, Aspartate Amino Transf (AST/SGOT) 33, Alanine Aminotransferase (ALT/SGPT) 22, Alkaline Phosphatase 91, Total Protein 5.6L, Albumin 1.4L, Globulin 4.2, Albumin/Globulin Ratio 0.3L, Digoxin Level 1.1 Current Medications Medications (Trade) Dose Ordered Sig/Renan Route PRN Reason Start Time Stop Time Status Last Admin Dose Admin Acetaminophen/ Hydrocodone Bitart ([place] 5/325) 1 tab Q4H PRN ORAL PAIN 4-10 04/01/18 17:30 04/08/18 17:29 04/02/18 15:20 Allopurinol (Zyloprim) 100 mg DAILY ORAL 04/01/18 09:00 04/29/18 08:59 04/02/18 08:56 Chlorhexidine Gluconate (Flaquita-Hex 2%) 1 applic DAILY@2000 TOPIC 03/30/18 20:00 04/29/18 19:59 Clonidine HCl (Catapres Tab) 0.1 mg Q6H PRN ORAL SBP > 160mmHg 03/29/18 19:20 04/28/18 19:19 Dextrose (Dextrose 50%) 25 ml STAT PRN IV Hypoglycemia 03/29/18 19:20 04/28/18 19:19 Dextrose (Dextrose 50%) 50 ml STAT PRN IV Hypoglycemia 03/29/18 19:20 04/28/18 19:19 Digoxin (Lanoxin) 0.125 mg DAILY ORAL 04/01/18 09:00 05/01/18 08:59 04/02/18 08:50 Glimepiride (Amaryl) 2 mg ACBREAKFAST ORAL 03/30/18 06:30 04/29/18 06:29 04/02/18 06:22 Heparin Sodium/ Dextrose 500 ml @ 22.48 mls/ hr adjust per protocol IV 04/02/18 08:00 05/02/18 07:59 04/02/18 09:06 Hydralazine HCl (Apresoline) 50 mg EVERY 8 HOURS ORAL 04/01/18 22:00 04/28/18 21:59 04/02/18 13:27 Insulin Aspart (NovoLOG) BEFORE MEALS AND HS SUBQ 03/29/18 21:00 04/28/18 17:29 04/02/18 17:40 Isosorbide Mononitrate (Imdur) 30 mg DAILY ORAL 03/30/18 09:00 04/29/18 08:59 04/02/18 08:51 Lansoprazole (Prevacid) 30 mg DAILY ORAL 03/30/18 09:00 04/29/18 08:59 04/02/18 08:50 Lorazepam (Ativan) 0.5 mg Q6H PRN ORAL Restlessness 03/29/18 19:23 04/05/18 19:22 04/01/18 14:21 Metoprolol Tartrate (Lopressor) 100 mg Q12HR ORAL 04/01/18 21:00 05/01/18 20:59 04/02/18 08:56 Nitroglycerin (Ntg) 0.4 mg Q5MIN X 3 DOSES PRN SL Prn Chest Pain 03/29/18 19:24 04/28/18 19:23 Ondansetron HCl (Zofran) 4 mg Q6H PRN ORAL Nausea & Vomiting 03/29/18 19:21 04/28/18 19:20 04/01/18 22:45 Pravastatin Sodium (Pravachol) 20 mg BEDTIME ORAL 03/29/18 21:00 04/28/18 20:59 04/01/18 21:10 Sennosides (Senokot) 1 tab DAILY ORAL 03/30/18 09:00 04/29/18 08:59 04/01/18 09:20 Temazepam (Restoril) 7.5 mg HSPRN PRN ORAL Insomnia 03/29/18 21:00 04/05/18 20:59 04/01/18 22:46 Warfarin Sodium (Coumadin per pharmacy) 1 ea DAILY PRN MISC Per rx protocol 03/29/18 19:26 04/28/18 19:25 Warfarin Sodium (Coumadin) 5 mg COUMADIN ORAL 04/02/18 17:00 04/02/18 18:00 04/02/18 17:38 Key Baez DO Apr 02, 2018 17:47
--- NOTE | 2018-04-02 18:36 | General Progress Note ---
Assessment/Plan Problem List: (1) Atrial fibrillation with RVR ICD Codes: I48.91 - Unspecified atrial fibrillation SNOMED: 460157153250280 (2) CHF exacerbation ICD Codes: I50.9 - Heart failure, unspecified SNOMED: 48319243 (3) Acute renal failure (ARF) ICD Codes: N17.9 - Acute renal failure (ARF) SNOMED: 30836748 (4) Atrial fibrillation ICD Codes: I48.91 - Unspecified atrial fibrillation SNOMED: 80922394 Status: progressing Assessment/Plan a fib w rvr improved heart rate is improving reviewed chart and labs chf afebrile abdominal pain consulted dr hunt for abdominal pain edema is improving k is normal Subjective Gastrointestinal/Abdominal: Reports: abdominal pain Allergies: Coded Allergies: NAPROXEN (Verified Allergy, Unknown, 03/29/18) Subjective chronic pain Objective Last 24 Hour Vital Signs Date Time Temp Pulse Resp B/P (MAP) Pulse Ox O2 Delivery O2 Flow Rate FiO2 04/02/18 16:19 98.2 04/02/18 16:00 99.0 92 18 124/59 96 Room Air 99.0 04/02/18 15:42 92 04/02/18 15:20 98.2 04/02/18 13:27 130/59 04/02/18 12:00 98.2 88 17 130/59 98 Room Air 98.2 04/02/18 11:53 89 04/02/18 08:56 118 111/66 04/02/18 08:51 97.2 04/02/18 08:51 111/66 04/02/18 08:50 118 04/02/18 08:00 97.2 118 16 111/66 99 Room Air 97.2 04/02/18 08:00 117 04/02/18 06:22 157/86 04/02/18 04:00 101 04/02/18 04:00 98.0 107 18 157/86 98 Room Air 98.0 04/02/18 00:37 98.3 04/02/18 00:00 126 04/02/18 00:00 97.8 82 18 108/70 98 Room Air 97.8 04/01/18 21:10 74 157/80 04/01/18 21:10 157/80 04/01/18 20:00 103 04/01/18 20:00 98.3 74 20 157/80 100 Room Air 98.3 Intake and Output 04/01/18 04/02/18 19:00 07:00 Intake Total 564.72 ml 294.24 ml Output Total 850 ml 400 ml Balance -285.28 ml -105.76 ml Intake Oral 350 ml 60 ml IV Total 214.72 ml 234.24 ml Output Urine Total 850 ml 400 ml # Bowel Movements 2 1 Laboratory Tests 04/02/18 06:25: White Blood Count 12.3H, Red Blood Count 5.19, Hemoglobin 14.5, Hematocrit 44.7 , Mean Corpuscular Volume 86, Mean Corpuscular Hemoglobin 28.0, Mean Corpuscular Hemoglobin Concent 32.5, Red Cell Distribution Width 19.6H, Platelet Count 241, Mean Platelet Volume 6.4L, Neutrophils (%) (Auto) 78.1H, Lymphocytes (%) (Auto) 13.9L, Monocytes (%) (Auto) 7.1, Eosinophils (%) (Auto) 0.1, Basophils (%) (Auto) 0.9, Prothrombin Time 19.2H, Prothromb Time International Ratio 1.8H, Activated Partial Thromboplast Time 62H, Sodium Level 139, Potassium Level 4.7, Chloride Level 107, Carbon Dioxide Level 21, Anion Gap 12, Blood Urea Nitrogen 25H, Creatinine 2.1H, Estimat Glomerular Filtration Rate , Glucose Level 134H, Calcium Level 8.5, Phosphorus Level 4.8, Magnesium Level 1.6L, Total Bilirubin 0.3, Aspartate Amino Transf (AST/SGOT) 33, Alanine Aminotransferase (ALT/SGPT) 22, Alkaline Phosphatase 91, Total Protein 5.6L, Albumin 1.4L, Globulin 4.2, Albumin/Globulin Ratio 0.3L, Digoxin Level 1.1 04/02/18 17:40: Activated Partial Thromboplast Time 65H Height (Feet): 5 Height (Inches): 6.00 Weight (Pounds): 177 Cardiovascular: normal rate Respiratory/Chest: lungs clear Abdomen: soft Azucena Goss MD Apr 02, 2018 18:36
--- NOTE | 2018-04-02 19:00 | Consultation ---
DATE OF CONSULTATION: 04/02/2018 CHIEF COMPLAINT: Abdominal pain. HISTORY OF PRESENT ILLNESS: This is an 82-year-old female with multiple medical problems, which I will dictate in a second, admitted to the hospital mainly for chest pain, atrial fibrillation, and GI consult has been requested for further evaluation for abdominal pain. The patient is having multiple bowel movements. She is having pain after having bowel movement. Denies any melena. Denies any hematochezia. No nausea. No vomiting. No dysphagia. No odynophagia. No recent history of endoscopy nor colonoscopy. PAST MEDICAL HISTORY: 1. History of chronic AFib. 2. CHF. 3. Diabetes. 4. Hypercholesterolemia. 5. COPD. ALLERGIES: To naproxen. MEDICATIONS: Please see medication reconciliation list. SOCIAL HISTORY: Currently lives in a fpc. No recent history of tobacco, alcohol, or illicit drug abuse. PAST SURGICAL HISTORY: Hysterectomy. She also had prior history of C-sections. REVIEW OF SYSTEMS: A 10-point review of systems was performed and pertinent positives in HPI. PHYSICAL EXAMINATION: VITAL SIGNS: Temperature is 97.2, pulse is 118 and irregular, respirations 16, blood pressure is . HEENT: Normocephalic and atraumatic. Sclerae anicteric. NECK: Supple. No evidence of lymphadenopathy. CARDIOVASCULAR: Tachycardic, irregularly irregular. Plus S1 and S2. LUNGS: Decreased breath sounds bilaterally based on supine exam. ABDOMEN: Soft. There is a scar in the midline below the umbilicus from prior hysterectomy. No rebound. No guarding. No peritoneal sign. EXTREMITIES: No cyanosis, no clubbing, no edema. LABORATORY DATA: White count is 12.3, hemoglobin 14, hematocrit 44, platelet count is 241,000. Chem-7, sodium is 139, potassium 4.7, BUN is 25, creatinine is 2.1. Albumin is very low at 1.4. ASSESSMENT AND PLAN: This is an 82-year-old female admitted to hospital with chest pain and atrial fibrillation uncontrolled. Her abdominal pain seems to be benign. Abdominal x-ray was negative. The patient has some loose stools, but no jacquelin diarrhea. Plan will be to discontinue laxative and discontinue Reglan. Continue on the Prevacid. Send stool for C. difficile. Send stool for culture. We will change diet to 1800-ADA cardiac diet. Dietitian consult given low albumin of 1.4. Consider to discontinue heparin when the INR is above 2. Currently, INR is 1.8. The patient will need to follow up as an outpatient for colonoscopy. At this time, the patient is not stable given acute AFib. Acosta Guillen M.D. DR: SHINE JOB#: [id number] CC:
[2018-04-02 20:00] VITALS: BP 125/72
[2018-04-03] VITALS: BP 152/70
[2018-04-03] MEDS: Heparin 25,000u/D5W 500ml 500 ML IV SCH (02:16)
[2018-04-03 04:00] VITALS: BP 157/77
[2018-04-03 04:27] LABS: ANION GAP 10 mmol/L (5-15); BLOOD UREA NITROGEN 35 mg/dL (7-18); CALCIUM 8.2 MG/DL (8.5-10.1); CARBON DIOXIDE 20 MMOL/L (21-32); CHLORIDE 105 MMOL/L (98-107); CREATININE 3.1 MG/DL (0.55-1.30); SODIUM 135 MMOL/L (136-145)
[2018-04-03 04:40] LABS: INR 2.5 (0.9-1.1)
[2018-04-03] MEDS: Glimepiride 1mg tab ORAL SCH (05:54)
[2018-04-03] MEDS: HydrALAZINE 50mg tab ORAL SCH ×3 (05:55→20:36)
[2018-04-03 05:58] LABS: BASOPHILS % (AUTO) 1.3 % (0.0-2.0); EOSINOPHILS % (AUTO) 1.9 % (0.0-3.0); HEMATOCRIT 43.1 % (37.0-47.0); HEMOGLOBIN 13.5 G/DL (12.0-16.0); LYMPHOCYTES % (AUTO) 21.6 % (20.0-45.0); MEAN CORPUSCULAR VOLUME 86 FL (80-99); MONOCYTES % (AUTO) 9.9 % (1.0-10.0); NEUTROPHILS % (AUTO) 65.3 % (45.0-75.0); PLATELET COUNT 228 K/UL (150-450); RED BLOOD COUNT 5.04 M/UL (4.20-5.40); RED CELL DISTRIBUTION WIDTH 19.6 % (11.6-14.8); WHITE BLOOD COUNT 10.9 K/UL (4.8-10.8)
[2018-04-03] MEDS: NovoLOG Insulin Flexpen SUBQ SCH ×4 (06:30→20:38)
[2018-04-03 08:00] VITALS: BP 153/60
--- NOTE | 2018-04-03 08:35 | Pulmonology Progress Note ---
Assessment/Plan Problems: (1) Atrial fibrillation (2) Atrial fibrillation with RVR (3) CVA (cerebral vascular accident) (4) Azotemia Assessment & Plan: JESICA on CKD Assessment/Plan -Optimize pulmonary function/mobilize as tolerated -PRN O2 -Rate control per cards -CHF regimen per cards -Monitor volumes and renal function, diuretics held, w/u of JESICA per renal -Continue coumadin per pharmacy, D/C IVUH -Aspiration precautions -FC Subjective Allergies: Coded Allergies: NAPROXEN (Verified Allergy, Unknown, 03/29/18) Subjective Events reviewed AFVSS, in rate controlled AF Stable on RA No cough, no SOB, no CP, no F/C + JESICA, Cr 3.1 today INR 2.5 Objective Last 24 Hour Vital Signs Date Time Temp Pulse Resp B/P (MAP) Pulse Ox O2 Delivery O2 Flow Rate FiO2 04/03/18 05:55 157/86 04/03/18 04:00 97.9 83 20 157/77 97 Room Air 97.9 04/03/18 04:00 91 04/03/18 00:00 82 04/03/18 00:00 97.9 82 20 152/70 95 Room Air 97.9 04/02/18 21:16 81 125/72 04/02/18 21:16 125/72 04/02/18 20:00 98.1 81 16 125/72 98 Room Air 98.1 04/02/18 20:00 87 04/02/18 16:19 98.2 04/02/18 16:00 99.0 92 18 124/59 96 Room Air 99.0 04/02/18 15:42 92 04/02/18 15:20 98.2 04/02/18 13:27 130/59 04/02/18 12:00 98.2 88 17 130/59 98 Room Air 98.2 04/02/18 11:53 89 04/02/18 08:56 118 111/66 04/02/18 08:51 97.2 04/02/18 08:51 11104/02/18 08:50 118 Intake and Output 04/02/18 04/03/18 19:00 07:00 Intake Total 442.07 ml 363.76 ml Output Total 100 ml 400 ml Balance 342.07 ml -36.24 ml Intake Oral 200 ml 100 ml IV Total 242.07 ml 263.76 ml Output Urine Total 100 ml 400 ml # Bowel Movements 2 General Appearance: WD/WN, no acute distress HEENT: normocephalic, atraumatic, anicteric, mucous membranes moist Respiratory/Chest: chest wall non-tender, lungs clear, normal breath sounds, no respiratory distress Cardiovascular: irregularly irregular Abdomen: normal bowel sounds, soft, non tender, no organomegaly, non distended , no mass Extremities: no cyanosis, no clubbing, no edema Laboratory Tests 04/02/18 17:40: Activated Partial Thromboplast Time 65H 04/03/18 04:00: Activated Partial Thromboplast Time 71H, White Blood Count 10.9H, Red Blood Count 5.04, Hemoglobin 13.5, Hematocrit 43.1, Mean Corpuscular Volume 86, Mean Corpuscular Hemoglobin 26.7L, Mean Corpuscular Hemoglobin Concent 31.2L, Red Cell Distribution Width 19.6H, Platelet Count 228, Mean Platelet Volume 6.5, Neutrophils (%) (Auto) 65.3, Lymphocytes (%) (Auto) 21.6, Monocytes (%) (Auto) 9.9, Eosinophils (%) (Auto) 1.9, Basophils (%) (Auto) 1.3, Prothrombin Time 26.8H, Prothromb Time International Ratio 2.5H, Sodium Level 135L, Potassium Level 5.0, Chloride Level 105, Carbon Dioxide Level 20L, Anion Gap 10, Blood Urea Nitrogen 35H, Creatinine 3.1H, Estimat Glomerular Filtration Rate , Glucose Level 102, Calcium Level 8.2L, Magnesium Level 1.6L Current Medications Medications (Trade) Dose Ordered Sig/Renan Route PRN Reason Start Time Stop Time Status Last Admin Dose Admin Acetaminophen/ Hydrocodone Bitart ([place] 5/325) 1 tab Q4H PRN ORAL PAIN 4-10 04/01/18 17:30 04/08/18 17:29 04/02/18 21:24 Allopurinol (Zyloprim) 100 mg DAILY ORAL 04/01/18 09:00 04/29/18 08:59 04/02/18 08:56 Clonidine HCl (Catapres Tab) 0.1 mg Q6H PRN ORAL SBP > 160mmHg 03/29/18 19:20 04/28/18 19:19 Dextrose (Dextrose 50%) 25 ml STAT PRN IV Hypoglycemia 03/29/18 19:20 04/28/18 19:19 Dextrose (Dextrose 50%) 50 ml STAT PRN IV Hypoglycemia 03/29/18 19:20 04/28/18 19:19 Digoxin (Lanoxin) 0.125 mg DAILY ORAL 04/01/18 09:00 05/01/18 08:59 04/02/18 08:50 Glimepiride (Amaryl) 2 mg ACBREAKFAST ORAL 03/30/18 06:30 04/29/18 06:29 04/03/18 05:54 Heparin Sodium/ Dextrose 500 ml @ 22.48 mls/ hr adjust per protocol IV 04/02/18 08:00 05/02/18 07:59 04/03/18 02:16 Hydralazine HCl (Apresoline) 50 mg EVERY 8 HOURS ORAL 04/01/18 22:00 04/28/18 21:59 04/03/18 05:55 Insulin Aspart (NovoLOG) BEFORE MEALS AND HS SUBQ 03/29/18 21:00 04/28/18 17:29 04/02/18 21:17 Isosorbide Mononitrate (Imdur) 30 mg DAILY ORAL 03/30/18 09:00 04/29/18 08:59 04/02/18 08:51 Lansoprazole (Prevacid) 30 mg DAILY ORAL 03/30/18 09:00 04/29/18 08:59 04/02/18 08:50 Lorazepam (Ativan) 0.5 mg Q6H PRN ORAL Restlessness 03/29/18 19:23 04/05/18 19:22 04/01/18 14:21 Metoprolol Tartrate (Lopressor) 100 mg Q12HR ORAL 04/01/18 21:00 05/01/18 20:59 04/02/18 21:16 Nitroglycerin (Ntg) 0.4 mg Q5MIN X 3 DOSES PRN SL Prn Chest Pain 03/29/18 19:24 04/28/18 19:23 Ondansetron HCl (Zofran) 4 mg Q6H PRN ORAL Nausea & Vomiting 03/29/18 19:21 04/28/18 19:20 04/01/18 22:45 Pravastatin Sodium (Pravachol) 20 mg BEDTIME ORAL 03/29/18 21:00 04/28/18 20:59 04/02/18 21:16 Sennosides (Senokot) 1 tab DAILY ORAL 03/30/18 09:00 04/29/18 08:59 04/01/18 09:20 Temazepam (Restoril) 7.5 mg HSPRN PRN ORAL Insomnia 03/29/18 21:00 04/05/18 20:59 04/01/18 22:46 Warfarin Sodium (Coumadin per pharmacy) 1 ea DAILY PRN MISC Per rx protocol 03/29/18 19:26 04/28/18 19:25 Warfarin Sodium (Coumadin) 3 mg COUMADIN ONCE ORAL 04/03/18 17:00 04/03/18 17:01 Mele Jimenez MD Apr 03, 2018 08:34
[2018-04-03] MEDS: Allopurinol 100mg Tab ORAL SCH (09:11)
[2018-04-03] MEDS: Digoxin 0.125mg tab ORAL SCH (09:13)
[2018-04-03] MEDS: Sennosides 8.6mg ORAL SCH (09:13)
[2018-04-03] MEDS: Imdur 30mg tab ORAL SCH (09:14)
[2018-04-03] MEDS: Docusate 100mg cap ORAL SCH ×3 (10:00→18:12)
[2018-04-03] MEDS ORDERED: Sodium Chloride 500ML 500 ML IV ONE (10:00)
[2018-04-03 11:54] LABS: APPEARANCE,URINE SLIGHTLY CLOUDY; BILIRUBIN, URINE NEGATIVE (NEGATIVE); COLOR,URINE PALE YELLOW; GLUCOSE, URINE (UA) 1+ (NEGATIVE); KETONES,URINE NEGATIVE (NEGATIVE); LEUKOCYTE ESTERASE ,URINE 3+ (NEGATIVE); NITRITE,URINE NEGATIVE (NEGATIVE); PH,URINE 6 (4.5-8.0); PROTEIN,URINE 4+ (NEGATIVE); UROBILINOGEN,URINE NORMAL MG/DL (0.0-1.0)
[2018-04-03 12:00] VITALS: BP 156/73
--- NOTE | 2018-04-03 12:37 | GI Progress Note ---
Assessment/Plan Problems: (1) Anemia ICD Codes: D64.9 - Anemia, unspecified SNOMED: 954164695 (2) Protein calorie malnutrition ICD Codes: E46 - Unspecified protein-calorie malnutrition SNOMED: 068327504 (3) CVA (cerebral vascular accident) ICD Codes: I63.9 - CVA (cerebral vascular accident) SNOMED: 804486581 Status: stable Status Narrative Discussed with Dr. Guillen. Assessment/Plan KUB negative loose stools defer GI procedures given acute aFib supportive care anemia work up adv ADA diet cdiff, stool culture cont prevacid fu labs outpatient colonoscopy The patient was seen and examined at bedside and all new and available data was reviewed in the patients chart. I agree with the above findings, impression and plan. (Patient seen earlier today. Signature stamp does not reflect patient encounter time.). - Acosta Guillen MD Subjective Subjective limited Objective Last 24 Hour Vital Signs Date Time Temp Pulse Resp B/P (MAP) Pulse Ox O2 Delivery O2 Flow Rate FiO2 04/03/18 09:14 153/60 04/03/18 09:13 88 153/60 04/03/18 09:13 88 04/03/18 09:00 96 04/03/18 08:00 97.6 88 20 153/60 97 Room Air 97.6 04/03/18 05:55 157/86 04/03/18 04:00 97.9 83 20 157/77 97 Room Air 97.9 04/03/18 04:00 91 04/03/18 00:00 82 04/03/18 00:00 97.9 82 20 152/70 95 Room Air 97.9 04/02/18 21:16 81 125/72 04/02/18 21:16 125/72 04/02/18 20:00 98.1 81 16 125/72 98 Room Air 98.1 04/02/18 20:00 87 04/02/18 16:19 98.2 04/02/18 16:00 99.0 92 18 124/59 96 Room Air 99.0 04/02/18 15:42 92 04/02/18 15:20 98.2 04/02/18 13:27 130/59 Intake and Output 04/02/18 04/03/18 19:00 07:00 Intake Total 442.07 ml 363.76 ml Output Total 100 ml 400 ml Balance 342.07 ml -36.24 ml Intake Oral 200 ml 100 ml IV Total 242.07 ml 263.76 ml Output Urine Total 100 ml 400 ml # Bowel Movements 2 Laboratory Tests Test 04/02/18 17:40 04/03/18 04:00 04/03/18 11:25 Activated Partial Thromboplast Time 65 SEC (23-33) H 71 SEC (23-33) H White Blood Count 10.9 K/UL (4.8-10.8) H Red Blood Count 5.04 M/UL (4.20-5.40) Hemoglobin 13.5 G/DL (12.0-16.0) Hematocrit 43.1 % (37.0-47.0) Mean Corpuscular Volume 86 FL (80-99) Mean Corpuscular Hemoglobin 26.7 PG (27.0-31.0) L Mean Corpuscular Hemoglobin Concent 31.2 G/DL (32.0-36.0) L Red Cell Distribution Width 19.6 % (11.6-14.8) H Platelet Count 228 K/UL (150-450) Mean Platelet Volume 6.5 FL (6.5-10.1) Neutrophils (%) (Auto) 65.3 % (45.0-75.0) Lymphocytes (%) (Auto) 21.6 % (20.0-45.0) Monocytes (%) (Auto) 9.9 % (1.0-10.0) Eosinophils (%) (Auto) 1.9 % (0.0-3.0) Basophils (%) (Auto) 1.3 % (0.0-2.0) Prothrombin Time 26.8 SEC (9.30-11.50) H Prothromb Time International Ratio 2.5 (0.9-1.1) H Sodium Level 135 MMOL/L (136-145) L Potassium Level 5.0 MMOL/L (3.5-5.1) Chloride Level 105 MMOL/L (98-107) Carbon Dioxide Level 20 MMOL/L (21-32) L Anion Gap 10 mmol/L (5-15) Blood Urea Nitrogen 35 mg/dL (7-18) H Creatinine 3.1 MG/DL (0.55-1.30) H Estimat Glomerular Filtration Rate mL/min (>60) Glucose Level 102 MG/DL (74-106) Calcium Level 8.2 MG/DL (8.5-10.1) L Magnesium Level 1.6 MG/DL (1.8-2.4) L Urine Color Pale yellow Urine Appearance Slightly cloudy Urine pH 6 (4.5-8.0) Urine Specific [place] 1.015 (1.005-1.035) Urine Protein 4+ (NEGATIVE) H Urine Glucose (UA) 1+ (NEGATIVE) H Urine Ketones Negative (NEGATIVE) Urine Occult Blood 2+ (NEGATIVE) H Urine Nitrite Negative (NEGATIVE) Urine Bilirubin Negative (NEGATIVE) Urine Urobilinogen Normal MG/DL (0.0-1.0) Urine Leukocyte Esterase 3+ (NEGATIVE) H Urine RBC 10-15 /HPF (0 - 2) H Urine WBC Tntc /HPF (0 - 2) H Urine Squamous Epithelial Cells Few /LPF (NONE/OCC) Urine Bacteria Many /HPF (NONE) H Urine Random Sodium 34 mmol/L (20-110) Height (Feet): 5 Height (Inches): 6.00 Weight (Pounds): 178 General Appearance: WD/WN, no apparent distress, alert Cardiovascular: normal rate Respiratory/Chest: normal breath sounds, no respiratory distress Abdominal Exam: normal bowel sounds, non tender, soft Extremities: non-tender Johanny Valdes NP Apr 03, 2018 12:37
[2018-04-03 16:00] VITALS: BP 145/69
--- NOTE | 2018-04-03 16:07 | Nephrology Progress Note ---
Assessment/Plan Problem List: (1) Acute renal failure (ARF) Assessment: with underlying CKD (2) Atrial fibrillation with RVR Assessment out of ICU - No drip Cr higher today up top 3.1 Renal failure - Pre renal picture- Superimposed on CKD , cardiomyopathy with low ej Fx At Fib chronic on anticoagulation Left eye blind' HTN Gout High Chol CAD CHF Plan DC lasix and KCL IV bollous vincent Kidney SOLO urine studies avoid nephrotoxics adjust bp meds, upped hydralazine and metoprolol monitor lytes and renal parameters monitor INR keep bp in check per supervisor files per orders Subjective ROS Limited/Unobtainable: No Constitutional: Reports: malaise, weakness Objective Objective Last 24 Hour Vital Signs Date Time Temp Pulse Resp B/P (MAP) Pulse Ox O2 Delivery O2 Flow Rate FiO2 04/03/18 14:04 156/73 04/03/18 12:00 98.0 98 18 156/73 98 Room Air 98.0 04/03/18 12:00 92 04/03/18 09:14 153/60 04/03/18 09:13 88 153/60 04/03/18 09:13 88 04/03/18 09:00 96 04/03/18 08:00 97.6 88 20 153/60 97 Room Air 97.6 04/03/18 05:55 157/86 04/03/18 04:00 97.9 83 20 157/77 97 Room Air 97.9 04/03/18 04:00 91 04/03/18 00:00 82 04/03/18 00:00 97.9 82 20 152/70 95 Room Air 97.9 04/02/18 21:16 81 125/72 04/02/18 21:16 125/72 04/02/18 20:00 98.1 81 16 125/72 98 Room Air 98.1 04/02/18 20:00 87 04/02/18 16:19 98.2 Intake and Output 04/02/18 04/03/18 19:00 07:00 Intake Total 442.07 ml 363.76 ml Output Total 100 ml 400 ml Balance 342.07 ml -36.24 ml Intake Oral 200 ml 100 ml IV Total 242.07 ml 263.76 ml Output Urine Total 100 ml 400 ml # Bowel Movements 2 Laboratory Tests 04/02/18 17:40: Activated Partial Thromboplast Time 65H 04/03/18 04:00: Activated Partial Thromboplast Time 71H, White Blood Count 10.9H, Red Blood Count 5.04, Hemoglobin 13.5, Hematocrit 43.1, Mean Corpuscular Volume 86, Mean Corpuscular Hemoglobin 26.7L, Mean Corpuscular Hemoglobin Concent 31.2L, Red Cell Distribution Width 19.6H, Platelet Count 228, Mean Platelet Volume 6.5, Neutrophils (%) (Auto) 65.3, Lymphocytes (%) (Auto) 21.6, Monocytes (%) (Auto) 9.9, Eosinophils (%) (Auto) 1.9, Basophils (%) (Auto) 1.3, Prothrombin Time 26.8H, Prothromb Time International Ratio 2.5H, Sodium Level 135L, Potassium Level 5.0, Chloride Level 105, Carbon Dioxide Level 20L, Anion Gap 10, Blood Urea Nitrogen 35H, Creatinine 3.1H, Estimat Glomerular Filtration Rate , Glucose Level 102, Calcium Level 8.2L, Magnesium Level 1.6L 04/03/18 11:25: Urine Color Pale yellow, Urine Appearance Slightly cloudy, Urine pH 6, Urine Specific [place] 1.015, Urine Protein 4+H, Urine Glucose (UA) 1+H, Urine Ketones Negative, Urine Occult Blood 2+H, Urine Nitrite Negative, Urine Bilirubin Negative, Urine Urobilinogen Normal, Urine Leukocyte Esterase 3+H, Urine RBC 10-15H, Urine WBC TntcH, Urine Squamous Epithelial Cells Few, Urine Bacteria ManyH, Urine Random Sodium 34 Height (Feet): 5 Height (Inches): 6.00 Weight (Pounds): 178 SUGEY PETERSON Apr 03, 2018 16:07
--- NOTE | 2018-04-03 16:29 | Diagnostic Imaging Report ---
Indication: Acute renal failure Technique: Grayscale and duplex images of the kidneys, retroperitoneum, and bladder were obtained. Comparison: Findings: Right kidney measures 9.4 cm in length. Left kidney measures 9.6 cm in length. Both kidneys demonstrate mildly increased echogenicity. There is mild fullness of the left renal collecting system. Right kidney demonstrates a 12 mm cyst. No focal abnormality on the left.. Normal inferior vena cava. Bladder is empty, contains a Orozco catheter. Impression: Mild fullness of the left renal collecting system, significance uncertain Mildly increased renal echogenicity bilaterally, consistent with medical renal disease Empty bladder with Orozco catheter Incidental finding of cholelithiasis Incidental finding of multiple right renal cyst.
[2018-04-03] MEDS ORDERED: Warfarin Sodium 3mg ORAL ONE (17:00)
--- NOTE | 2018-04-03 17:23 | General Progress Note ---
Subjective Date patient seen: Apr 03, 2018 Neurologic/Psychiatric: Reports: anxiety, depressed, emotional problems Allergies: Coded Allergies: NAPROXEN (Verified Allergy, Unknown, 03/29/18) Objective Last 24 Hour Vital Signs Date Time Temp Pulse Resp B/P (MAP) Pulse Ox O2 Delivery O2 Flow Rate FiO2 04/03/18 14:04 156/73 04/03/18 12:00 98.0 98 18 156/73 98 Room Air 98.0 04/03/18 12:00 92 04/03/18 09:14 153/60 04/03/18 09:13 88 153/60 04/03/18 09:13 88 04/03/18 09:00 96 04/03/18 08:00 97.6 88 20 153/60 97 Room Air 97.6 04/03/18 05:55 157/86 04/03/18 04:00 97.9 83 20 157/77 97 Room Air 97.9 04/03/18 04:00 91 04/03/18 00:00 82 04/03/18 00:00 97.9 82 20 152/70 95 Room Air 97.9 04/02/18 21:16 81 125/72 04/02/18 21:16 125/72 04/02/18 20:00 98.1 81 16 125/72 98 Room Air 98.1 04/02/18 20:00 87 Intake and Output 04/02/18 04/03/18 19:00 07:00 Intake Total 442.07 ml 363.76 ml Output Total 100 ml 400 ml Balance 342.07 ml -36.24 ml Intake Oral 200 ml 100 ml IV Total 242.07 ml 263.76 ml Output Urine Total 100 ml 400 ml # Bowel Movements 2 Laboratory Tests 04/02/18 17:40: Activated Partial Thromboplast Time 65H 04/03/18 04:00: Activated Partial Thromboplast Time 71H, White Blood Count 10.9H, Red Blood Count 5.04, Hemoglobin 13.5, Hematocrit 43.1, Mean Corpuscular Volume 86, Mean Corpuscular Hemoglobin 26.7L, Mean Corpuscular Hemoglobin Concent 31.2L, Red Cell Distribution Width 19.6H, Platelet Count 228, Mean Platelet Volume 6.5, Neutrophils (%) (Auto) 65.3, Lymphocytes (%) (Auto) 21.6, Monocytes (%) (Auto) 9.9, Eosinophils (%) (Auto) 1.9, Basophils (%) (Auto) 1.3, Prothrombin Time 26.8H, Prothromb Time International Ratio 2.5H, Sodium Level 135L, Potassium Level 5.0, Chloride Level 105, Carbon Dioxide Level 20L, Anion Gap 10, Blood Urea Nitrogen 35H, Creatinine 3.1H, Estimat Glomerular Filtration Rate , Glucose Level 102, Calcium Level 8.2L, Magnesium Level 1.6L 04/03/18 11:25: Urine Color Pale yellow, Urine Appearance Slightly cloudy, Urine pH 6, Urine Specific [place] 1.015, Urine Protein 4+H, Urine Glucose (UA) 1+H, Urine Ketones Negative, Urine Occult Blood 2+H, Urine Nitrite Negative, Urine Bilirubin Negative, Urine Urobilinogen Normal, Urine Leukocyte Esterase 3+H, Urine RBC 10-15H, Urine WBC TntcH, Urine Squamous Epithelial Cells Few, Urine Bacteria ManyH, Urine Random Sodium 34 Height (Feet): 5 Height (Inches): 6.00 Weight (Pounds): 178 General Appearance: no apparent distress, alert Tiffanie Russo M.D. Apr 03, 2018 17:23
--- NOTE | 2018-04-03 19:32 | Cardiac Electrophysiology PN ---
Assessment/Plan Assessment/Plan 1. Atrial fibrillation with rapid ventricular response. On metoprolol 100 bid and Digoxin On Coumadin per Rx. Heparin DCed as INR therapeutic 2.5 2. Severe cardiomyopathy, ejection fraction of 25%. Her nuclear stress test showed no evidence of myocardial ischemia on 03/21/2018 On Lopressor , Hydralazine 50 q8hr , Imdur 30 and Lasix Consider ICD implant vs Life Vest depending on duration of cardiomyopathy 3. HTN ON Hydralazine 50 q8hr and Lopressor 100 bid 4. Renal failure with Cr increased to 3.[address] Truong. 5. Cerebrovascular accident with left hemiplegia. CHARLES RN and Dr Goss Subjective Subjective In atrial fib with controlled rate .No CP or SOB. Objective Last 24 Hour Vital Signs Date Time Temp Pulse Resp B/P (MAP) Pulse Ox O2 Delivery O2 Flow Rate FiO2 04/03/18 16:00 94 04/03/18 16:00 98.0 86 22 145/69 99 Room Air 98.0 04/03/18 14:04 156/73 04/03/18 12:00 98.0 98 18 156/73 98 Room Air 98.0 04/03/18 12:00 92 04/03/18 09:14 153/60 04/03/18 09:13 88 153/60 04/03/18 09:13 88 04/03/18 09:00 96 04/03/18 08:00 97.6 88 20 153/60 97 Room Air 97.6 04/03/18 05:55 157/86 04/03/18 04:00 97.9 83 20 157/77 97 Room Air 97.9 04/03/18 04:00 91 04/03/18 00:00 82 04/03/18 00:00 97.9 82 20 152/70 95 Room Air 97.9 04/02/18 21:16 81 125/72 04/02/18 21:16 125/72 04/02/18 20:00 98.1 81 16 125/72 98 Room Air 98.1 04/02/18 20:00 87 Intake and Output 04/02/18 04/03/18 19:00 07:00 Intake Total 442.07 ml 363.76 ml Output Total 100 ml 400 ml Balance 342.07 ml -36.24 ml Intake Oral 200 ml 100 ml IV Total 242.07 ml 263.76 ml Output Urine Total 100 ml 400 ml # Bowel Movements 2 Laboratory Tests Test 04/03/18 04:00 04/03/18 11:25 04/03/18 17:47 White Blood Count 10.9 K/UL (4.8-10.8) H Red Blood Count 5.04 M/UL (4.20-5.40) Hemoglobin 13.5 G/DL (12.0-16.0) Hematocrit 43.1 % (37.0-47.0) Mean Corpuscular Volume 86 FL (80-99) Mean Corpuscular Hemoglobin 26.7 PG (27.0-31.0) L Mean Corpuscular Hemoglobin Concent 31.2 G/DL (32.0-36.0) L Red Cell Distribution Width 19.6 % (11.6-14.8) H Platelet Count 228 K/UL (150-450) Mean Platelet Volume 6.5 FL (6.5-10.1) Neutrophils (%) (Auto) 65.3 % (45.0-75.0) Lymphocytes (%) (Auto) 21.6 % (20.0-45.0) Monocytes (%) (Auto) 9.9 % (1.0-10.0) Eosinophils (%) (Auto) 1.9 % (0.0-3.0) Basophils (%) (Auto) 1.3 % (0.0-2.0) Prothrombin Time 26.8 SEC (9.30-11.50) H Prothromb Time International Ratio 2.5 (0.9-1.1) H Activated Partial Thromboplast Time 71 SEC (23-33) H Sodium Level 135 MMOL/L (136-145) L Potassium Level 5.0 MMOL/L (3.5-5.1) Chloride Level 105 MMOL/L (98-107) Carbon Dioxide Level 20 MMOL/L (21-32) L Anion Gap 10 mmol/L (5-15) Blood Urea Nitrogen 35 mg/dL (7-18) H Creatinine 3.1 MG/DL (0.55-1.30) H Estimat Glomerular Filtration Rate mL/min (>60) Glucose Level 102 MG/DL (74-106) Calcium Level 8.2 MG/DL (8.5-10.1) L Magnesium Level 1.6 MG/DL (1.8-2.4) L Urine Color Pale yellow Urine Appearance Slightly cloudy Urine pH 6 (4.5-8.0) Urine Specific [place] 1.015 (1.005-1.035) Urine Protein 4+ (NEGATIVE) H Urine Glucose (UA) 1+ (NEGATIVE) H Urine Ketones Negative (NEGATIVE) Urine Occult Blood 2+ (NEGATIVE) H Urine Nitrite Negative (NEGATIVE) Urine Bilirubin Negative (NEGATIVE) Urine Urobilinogen Normal MG/DL (0.0-1.0) Urine Leukocyte Esterase 3+ (NEGATIVE) H Urine RBC 10-15 /HPF (0 - 2) H Urine WBC Tntc /HPF (0 - 2) H Urine Squamous Epithelial Cells Few /LPF (NONE/OCC) Urine Bacteria Many /HPF (NONE) H Urine Random Sodium 34 mmol/L (20-110) Stool Occult Blood Pending Objective HEAD AND NECK: No JVD. LUNGS: Clear CARDIOVASCULAR: Irregular S1 and S2 with no gallop or murmur. ABDOMEN: Soft. EXTREMITIES: 1+ pitting edema. Clinton Diaz MD Apr 03, 2018 19:32
[2018-04-03 20:00] VITALS: BP 146/68
--- NOTE | 2018-04-03 20:27 | General Progress Note ---
Assessment/Plan Problem List: (1) Atrial fibrillation with RVR ICD Codes: I48.91 - Unspecified atrial fibrillation SNOMED: 839529288153574 (2) CHF exacerbation ICD Codes: I50.9 - Heart failure, unspecified SNOMED: 52359452 (3) Acute renal failure (ARF) ICD Codes: N17.9 - Acute renal failure (ARF) SNOMED: 45797767 (4) Atrial fibrillation ICD Codes: I48.91 - Unspecified atrial fibrillation SNOMED: 02727871 Status: progressing Assessment/Plan a fib w rvr improved heart rate is improving creatinine is rising worsening azotemia cant dc w rising cr will discuss w cardiology and renal re above issue Subjective ROS Limited/Unobtainable: Yes Respiratory: Reports: no symptoms Allergies: Coded Allergies: NAPROXEN (Verified Allergy, Unknown, 03/29/18) Subjective chronic pain Objective Last 24 Hour Vital Signs Date Time Temp Pulse Resp B/P (MAP) Pulse Ox O2 Delivery O2 Flow Rate FiO2 04/03/18 16:00 94 04/03/18 16:00 98.0 86 22 145/69 99 Room Air 98.0 04/03/18 14:04 156/73 04/03/18 12:00 98.0 98 18 156/73 98 Room Air 98.0 04/03/18 12:00 92 04/03/18 09:14 153/60 04/03/18 09:13 88 153/60 04/03/18 09:13 88 04/03/18 09:00 96 04/03/18 08:00 97.6 88 20 153/60 97 Room Air 97.6 04/03/18 05:55 157/86 04/03/18 04:00 97.9 83 20 157/77 97 Room Air 97.9 04/03/18 04:00 91 04/03/18 00:00 82 04/03/18 00:00 97.9 82 20 152/70 95 Room Air 97.9 04/02/18 21:16 81 125/72 04/02/18 21:16 125/72 Intake and Output 04/02/18 04/03/18 19:00 07:00 Intake Total 442.07 ml 363.76 ml Output Total 100 ml 400 ml Balance 342.07 ml -36.24 ml Intake Oral 200 ml 100 ml IV Total 242.07 ml 263.76 ml Output Urine Total 100 ml 400 ml # Bowel Movements 2 Laboratory Tests 04/03/18 04:00: White Blood Count 10.9H, Red Blood Count 5.04, Hemoglobin 13.5, Hematocrit 43.1 , Mean Corpuscular Volume 86, Mean Corpuscular Hemoglobin 26.7L, Mean Corpuscular Hemoglobin Concent 31.2L, Red Cell Distribution Width 19.6H, Platelet Count 228, Mean Platelet Volume 6.5, Neutrophils (%) (Auto) 65.3, Lymphocytes (%) (Auto) 21.6, Monocytes (%) (Auto) 9.9, Eosinophils (%) (Auto) 1.9, Basophils (%) (Auto) 1.3, Prothrombin Time 26.8H, Prothromb Time International Ratio 2.5H, Activated Partial Thromboplast Time 71H, Sodium Level 135L, Potassium Level 5.0, Chloride Level 105, Carbon Dioxide Level 20L, Anion Gap 10, Blood Urea Nitrogen 35H, Creatinine 3.1H, Estimat Glomerular Filtration Rate , Glucose Level 102, Calcium Level 8.2L, Magnesium Level 1.6L 04/03/18 11:25: Urine Color Pale yellow, Urine Appearance Slightly cloudy, Urine pH 6, Urine Specific [place] 1.015, Urine Protein 4+H, Urine Glucose (UA) 1+H, Urine Ketones Negative, Urine Occult Blood 2+H, Urine Nitrite Negative, Urine Bilirubin Negative, Urine Urobilinogen Normal, Urine Leukocyte Esterase 3+H, Urine RBC 10-15H, Urine WBC TntcH, Urine Squamous Epithelial Cells Few, Urine Bacteria ManyH, Urine Random Sodium 34 04/03/18 17:47: Stool Occult Blood [Pending] Height (Feet): 5 Height (Inches): 6.00 Weight (Pounds): 178 Cardiovascular: arrhythmia Respiratory/Chest: lungs clear Abdomen: soft Azucena Goss MD Apr 03, 2018 20:27
[2018-04-04] VITALS: BP 152/67
[2018-04-04 04:00] VITALS: BP 153/78
[2018-04-04 05:00] LABS: ALANINE AMINOTRANSFERASE 21 U/L (12-78); ALBUMIN 1.5 G/DL (3.4-5.0); ALBUMIN/GLOBULIN RATIO 0.4 (1.0-2.7); ALKALINE PHOSPHATASE 87 U/L (46-116); ANION GAP 11 mmol/L (5-15); ASPARTATE AMINO TRANSFERASE 29 U/L (15-37); BILIRUBIN,TOTAL 0.3 MG/DL (0.2-1.0); BLOOD UREA NITROGEN 35 mg/dL (7-18); CALCIUM 8.5 MG/DL (8.5-10.1); CARBON DIOXIDE 19 MMOL/L (21-32); CHLORIDE 107 MMOL/L (98-107); CREATINE KINASE 30 U/L (26-308); CREATININE 2.7 MG/DL (0.55-1.30); GAMMA GLUTAMYL TRANSPEPTIDASE 36 U/L (5-85); PHOSPHORUS 4.5 MG/DL (2.5-4.9); POTASSIUM 4.4 MMOL/L (3.5-5.1); SODIUM 137 MMOL/L (136-145)
[2018-04-04 05:22] LABS: INR 2.7 (0.9-1.1)
[2018-04-04] MEDS: HydrALAZINE 50mg tab ORAL SCH (05:37)
[2018-04-04] MEDS: NovoLOG Insulin Flexpen SUBQ SCH ×3 (05:38→12:04)
[2018-04-04 06:01] LABS: BASOPHILS % (AUTO) 0.4 % (0.0-2.0); EOSINOPHILS % (AUTO) 2.2 % (0.0-3.0); HEMATOCRIT 47.7 % (37.0-47.0); HEMOGLOBIN 14.7 G/DL (12.0-16.0); MEAN CORPUSCULAR VOLUME 86 FL (80-99); MONOCYTES % (AUTO) 10.3 % (1.0-10.0); PLATELET COUNT 213 K/UL (150-450); RED BLOOD COUNT 5.53 M/UL (4.20-5.40); RED CELL DISTRIBUTION WIDTH 19.4 % (11.6-14.8); WHITE BLOOD COUNT 10.6 K/UL (4.8-10.8)
[2018-04-04] MEDS ORDERED: Nitroglycerin Subl 0.4mg tab SL PRN (06:15)
[2018-04-04] MEDS ORDERED: LORazepam 0.5mg tab ORAL PRN (07:30)
[2018-04-04 08:00] VITALS: BP 140/69
[2018-04-04] MEDS ORDERED: Allopurinol 100mg Tab ORAL SCH (09:00)
[2018-04-04] MEDS: Docusate 100mg cap ORAL SCH ×3 (09:00→12:18)
[2018-04-04] MEDS: Sennosides 8.6mg ORAL SCH ×2 (09:00→09:14)
[2018-04-04] MEDS ORDERED: Imdur 30mg tab ORAL SCH (09:00)
[2018-04-04] MEDS ORDERED: Digoxin 0.125mg tab ORAL SCH (09:00)
[2018-04-04] MEDS ORDERED: Norco 5mg/325mg tab ORAL PRN (09:30)
--- NOTE | 2018-04-04 11:57 | Nephrology Progress Note ---
Assessment/Plan Problem List: (1) Acute renal failure (ARF) Assessment: with underlying CKD (2) Atrial fibrillation with RVR Assessment out of ICU - No drip Cr higher today lower 2.7 Renal failure - Pre renal picture- Superimposed on CKD , cardiomyopathy with low ej Fx At Fib chronic on anticoagulation Left eye blind' HTN Gout High Chol CAD CHF Plan stable for DC from renal stand IV bollous yesterday given [facility] SOLO : Incidental finding of cholelithiasis urine studies avoid nephrotoxics adjust bp meds, upped hydralazine and metoprolol monitor lytes and renal parameters monitor INR keep bp in check per solutions consultant per orders Subjective ROS Limited/Unobtainable: No Constitutional: Reports: malaise Objective Objective Last 24 Hour Vital Signs Date Time Temp Pulse Resp B/P (MAP) Pulse Ox O2 Delivery O2 Flow Rate FiO2 04/04/18 09:15 95 140/69 04/04/18 09:15 95 04/04/18 09:14 140/69 04/04/18 09:00 98 04/04/18 08:00 97.8 95 18 140/69 100 Room Air 97.8 04/04/18 05:37 153/78 04/04/18 04:00 97.6 92 20 153/78 98 Room Air 97.6 04/04/18 03:37 85 04/04/18 00:00 98.0 94 20 152/67 99 Room Air 98.0 04/03/18 23:25 92 04/03/18 20:37 94 146/68 04/03/18 20:36 146/68 04/03/18 20:00 98.5 94 20 146/68 97 Room Air 98.5 04/03/18 19:25 94 04/03/18 16:00 94 04/03/18 16:00 98.0 86 22 145/69 99 Room Air 98.0 04/03/18 14:04 156/73 04/03/18 12:00 98.0 98 18 156/73 98 Room Air 98.0 04/03/18 12:00 92 Intake and Output 04/03/18 04/04/18 19:00 07:00 Intake Total 100 ml 220 ml Output Total 500 ml 1200 ml Balance -400 ml -980 ml Intake Oral 100 ml 220 ml IV Total 0 ml Output Urine Total 500 ml 1200 ml # Bowel Movements 2 Current Medications Medications (Trade) Dose Ordered Sig/Renan Route PRN Reason Start Time Stop Time Status Last Admin Dose Admin Acetaminophen/ Hydrocodone Bitart ([place] 5/325) 1 tab Q4H PRN ORAL PAIN 4-10 04/04/18 09:30 04/08/18 17:29 04/04/18 10:46 Allopurinol (Zyloprim) 100 mg DAILY ORAL 04/04/18 09:00 04/29/18 08:59 04/04/18 09:15 Clonidine HCl (Catapres Tab) 0.1 mg Q6H PRN ORAL SBP > 160mmHg 04/04/18 07:30 04/28/18 19:19 Dextrose (Dextrose 50%) 25 ml STAT PRN IV Hypoglycemia 04/04/18 19:30 04/28/18 19:19 Dextrose (Dextrose 50%) 50 ml STAT PRN IV Hypoglycemia 04/04/18 19:30 04/28/18 19:19 Digoxin (Lanoxin) 0.125 mg DAILY ORAL 04/04/18 09:00 05/01/18 08:59 04/04/18 09:15 Docusate Sodium (Colace) 100 mg THREE TIMES A DAY ORAL 04/04/18 09:00 05/03/18 09:59 Hydralazine HCl (Apresoline) 50 mg EVERY 8 HOURS ORAL 04/04/18 14:00 04/28/18 21:59 Insulin Aspart (NovoLOG) BEFORE MEALS AND HS SUBQ 04/04/18 06:30 04/28/18 17:29 Isosorbide Mononitrate (Imdur) 30 mg DAILY ORAL 04/04/18 09:00 04/29/18 08:59 04/04/18 09:14 Lansoprazole (Prevacid) 30 mg DAILY ORAL 04/04/18 09:00 04/29/18 08:59 04/04/18 09:15 Lorazepam (Ativan) 0.5 mg Q6H PRN ORAL Restlessness 04/04/18 07:30 04/05/18 19:22 Metoprolol Tartrate (Lopressor) 100 mg Q12HR ORAL 04/04/18 09:00 05/01/18 20:59 04/04/18 09:15 Nitroglycerin (Ntg) 0.4 mg Q5MIN X 3 DOSES PRN SL Prn Chest Pain 04/04/18 06:15 04/28/18 19:23 Ondansetron HCl (Zofran) 4 mg Q6H PRN ORAL Nausea & Vomiting 04/04/18 07:30 04/28/18 19:20 Pravastatin Sodium (Pravachol) 20 mg BEDTIME ORAL 04/04/18 21:00 04/28/18 20:59 Sennosides (Senokot) 1 tab DAILY ORAL 04/04/18 09:00 04/29/18 08:59 Temazepam (Restoril) 7.5 mg HSPRN PRN ORAL Insomnia 04/04/18 21:00 04/05/18 20:59 Warfarin Sodium (Coumadin per pharmacy) 1 ea DAILY PRN MISC Per rx protocol 04/04/18 09:00 04/28/18 19:25 Warfarin Sodium (Coumadin) 2.5 mg COUMADIN ORAL 04/04/18 17:00 04/04/18 18:01 Laboratory Tests 04/03/18 17:47: Stool Occult Blood Negative 04/04/18 03:50: Prothrombin Time 28.1H, Prothromb Time International Ratio 2.7H, Activated Partial Thromboplast Time 40H, Sodium Level 137, Potassium Level 4.4, Chloride Level 107, Carbon Dioxide Level 19L, Anion Gap 11, Blood Urea Nitrogen 35H, Creatinine 2.7H, Estimat Glomerular Filtration Rate , Glucose Level 84, Uric Acid 4.7, Calcium Level 8.5, Phosphorus Level 4.5, Magnesium Level 1.7L, Total Bilirubin 0.3, Gamma Glutamyl Transpeptidase 36, Aspartate Amino Transf (AST/ SGOT) 29, Alanine Aminotransferase (ALT/SGPT) 21, Alkaline Phosphatase 87, Total Creatine Kinase 30, C-Reactive Protein, Quantitative 1.1H, Pro-B-Type Natriuretic Peptide 60261W, Total Protein 5.5L, Albumin 1.5L, Globulin 4.0, Albumin/Globulin Ratio 0.4L, Digoxin Level 1.1 04/04/18 05:40: White Blood Count 10.6, Red Blood Count 5.53H, Hemoglobin 14.7, Hematocrit 47.7H , Mean Corpuscular Volume 86, Mean Corpuscular Hemoglobin 26.6L, Mean Corpuscular Hemoglobin Concent 30.9L, Red Cell Distribution Width 19.4H, Platelet Count 213, Mean Platelet Volume 7.6, Neutrophils (%) (Auto) 69.0, Lymphocytes (%) (Auto) 18.0L, Monocytes (%) (Auto) 10.3H, Eosinophils (%) (Auto ) 2.2, Basophils (%) (Auto) 0.4 Height (Feet): 5 Height (Inches): 6.00 Weight (Pounds): 183 General Appearance: no apparent distress Cardiovascular: arrhythmia Respiratory/Chest: decreased breath sounds Abdomen: soft SUGEY PETERSON 12, 2018 11:57
[2018-04-04 12:00] VITALS: BP 138/79
--- NOTE | 2018-04-04 12:41 | General Progress Note ---
Assessment/Plan Status: stable Assessment/Plan Anxiety disorder. PLAN: 1. The patient will be started on Ativan as needed. 2. Consider low-dose of SSRI's. 3. Continue to follow and readjust the medications. Subjective Date patient seen: Apr 04, 2018 Neurologic/Psychiatric: Reports: anxiety, depressed, emotional problems Allergies: Coded Allergies: NAPROXEN (Verified Allergy, Unknown, 03/29/18) Objective Last 24 Hour Vital Signs Date Time Temp Pulse Resp B/P (MAP) Pulse Ox O2 Delivery O2 Flow Rate FiO2 04/04/18 12:00 97.5 98 18 138/79 100 Room Air 97.5 04/04/18 09:15 95 140/69 04/04/18 09:15 95 04/04/18 09:14 140/69 04/04/18 09:00 98 04/04/18 08:00 97.8 95 18 140/69 100 Room Air 97.8 04/04/18 05:37 153/78 04/04/18 04:00 97.6 92 20 153/78 98 Room Air 97.6 04/04/18 03:37 85 04/04/18 00:00 98.0 94 20 152/67 99 Room Air 98.0 04/03/18 23:25 92 04/03/18 20:37 94 146/68 04/03/18 20:36 146/68 04/03/18 20:00 98.5 94 20 146/68 97 Room Air 98.5 04/03/18 19:25 94 04/03/18 16:00 94 04/03/18 16:00 98.0 86 22 145/69 99 Room Air 98.0 04/03/18 14:04 156/73 Intake and Output 04/03/18 04/04/18 19:00 07:00 Intake Total 100 ml 220 ml Output Total 500 ml 1200 ml Balance -400 ml -980 ml Intake Oral 100 ml 220 ml IV Total 0 ml Output Urine Total 500 ml 1200 ml # Bowel Movements 2 Laboratory Tests 04/03/18 17:47: Stool Occult Blood Negative 04/04/18 03:50: Prothrombin Time 28.1H, Prothromb Time International Ratio 2.7H, Activated Partial Thromboplast Time 40H, Sodium Level 137, Potassium Level 4.4, Chloride Level 107, Carbon Dioxide Level 19L, Anion Gap 11, Blood Urea Nitrogen 35H, Creatinine 2.7H, Estimat Glomerular Filtration Rate , Glucose Level 84, Uric Acid 4.7, Calcium Level 8.5, Phosphorus Level 4.5, Magnesium Level 1.7L, Total Bilirubin 0.3, Gamma Glutamyl Transpeptidase 36, Aspartate Amino Transf (AST/ SGOT) 29, Alanine Aminotransferase (ALT/SGPT) 21, Alkaline Phosphatase 87, Total Creatine Kinase 30, C-Reactive Protein, Quantitative 1.1H, Pro-B-Type Natriuretic Peptide 97142U, Total Protein 5.5L, Albumin 1.5L, Globulin 4.0, Albumin/Globulin Ratio 0.4L, Digoxin Level 1.1 04/04/18 05:40: White Blood Count 10.6, Red Blood Count 5.53H, Hemoglobin 14.7, Hematocrit 47.7H , Mean Corpuscular Volume 86, Mean Corpuscular Hemoglobin 26.6L, Mean Corpuscular Hemoglobin Concent 30.9L, Red Cell Distribution Width 19.4H, Platelet Count 213, Mean Platelet Volume 7.6, Neutrophils (%) (Auto) 69.0, Lymphocytes (%) (Auto) 18.0L, Monocytes (%) (Auto) 10.3H, Eosinophils (%) (Auto ) 2.2, Basophils (%) (Auto) 0.4 Height (Feet): 5 Height (Inches): 6.00 Weight (Pounds): 183 General Appearance: no apparent distress, alert Neurologic: oriented x 3, responsive, depressed affect Tiffanie Russo M.D. Apr 04, 2018 12:41
--- NOTE | 2018-04-04 13:48 | GI Progress Note ---
Assessment/Plan Problems: (1) Anemia ICD Codes: D64.9 - Anemia, unspecified SNOMED: 266126848 (2) Protein calorie malnutrition ICD Codes: E46 - Unspecified protein-calorie malnutrition SNOMED: 769917856 (3) CVA (cerebral vascular accident) ICD Codes: I63.9 - CVA (cerebral vascular accident) SNOMED: 462149806 Status: stable Status Narrative Discussed with Dr. Guillen. Assessment/Plan KUB negative loose / soft stools OB stool negative defer GI procedures given acute aFib supportive care prn transfusions adv ADA diet cdiff, stool culture cont prevacid fu labs outpatient colonoscopy The patient was seen and examined at bedside and all new and available data was reviewed in the patients chart. I agree with the above findings, impression and plan. (Patient seen earlier today. Signature stamp does not reflect patient encounter time.). - Acosta Guillen MD Subjective Subjective limited Objective Last 24 Hour Vital Signs Date Time Temp Pulse Resp B/P (MAP) Pulse Ox O2 Delivery O2 Flow Rate FiO2 04/04/18 12:00 97.5 98 18 138/79 100 Room Air 97.5 04/04/18 09:15 95 140/69 04/04/18 09:15 95 04/04/18 09:14 140/69 04/04/18 09:00 98 04/04/18 08:00 97.8 95 18 140/69 100 Room Air 97.8 04/04/18 05:37 153/78 04/04/18 04:00 97.6 92 20 153/78 98 Room Air 97.6 04/04/18 03:37 85 04/04/18 00:00 98.0 94 20 152/67 99 Room Air 98.0 04/03/18 23:25 92 04/03/18 20:37 94 146/68 04/03/18 20:36 146/68 04/03/18 20:00 98.5 94 20 146/68 97 Room Air 98.5 04/03/18 19:25 94 04/03/18 16:00 94 04/03/18 16:00 98.0 86 22 145/69 99 Room Air 98.0 04/03/18 14:04 156/73 Intake and Output 04/03/18 04/04/18 19:00 07:00 Intake Total 100 ml 220 ml Output Total 500 ml 1200 ml Balance -400 ml -980 ml Intake Oral 100 ml 220 ml IV Total 0 ml Output Urine Total 500 ml 1200 ml # Bowel Movements 2 Laboratory Tests Test 04/03/18 17:47 04/04/18 03:50 04/04/18 05:40 Stool Occult Blood Negative (NEGATIVE) Prothrombin Time 28.1 SEC (9.30-11.50) H Prothromb Time International Ratio 2.7 (0.9-1.1) H Activated Partial Thromboplast Time 40 SEC (23-33) H Sodium Level 137 MMOL/L (136-145) Potassium Level 4.4 MMOL/L (3.5-5.1) Chloride Level 107 MMOL/L (98-107) Carbon Dioxide Level 19 MMOL/L (21-32) L Anion Gap 11 mmol/L (5-15) Blood Urea Nitrogen 35 mg/dL (7-18) H Creatinine 2.7 MG/DL (0.55-1.30) H Estimat Glomerular Filtration Rate mL/min (>60) Glucose Level 84 MG/DL (74-106) Uric Acid 4.7 MG/DL (2.6-7.2) Calcium Level 8.5 MG/DL (8.5-10.1) Phosphorus Level 4.5 MG/DL (2.5-4.9) Magnesium Level 1.7 MG/DL (1.8-2.4) L Total Bilirubin 0.3 MG/DL (0.2-1.0) Gamma Glutamyl Transpeptidase 36 U/L (5-85) Aspartate Amino Transf (AST/SGOT) 29 U/L (15-37) Alanine Aminotransferase (ALT/SGPT) 21 U/L (12-78) Alkaline Phosphatase 87 U/L (46-116) Total Creatine Kinase 30 U/L (26-308) C-Reactive Protein, Quantitative 1.1 mg/dL (0.00-0.90) H Pro-B-Type Natriuretic Peptide 03175 pg/mL (0-125) H Total Protein 5.5 G/DL (6.4-8.2) L Albumin 1.5 G/DL (3.4-5.0) L Globulin 4.0 g/dL Albumin/Globulin Ratio 0.4 (1.0-2.7) L Digoxin Level 1.1 NG/ML (0.9-2.0) White Blood Count 10.6 K/UL (4.8-10.8) Red Blood Count 5.53 M/UL (4.20-5.40) H Hemoglobin 14.7 G/DL (12.0-16.0) Hematocrit 47.7 % (37.0-47.0) H Mean Corpuscular Volume 86 FL (80-99) Mean Corpuscular Hemoglobin 26.6 PG (27.0-31.0) L Mean Corpuscular Hemoglobin Concent 30.9 G/DL (32.0-36.0) L Red Cell Distribution Width 19.4 % (11.6-14.8) H Platelet Count 213 K/UL (150-450) Mean Platelet Volume 7.6 FL (6.5-10.1) Neutrophils (%) (Auto) 69.0 % (45.0-75.0) Lymphocytes (%) (Auto) 18.0 % (20.0-45.0) L Monocytes (%) (Auto) 10.3 % (1.0-10.0) H Eosinophils (%) (Auto) 2.2 % (0.0-3.0) Basophils (%) (Auto) 0.4 % (0.0-2.0) Height (Feet): 5 Height (Inches): 6.00 Weight (Pounds): 183 General Appearance: WD/WN, no apparent distress, alert Cardiovascular: normal rate Respiratory/Chest: normal breath sounds, no respiratory distress Abdominal Exam: normal bowel sounds, non tender, soft Extremities: non-tender Johanny Valdes NP Apr 04, 2018 13:48
[2018-04-04] MEDS ORDERED: HydrALAZINE 50mg tab ORAL SCH (14:00)
[2018-04-04] MEDS ORDERED: Warfarin Sodium 2.5mg ORAL SCH (17:00)
--- NOTE | 2018-04-04 18:23 | Pulmonology Progress Note ---
Assessment/Plan Problems: (1) Atrial fibrillation (2) Atrial fibrillation with RVR (3) CVA (cerebral vascular accident) (4) Azotemia Assessment & Plan: JESICA on CKD Assessment/Plan -Optimize pulmonary function/mobilize as tolerated -PRN O2 -Rate control per cards -CHF regimen per cards -Monitor volumes and renal function, diuretics held, w/u of JESICA per renal -Continue coumadin per pharmacy -Aspiration precautions -FC Subjective Allergies: Coded Allergies: NAPROXEN (Verified Allergy, Unknown, 03/29/18) Subjective Seen this am (LATE ENTRY) AFVSS, in rate controlled AF Stable on RA No cough, no SOB, no CP, no F/C Objective Last 24 Hour Vital Signs Date Time Temp Pulse Resp B/P (MAP) Pulse Ox O2 Delivery O2 Flow Rate FiO2 04/04/18 12:00 97.5 98 18 138/79 100 Room Air 97.5 04/04/18 09:15 95 140/69 04/04/18 09:15 95 04/04/18 09:14 140/69 04/04/18 09:00 98 04/04/18 08:00 97.8 95 18 140/69 100 Room Air 97.8 04/04/18 05:37 153/78 04/04/18 04:00 97.6 92 20 153/78 98 Room Air 97.6 04/04/18 03:37 85 04/04/18 00:00 98.0 94 20 152/67 99 Room Air 98.0 04/03/18 23:25 92 04/03/18 20:37 94 146/68 04/03/18 20:36 146/68 04/03/18 20:00 98.5 94 20 146/68 97 Room Air 98.5 04/03/18 19:25 94 Intake and Output 04/03/18 04/04/18 19:00 07:00 Intake Total 100 ml 220 ml Output Total 500 ml 1200 ml Balance -400 ml -980 ml Intake Oral 100 ml 220 ml IV Total 0 ml Output Urine Total 500 ml 1200 ml # Bowel Movements 2 General Appearance: no acute distress HEENT: normocephalic, atraumatic, anicteric, mucous membranes moist Respiratory/Chest: chest wall non-tender, lungs clear, normal breath sounds, no respiratory distress Cardiovascular: irregularly irregular Abdomen: normal bowel sounds, soft, non tender, no organomegaly, non distended , no mass Extremities: no cyanosis, no clubbing, no edema Microbiology Date/Time Source Procedure Growth Status 04/03/18 17:49 Stool Clostridium difficile Toxin Assay - Final Complete 04/03/18 11:25 Urine,Clean Catch Urine Culture - Preliminary Gram Negative Bacillus 1 Resulted Laboratory Tests 04/04/18 03:50: Prothrombin Time 28.1H, Prothromb Time International Ratio 2.7H, Activated Partial Thromboplast Time 40H, Sodium Level 137, Potassium Level 4.4, Chloride Level 107, Carbon Dioxide Level 19L, Anion Gap 11, Blood Urea Nitrogen 35H, Creatinine 2.7H, Estimat Glomerular Filtration Rate , Glucose Level 84, Uric Acid 4.7, Calcium Level 8.5, Phosphorus Level 4.5, Magnesium Level 1.7L, Total Bilirubin 0.3, Gamma Glutamyl Transpeptidase 36, Aspartate Amino Transf (AST/ SGOT) 29, Alanine Aminotransferase (ALT/SGPT) 21, Alkaline Phosphatase 87, Total Creatine Kinase 30, C-Reactive Protein, Quantitative 1.1H, Pro-B-Type Natriuretic Peptide 18242Y, Total Protein 5.5L, Albumin 1.5L, Globulin 4.0, Albumin/Globulin Ratio 0.4L, Digoxin Level 1.1 04/04/18 05:40: White Blood Count 10.6, Red Blood Count 5.53H, Hemoglobin 14.7, Hematocrit 47.7H , Mean Corpuscular Volume 86, Mean Corpuscular Hemoglobin 26.6L, Mean Corpuscular Hemoglobin Concent 30.9L, Red Cell Distribution Width 19.4H, Platelet Count 213, Mean Platelet Volume 7.6, Neutrophils (%) (Auto) 69.0, Lymphocytes (%) (Auto) 18.0L, Monocytes (%) (Auto) 10.3H, Eosinophils (%) (Auto ) 2.2, Basophils (%) (Auto) 0.4 Mele Jimenez MD Apr 04, 2018 18:23
--- NOTE | 2018-04-05 12:19 | Discharge Summary ---
Discharge Summary Discharge Summary _ DATE OF ADMISSION: 03/29/2018 DATE OF DISCHARGE: 04/04/2018 REASON FOR ADMISSION: 82 years old female with past medical history significant for atrial fibrillation, dementia ,COPD ,anemia ,cerebrovascular disease with a history of CVA with left-sided weakness ,hypertension, presented to emergency department for evaluation. Patient was [facility] from the [facility] facility due to complaint of chest pain. . Patient was given nitroglycerin and aspirin en route to the hospital ,which resolved her symptoms. Patient reported that her legs currently more swollen than usually. She denied any pain and had no other complaints, however patient with dementia and was unreliable historian. Upon evaluation in emergency department, vital signs were stable. EKG revealed atrial fibrillation with rapid ventricular response . WBC 10.8 BUN- 29, creatinine- 1.9, troponin negative, urinalysis showed no evidence of UTI. CXR revealed cardiomegaly, ,lungs clear. Patient admitted with diagnosis of atrial fibrillation with rapid ventricular response ,congestive heart failure. azotemia, hypertension, cerebrovascular disease. CONSULTANTS: beam warper Dr. Diaz pulmonary Dr. Jimenez GI specialist Dr. Guillen letter of credit clerk Dr. Truong psychiatrist [facility] COURSE: Patient admitted to ICU and started on Cardizem drip for rate control. Patient also started on heparin drip and later Coumadin with bridge to therapeutic goal 2-3. Cashier Tube Room closely followed. Echocardiogram revealed ejection fraction of 25-30%, severe tricuspid regurgitation, moderate mitral regurgitation , moderate pulmonary hypertension. Global left ventricular hypokinesis with septal dyskinesis noted. Patient subsequently was able to be weaned from Cardizem drip to oral Cardizem. During the course of stay , rate control was changed to beta olamide and digoxin as per beam warper discretion. Heparin drip was discontinued, and Coumadin was continue ,INR was therapeutic. Stress test was done in February 2018 and showed no evidence of myocardial ischemia. Anti-failure medication regimen continued with beta olamide, hydralazine, Imdur and Lasix. [facility] [facility] recommended to consider ICD implant versus LifeVest depending on duration of cardiomyopathy. Blood pressure was managed with hydralazine and Lopressor and was stable. Lipid panel was stable. TSH was within normal limits Bill Adjuster closely followed. Supplemental oxygen provided as needed to keep pulse oximetry above 92%. Pulmonary toilet provided as needed. Strict aspiration precaution maintained. Staff Therapist recommendations implemented in plan of care. Newspaper Delivery Driver closely followed. According to letter of credit clerk, patient had acute renal failure on chronic kidney disease. Renal parameters and electrolytes were closely monitored. Electrolytes were replaced as needed. Nephrotoxins were avoided. Renal ultrasound revealed mildly increased bilateral kidney echogenicity, consistent with medical renal disease. GI specialist closely followed. Patient had loose stools but no overt diarrhea. Stool for Clostridium difficile was negative. Laxative along with Reglan were discontinued, and GI prophylaxis with Prevacid was continued. GI procedure was deferred, given acute atrial fibrillation. Supportive care provided. Hemoglobin and hematocrit were closely monitored, remained stable. Stool for occult blood was negative Dietary recommendations implemented in plan of care. GI specialist recommended outpatient colonoscopy. Psychiatrist closely followed and diagnosed patient with anxiety disorder. Anxiolytics were on board as needed. Psychiatrist also recommended to consider SSRI and reassess frequently. Patient was clinically stabilized and on was ready for discharge back to retirement facility for continuation of care FINAL DIAGNOSES: Atrial fibrillation with rapid ventricular response ,resolved Severe cardiomyopathy with ejection fraction 25% Hypertension Acute renal failure on chronic kidney disease Protein calorie malnutrition Anxiety disorder Cerebrovascular disease with history of CVA with left-sided weakness DISCHARGE MEDICATIONS: See Medication Reconciliation list. DISCHARGE INSTRUCTIONS: Patient was discharged to retirement facility. Follow-up with medical doctor at the facility. I have been assigned to dictate discharge summary for this account. I was not involved in the patient's management. Kristie Oswald NP Apr 05, 2018 12:19
== END 2018-04-04 14:58 | DRG 308 ==
LOC: EDBD 12:06 → EMR 12:31 → 2E 12:55 → EDBEDREQ 14:34 → ICU 18:46 → 2W 03-31 01:39 → 2E 04-04 06:22
DX: I48.91 Unspecified atrial fibrillation (principal); I50.23 Acute on chronic systolic (congestive) heart failure; E46 Unspecified protein-calorie malnutrition; I69.354 Hemiplegia and hemiparesis following cerebral infarction affecting left non-dominant side; I13.0 Hypertensive heart and chronic kidney disease with heart failure and stage 1 through stage 4 chronic kidney disease, or unspecified chronic kidney disease; N17.9 Acute kidney failure, unspecified; F41.9 Anxiety disorder, unspecified; I42.9 Cardiomyopathy, unspecified; Z88.6 Allergy status to analgesic agent; J44.9 Chronic obstructive pulmonary disease, unspecified; E11.22 Type 2 diabetes mellitus with diabetic chronic kidney disease; N18.9 Chronic kidney disease, unspecified; M10.9 Gout, unspecified; H54.40 Blindness, one eye, unspecified eye; E78.00 Pure hypercholesterolemia, unspecified; I25.10 Atherosclerotic heart disease of native coronary artery without angina pectoris; Z79.4 Long term (current) use of insulin; Z95.1 Presence of aortocoronary bypass graft
CPT/HCPCS: 36415; 71045; 74018; 76770; 80048; 80053; 80061; 80162; 81001; 81003; 82270; 82550; 82553; 82962; 82977; 83036; 83735; 83880; 84100; 84300; 84443; 84484; 84550; 85025; 85610; 85730; 86140; 87045; 87081; 87086; 87181; 87324; 93306; 99285; J1815; J8499